=== PATIENT | male | born 1985 | race African-American/Black ===

== ENCOUNTER 2019-06-13 10:29 | Emergency (ER) | payer BC ==
[2019-06-13] MEDS ORDERED: HYDROmorphone 0.5 MG/0.5 ML SYRINGE IVP STA ×2 (11:03→14:25)
[2019-06-13] MEDS ORDERED: ONDANSETRON 4 MG/2 ML VIAL IVP STA (11:03)
[2019-06-13] MEDS ORDERED: SODIUM CHLORIDE 0.9% 1,000 ML IV STA ×2 (11:03→12:15)
[2019-06-13 11:21] LABS: Basophils # (A) 0.1 k/uL (0-0.2); Basophils % (A) 2 %; Eosinophils # (A) 0.3 k/uL (0-0.7); Eosinophils % (A) 7 %; HCT 43.8 % (39.0-53.0); HGB 14.8 gm/dL (13.0-17.5); Lymphocytes % (A) 22 %; MCH 33.3 pg (25.0-35.0); MCHC 33.8 g/dL (31.0-37.0); MCV 98.5 fL (80.0-100.0); Mean Platelet Volume 7.8; Monocytes # (A) 0.4 k/uL (0-1.0); Monocytes % (A) 8 %; Neutrophils # (A) 2.8 k/uL (1.3-7.7); Neutrophils % (A) 60 %; Platelet Count 183 k/uL (150-450); RBC 4.45 m/uL (4.30-5.90); RDW 14.8 % (11.5-15.5); WBC 4.7 k/uL (3.8-10.6)
--- NOTE | 2019-06-13 11:22 | ED ---
Abdominal Pain HPI - General Chief Complaint: Abdominal Pain Stated Complaint: Pancreatitis Time Seen by Provider: 06/13/19 10:35 Source: patient Mode of arrival: ambulatory Limitations: no limitations - History of Present Illness Initial Comments: Patient is a 34-year-old male with history of alcoholism and pancreatitis is presenting to emergency Department with a chief complaint of pancreatitis. Patient reports he was hospitalized 3 times previously for pancreatitis. Patient reports history of alcoholism and was undergoing rehab but has recently restarted drinking again. Patient reports he stopped drinking on Monday and has developed epigastric and right upper quadrant abdominal pain on Monday that is throbbing in nature. Patient is also developed nausea and multiple episodes of vomiting but no hemoptysis. Patient reports the symptoms are very similar to his previous episodes of pancreatitis. Patient reports the pain is exacerbated when laying supine. Patient reports taking [id number] juice minimal improvement. Patient reports poor oral intake over the past 4 days since his symptoms began. Patient reports the pain is not related to oral intake. Patient denies chest pain, chest tightness, shortness of breath. Patient denies urinary or bowel symptoms. Patient denies hematuria, hematochezia or melena. - Related Data Home Medications Medication Instructions Recorded Confirmed Colchicine [Colcrys] 0.6 mg PO DAILY 06/13/19 06/13/19 Multivitamins, Thera [Multivitamin 1 tab PO DAILY 06/13/19 06/13/19 (formulary)] Ranitidine HCl 150 mg PO DAILY 06/13/19 06/13/19 Thiamine HCl [Vitamin B-1] 50 mg PO DAILY 06/13/19 06/13/19 Previous Rx's Medication Instructions Recorded Famotidine [Pepcid] 20 mg PO BID #28 tablet 06/13/19 Ondansetron Odt [Zofran Odt] 4 mg PO Q8HR PRN #10 tab 06/13/19 Pantoprazole Sodium [Protonix] 20 mg PO DAILY #20 tablet. 06/13/19 Allergies Allergy/AdvReac Type Severity Reaction Status Date / Time adhesive tape Allergy Unknown Verified 06/13/19 10:41 codeine Allergy Unknown Verified 06/13/19 10:41 Review of Systems ROS Statement: Those systems with pertinent positive or pertinent negative responses have been documented in the HPI. ROS Other: All systems not noted in ROS Statement are negative. Past Medical History Additional Past Medical History / Comment(s): pancreatitis History of Any Multi-Drug Resistant Organisms: None Reported Past Psychological History: Depression Smoking Status: Current every day smoker Past Alcohol Use History: Abuse, Daily Past Drug Use History: None Reported General Exam Limitations: no limitations General appearance: alert, in no apparent distress Head exam: Present: atraumatic, normocephalic, normal inspection Eye exam: Present: normal appearance, PERRL, EOMI Pupils: Present: normal accommodation ENT exam: Present: normal exam, normal oropharynx, mucous membranes dry, TM's normal bilaterally, normal external ear exam Neck exam: Present: normal inspection, full ROM Respiratory exam: Present: normal lung sounds bilaterally. Absent: respiratory distress, wheezes Cardiovascular Exam: Present: regular rate, normal rhythm, normal heart sounds GI/Abdominal exam: Present: soft, tenderness (Epigastric and right upper quadra nt tenderness), normal bowel sounds, other (Negative psoas sign, negative McBurney point tenderness, negative obturator, negative Rovsing). Absent: distended, guarding, rebound Extremities exam: Present: normal inspection, full ROM Back exam: Present: normal inspection, full ROM. Absent: tenderness, CVA tenderness (R), CVA tenderness (L) Neurological exam: Present: alert, oriented X3 Psychiatric exam: Present: normal affect, normal mood Skin exam: Present: warm, intact, normal color Course Vital Signs 06/13/19 06/13/19 06/13/19 10:31 12:56 15:10 Temperature 98.2 F 98.1 F Pulse Rate 101 H 87 76 Respiratory 18 18 20 Rate Blood Pressure 155/95 166/91 123/56 O2 Sat by Pulse 99 99 98 Oximetry Medical Decision Making - Medical Decision Making patient is a 34-year-old male with history of pancreatitis and alcoholism presents emergency Department with a chief complaint of Abdominal pain. CBC is unremarkable. UA is showing mild elevation acute tones which I suspect is due to the dehydration. Patient given 2 L of fluid. No elevation of lipase but amylase appears to be elevated. AST and ALT elevation with 2:1 ratio. At this point I have low suspicion for pancreatitis. Ultrasound of the right upper quadrant is indicative of hepatosplenomegaly secondary to a fatty liver. I suspect the patient to have elevated liver enzymes chronically due to alcoholism. Patient given Dilaudid for pain control. Patient given Zofran and the nausea has resolved. Patient will be discharged Zofran, Pepcid and Protonix. Suspect the patient to have the pain from a possible gastritis or secondary to the hepatomegaly. Strict return parameters were thoroughly discussed the patient was understanding and agreeable. Patient was to follow-up with primary care regarding elevated liver enzymes. Patient advised to avoid drinking alcohol. Case discussed with physician. - Lab Data Result diagrams: 06/13/19 11:05 06/13/19 11:05 Lab Results 06/13/19 06/13/19 06/13/19 Range/Units 11:05 11:05 11:10 WBC 4.7 (3.8-10.6) k/uL RBC 4.45 (4.30-5.90) m/uL Hgb 14.8 (13.0-17.5) gm/dL Hct 43.8 (39.0-53.0) % MCV 98.5 (80.0-100.0) fL MCH 33.3 (25.0-35.0) pg MCHC 33.8 (31.0-37.0) g/dL RDW 14.8 (11.5-15.5) % Plt Count 183 (150-450) k/uL Neutrophils % 60 % Lymphocytes % 22 % Monocytes % 8 % Eosinophils % 7 % Basophils % 2 % Neutrophils # 2.8 (1.3-7.7) k/uL Lymphocytes # 1.0 (1.0-4.8) k/uL Monocytes # 0.4 (0-1.0) k/uL Eosinophils # 0.3 (0-0.7) k/uL Basophils # 0.1 (0-0.2) k/uL Sodium 139 (137-145) mmol/L Potassium 3.1 L (3.5-5.1) mmol/L Chloride 99 (98-107) mmol/L Carbon Dioxide 29 (22-30) mmol/L Anion Gap 11 mmol/L BUN 12 (9-20) mg/dL Creatinine 0.90 (0.66-1.25) mg/dL Est GFR (CKD-EPI)AfAm >90 (>60 ml/min/1.73 sqM) Est GFR (CKD-EPI)NonAf >90 (>60 ml/min/1.73 sqM) Glucose 112 H (74-99) mg/dL Calcium 9.7 (8.4-10.2) mg/dL Total Bilirubin 1.5 H (0.2-1.3) mg/dL AST 377 H (17-59) U/L ALT 164 H (21-72) U/L Alkaline Phosphatase 77 (38-126) U/L Total Protein 7.8 (6.3-8.2) g/dL Albumin 4.5 (3.5-5.0) g/dL Amylase 188 H (30-110) U/L Lipase 232 (23-300) U/L Urine Color Light [place] Urine Appearance Clear (Clear) Urine pH 6.0 (5.0-8.0) Ur Specific [place] 1.031 (1.001-1.035) Urine Protein 1+ H (Negative) Urine Glucose (UA) Negative (Negative) Urine Ketones 1+ H (Negative) Urine Blood Negative (Negative) Urine Nitrite Negative (Negative) Urine Bilirubin 1+ H (Negative) Urine Urobilinogen 3.0 (<2.0) mg/dL Ur Leukocyte Esterase Negative (Negative) Urine RBC <1 (0-5) /hpf Urine WBC 1 (0-5) /hpf Urine Mucus Few H (None) /hpf Disposition Clinical Impression: Abdominal pain in male Disposition: HOME SELF-CARE Condition: Stable Instructions (If sedation given, give patient instructions): Abdominal Pain (ED) Additional Instructions: Please take prescribed medication as directed. Please follow-up with primary care regarding elevated liver enzymes. Please return to emergency department if symptoms worsen. Please avoid drinking alcohol. Prescriptions: Famotidine [Pepcid] 20 mg PO BID #28 tablet Pantoprazole Sodium [Protonix] 20 mg PO DAILY #20 tablet. Ondansetron Odt [Zofran Odt] 4 mg PO Q8HR PRN #10 tab PRN Reason: Nausea Is patient prescribed a controlled substance at d/c from ED?: No Referrals: None,Stated [Primary Care Provider] - 1-2 days Time of Disposition: 14:26
[2019-06-13 11:28] LABS: ALT 164 U/L (21-72); AST 377 U/L (17-59); African American GFR (CKD) >90 (>60 ml/min/1.73 sqM); Albumin 4.5 g/dL (3.5-5.0); Alkaline Phosphatase 77 U/L (38-126); Amylase 188 U/L (30-110); Anion Gap 11 mmol/L; Blood Urea Nitrogen 12 mg/dL (9-20); Calcium 9.7 mg/dL (8.4-10.2); Carbon Dioxide 29 mmol/L (22-30); Chloride 99 mmol/L (98-107); Glucose 112 mg/dL (74-99); Potassium 3.1 mmol/L (3.5-5.1); Sodium 139 mmol/L (137-145); Total Bilirubin 1.5 mg/dL (0.2-1.3); Total Protein 7.8 g/dL (6.3-8.2)
[2019-06-13 11:39] LABS: Appearance,Urine Clear (Clear); Bilirubin,Urine 1+ (Negative); Blood,Urine Negative (Negative); Color,Urine Light Orange; Glucose,Urine (UA) Negative (Negative); Ketones,Urine 1+ (Negative); Leukocyte Esterase,Urine Negative (Negative); Mucus,Urine Few /hpf; Nitrite,Urine Negative (Negative); Protein,Urine 1+ (Negative); RBC,Urine <1 /hpf (0-5); Specific Gravity,Urine 1.031 (1.001-1.035); WBC,Urine 1 /hpf (0-5)
--- NOTE | 2019-06-13 11:56 | XR ---
EXAMINATION TYPE: XR KUB DATE OF EXAM: 06/13/2019 COMPARISON: None INDICATION: Abdomen pain vomiting pancreatitis TECHNIQUE: Single view abdomen upright view FINDINGS: Nonspecific bowel gas is present. Air is within the colon. No suspicious air-fluid levels or differen tial air-fluid levels are present. No free air is present. No mass effect is evident. Organomegaly is not evident. IMPRESSION: 1. Unremarkable Abdomen
--- NOTE | 2019-06-13 13:02 | US ---
EXAMINATION TYPE: US abdomen limited DATE OF EXAM: 06/13/2019 COMPARISON: NONE CLINICAL HISTORY: Pain. Epigastric pain and N/V x 3 days EXAM MEASUREMENTS: Liver Length: 16.9 cm Gallbladder Wall: 0.2 cm CBD: 0.4 cm Right Kidney: 10.5 x 5.2 x 5.6 cm Difficult and limited study due to patient body habitus Pancreas: visualized portions wnl, limited by overlying midline bowel gas Liver: mildly heterogeneous Gallbladder: wnl Evidence for sonographic Ross's sign: no CBD: visualized portions wnl, limited by overlying bowel gas Right Kidney: visualized portions wnl, inferior pole limited by overlying bowel gas IMPRESSION: 1. Hepatomegaly and mild fatty infiltration the liver.
[2019-06-13 15:24] VITALS: BP 123/56; PULSE 76; RESP 20; TEMP 98.1
== END 2019-06-13 15:10 | disposition home or self-care (01) ==
LOC: EC 10:29
DX: R10.11 Right upper quadrant pain (principal); R74.0 Nonspecific elevation of levels of transaminase and lactic acid dehydrogenase [LDH]; K76.0 Fatty (change of) liver, not elsewhere classified; R16.2 Hepatomegaly with splenomegaly, not elsewhere classified; F10.21 Alcohol dependence, in remission; R11.2 Nausea with vomiting, unspecified; F17.200 Nicotine dependence, unspecified, uncomplicated; Z88.5 Allergy status to narcotic agent; Z91.048 Other nonmedicinal substance allergy status; Z79.899 Other long term (current) drug therapy; Z87.19 Personal history of other diseases of the digestive system
CPT/HCPCS: 36415; 80053; 82150; 83690; 85025; 81001; 74018; 76705; 99284; 96374; 96375; 96376; 96361 ×4; J2405; J1170

== ENCOUNTER 2019-10-13 05:55 | Observation (INO) | payer BC ==
[2019-10-13] MEDS ORDERED: SODIUM CHLORIDE 0.9% 2,000 ML IV STA (06:03)
[2019-10-13] MEDS ORDERED: HYDROmorphone 0.5 MG/0.5 ML SYRINGE IVP STA ×2 (06:13→07:15)
[2019-10-13] MEDS ORDERED: ONDANSETRON 4 MG/2 ML VIAL IVP STA (06:13)
[2019-10-13] MEDS ORDERED: KETOROLAC 30 MG/ML 1 ML VIAL IVP STA (06:13)
--- NOTE | 2019-10-13 06:21 | ED ---
General Adult HPI - General Chief complaint: Abdominal Pain Stated complaint: Pancreatits Time Seen by Provider: 10/13/19 06:03 Source: patient, RN notes reviewed Mode of arrival: ambulatory Limitations: no limitations - History of Present Illness Initial comments: 34-year-old male presents emergency Department with chief complaint of Abdominal pain, nausea vomiting. Patient states she drink alcohol on . Patient states that he was sober prior to this states that he has a history of pancreatitis. Patient states the pain feels very similar he's been fighting that over the last couple days, she cannot tolerate the pain and vomiting anymore. Patient denies fever, chills, chest pain or shortness breath no diarrhea no constipation no dysuria no hematuria. Patient had no prior abdominal surgeries. - Related Data Home Medications Medication Instructions Recorded Confirmed Colchicine [Colcrys] 0.6 mg PO DAILY 06/13/19 06/13/19 Multivitamins, Thera [Multivitamin 1 tab PO DAILY 06/13/19 06/13/19 (formulary)] Ranitidine HCl 150 mg PO DAILY 06/13/19 06/13/19 Thiamine HCl [Vitamin B-1] 50 mg PO DAILY 06/13/19 06/13/19 Previous Rx's Medication Instructions Recorded Famotidine [Pepcid] 20 mg PO BID #28 tablet 06/13/19 Ondansetron Odt [Zofran Odt] 4 mg PO Q8HR PRN #10 tab 06/13/19 Pantoprazole Sodium [Protonix] 20 mg PO DAILY #20 tablet. 06/13/19 Allergies Allergy/AdvReac Type Severity Reaction Status Date / Time adhesive tape Allergy Unknown Verified 10/13/19 06:02 codeine Allergy Unknown Verified 10/13/19 06:02 Review of Systems ROS Statement: Those systems with pertinent positive or pertinent negative responses have been documented in the HPI. ROS Other: All systems not noted in ROS Statement are negative. Past Medical History Additional Past Medical History / Comment(s): pancreatitis History of Any Multi-Drug Resistant Organisms: None Reported Past Psychological History: Depression Smoking Status: Current every day smoker Past Alcohol Use History: Abuse, Daily Past Drug Use History: None Reported General Exam Limitations: no limitations General appearance: alert, in no apparent distress Head exam: Present: atraumatic, normocephalic, normal inspection Eye exam: Present: normal appearance, PERRL, EOMI. Absent: scleral icterus, conjunctival injection, periorbital swelling ENT exam: Present: normal exam, normal oropharynx, mucous membranes moist Neck exam: Present: normal inspection. Absent: tenderness, meningismus, lymphadenopathy Respiratory exam: Present: normal lung sounds bilaterally. Absent: respiratory distress, wheezes, rales, rhonchi, stridor Cardiovascular Exam: Present: normal rhythm, tachycardia, normal heart sounds. Absent: systolic murmur, diastolic murmur, rubs, gallop, clicks GI/Abdominal exam: Present: soft, tenderness (Midabdominal to right-sided abdominal tenderness), normal bowel sounds. Absent: distended, guarding, rebound, rigid Back exam: Absent: CVA tenderness (R), CVA tenderness (L) Neurological exam: Present: alert, oriented X3 Skin exam: Present: warm, dry, intact, normal color. Absent: rash Course Vital Signs 10/13/19 06:00 Temperature 98.3 F Pulse Rate 117 H Respiratory 20 Rate Blood Pressure 164/94 O2 Sat by Pulse 100 Oximetry Medical Decision Making - Medical Decision Making Patient'ss, amylase lipase along with his liver enzymes are elevated this time ultrasound is unremarkable. Patient's pain is uncontrolled, does have continuation of nausea. Patient will be admitted for acute pancreatitis. - Lab Data Result diagrams: 10/13/19 06:13 10/13/19 06:13 Lab Results 10/13/19 10/13/19 10/13/19 Range/Units 06:13 06:13 06:13 WBC 6.3 (3.8-10.6) k/uL RBC 4.79 (4.30-5.90) m/uL Hgb 16.1 (13.0-17.5) gm/dL Hct 46.9 (39.0-53.0) % MCV 97.8 (80.0-100.0) fL MCH 33.5 (25.0-35.0) pg MCHC 34.3 (31.0-37.0) g/dL RDW 12.9 (11.5-15.5) % Plt Count 296 (150-450) k/uL Neutrophils % 60 % Lymphocytes % 24 % Monocytes % 8 % Eosinophils % 3 % Basophils % 3 % Neutrophils # 3.8 (1.3-7.7) k/uL Lymphocytes # 1.5 (1.0-4.8) k/uL Monocytes # 0.5 (0-1.0) k/uL Eosinophils # 0.2 (0-0.7) k/uL Basophils # 0.2 (0-0.2) k/uL Sodium 140 (137-145) mmol/L Potassium 3.3 L (3.5-5.1) mmol/L Chloride 101 (98-107) mmol/L Carbon Dioxide 24 (22-30) mmol/L Anion Gap 15 mmol/L BUN 11 (9-20) mg/dL Creatinine 1.06 (0.66-1.25) mg/dL Est GFR (CKD-EPI)AfAm >90 (>60 ml/min/1.73 sqM) Est GFR (CKD-EPI)NonAf >90 (>60 ml/min/1.73 sqM) Glucose 136 H (74-99) mg/dL Calcium 10.5 H (8.4-10.2) mg/dL Total Bilirubin 2.6 H (0.2-1.3) mg/dL AST 88 H (17-59) U/L ALT 52 H (4-49) U/L Alkaline Phosphatase 127 H (38-126) U/L Total Protein 9.5 H (6.3-8.2) g/dL Albumin 5.1 H (3.5-5.0) g/dL Amylase 165 H (30-110) U/L Lipase 603 H (23-300) U/L Urine Color Light [place] Urine Appearance Clear (Clear) Urine pH 6.0 (5.0-8.0) Ur Specific [place] 1.035 (1.001-1.035) Urine Protein 1+ H (Negative) Urine Glucose (UA) Negative (Negative) Urine Ketones 1+ H (Negative) Urine Blood Negative (Negative) Urine Nitrite Negative (Negative) Urine Bilirubin 1+ H (Negative) Urine Urobilinogen 4.0 (<2.0) mg/dL Ur Leukocyte Esterase Negative (Negative) Urine RBC 1 (0-5) /hpf Urine WBC 2 (0-5) /hpf Ur Squamous Epith Cells <1 (0-4) /hpf Hyaline Casts 136 H (0-2) /lpf Urine Mucus Many H (None) /hpf Disposition Clinical Impression: Acute pancreatitis, Transaminitis, Hyperbilirubinemia Disposition: ADMITTED IP TO THIS HOSP Condition: Fair Referrals: None,Stated [Primary Care Provider] - 1-2 days
[2019-10-13 06:26] LABS: Basophils # (A) 0.2 k/uL (0-0.2); Basophils % (A) 3 %; Eosinophils # (A) 0.2 k/uL (0-0.7); Eosinophils % (A) 3 %; HCT 46.9 % (39.0-53.0); HGB 16.1 gm/dL (13.0-17.5); Lymphocytes # (A) 1.5 k/uL (1.0-4.8); Lymphocytes % (A) 24 %; MCH 33.5 pg (25.0-35.0); MCHC 34.3 g/dL (31.0-37.0); MCV 97.8 fL (80.0-100.0); Mean Platelet Volume 7.1; Monocytes # (A) 0.5 k/uL (0-1.0); Monocytes % (A) 8 %; Neutrophils # (A) 3.8 k/uL (1.3-7.7); Neutrophils % (A) 60 %; Platelet Count 296 k/uL (150-450); RBC 4.79 m/uL (4.30-5.90); RDW 12.9 % (11.5-15.5); WBC 6.3 k/uL (3.8-10.6)
[2019-10-13 06:28] LABS: Appearance,Urine Clear (Clear); Bilirubin,Urine 1+ (Negative); Blood,Urine Negative (Negative); Color,Urine Light Brown; Glucose,Urine (UA) Negative (Negative); Hyaline Casts,Urine 136 /lpf (0-2); Ketones,Urine 1+ (Negative); Leukocyte Esterase,Urine Negative (Negative); Mucus,Urine Many /hpf; Nitrite,Urine Negative (Negative); Protein,Urine 1+ (Negative); RBC,Urine 1 /hpf (0-5); Specific Gravity,Urine 1.035 (1.001-1.035); Squamous Epithelial Cell,Urine <1 /hpf (0-4); WBC,Urine 2 /hpf (0-5)
[2019-10-13 06:33] LABS: ALT 52 U/L (4-49); AST 88 U/L (17-59); African American GFR (CKD) >90 (>60 ml/min/1.73 sqM); Albumin 5.1 g/dL (3.5-5.0); Alkaline Phosphatase 127 U/L (38-126); Amylase 165 U/L (30-110); Anion Gap 15 mmol/L; Blood Urea Nitrogen 11 mg/dL (9-20); Calcium 10.5 mg/dL (8.4-10.2); Carbon Dioxide 24 mmol/L (22-30); Chloride 101 mmol/L (98-107); Glucose 136 mg/dL (74-99); Non-African American GFR(CKD) >90 (>60 ml/min/1.73 sqM); Potassium 3.3 mmol/L (3.5-5.1); Sodium 140 mmol/L (137-145); Total Bilirubin 2.6 mg/dL (0.2-1.3); Total Protein 9.5 g/dL (6.3-8.2)
--- NOTE | 2019-10-13 07:39 | US ---
EXAMINATION TYPE: US gallbladder DATE OF EXAM: 10/13/2019 COMPARISON: Previous study dated 06/13/2019. CLINICAL HISTORY: pain, transaminitis. EXAM MEASUREMENTS: Liver Length: 17.0 cm Gallbladder Wall: 0.2 cm CBD: 0.3 cm Right Kidney: 10.2 x 5.1 x 5.0 cm Large body habitus, technically difficult and somewhat limited study. Pancreas: Tail obscured by overlying bowel gas, otherwise wnl Liver: Increased attenuation, decreased visualization of vessels suggestive of fatty infiltrate, upp er limits of normal in size Gallbladder: wnl Evidence for sonographic Ross's sign: No CBD: limited visualization wnl as seen Right Kidney: Inferior pole obscured by overlying bowel gas, wnl as seen The pancreas is poorly visualized. The liver is normal in size without biliary dilatation. It is somewhat high in attenuation and may be fatty infiltrated. The gallbladder is unremarkable without evidence cholelithiasis. The gallbladder wall measures 2 mm. This common hepatic duct measures 3 mm. There is no sonographic Ross's sign. Limited views of the right kidney are unremarkable. IMPRESSION: PROBABLE FATTY INFILTRATION OF THE LIVER.
[2019-10-13] MEDS ORDERED: METOCLOPRAMIDE 5 MG/ML 2 ML VIAL IVP STA (07:44)
[2019-10-13] MEDS ORDERED: HYDROmorphone 0.5 MG/0.5 ML SYRINGE IVP PRN (07:47)
[2019-10-13] MEDS ORDERED: NALOXONE 0.4 MG/ML 1 ML VIAL IV PRN (07:47)
[2019-10-13] MEDS: SODIUM CHLORIDE 0.9% 1,000 ML IV SCH ×2 (08:31→17:50)
[2019-10-13] MEDS ORDERED: HYDROmorphone 1 MG/ML 1 ML SYRINGE IVP STA (09:59)
[2019-10-13] MEDS: HYDROmorphone 1 MG/ML 1 ML SYRINGE IVP PRN ×4 (12:38→21:30)
[2019-10-13] MEDS: KETOROLAC 30 MG/ML 1 ML VIAL IVP PRN ×2 (13:56→20:06)
[2019-10-13] MEDS: ONDANSETRON 4 MG/2 ML VIAL IVP PRN (13:56)
[2019-10-13] MEDS ORDERED: Potassium Replacement Protocol 1 EACH MISC MISCELLANE PRN (14:27)
[2019-10-13] MEDS ORDERED: ACETAMINOPHEN TAB 325 MG TAB PO PRN (14:29)
[2019-10-13] MEDS ORDERED: HYDROcodone/APAP 5-325MG 1 EACH TAB PO PRN (14:29)
--- NOTE | 2019-10-13 14:30 | P.HPIM ---
History of Present Illness H&P Date: 10/13/19 Chief Complaint: Pancreatitis 34-year-old male with PMH of pancreatitis and history of alcohol abuse presents the ED for abdominal pain. She states that he was binge drinking on Monday and . Patient states he drank about a fifth of hard liquor. Previous to that, he had quit drinking for 4 months. Patient states that he has been a daily drinker for many years until he quit 4 months ago. He drinks 2 pints of vodka daily. Patient states that he was diagnosed with pancreatitis from similar symptoms one year prior to admission. Pain is currently located in the epigastric area. Pain is constant in nature. Pain is stabbing and radiates to the back. Pain is 9 out of 10 in severity. Patient also reports multiple episodes of nonbilious nonbloody vomiting since his pain started on Monday. When his pain did not improve, this prompted him to come to the ED. He denies any headache, lower extremity edema, fever or chills, cough, chest pain, shortness of breath, changes in urination or bowel habits. He does report a decrease appetite. He denies any dizziness, numbness/weakness/tingling of the extremities. In the ED, he underwent extensive evaluation. Vital signs were stable except for tachycardia and elevated BP. CBC was unremarkable. CMP sh owed potassium of 3.3, glucose 136, calcium 10.5, total bilirubin 2.6, AST 88, ALT 52, alkaline phosphatase 127, amylase 165, lipase 603. Gallbladder ultrasound showed no signs of choledocholithiasis or cholecystitis. Patient is admitted for pancreatitis. Review of Systems Pertinent positives and negatives as discussed in HPI, a complete review of sy stems was performed and all other systems are negative. Past Medical History Additional Past Medical History / Comment(s): pancreatitis, gout. History of Any Multi-Drug Resistant Organisms: None Reported Additional Past Surgical History / Comment(s): tubes in ears Past Anesthesia/Blood Transfusion Reactions: No Reported Reaction Past Psychological History: Depression Smoking Status: Current every day smoker Past Alcohol Use History: Abuse, Daily Past Drug Use History: None Reported - Past Family History Father History Unknown: Yes Mother Family Medical History: Diabetes Mellitus Medications and Allergies Home Medications Medication Instructions Recorded Confirmed Type Colchicine 0.6 mg PO DAILY PRN 10/13/19 10/13/19 History FLUoxetine HCL 40 mg PO DAILY 10/13/19 10/13/19 History hydrOXYzine HCL [Atarax] 25 mg PO TID 10/13/19 10/13/19 History Allergies Allergy/AdvReac Type Severity Reaction Status Date / Time adhesive tape Allergy Unknown Verified 10/13/19 09:25 codeine Allergy Unknown Verified 10/13/19 09:25 Physical Exam Vitals: Vital Signs Temp Pulse Pulse Resp BP BP Pulse Ox 10/13/19 09:27 98.3 F 76 18 157/80 98 10/13/19 08:28 98.4 F 95 18 136/98 98 10/13/19 06:00 98.3 F 117 H 20 164/94 100 Intake and Output 10/12/19 10/13/19 10/13/19 22:59 06:59 14:59 Other: Weight 140.614 kg 140.614 kg General: [non toxic], [no distress], [appears at stated age] Derm: [warm], [dry] Head: [atraumatic], [normocephalic], [symmetric] Eyes: [EOMI], [no lid lag], [anicteric sclera] Mouth: [no lip lesion], [mucus membranes moist] Cardiovascular: [S1S2 reg], [no murmur], [positive posterior tibial pulse bilateral], Lungs: [CTA bilateral], [no rhonchi, no rales] , [no accessory muscle use] Abdominal: [soft], [tenderness to palpation in the epigastric area without rebound], [no guarding], [no appreciable organomegaly] Ext: [no gross muscle atrophy], [no edema], [no contractures] Neuro: [ CN II-XI grossly intact], [no focal neuro deficits] Psych: [Alert], [oriented], [appropriate affect] Results CBC & Chem 7: 10/13/19 06:13 10/13/19 06:13 Labs: Abnormal Lab Results - Last 24 Hours (Table) 10/13/19 10/13/19 Range/Units 06:13 06:13 Potassium 3.3 L (3.5-5.1) mmol/L Glucose 136 H (74-99) mg/dL Calcium 10.5 H (8.4-10.2) mg/dL Total Bilirubin 2.6 H (0.2-1.3) mg/dL AST 88 H (17-59) U/L ALT 52 H (4-49) U/L Alkaline Phosphatase 127 H (38-126) U/L Total Protein 9.5 H (6.3-8.2) g/dL Albumin 5.1 H (3.5-5.0) g/dL Amylase 165 H (30-110) U/L Lipase 603 H (23-300) U/L Urine Protein 1+ H (Negative) Urine Ketones 1+ H (Negative) Urine Bilirubin 1+ H (Negative) Hyaline Casts 136 H (0-2) /lpf Urine Mucus Many H (None) /hpf Thrombosis Risk Factor Assmnt - Choose All That Apply Any of the Below Risk Factors Present?: No Assessment and Plan Assessment: Acute pancreatitis History of alcohol abuse Elevated BP without the diagnosis of hypertension Hypokalemia Transaminitis Amylase 165, lipase 603. Likely related to alcohol abuse. Plans: Nothing by mouth. Zofran as needed for nausea or vomiting. Continue normal saline at 100 mL/h. Pain control with Dilaudid as needed. Repeat amylase and lipase tomorrow morning. Patient states that he had quit for 4 months prior to binge drinking on Monday and . Low risk for withdrawal symptoms. Plans: Advised to quit. Blood pressure 157/80. Likely due to acute pain. Plans: Monitor vitals, adjust medications as necessary. Potassium 3.3. Plans: Replace via protocol. Repeat CMP tomorrow morning. Total bilirubin 2.6, AST 88, ALT 52, alkaline phosphatase 127. Gallbladder ultrasound shows fatty liver. Likely due to alcohol abuse. Plans: Needs to quit drinking. Repeat CMP tomorrow morning. DVT prophylaxis: [SCD boots] Discussed with: [Patient] Anticipated discharge: [1-2 days] Anticipated discharge place: [Home] A total of [35] minutes was spent on the care of this complex patient more than 50% of the time was spent in counseling and care coordination. Patient is admitted for pancreatitis. He is pending clinical improvement.
[2019-10-14] MEDS: HYDROmorphone 1 MG/ML 1 ML SYRINGE IVP PRN ×3 (00:23→05:44)
[2019-10-14] MEDS: ONDANSETRON 4 MG/2 ML VIAL IVP PRN ×2 (03:17→09:06)
[2019-10-14] MEDS: SODIUM CHLORIDE 0.9% 1,000 ML IV SCH ×2 (04:36→14:19)
[2019-10-14 05:19] VITALS: TEMP 99.4
[2019-10-14 08:15] LABS: ALT 36 U/L (4-49); AST 60 U/L (17-59); African American GFR (CKD) >90 (>60 ml/min/1.73 sqM); Albumin 3.9 g/dL (3.5-5.0); Alkaline Phosphatase 84 U/L (38-126); Amylase 97 U/L (30-110); Anion Gap 10 mmol/L; Blood Urea Nitrogen 7 mg/dL (9-20); Calcium 9.1 mg/dL (8.4-10.2); Carbon Dioxide 24 mmol/L (22-30); Chloride 107 mmol/L (98-107); Glucose 92 mg/dL (74-99); Non-African American GFR(CKD) >90 (>60 ml/min/1.73 sqM); Potassium 3.6 mmol/L (3.5-5.1); Sodium 141 mmol/L (137-145); Total Bilirubin 1.7 mg/dL (0.2-1.3); Total Protein 7.3 g/dL (6.3-8.2)
[2019-10-14] MEDS: KETOROLAC 30 MG/ML 1 ML VIAL IVP PRN (09:05)
[2019-10-14 12:53] VITALS: BP 143/81; PULSE 88; RESP 16
--- NOTE | 2019-10-14 14:39 | P.DS ---
Providers Date of admission: 10/13/19 07:47 Expected date of discharge: 10/14/19 Attending physician: Bro Sun MD Primary care physician: Stated None Hospital Course: 34-year-old male with PMH of pancreatitis and history of alcohol abuse presents the ED for abdominal pain. She states that he was binge drinking on Monday and . Patient states he drank about a fifth of hard liquor. Previous to that, he had quit drinking for 4 months. Patient states that he has been a daily drinker for many years until he quit 4 months ago. He drinks 2 pints of vodka daily. Patient states that he was diagnosed with pancreatitis from similar symptoms one year prior to admission. Pain is currently located in the epigastric area. Pain is constant in nature. Pain is stabbing and radiates to the back. Pain is 9 out of 10 in severity. Patient also reports multiple episodes of nonbilious nonbloody vomiting since his pain started on Monday. When his pain did not improve, this prompted him to come to the ED. He denies a ny headache, lower extremity edema, fever or chills, cough, chest pain, shortness of breath, changes in urination or bowel habits. He does report a decrease appetite. He denies any dizziness, numbness/weakness/tingling of the extremities. In the ED, he underwent extensive evaluation. Vital signs were stable except for tachycardia and elevated BP. CBC was unremarkable. CMP showed potassium of 3.3, glucose 136, calcium 10.5, total bilirubin 2.6, AST 88, ALT 52, alkaline phosphatase 127, amylase 165, lipase 603. Gallbladder ultrasound showed no signs of choledocholithiasis or cholecystitis. Patient is admitted for pancreatitis. His amylase trended down to 97. Her lipase trended down to 405. He was transitioned from clear liquid diet to regular diet. He was given Zofran as a for nausea or vomiting. He was given normal saline at 100 mL/h. Pain was controlled with Dilaudid as needed. Patient was noted to have an elevated BP on admission. This is thought to be secondary to abdominal pain. Pain was well-controlled throughout his admission. His blood pressure on discharge was 143/81. Patient was seen and examined. No acute events overnight. Patient denies any complaints. He denies any chest pain, shortness of breath or palpitations. No nausea or vomiting. No fever or chills. No abdominal pain. General: [non toxic], [no distress], [appears at stated age] Derm: [warm], [dry] Head: [atraumatic], [normocephalic], [symmetric] Eyes: [EOMI], [no lid lag], [anicteric sclera] Mouth: [no lip lesion], [mucus membranes moist] Cardiovascular: [S1S2 reg], [no murmur], [positive posterior tibial pulse bilateral], Lungs: [CTA bilateral], [no rhonchi, no rales] , [no accessory muscle use] Abdominal: [soft], [nontender to palpation], [no guarding], [no appreciable organomegaly] Ext: [no gross muscle atrophy], [no edema], [no contractures] Neuro: [ CN II-XI grossly intact], [no focal neuro deficits] Psych: [Alert], [oriented], [appropriate affect] Acute pancreatitis History of alcohol abuse Elevated BP without the diagnosis of hypertension Transaminitis Amylase 165-within normal limits, lipase 603-45. Likely related to alcohol abuse. Plans: Clear liquid diet and advance. Zofran as needed for nausea or vomiting. Continue normal saline at 100 mL/h. Pain control with Dilaudid or Toradol as needed. Patient states that he had quit for 4 months prior to binge drinking on Monday and . Low risk for withdrawal symptoms. Plans: Advised to quit. Blood pressure 143/81. Likely due to acute pain. Plans: Monitor vitals, adjust medications as necessary. Total bilirubin 2.6-1.7, AST 88-60, ALT 52-within normal limits, alkaline phosphatase 127-within normal limits. Gallbladder ultrasound shows fatty liver. Likely due to alcohol abuse. Plans: Needs to quit drinking. [Plans to DC patient home if able to tolerate regular diet this afternoon.] Pertinent Studies: Gallbladder ultrasound Patient Condition at Discharge: Stable Plan - Discharge Summary Discharge Rx Participant: No New Discharge Prescriptions: New Hydrocodone/Acetaminophen [[place] 5-325] 1 tab PO Q4HR PRN 3 Days #18 tab PRN Reason: Pain Continue hydrOXYzine HCL [Atarax] 25 mg PO TID FLUoxetine HCL 40 mg PO DAILY Colchicine 0.6 mg PO DAILY PRN PRN Reason: Pain Discharge Medication List Colchicine 0.6 mg PO DAILY PRN 10/13/19 [History] FLUoxetine HCL 40 mg PO DAILY 10/13/19 [History] hydrOXYzine HCL [Atarax] 25 mg PO TID 10/13/19 [History] Hydrocodone/Acetaminophen [[place] 5-325] 1 tab PO Q4HR PRN 3 Days #18 tab 10/14/19 [Rx] Follow up Appointment(s)/Referral(s): None,Stated [Primary Care Provider] - 1-2 days Activity/Diet/Wound Care/Special Instructions: Diet: Low-salt Follow-up PCP within 3 days. Quit drinking. Discharge Disposition: HOME SELF-CARE
== END 2019-10-14 15:20 | disposition home or self-care (01) ==
LOC: EC 05:55 → 6NMEDSUR 07:47
PROVIDERS: ADMIT Family Medicine; ATTEND Family Medicine
DX: K85.90 Acute pancreatitis without necrosis or infection, unspecified (principal); F10.10 Alcohol abuse, uncomplicated; R74.0 Nonspecific elevation of levels of transaminase and lactic acid dehydrogenase [LDH]; R03.0 Elevated blood-pressure reading, without diagnosis of hypertension; K76.0 Fatty (change of) liver, not elsewhere classified; E87.6 Hypokalemia; M10.9 Gout, unspecified; F32.9 Major depressive disorder, single episode, unspecified; F17.200 Nicotine dependence, unspecified, uncomplicated; Z87.19 Personal history of other diseases of the digestive system; Z98.890 Other specified postprocedural states; Z79.899 Other long term (current) drug therapy; Z91.09 Other allergy status, other than to drugs and biological substances; Z88.5 Allergy status to narcotic agent
CPT/HCPCS: 96376 ×3; 96361 ×3; 96374; 96375; 99285; 36415; 80053 ×2; 82150 ×2; 83690 ×2; 85025; 81001; 76705; G0378 ×2; J2765; J2405 ×2; J1885 ×2; J1170 ×3

== ENCOUNTER 2019-11-08 19:20 | Emergency (ER) | payer BC ==
[2019-11-08 19:27] VITALS: TEMP 98.5
[2019-11-08] MEDS ORDERED: KETOROLAC 30 MG/ML 1 ML VIAL IM STA (20:20)
[2019-11-08] MEDS ORDERED: INDOMETHACIN 25 MG CAP PO STA (20:22)
[2019-11-08] MEDS ORDERED: HYDROcodone/APAP 5-325MG 1 EACH TAB PO STA (20:22)
--- NOTE | 2019-11-08 20:40 | XR ---
EXAMINATION TYPE: XR ankle complete RT DATE OF EXAM: 11/08/2019 COMPARISON: NONE HISTORY: Pain and swelling TECHNIQUE: 3 views FINDINGS: Ankle mortise is anatomic. I see no fracture nor dislocation. Joint spaces are normal. Ther e is small Achilles calcaneal spur. IMPRESSION: Negative right ankle exam.
--- NOTE | 2019-11-08 20:55 | ED ---
Extremity Problem HPI - General Source: patient Mode of arrival: ambulatory Limitations: no limitations <Margo Summers - Last Filed: 11/08/19 23:29> <Blanca Fernandez - Last Filed: 11/13/19 15:30> - General Chief complaint: Extremity Problem,Nontraumatic Stated complaint: Gout Time Seen by Provider: 11/08/19 19:49 - History of Present Illness Initial comments: 34-year-old male patient presents to the emergency department today for evaluation of right ankle pain. Patient states the pain started yesterday that worsened significantly today. Patient states he is unable to touch the ankle or bear weight. States that his pain feels similar to when he has had gout in the past. He has had in the toes but never an ankle before. Denies any known injury. Denies taking any medication for his symptoms. Patient has known history of alcohol dependence, he has not had alcohol for the last 3 weeks. He does take a gout medication but is unsure what the name of it is. Denies any fever or chills. Denies any nausea or vomiting. Patient denies any recent rash, shortness breath, chest pain, abdominal pain, diarrhea, constipation, back pain, numbness, tingling, dizziness, weakness, hematuria, dysuria, urinary urgency, urinary frequency, headache, visual changes, or any other complaints. (Margo Summers) - Related Data Home Medications Medication Instructions Recorded Confirmed Colchicine 0.6 mg PO DAILY PRN 10/13/19 10/13/19 FLUoxetine HCL 40 mg PO DAILY 10/13/19 10/13/19 hydrOXYzine HCL [Atarax] 25 mg PO TID 10/13/19 10/13/19 Previous Rx's Medication Instructions Recorded Hydrocodone/Acetaminophen [[place] 1 tab PO Q4HR PRN 3 Days #18 tab 10/14/19 5-325] Indomethacin [Indocin] 50 mg PO TID #15 capsule 11/08/19 Allergies Allergy/AdvReac Type Severity Reaction Status Date / Time adhesive tape Allergy Unknown Verified 11/08/19 19:27 codeine Allergy Unknown Verified 11/08/19 19:27 Review of Systems ROS Other: All systems not noted in ROS Statement are negative. <Margo Summers - Last Filed: 11/08/19 23:29> ROS Other: All systems not noted in ROS Statement are negative. <Blanca Fernandez - Last Filed: 11/13/19 15:30> ROS Statement: Those systems with pertinent positive or pertinent negative responses have been documented in the HPI. Past Medical History Additional Past Medical History / Comment(s): pancreatitis, gout. History of Any Multi-Drug Resistant Organisms: None Reported Additional Past Surgical History / Comment(s): tubes in ears Past Anesthesia/Blood Transfusion Reactions: No Reported Reaction Past Psychological History: Depression Smoking Status: Current every day smoker Past Alcohol Use History: Abuse, Daily Past Drug Use History: None Reported - Past Family History Father History Unknown: Yes Mother Family Medical History: Diabetes Mellitus <Margo Summers - Last Filed: 11/08/19 23:29> General Exam Limitations: no limitations General appearance: alert, in no apparent distress, other (This is a well- developed, well-nourished adult male patient in no acute distress. Vital signs upon presentation are temperature 98.5F, pulse 88, respirations 20, blood pressure 177/104, pulse ox 100% on room air) Eye exam: Present: normal appearance, PERRL, EOMI. Absent: scleral icterus, conjunctival injection, periorbital swelling ENT exam: Present: normal exam, normal oropharynx, mucous membranes moist Respiratory exam: Present: normal lung sounds bilaterally. Absent: respiratory distress, wheezes, rales, rhonchi, stridor Cardiovascular Exam: Present: regular rate, normal rhythm, normal heart sounds. Absent: systolic murmur, diastolic murmur, rubs, gallop, clicks GI/Abdominal exam: Present: soft, normal bowel sounds. Absent: distended, tenderness, guarding, rebound, rigid Extremities exam: Present: full ROM, tenderness (Generalized right ankle tender), normal capillary refill, other (There is swelling surrounding the right ankle. Skin is warm and dry. No erythema. Pedal and posttibial pulses are 2+ and equal bilaterally.). Absent: pedal edema, joint swelling, calf tenderness Neurological exam: Present: alert, oriented X3, CN II-XII intact Psychiatric exam: Present: normal affect, normal mood Skin exam: Present: warm, dry, intact, normal color. Absent: rash <Margo Summers - Last Filed: 11/08/19 23:29> Course Vital Signs 11/08/19 11/08/19 19:25 22:21 Temperature 98.5 F Pulse Rate 88 81 Respiratory 20 18 Rate Blood Pressure 177/104 145/77 O2 Sat by Pulse 100 95 Oximetry Medical Decision Making - Radiology Data Radiology results: report reviewed, image reviewed <Margo Summers - Last Filed: 11/08/19 23:29> <Blanca Fernandez - Last Filed: 11/13/19 15:30> - Medical Decision Making 34-year-old male patient presents to the emergency department today for evaluation of right ankle pain and swelling. Patient has history of gout states the symptoms are similar. Physical examination did reveal swelling surrounding the right ankle and exquisite tenderness. X-ray was obtained and is unremarkable. He is afebrile, vital signs. He does report mild improvement with administration of indomethacin any [place]. He'll be discharged with indomethacin for the next 3-5 days. He is instructed to stop taking this medication as soon as his pain resolves. Instructed to follow-up with his primary care physician for recheck in 1-2 days. Return parameters were discussed in detail. He verbalizes understanding and agrees with this plan. (Margo Summers) I was available for consultation in the emergency department. The history and physical exam were done by the midlevel provider. I was consulted for this patients care. I reviewed the case with the midlevel provider and based on their presentation of the patient, I agree with the assessment, medical decision making and plan of care as documented. Chart was dictated using [employer] dictation software. Attempts were made to correct any dictation errors however some typographical errors may persist. (Blanca Fernandez) - Radiology Data 3 views of the right ankle are obtained. Report was reviewed in its entirety. Impression by Dr. Corbin shows negative right ankle exam. (Margo Summers) Disposition Is patient prescribed a controlled substance at d/c from ED?: No Time of Disposition: 22:09 <Margo Summers - Last Filed: 11/08/19 23:29> <Blanca Fernandez - Last Filed: 11/13/19 15:30> Clinical Impression: Gout of right ankle Disposition: HOME SELF-CARE Condition: Good Instructions (If sedation given, give patient instructions): Low Purine Diet (ED), Gout (ED) Additional Instructions: Take medications as directed. Once her pain is resolved. Taking the indomethacin. Rest the ankle. Follow-up through primary care physician for recheck in 1-2 days. Return to the emergency department immediately for any new, worsening, or concerning symptoms. Prescriptions: Indomethacin [Indocin] 50 mg PO TID #15 capsule Referrals: None,Stated [Primary Care Provider] - 1-2 days
[2019-11-08 22:25] VITALS: BP 145/77; PULSE 81; RESP 18
== END 2019-11-08 22:25 | disposition home or self-care (01) ==
LOC: EC 19:20
DX: M10.9 Gout, unspecified (principal); F32.9 Major depressive disorder, single episode, unspecified; F17.200 Nicotine dependence, unspecified, uncomplicated; Z79.899 Other long term (current) drug therapy; Z91.048 Other nonmedicinal substance allergy status; Z88.5 Allergy status to narcotic agent; Z53.8 Procedure and treatment not carried out for other reasons
CPT/HCPCS: 99283

== ENCOUNTER 2021-06-06 18:01 | Inpatient (IN) | payer BC, OTHER ==
--- NOTE | 2021-06-06 18:42 | ED ---
General Adult HPI - General Chief complaint: Psychiatric Symptoms Stated complaint: EPS eval Time Seen by Provider: 06/06/21 18:15 Source: patient, RN notes reviewed, old records reviewed Mode of arrival: wheelchair Limitations: no limitations - History of Present Illness Initial comments: 36-year-old male was attending for psychiatric evaluation. Suicidal ideation, plans to overdose or shoot himself. Patient does admit to alcohol consumption prior to arrival. He denies any other ingestion. Patient denies physical complaints at this time. He is had increased depression and anxiety with previous psychiatric history. - Related Data Previous Rx's Medication Instructions Recorded FLUoxetine HCL [PROzac] 30 mg PO DAILY 30 Days cap 06/10/21 traZODone HCL [Desyrel] 100 mg PO HS 30 Days tab 06/10/21 Allergies Allergy/AdvReac Type Severity Reaction Status Date / Time adhesive tape Allergy Unknown Verified 06/06/21 20:03 codeine Allergy Unknown Verified 06/06/21 20:03 Review of Systems ROS Statement: Those systems with pertinent positive or pertinent negative responses have been documented in the HPI. ROS Other: All systems not noted in ROS Statement are negative. Past Medical History Additional Past Medical History / Comment(s): pancreatitis, gout. History of Any Multi-Drug Resistant Organisms: None Reported Past Surgical History: Ear Surgery Additional Past Surgical History / Comment(s): tubes in ears Past Anesthesia/Blood Transfusion Reactions: No Reported Reaction Past Psychological History: Depression Smoking Status: Current every day smoker Past Alcohol Use History: Abuse, Daily Past Drug Use History: None Reported - Past Family History Father History Unknown: Yes Mother Family Medical History: Diabetes Mellitus General Exam Limitations: no limitations General appearance: alert, in no apparent distress, anxious Head exam: Present: atraumatic, normocephalic Eye exam: Present: normal appearance, PERRL ENT exam: Present: normal exam Neck exam: Present: normal inspection. Absent: tenderness, meningismus Respiratory exam: Present: normal lung sounds bilaterally. Absent: respiratory distress, wheezes Cardiovascular Exam: Present: regular rate, normal rhythm GI/Abdominal exam: Present: soft. Absent: distended, tenderness, guarding Extremities exam: Present: normal inspection, normal capillary refill. Absent: pedal edema Neurological exam: Present: alert, oriented X3, CN II-XII intact, normal gait. Absent: motor sensory deficit Psychiatric exam: Present: depressed, anxious, suicidal ideation Skin exam: Present: warm, dry, intact. Absent: cyanosis, diaphoretic Course Vital Signs 06/06/21 18:06 Temperature 98.0 F Pulse Rate 101 H Respiratory 20 Rate Blood Pressure 157/102 O2 Sat by Pulse 99 Oximetry - Reevaluation(s) Reevaluation #1: 06/06/21 18:42 Patient is intoxicated, will be observed awaiting sobriety followed by EPS evaluation. Medical Decision Making - Medical Decision Making Patient was evaluated by EPS and was admitted to this institution. - Lab Data Result diagrams: 06/07/21 10:04 06/07/21 10:04 Lab Results 06/06/21 Range/Units 18:27 Urine Opiates Screen Not Detected (NotDetected) Ur Oxycodone Screen Not Detected (NotDetected) Urine Methadone Screen Not Detected (NotDetected) Ur Propoxyphene Screen Not Detected (NotDetected) Ur Barbiturates Screen Not Detected (NotDetected) U Tricyclic Antidepress Not Detected (NotDetected) Ur Phencyclidine Scrn Not Detected (NotDetected) Ur Amphetamines Screen Not Detected (NotDetected) U Methamphetamines Scrn Not Detected (NotDetected) U Benzodiazepines Scrn Not Detected (NotDetected) Urine Cocaine Screen Not Detected (NotDetected) U Marijuana (THC) Screen Not Detected (NotDetected) Disposition Clinical Impression: Suicidal ideation, Alcohol use disorder Disposition: ADMITTED IP TO THIS [facility] Condition: Stable Is patient prescribed a controlled substance at d/c from ED?: No Decision to Admit Reason: Admit from EC
[2021-06-06 19:05] LABS: Amphetamine Screen,Urine Not Detected (NotDetected); Barbiturate Screen,Urine Not Detected (NotDetected); Benzodiazepines Screen,Urine Not Detected (NotDetected); Cocaine Screen,Urine Not Detected (NotDetected); Methadone Screen, Urine Not Detected (NotDetected); Opiate Screen,Urine Not Detected (NotDetected); Oxycodone Screen, Urine Not Detected (NotDetected); Phencyclidine Screen,Urine Not Detected (NotDetected); Tricyclic Antidepressant,Urine Not Detected (NotDetected); Urn Cannabinoid Scrn Not Detected (NotDetected)
[2021-06-07] MEDS ORDERED: MAGNESIUM HYDROXIDE 2,400 MG/10 ML CUP PO PRN (05:11)
[2021-06-07] MEDS ORDERED: MAG HYDROX/AL HYDROX/SIMETH 30 ML CUP PO PRN (05:11)
[2021-06-07] MEDS ORDERED: HALOPERIDOL LACTATE 5 MG/ML 1 ML VIAL IM PRN (05:15)
[2021-06-07] MEDS ORDERED: LORazepam 2 MG/ML INJ IM PRN ×2 (05:22)
[2021-06-07] MEDS ORDERED: LORazepam 1 MG TAB PO PRN (05:22)
[2021-06-07] MEDS: LORazepam 1 MG TAB PO PRN ×2 (06:09→21:05)
[2021-06-07 06:42] VITALS: TEMP 97.7
[2021-06-07 10:16] LABS: Basophils # (A) 0.1 k/uL (0-0.2); Basophils % (A) 2 %; Eosinophils # (A) 0.1 k/uL (0-0.7); Eosinophils % (A) 4 %; HCT 41.9 % (39.0-53.0); HGB 13.9 gm/dL (13.0-17.5); Lymphocytes # (A) 1.4 k/uL (1.0-4.8); Lymphocytes % (A) 45 %; MCHC 33.1 g/dL (31.0-37.0); MCV 108.6 fL (80.0-100.0); Macrocytosis Moderate; Mean Platelet Volume 8.1; Monocytes # (A) 0.2 k/uL (0-1.0); Monocytes % (A) 5 %; Neutrophils # (A) 1.3 k/uL (1.3-7.7); Neutrophils % (A) 41 %; Platelet Count 141 k/uL (150-450); RBC 3.86 m/uL (4.30-5.90); RDW 12.6 % (11.5-15.5)
[2021-06-07 10:48] LABS: ALT 78 U/L (4-49); AST 199 U/L (17-59); African American GFR (CKD) >90 (>60 ml/min/1.73 sqM); Albumin 4.2 g/dL (3.5-5.0); Alkaline Phosphatase 121 U/L (38-126); Anion Gap 9 mmol/L; Blood Urea Nitrogen 12 mg/dL (9-20); Calcium 8.9 mg/dL (8.4-10.2); Carbon Dioxide 29 mmol/L (22-30); Chloride 106 mmol/L (98-107); Glucose 88 mg/dL (74-99); Non-African American GFR(CKD) >90 (>60 ml/min/1.73 sqM); Potassium 4.3 mmol/L (3.5-5.1); Sodium 144 mmol/L (137-145); Total Bilirubin 0.9 mg/dL (0.2-1.3)
[2021-06-07] MEDS ORDERED: FLUoxetine HCL 10 MG CAP PO STA (11:52)
[2021-06-07] MEDS ORDERED: NALTREXONE HCL 50 MG TAB PO STA (11:53)
--- NOTE | 2021-06-07 12:05 | P.HP ---
Psychiatric H&P - . H&P Date: 06/07/21 History & Physical: Allergies Allergy/AdvReac Type Severity Reaction Status Date / Time adhesive tape Allergy Unknown Verified 06/06/21 20:03 codeine Allergy Unknown Verified 06/06/21 20:03 Vital Signs Temp 97.7 F 06/07/21 06:24 Pulse 82 06/07/21 06:24 Resp 16 06/07/21 06:24 BP 141/96 06/07/21 06:24 Pulse Ox 97 06/07/21 06:24 Intake & Output 06/06/21 06/07/21 06/07/21 18:59 06:59 18:59 Weight 99.79 kg 110.9 kg Laboratory Last Values WBC 3.0 k/uL (3.8-10.6) L 06/07/21 10:04 RBC 3.86 m/uL (4.30-5.90) L 06/07/21 10:04 Hgb 13.9 gm/dL (13.0-17.5) 06/07/21 10:04 Hct 41.9 % (39.0-53.0) 06/07/21 10:04 MCV 108.6 fL (80.0-100.0) H 06/07/21 10:04 MCH 36.0 pg (25.0-35.0) H 06/07/21 10:04 MCHC 33.1 g/dL (31.0-37.0) 06/07/21 10:04 RDW 12.6 % (11.5-15.5) 06/07/21 10:04 Plt Count 141 k/uL (150-450) L 06/07/21 10:04 MPV 8.1 06/07/21 10:04 Neutrophils % 41 % 06/07/21 10:04 Lymphocytes % 45 % 06/07/21 10:04 Monocytes % 5 % 06/07/21 10:04 Eosinophils % 4 % 06/07/21 10:04 Basophils % 2 % 06/07/21 10:04 Neutrophils # 1.3 k/uL (1.3-7.7) 06/07/21 10:04 Lymphocytes # 1.4 k/uL (1.0-4.8) 06/07/21 10:04 Monocytes # 0.2 k/uL (0-1.0) 06/07/21 10:04 Eosinophils # 0.1 k/uL (0-0.7) 06/07/21 10:04 Basophils # 0.1 k/uL (0-0.2) 06/07/21 10:04 Macrocytosis Moderate 06/07/21 10:04 Sodium 144 mmol/L (137-145) 06/07/21 10:04 Potassium 4.3 mmol/L (3.5-5.1) 06/07/21 10:04 Chloride 106 mmol/L (98-107) 06/07/21 10:04 Carbon Dioxide 29 mmol/L (22-30) 06/07/21 10:04 Anion Gap 9 mmol/L 06/07/21 10:04 BUN 12 mg/dL (9-20) 06/07/21 10:04 Creatinine 0.87 mg/dL (0.66-1.25) 06/07/21 10:04 Est GFR (CKD-EPI)AfAm >90 (>60 ml/min/1.73 sqM) 06/07/21 10:04 Est GFR (CKD-EPI)NonAf >90 (>60 ml/min/1.73 sqM) 06/07/21 10:04 Glucose 88 mg/dL (74-99) 06/07/21 10:04 Calcium 8.9 mg/dL (8.4-10.2) 06/07/21 10:04 Total Bilirubin 0.9 mg/dL (0.2-1.3) 06/07/21 10:04 AST 199 U/L (17-59) H 06/07/21 10:04 ALT 78 U/L (4-49) H 06/07/21 10:04 Alkaline Phosphatase 121 U/L (38-126) 06/07/21 10:04 Total Protein 8.0 g/dL (6.3-8.2) 06/07/21 10:04 Albumin 4.2 g/dL (3.5-5.0) 06/07/21 10:04 TSH 2.630 mIU/L (0.465-4.680) 06/07/21 10:04 Urine Opiates Screen Not Detected (NotDetected) 06/06/21 18:27 Ur Oxycodone Screen Not Detected (NotDetected) 06/06/21 18:27 Urine Methadone Screen Not Detected (NotDetected) 06/06/21 18:27 Ur Propoxyphene Screen Not Detected (NotDetected) 06/06/21 18:27 Ur Barbiturates Screen Not Detected (NotDetected) 06/06/21 18:27 U Tricyclic Antidepress Not Detected (NotDetected) 06/06/21 18:27 Ur Phencyclidine Scrn Not Detected (NotDetected) 06/06/21 18:27 Ur Amphetamines Screen Not Detected (NotDetected) 06/06/21 18:27 U Methamphetamines Scrn Not Detected (NotDetected) 06/06/21 18:27 U Benzodiazepines Scrn Not Detected (NotDetected) 06/06/21 18:27 Urine Cocaine Screen Not Detected (NotDetected) 06/06/21 18:27 U Marijuana (THC) Screen Not Detected (NotDetected) 06/06/21 18:27 06/07/21 12:05IDENTIFYING DATA: Patient is a 36-year-old, , employed, -[place] male was admitted for suicidal ideation. HPI: Patient presented to the hospital on 06/07/2021, driven to the hospital by his mother, after endorsing suicidal ideation. His previous report, the patient has been endorsing multiple plans or suicide including drowning himself in the river or cutting his wrists. The patient reports that he has put the knife to his wrist prior to coming into the hospital. Upon evaluation on the unit, the patient reports he is feeling "overwhelmed." He does endorse significant symptoms of depression has been ongoing for the last year and a half. He endorses symptoms of hopelessness, helplessness, low appetite, difficulty sleeping, uncontrollable crying episodes, low motivation, anhedonia, elevated anxiety, and suicidal ideation. The patient reports that he has been thinking about suicide for the past month. He does endorse significant stressors, most of which are financial. The patient reports that his been working in the same job but not making enough money to support 2 children on child support and trying to make ends meet. He currently lives with his mother as he isn't able to afford his own place financially. He does report a prior attempt at suicide 5-6 years ago when he held a gun to his head and pulled the trigger. Reports that the gun misfired and did not end up killing him. Patient reports that about 3 years ago, he pulled out a gun and gave it his and told her to shoot him while they were undergoing their divorce proceedings. Patient does not endorse any significant symptoms of bipolar disorder. He reports no periods of excessive energy, excessive spending, increased goal directed behavior, or impulsive dangerous behavior. In regards to psychotic symptoms, the patient reports no history of auditory or visualizations. He reports no paranoia or other delusions. The patient does engage in heavy substance abuse. He reports he smokes half pack per day of tobacco. The patient's drug of choice is alcohol. He reports he has been drinking 1-1/2-2 pints of vodka per day over the past month. Prior to doing this, the patient reports that he was sober for 1 year. He states that he has been drinking that heavily since he was 21 years old. He reports that he has been to rehab twice, the last time being 2 years ago. He reports previous trials of medications including Antabuse and naltrexone. He does report a history of tremors and withdrawal hallucinations but denies any history of s eizures. He reports that his last drink was yesterday. The patient also endorses that he uses marijuana once a month. He denies any illicit drug use. PAST PSYCHIATRIC HISTORY: Patient states that he is diagnosed with depression. The patient is unable to recall his past psychiatric medications but states that he was placed on antidepressants in the past. The patient reports that he was previously hospitalized 2-3 years ago in [place]. Patient denies any psychiatric outpatient follow-up. He reports one prior attempt at suicide by placing a gun to his head but it did not go off. This was 7 years ago. PMH: Additional Past Medical History / Comment(s): pancreatitis, gout. History of Any Multi-Drug Resistant Organisms: None Reported Past Surgical History: Ear Surgery Additional Past Surgical History / Comment(s): tubes in ears Past Anesthesia/Blood Transfusion Reactions: No Reported Reaction Past Psychological History: Depression Smoking Status: Current every day smoker Past Alcohol Use History: Abuse, Daily Past Drug Use History: None Reported ALLERGIES: Adhesive tape, codeine CHEMICAL DEPENDENCY HISTORY: as per HPI FAMILY PSYCHIATRIC/SUBSTANCE USE HISTORY: The patient reports that his biological father was diagnosed schizophrenia SOCIAL HISTORY: Patient is currently . He was for 6 years and the divorce is finalized 2 years ago. He has 2 daughters with his ex , ages 5 and 7 years old. He has an 18-year-old son from a previous relationship. 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 Reports no history, restorationist for ideation, but does report that he is on probation for unpaid child support. MENTAL STATUS EXAM: General Appearance: Patient appears to be stated age is alert, directable, and attempts to cooperate. Patient appears to have fair hygiene and grooming. Tall and well-built. Wearing glasses. Behavior: Patient is seated without any agitated behavior. Psychomotor activity appears slightly slow. Speech: Patient's speech is spontaneous, with normal rate, tone, volume, and fluency. Mood/Affect: Patient reports their mood is depressed, affect is congruent and constricted. Suicidality/Homicidality: Patient denies having any homicidal ideation intent or plan. The patient does endorse suicidal ideation. Perceptions: Patient denies any visual hallucinations and denies any auditory hallucinations Though content/process: There is no evidence of any delusional thought content and thought process is linear and goal-directed. Memory and concentration: AOX3, grossly intact for the purposes of this session. Can spell "WORLD" backwards Judgment and insight: Fair STRENGTHS/WEAKNESSES: Strength is that the patient is gainfully employed, has a supportive family and reports a desire to live for his children. Weaknesss include a prior attempt at suicide, poor financial situation, and heavy alcohol use. INTELLECT: average IMPRESSIONS: Major depressive disorder, recurrent, severe, with anxious features Alcohol use disorder PLAN: -Patient is admitted under voluntary status to MHU for stabilization of psychiatric symptoms and safety. Patient signed adult voluntary form and medication consent and is placed in patient's chart. -Medications : Will start patient on Prozac 30 mg by mouth daily for depression/anxiety Naltrexone 50 mg by mouth daily for alcohol use disorder -Ativan and Haldol PRN for agitation/aggression -Started thiamine, MVM for etoh use -CIWA protocol with Ativan PRN for ETOH withdrawal -Patient was counselled on substance abuse and desired to cut back on use -Patient was informed of the risks, benefits and side effects of the medication and patient verbally consented to taking the medications. Patient signed med co nsent form and was placed in chart. -Internal Medicine consult to perform medical evaluation and physical. -NRT - nicotine patch -SW on board for discharge planning. Encourage patient to participate in groups to work on coping skills. 06/07/21 12:05
[2021-06-07 17:07] LABS: Hemoglobin A1C 4.5 % (4.0-6.0)
[2021-06-07] MEDS ORDERED: cloNIDine HCL 0.2 MG TAB PO STA (17:47)
[2021-06-07] MEDS ORDERED: diphenhydrAMINE 25 MG CAP PO SCH (21:00)
[2021-06-07] MEDS: ACETAMINOPHEN TAB 325 MG TAB PO PRN (21:04)
--- NOTE | 2021-06-08 01:27 | P.CONS ---
History of Present Illness - Reason for Consult Consult date: 06/07/21 - History of Present Illness The patient is a 36-year-old male with a PMH of EtOH abuse who presented to the emergency room with depression and suicidal ideation. The patient was admitted to the mental health unit where he was seen and evaluated. Patient reports drinking 2 pints of vodka daily, for the past 15 years. Reports last drink was day prior to presentation. He reports a history of withdrawal but never having to be admitted for delirium tremens. Denied any history of alcohol withdrawal seizures. Denied physical complaints at time of interview. Denied chest pain, shortness of breath, fever, chills, cough. Denied nausea, vomiting, abdominal pain, diarrhea. Review of systems: Pertinent positives and negatives as discussed in HPI, a complete review of systems was performed and all other systems are negative. Physical examination: General: non toxic, no distress, appears at stated age, obese Derm: no unusual rashes/lesions no unusual ecchymoses, warm, dry Head: atraumatic, normocephalic, symmetric Eyes: EOMI, no lid lag, anicteric sclera, pupils equal round reactive to light ENT: Nose and ears atraumatic, no thrush, no pharyngeal erythema Neck: No thyromegaly, no cervical lymphadenopathy, trachea midline, supple Mouth: no lip lesion, mucus membranes moist Cardiovascular: S1S2 reg, no murmur, positive posterior tibial pulse bilateral, no edema, capillary refill less than 2 seconds Lungs: CTA bilateral, no rhonchi, no rales , no accessory muscle use Abdominal: soft, nontender to palpation, no guarding, no appreciable organomegaly, normal bowel sounds Ext: no gross muscle atrophy, muscle strength 5 out of 5 in all 4 extremities grossly, no contractures, Neuro: CN II-XI grossly intact, light touch intact all 4 extremities, finger to nose within normal limits, Psych: Alert, oriented, appropriate affect Assessment/plan EtOH abuse -Thiamine, folic acid, multivitamin -Start Librium -WA protocol -Strongly advised on the importance of cessation Macrocytosis -Check folate and B12 levels Thrombocytopenia -Likely secondary to EtOH abuse Thank you for allowing us to participate in the care of this patient. We will follow peripherally. Do not hesitate to contact us with questions. Someone can be reached from the [facility] hospitalist group at all hours of the day at [phone]. Past Medical History Additional Past Medical History / Comment(s): pancreatitis, gout. History of Any Multi-Drug Resistant Organisms: None Reported Past Surgical History: Ear Surgery Additional Past Surgical History / Comment(s): tubes in ears Past Anesthesia/Blood Transfusion Reactions: No Reported Reaction Past Psychological History: Depression Smoking Status: Current every day smoker Past Alcohol Use History: Abuse, Daily Past Drug Use History: None Reported - Past Family History Father History Unknown: Yes Mother Family Medical History: Diabetes Mellitus Medications and Allergies Home Medications Medication Instructions Recorded Confirmed Type No Known Home Medications 06/06/21 06/06/21 History Allergies Allergy/AdvReac Type Severity Reaction Status Date / Time adhesive tape Allergy Unknown Verified 06/06/21 20:03 codeine Allergy Unknown Verified 06/06/21 20:03 Physical Exam Vitals: Vital Signs Temp Pulse Resp BP Pulse Ox 06/07/21 18:55 130/73 06/07/21 17:55 160/112 06/07/21 17:27 166/117 06/07/21 16:20 83 181/118 06/07/21 08:00 84 20 150/108 06/07/21 06:24 97.7 F 82 16 141/96 97 Results CBC & Chem 7: 06/07/21 10:04 06/07/21 10:04 Labs: Abnormal Lab Results - Last 24 Hours (Table) 06/07/21 06/07/21 Range/Units 10:04 10:04 WBC 3.0 L (3.8-10.6) k/uL RBC 3.86 L (4.30-5.90) m/uL MCV 108.6 H (80.0-100.0) fL MCH 36.0 H (25.0-35.0) pg Plt Count 141 L (150-450) k/uL AST 199 H (17-59) U/L ALT 78 H (4-49) U/L
[2021-06-08 06:37] VITALS: RESP 18
[2021-06-08] MEDS: LORazepam 1 MG TAB PO PRN ×2 (06:39→17:22)
[2021-06-08] MEDS: MULTIVITAMINS, THERA 1 EACH TAB PO SCH (08:42)
[2021-06-08] MEDS: NALTREXONE HCL 50 MG TAB PO SCH (08:42)
[2021-06-08] MEDS: FLUoxetine HCL 10 MG CAP PO SCH (08:43)
[2021-06-08] MEDS: THIAMINE 100 MG TAB PO SCH (08:43)
[2021-06-08] MEDS: haloperidoL 5 MG TAB PO PRN ×2 (10:20→22:09)
--- NOTE | 2021-06-08 11:01 | P.PN ---
Progress Note - Text Progress Note Date: 06/08/21 Interval History: Patient was seen wandering the hallways and was directable and agreeable to speak with speech writer in the office. The patient reports that he is feeling mildly better but states that he is constantly about his ongoing life stressors outside of this hospital. He is particularly concerned about not being able to pay his child support and having to go back to [facility]. He reports that these thoughts have kept him up at night and he has had difficulty sleeping. He is otherwise reporting that his suicidal ideation has cut down but that he continues to have occasional suicidal thoughts throughout the day. He is denying any homicidal ideation, intention, and/or plan. The patient is not reporting any auditory or visual hallucinations. He reports no paranoia or other delusions. He hasn't been adherent with his medications and is not endorsing any significant side effects at this time. The patient has also been attending both individual and milieu therapies. Mental Status Exam: General Appearance: Patient appears to be stated age is alert, directable, and cooperative. Good hygiene and grooming. Tall and wearing glasses. Behavior: Patient is calmly seated without any agitated behavior. Psychomotor activity appears normal. Eye contact is appropriate. Patient occasionally has a nervous laugh. Speech: Patient's speech is fluent and nonpressured. Spontaneous, normal rate, tone, and volume. Mood/Affect: Mood is improving mildly, affect is congruent and constricted. Suicidality/Homicidality: Patient does endorse suicidal ideation but no homicidal ideation, intention, and/or plan. Perceptions: Patient denies any visual hallucinations and denies any auditory hallucinations Though content/process: There is no evidence of any delusional thought content and thought process is linear and goal-directed. Memory and concentration: AOX3, grossly intact for the purposes of this session Judgment and insight: Improving mildly Vital Signs Temp 97.7 F 06/08/21 06:36 Pulse 88 06/08/21 10:21 Resp 18 06/08/21 06:36 BP 148/88 06/08/21 10:21 Pulse Ox 97 06/07/21 06:24 Laboratory Results - Last 24 Hours 06/07/21 06/07/21 10:04 10:[address] Glu mg/dL 82 Hemoglobin A1c 4.5 TSH 2.630 Assessment Major depressive disorder, recurrent, severe, with anxious features Alcohol use disorder Plan: -Patient continues to meet criteria for inpatient psychiatric admission for symptom stabilization and safety. Patient has signed adult voluntary form and medication consent and was placed in patient's chart. -Medications: Continue Prozac 30 mg by mouth daily for depression/anxiety Continue naltrexone 50 mg by mouth daily for alcohol cessation Start Trazodone 50 mg by mouth at bedtime for insomnia and discontinue Benadryl. Continue CIWA protocol with Ativan when necessary -When necessary Ativan and Haldol for agitation/aggression. -NRT - nicotine patch -SW on board for discharge planning. Encouraged the patient to participate in [facility].
[2021-06-08] MEDS: ACETAMINOPHEN TAB 325 MG TAB PO PRN (17:22)
[2021-06-08 17:24] VITALS: BP 151/90; PULSE 68
[2021-06-08] MEDS ORDERED: traZODone HCL 50 MG TAB PO SCH (21:00)
[2021-06-09] MEDS: ACETAMINOPHEN TAB 325 MG TAB PO PRN ×2 (08:55→17:58)
[2021-06-09] MEDS: FLUoxetine HCL 10 MG CAP PO SCH (08:56)
[2021-06-09] MEDS: MULTIVITAMINS, THERA 1 EACH TAB PO SCH (08:56)
[2021-06-09] MEDS: THIAMINE 100 MG TAB PO SCH (08:56)
[2021-06-09] MEDS: NALTREXONE HCL 50 MG TAB PO SCH (08:56)
--- NOTE | 2021-06-09 12:00 | P.PN ---
Progress Note - Text Progress Note Date: 06/09/21 Interval History: Patient was seen wandering the hallways and was directable and agreeable to s peak with signwriter in the office. The patient reports that he is feeling better today. He is currently not reporting any suicidal or homicidal ideation, intention, etc. point. He is not reporting any auditory visual hallucinations. Denies any paranoid delusions. His maintenance medications and is not endorsing. Patient does express a sleep has improved but he is to have multiple nighttime awakenings. Otherwise, the patient is not reporting any significant issues regarding his treatment. The patient does express concern about his follow-up appointments as he has no insurance. He is inquiring whether he can apply for insurance so that he may go to his follow-up appointments. Mental Status Exam: General Appearance: Patient appears to be stated age is alert, directable, and cooperative. Good hygiene and grooming. Tall and wearing glasses. Behavior: Patient is calmly seated without any agitated behavior. Psychomotor activity appears normal. Eye contact is appropriate. Patient occasionally has a nervous laugh. Speech: Patient's speech is fluent and nonpressured. Spontaneous, normal rate, tone, and volume. Mood/Affect: Mood is improving mildly, affect is congruent and constricted. Suicidality/Homicidality: Patient is not endorsing any suicidal or homicidal ideation, intention, and/or plan. Perceptions: Patient denies any visual hallucinations and denies any auditory patterson llucinations Though content/process: There is no evidence of any delusional thought content and thought process is linear and goal-directed. Memory and concentration: AOX3, grossly intact for the purposes of this session Judgment and insight: Improving mildly Vital Signs Temp 97.7 F 06/08/21 06:36 Pulse 68 06/08/21 17:23 Resp 18 06/08/21 06:36 BP 151/90 06/08/21 17:23 Pulse Ox 97 06/07/21 06:24 Laboratory Results - Last 24 Hours 06/08/21 07:16 Vitamin B12 513.0 Assessment Major depressive disorder, recurrent, severe, with anxious features Alcohol use disorder Plan: -Patient continues to meet criteria for inpatient psychiatric admission for symptom stabilization and safety. Patient has signed adult voluntary form and medication consent and was placed in patient's chart. -Medications: Continue Prozac 30 mg by mouth daily for depression/anxiety Continue naltrexone 50 mg by mouth daily for alcohol cessation Increase Trazodone to 100 mg by mouth at bedtime for insomnia and discontinue Benadryl. Continue CIWA protocol with Ativan when necessary -When necessary Ativan and Haldol for agitation/aggression. -NRT - nicotine patch -SW on board for discharge planning. Encouraged the patient to participate in milieu.
[2021-06-09] MEDS: LORazepam 1 MG TAB PO PRN (17:58)
[2021-06-09] MEDS ORDERED: traZODone HCL 100 MG TAB PO SCH (21:00)
[2021-06-10] MEDS: NALTREXONE HCL 50 MG TAB PO SCH (08:15)
[2021-06-10] MEDS: MULTIVITAMINS, THERA 1 EACH TAB PO SCH (08:15)
[2021-06-10] MEDS: FLUoxetine HCL 10 MG CAP PO SCH (08:15)
[2021-06-10] MEDS: THIAMINE 100 MG TAB PO SCH (08:15)
--- NOTE | 2021-06-10 12:16 | P.DS ---
Providers Date of admission: 06/07/21 05:07 Expected date of discharge: 06/10/21 Attending physician: Domingo Celis MD Consults: 06/07/21 05:11 Consult Physician Routine Consulting Provider: Bharath Garcia Consult Reason/Comments: H&P Do you want consulting provider notified?: Yes Primary care physician: Stated None - Discharge Diagnosis(es) (1) Major depressive disorder, recurrent severe without psychotic features Current Visit: Yes Status: Acute Priority: High (2) Alcohol use disorder Current Visit: Yes Status: Chronic Priority: Medium Hospital Course: Admission HPI: Patient is a 36-year-old, , employed, -Citizen Of [place] male was admitted for suicidal ideation. Patient presented to the hospital on 06/07/2021, driven to the hospital by his mother, after endorsing suicidal ideation. His previous report, the patient has been endorsing multiple plans or suicide including drowning himself in the river or cutting his wrists. The patient reports that he has put the knife to his wrist prior to coming into the hospital. Upon evaluation on the unit, the patient reports he is feeling "overwhelmed." He does endorse significant symptoms of depression has been ongoing for the last year and a half. He endorses symptoms of hopelessness, helplessness, low appetite, difficulty sleeping, uncontrollable crying episodes, low motivation, anhedonia, elevated anxiety, and suicidal ideation. The patient reports that he has been thinking about suicide for the past month. He does endorse significant stressors, most of which are financial. The patient reports that his been working in the same job but not making enough money to support 2 children on child support and trying to make ends meet. He currently lives with his mother as he isn't able to afford his own place financially. He does report a prior attempt at suicide 5-6 years ago when he held a gun to his head and pulled the trigger. Reports that the gun misfired and did not end up killing him. Patient reports that about 3 years ago, he pulled out a gun and gave it his and told her to shoot him while they were undergoing their divorce proceedings. Patient does not endorse any significant symptoms of bipolar disorder. He reports no periods of excessive energy, excessive spending, increased goal directed behavior, or impulsive dangerous behavior. In regards to psychotic symptoms, the patient reports no history of auditory or visualizations. He reports no paranoia or other delusions. The patient does engage in heavy substance abuse. He reports he smokes half pack per day of tobacco. The patient's drug of choice is alcohol. He reports he has been drinking 1-1/2-2 pints of vodka per day over the past month. Prior to doing this, the patient reports that he was sober for 1 year. He states that he has been drinking that heavily since he was 21 years old. He reports that he has been to rehab twice, the last time being 2 years ago. He reports previous trials of medications including Antabuse and naltrexone. He does report a history of tremors and withdrawal hallucinations but denies any history of seizures. He reports that his last drink was yesterday. The patient also endorses that he uses marijuana once a month. He denies any illicit drug use. Patient states that he is diagnosed with depression. The patient is unable to recall his past psychiatric medications but states that he was placed on antidepressants in the past. The patient reports that he was previously hospitalized 2-3 years ago in [place]. Patient denies any psychiatric outpatient follow-up. He reports one prior attempt at suicide by placing a gun to his head but it did not go off. This was 7 years ago. Hospital course: Upon admission to the unit patient was initially presenting with significant depression and overall stress as well as suicidal ideation. The patient however was agreeable and directable to commence treatment. He did endorse a significa nt history of alcohol use. He was initially started on a regimen of Prozac, trazodone, and naltrexone to address his depression, anxiety, and alcohol abuse. The patient was compliant with his medication and reported no significant side effects throughout the hospital course. The patient got along well with other patients on the unit and followed unit protocol. Over the course of hospitalization, the patient gradually improved in regards to his depression, anxiety, and became more future oriented. He had a decrease in suicidal ideation throughout the hospitalization. He tolerated his medications well. The patient did express concern about his ability to afford medications and outpatient follow-up due to his lack of insurance. He was informed that going to [facility] would be at no cost to him and that Prozac and trazodone were affordable medications. On the day of discharge, the patient is not reporting any suicidal or homicidal ideation, intention, and/or plan. He is not reporting auditory or visual hallucinations. His thinking and paranoia or delusions. Patient denies any access to firearms or other weapons. He reports future orientation expresses strong desire to live for himself as well as for his family. The patient reports strong love for his 2 daughters. He understands that he needs to follow-up with his outpatient appointments and to be adherent with his medications for full benefit. The patient was counseled at length on avoiding all substances including alcohol and marijuana as they may contribute to worsening of mood. Prior to discharge, family meeting. A manager social media to answer any questions and ensure safety. Mental status exam: General Appearance: Patient appears to be stated age is alert, pleasant, and cooperative. Patient is in no acute distress and has fair hygiene and grooming. Patient is tall and wearing glasses. Behavior: Patient is calmly seated without any agitated behavior. Psychomotor activity is normal. Eye contact is appropriate. Patient laughs and smiles appropriately. Speech: Patient's speech is fluent and nonpressured. Mood/Affect: Patient reports their mood is "much better", affect is congruent and euthymic to bright. Suicidality/Homicidality: Patient denies having any suicidal or homicidal ideation intent or plan. Perceptions: Patient denies any auditory or visual hallucinations. Though content/process: There is no evidence of any delusional thought content and thought process is linear and goal-directed. Patient is future oriented Memory and concentration: AOX3, grossly intact for the purposes of this session. Can spell "WORLD" backwards correctly. Judgment and insight: Improved with guarded prognosis Vital Signs Temp 97.7 F 06/08/21 06:36 Pulse 68 06/08/21 17:23 Resp 18 06/08/21 06:36 BP 151/90 06/08/21 17:23 Pulse Ox 97 06/07/21 06:24 Impression: Major depressive disorder, recurrent, severe, with anxious features Alcohol use disorder Plan: -Continue with discharge today as patient has improved and stabilized psychiatrically and is not currently an imminent threat to himself and/or others. Patient will remain at chronically elevated risk for harm to self and/or others due to his ongoing psychosocial stressors in his alcohol abuse -Continue medications: Prozac 30 mg by mouth daily for depression/anxiety Trazodone 100 mg by mouth at bedtime for insomnia Naltrexone was discontinued due to the cost of medication. -Patient was counseled on the need for medication compliance and appropriate follow-up at mental health and also primary care for medical issues. Patient verbalized understanding and agreed. -Social work to arrange for and conduct family meeting to ensure safety upon discharge and answer any questions/concerns. Social work also to arrange for patients follow up appointments with [facility] for psychiatric care along with follow up with primary care provider. -Patient counseled on abstaining from recreational drugs and marijuana and alco hol. Was informed/educated on the adverse effects on their physical and mental health. Patient verbally agreed and understood. -Patient was instructed to return to the hospital or seek immediate medical care if their psychiatric or medical symptoms do worsen or reoccur. -Psychoeducation and supportive therapy provided to patient. Risks and benefits of pharmacological treatment versus the risks and benefits of nontreatment weight and discussed. Informed consent discussion held. Common side effects of psychotropics discussed such as, but not limited to headache, GI disturbance, sexual dysfunction, movement disorders, sedation, and orthostatic hypotension. Life threatening and blackbox warnings of prescribed medications also discussed. Potential risks of operating a vehicle or heavy machinery discussed with patient at length. Advised on importance of compliance and a reliable and responsible manner. Patient advised to review FDA consumer labeling of all medications prior to taking. Patient verbalized understanding of potential risks, and agrees with current treatment plan. Patient advised to medically contact physician/emergency personnel if any acute changes in condition occur. Allergies Allergy/AdvReac Type Severity Reaction Status Date / Time adhesive tape Allergy Unknown Verified 06/06/21 20:03 codeine Allergy Unknown Verified 06/06/21 20:03 Laboratory Results WBC 3.0 k/uL (3.8-10.6) L 06/07/21 10:04 RBC 3.86 m/uL (4.30-5.90) L 06/07/21 10:04 Hgb 13.9 gm/dL (13.0-17.5) 06/07/21 10:04 Hct 41.9 % (39.0-53.0) 06/07/21 10:04 MCV 108.6 fL (80.0-100.0) H 06/07/21 10:04 MCH 36.0 pg (25.0-35.0) H 06/07/21 10:04 MCHC 33.1 g/dL (31.0-37.0) 06/07/21 10:04 RDW 12.6 % (11.5-15.5) 06/07/21 10:04 Plt Count 141 k/uL (150-450) L 06/07/21 10:04 MPV 8.1 06/07/21 10:04 Neutrophils % 41 % 06/07/21 10:04 Lymphocytes % 45 % 06/07/21 10:04 Monocytes % 5 % 06/07/21 10:04 Eosinophils % 4 % 06/07/21 10:04 Basophils % 2 % 06/07/21 10:04 Neutrophils # 1.3 k/uL (1.3-7.7) 06/07/21 10:04 Lymphocytes # 1.4 k/uL (1.0-4.8) 06/07/21 10:04 Monocytes # 0.2 k/uL (0-1.0) 06/07/21 10:04 Eosinophils # 0.1 k/uL (0-0.7) 06/07/21 10:04 Basophils # 0.1 k/uL (0-0.2) 06/07/21 10:04 Macrocytosis Moderate 06/07/21 10:04 Sodium 144 mmol/L (137-145) 06/07/21 10:04 Potassium 4.3 mmol/L (3.5-5.1) 06/07/21 10:04 Chloride 106 mmol/L (98-107) 06/07/21 10:04 Carbon Dioxide 29 mmol/L (22-30) 06/07/21 10:04 Anion Gap 9 mmol/L 06/07/21 10:04 BUN 12 mg/dL (9-20) 06/07/21 10:04 Creatinine 0.87 mg/dL (0.66-1.25) 06/07/21 10:04 Est GFR (CKD-EPI)AfAm >90 (>60 ml/min/1.73 sqM) 06/07/21 10:04 Est GFR (CKD-EPI)NonAf >90 (>60 ml/min/1.73 sqM) 06/07/21 10:04 Glucose 88 mg/dL (74-99) 06/07/21 10:[address] Glu mg/dL 82 06/07/21 10:04 Hemoglobin A1c 4.5 % (4.0-6.0) 06/07/21 10:04 Calcium 8.9 mg/dL (8.4-10.2) 06/07/21 10:04 Total Bilirubin 0.9 mg/dL (0.2-1.3) 06/07/21 10:04 AST 199 U/L (17-59) H 06/07/21 10:04 ALT 78 U/L (4-49) H 06/07/21 10:04 Alkaline Phosphatase 121 U/L (38-126) 06/07/21 10:04 Total Protein 8.0 g/dL (6.3-8.2) 06/07/21 10:04 Albumin 4.2 g/dL (3.5-5.0) 06/07/21 10:04 Vitamin B12 513.0 pg/mL (200.0-944.0) 06/08/21 07:16 RBC Folate 587 ng/mL (280 - 791) 06/08/21 07:16 TSH 2.630 mIU/L (0.465-4.680) 06/07/21 10:04 Urine Opiates Screen Not Detected (NotDetected) 06/06/21 18:27 Ur Oxycodone Screen Not Detected (NotDetected) 06/06/21 18:27 Urine Methadone Screen Not Detected (NotDetected) 06/06/21 18:27 Ur Propoxyphene Screen Not Detected (NotDetected) 06/06/21 18:27 Ur Barbiturates Screen Not Detected (NotDetected) 06/06/21 18:27 U Tricyclic Antidepress Not Detected (NotDetected) 06/06/21 18:27 Ur Phencyclidine Scrn Not Detected (NotDetected) 06/06/21 18:27 Ur Amphetamines Screen Not Detected (NotDetected) 06/06/21 18:27 U Methamphetamines Scrn Not Detected (NotDetected) 06/06/21 18:27 U Benzodiazepines Scrn Not Detected (NotDetected) 06/06/21 18:27 Urine Cocaine Screen Not Detected (NotDetected) 06/06/21 18:27 U Marijuana (THC) Screen Not Detected (NotDetected) 08/15/21 18:27 Patient Condition at Discharge: Stable Plan - Discharge Summary Discharge Rx Participant: No New Discharge Prescriptions: New traZODone HCL [Desyrel] 100 mg PO HS 30 Days tab FLUoxetine HCL [PROzac] 30 mg PO DAILY 30 Days cap Discharge Medication List FLUoxetine HCL [PROzac] 30 mg PO DAILY 30 Days cap 06/10/21 [Rx] traZODone HCL [Desyrel] 100 mg PO HS 30 Days tab 06/10/21 [Rx] Follow up Appointment(s)/Referral(s): [facility] [Outside] - 06/10/21 12:30 pm (with Yolette) None,Stated [Primary Care Provider] - 1-2 days Patient Instructions/Handouts: How to Stop Smoking (DC), Depression (DC), Abuse of Alcohol (DC) Activity/Diet/Wound Care/Special Instructions: Activity and diet as tolerated. Avoid the use of street drugs and alcohol. Take all medications as prescribed. When you are in need of refills on your medications please contact your medical provider and/or outpatient psychiatrist to have this done. Please go to scheduled outpatient appointment for aftercare treatment. If symptoms return or become worse, call the crisis line at and/or go to the nearest emergency room for evaluation. Discharge Disposition: HOME SELF-CARE
== END 2021-06-10 14:20 | disposition home or self-care (01) | DRG 885 ==
LOC: EC 18:01 → 3MHU 06-07 05:07
PROVIDERS: ADMIT Psychiatry & Neurology Psychiatry; ATTEND Psychiatry & Neurology Psychiatry
PROC: HZ2ZZZZ Detoxification Services for Substance Abuse Treatment (ICD-10-PCS; principal; 2021-06-07)
DX: F33.2 Major depressive disorder, recurrent severe without psychotic features (principal); R45.851 Suicidal ideations; K86.1 Other chronic pancreatitis; F10.10 Alcohol abuse, uncomplicated; D69.6 Thrombocytopenia, unspecified; D75.89 Other specified diseases of blood and blood-forming organs; F12.90 Cannabis use, unspecified, uncomplicated; F17.210 Nicotine dependence, cigarettes, uncomplicated; F22 Delusional disorders; M10.9 Gout, unspecified; F41.9 Anxiety disorder, unspecified; Z71.41 Alcohol abuse counseling and surveillance of alcoholic; G47.00 Insomnia, unspecified; Z65.3 Problems related to other legal circumstances; Z79.899 Other long term (current) drug therapy; Z91.5 Personal history of self-harm; Z88.5 Allergy status to narcotic agent; Z91.048 Other nonmedicinal substance allergy status
CPT/HCPCS: 80053; 80306; 82075; 82607; 82747; 83036; 84443; 85025; 99285

== ENCOUNTER 2021-09-14 15:58 | Observation (INO) | payer OTHER ==
[2021-09-14] MEDS ORDERED: ONDANSETRON 4 MG/2 ML VIAL IVP STA (18:10)
[2021-09-14] MEDS ORDERED: diphenhydrAMINE 50 MG/ML 1 ML VIAL IVP STA (18:10)
[2021-09-14] MEDS ORDERED: SODIUM CHLORIDE 0.9% 1,000 ML IV STA (18:10)
[2021-09-14 18:53] LABS: Appearance,Urine Clear (Clear); Bilirubin,Urine Negative (Negative); Blood,Urine Negative (Negative); Color,Urine Light Yellow; Glucose,Urine (UA) Negative (Negative); Ketones,Urine Negative (Negative); Leukocyte Esterase,Urine Negative (Negative); Nitrite,Urine Negative (Negative); Protein,Urine Negative (Negative); Specific Gravity,Urine 1.007 (1.001-1.035); Urobilinogen,Urine <2.0 mg/dL (<2.0)
[2021-09-14 19:01] LABS: Basophils # (A) 0.1 k/uL (0-0.2); Basophils % (A) 3 %; Eosinophils # (A) 0.1 k/uL (0-0.7); Eosinophils % (A) 1 %; HCT 48.3 % (39.0-53.0); HGB 16.1 gm/dL (13.0-17.5); Lymphocytes # (A) 1.9 k/uL (1.0-4.8); Lymphocytes % (A) 40 %; MCH 36.3 pg (25.0-35.0); MCHC 33.4 g/dL (31.0-37.0); MCV 108.6 fL (80.0-100.0); Macrocytosis Moderate; Mean Platelet Volume 7.1; Monocytes # (A) 0.2 k/uL (0-1.0); Monocytes % (A) 4 %; Neutrophils # (A) 2.2 k/uL (1.3-7.7); Neutrophils % (A) 48 %; Platelet Count 171 k/uL (150-450); RBC 4.44 m/uL (4.30-5.90); RDW 13.5 % (11.5-15.5); WBC 4.7 k/uL (3.8-10.6)
[2021-09-14 19:03] LABS: Amphetamine Screen,Urine Not Detected (NotDetected); Barbiturate Screen,Urine Not Detected (NotDetected); Benzodiazepines Screen,Urine Not Detected (NotDetected); Cocaine Screen,Urine Not Detected (NotDetected); Methadone Screen, Urine Not Detected (NotDetected); Opiate Screen,Urine Not Detected (NotDetected); Oxycodone Screen, Urine Not Detected (NotDetected); Phencyclidine Screen,Urine Not Detected (NotDetected); Tricyclic Antidepressant,Urine Not Detected (NotDetected); Urn Cannabinoid Scrn Not Detected (NotDetected)
[2021-09-14 19:14] LABS: ALT 128 U/L (4-49); AST 343 U/L (17-59); African American GFR (CKD) >90 (>60 ml/min/1.73 sqM); Albumin 4.9 g/dL (3.5-5.0); Alkaline Phosphatase 172 U/L (38-126); Anion Gap 15 mmol/L; Blood Urea Nitrogen 12 mg/dL (9-20); Calcium 9.5 mg/dL (8.4-10.2); Carbon Dioxide 27 mmol/L (22-30); Chloride 98 mmol/L (98-107); Glucose 107 mg/dL (74-99); Non-African American GFR(CKD) >90 (>60 ml/min/1.73 sqM); Potassium 4.2 mmol/L (3.5-5.1); Sodium 140 mmol/L (137-145); Total Bilirubin 1.4 mg/dL (0.2-1.3); Total Protein 10.1 g/dL (6.3-8.2)
[2021-09-14 19:20] LABS: Lipase 278 U/L (23-300)
[2021-09-14] MEDS ORDERED: LORazepam 2 MG/ML INJ IV PRN ×3 (19:26)
[2021-09-14] MEDS ORDERED: THIAMINE 100 MG/ML 2 ML VIAL IM STA (19:26)
[2021-09-14 19:28] LABS: Amylase 330 U/L (30-110)
[2021-09-14 19:30] LABS: Alcohol 245 mg/dL
--- NOTE | 2021-09-14 19:50 | XR ---
EXAMINATION TYPE: XR KUB DATE OF EXAM: 09/14/2021 COMPARISON: 06/13/2019 HISTORY: Abdominal pain TECHNIQUE: 2 views upright FINDINGS: Bowel gas pattern is normal. There is no sign of intestinal obstruction or pneumoperitoneum . Fecal pattern is normal. There is no evidence of a mass. There are no pathologic calcifications ove r the kidneys. IMPRESSION: Nonacute abdomen. No change.
[2021-09-14] MEDS ORDERED: NALOXONE 0.4 MG/ML 1 ML VIAL IV PRN ×2 (20:47→20:48)
[2021-09-14] MEDS ORDERED: ONDANSETRON 4 MG/2 ML VIAL IVP PRN (20:48)
--- NOTE | 2021-09-14 21:23 | ED ---
General Adult HPI - General Chief complaint: Psychiatric Symptoms Stated complaint: Mental Health Eval Time Seen by Provider: 09/14/21 17:35 Source: patient, RN notes reviewed, old records reviewed Mode of arrival: ambulatory Limitations: no limitations - History of Present Illness Initial comments: Patient is a 36-year-old male with past medical history remarkable for chronic alcohol abuse, pancreatitis, psychiatric illness who presents emergency dep artment for psychiatric evaluation and concern for possible acute onset of pancreatitis. He is endorsing suicidal ideations and states he is not taking his medications. He states he has been drinking alcohol again. States he is currently drunk. He is also having epigastric abdominal pain with nausea and nonbilious, bloody emesis. Denies any diarrhea. Has no urinary complaints. He is concerned regarding his pancreatitis. His no other acute complaints at this time. Patient was evaluated when he was placed in a room. He is placed in green scrubs. - Related Data Home Medications Medication Instructions Recorded Confirmed FLUoxetine HCL [PROzac] 20 mg PO DAILY 09/14/21 09/14/21 Multivitamins, Thera [Multivitamin 1 tab PO DAILY 09/14/21 09/14/21 (formulary)] Thiamine HCl [Vitamin B-1] 100 mg PO DAILY 09/14/21 09/14/21 Previous Rx's Medication Instructions Recorded traZODone HCL [Desyrel] 100 mg PO HS 30 Days tab 06/10/21 Allergies Allergy/AdvReac Type Severity Reaction Status Date / Time adhesive tape Allergy Unknown Verified 09/14/21 18:10 codeine Allergy Unknown Verified 09/14/21 18:10 Review of Systems ROS Statement: Those systems with pertinent positive or pertinent negative responses have been documented in the HPI. Review of Systems: CONST: Denies fever EYES: Denies blurry vision ENT: Denies nasal congestion C/V: Denies Chest pain RESP: Denies shortness of breath GI: Endorses abdominal pain : Denies dysuria SKIN: Denies rash. MSK: Denies joint pain. NEURO: Denies headache PSYCH: Denies homicidal ideations/plans/attempts. Denies visual or auditory hallucinations. He endorses suicidal ideations denies any plans or attempts. ROS Other: All systems not noted in ROS Statement are negative. Past Medical History Additional Past Medical History / Comment(s): pancreatitis, gout. History of Any Multi-Drug Resistant Organisms: None Reported Past Surgical History: Ear Surgery Additional Past Surgical History / Comment(s): tubes in ears Past Anesthesia/Blood Transfusion Reactions: No Reported Reaction Past Psychological History: Depression Smoking Status: Current every day smoker Past Alcohol Use History: Abuse, Daily Past Drug Use History: None Reported - Past Family History Father History Unknown: Yes Mother Family Medical History: Diabetes Mellitus General Exam - General Exam Comments Initial Comments: General: Appears in mild distress secondary to abdominal discomfort and acute alcohol intoxication. HEAD: Normal with no signs of head trauma. EYES: PERRLA, EOMI, conjunctiva normal, no discharge. ENT: Hearing grossly intact, normal oropharynx. RESPIRATORY: Clear breath sounds bilaterally. No wheezes, rales, or rhonchi. C/V: Patient is tachycardic with a regular rhythm. S1 and S2 auscultated. No peripheral edema. Peripheral pulses are 2+ and intact throughout. ABD: Abdomen is soft, nondistended. Patient is mildly tender to palpation in the epigastric region. No guarding. No peritoneal signs. No rebound tenderness. EXT: Normal range of motion, no obvious deformity SKIN: No rashes or lesions observed on exposed skin. NEURO: Alert and oriented x 4. Cranial nerves II-XII intact. No focal sensory or strength deficits. Limitations: no limitations Course Vital Signs 09/14/21 09/14/21 17:00 21:50 Temperature 98.1 F Pulse Rate 119 H 102 H Respiratory 18 18 Rate Blood Pressure 161/82 136/72 O2 Sat by Pulse 95 95 Oximetry Medical Decision Making - Medical Decision Making Based on patient's presentation and physical exam, I do believe he is acutely intoxicated with alcohol and is likely experiencing acute on chronic pancreatitis at this time. We will obtain abdominal laboratory studies as well as a screening EKG, chest x-ray, and we'll symptomatically treat the patient with IV fluids, antibiotics, and pain medication. Patient was in agreement with this plan. He will be placed on [facility] protocol for alcohol withdrawal as he does have a history of it but currently is not exhibiting any symptoms. EKG shows no signs of acute ischemia. Laboratory studies are remarkable for an elevated amylase of 330, lipase of 278. Patient is elevated AST's of 343, ALT of 128, and alk phos of 172. Alcohol level is 245. Covid swab is negative. On reevaluation come patient's pain is improved but he is having intractable nausea and vomiting. As the patient is acutely intoxicated with alcohol and having intractable nausea and vomiting, we will admit the patient and have psychiatry evaluated the patient on inpatient basis. Patient was in agreement with this plan. I spoke with the admitting team under Dr. King that accepted the patient. She was therefore admitted to the hospital in stable condition - Lab Data Result diagrams: 09/14/21 18:43 09/14/21 18:43 Lab Results 09/14/21 09/14/21 09/14/21 Range/Units 18:26 18:43 18:43 WBC 4.7 (3.8-10.6) k/uL RBC 4.44 (4.30-5.90) m/uL Hgb 16.1 (13.0-17.5) gm/dL Hct 48.3 (39.0-53.0) % MCV 108.6 H (80.0-100.0) fL MCH 36.3 H (25.0-35.0) pg MCHC 33.4 (31.0-37.0) g/dL RDW 13.5 (11.5-15.5) % Plt Count 171 (150-450) k/uL MPV 7.1 Neutrophils % 48 % Lymphocytes % 40 % Monocytes % 4 % Eosinophils % 1 % Basophils % 3 % Neutrophils # 2.2 (1.3-7.7) k/uL Lymphocytes # 1.9 (1.0-4.8) k/uL Monocytes # 0.2 (0-1.0) k/uL Eosinophils # 0.1 (0-0.7) k/uL Basophils # 0.1 (0-0.2) k/uL Macrocytosis Moderate Sodium (137-145) mmol/L Potassium (3.5-5.1) mmol/L Chloride (98-107) mmol/L Carbon Dioxide (22-30) mmol/L Anion Gap mmol/L BUN (9-20) mg/dL Creatinine (0.66-1.25) mg/dL Est GFR (CKD-EPI)AfAm (>60 ml/min/1.73 sqM) Est GFR (CKD-EPI)NonAf (>60 ml/min/1.73 sqM) Glucose (74-99) mg/dL Calcium (8.4-10.2) mg/dL Total Bilirubin (0.2-1.3) mg/dL AST (17-59) U/L ALT (4-49) U/L Alkaline Phosphatase (38-126) U/L Total Protein (6.3-8.2) g/dL Albumin (3.5-5.0) g/dL Amylase (30-110) U/L Lipase (23-300) U/L Urine Color Light Yellow Urine Appearance Clear (Clear) Urine pH 6.0 (5.0-8.0) Ur Specific [place] 1.007 (1.001-1.035) Urine Protein Negative (Negative) Urine Glucose (UA) Negative (Negative) Urine Ketones Negative (Negative) Urine Blood Negative (Negative) Urine Nitrite Negative (Negative) Urine Bilirubin Negative (Negative) Urine Urobilinogen <2.0 (<2.0) mg/dL Ur Leukocyte Esterase Negative (Negative) Urine Opiates Screen Not Detected (NotDetected) Ur Oxycodone Screen Not Detected (NotDetected) Urine Methadone Screen Not Detected (NotDetected) Ur Propoxyphene Screen Not Detected (NotDetected) Ur Barbiturates Screen Not Detected (NotDetected) U Tricyclic Antidepress Not Detected (NotDetected) Ur Phencyclidine Scrn Not Detected (NotDetected) Ur Amphetamines Screen Not Detected (NotDetected) U Methamphetamines Scrn Not Detected (NotDetected) U Benzodiazepines Scrn Not Detected (NotDetected) Urine Cocaine Screen Not Detected (NotDetected) U Marijuana (THC) Screen Not Detected (NotDetected) Serum Alcohol mg/dL 09/14/21 Range/Units 18:43 WBC (3.8-10.6) k/uL RBC (4.30-5.90) m/uL Hgb (13.0-17.5) gm/dL Hct (39.0-53.0) % MCV (80.0-100.0) fL MCH (25.0-35.0) pg MCHC (31.0-37.0) g/dL RDW (11.5-15.5) % Plt Count (150-450) k/uL MPV Neutrophils % % Lymphocytes % % Monocytes % % Eosinophils % % Basophils % % Neutrophils # (1.3-7.7) k/uL Lymphocytes # (1.0-4.8) k/uL Monocytes # (0-1.0) k/uL Eosinophils # (0-0.7) k/uL Basophils # (0-0.2) k/uL Macrocytosis Sodium 140 (137-145) mmol/L Potassium 4.2 (3.5-5.1) mmol/L Chloride 98 (98-107) mmol/L Carbon Dioxide 27 (22-30) mmol/L Anion Gap 15 mmol/L BUN 12 (9-20) mg/dL Creatinine 0.87 (0.66-1.25) mg/dL Est GFR (CKD-EPI)AfAm >90 (>60 ml/min/1.73 sqM) Est GFR (CKD-EPI)NonAf >90 (>60 ml/min/1.73 sqM) Glucose 107 H (74-99) mg/dL Calcium 9.5 (8.4-10.2) mg/dL Total Bilirubin 1.4 H (0.2-1.3) mg/dL AST 343 H (17-59) U/L ALT 128 H (4-49) U/L Alkaline Phosphatase 172 H (38-126) U/L Total Protein 10.1 H (6.3-8.2) g/dL Albumin 4.9 (3.5-5.0) g/dL Amylase 330 H* (30-110) U/L Lipase 278 (23-300) U/L Urine Color Urine Appearance (Clear) Urine pH (5.0-8.0) Ur Specific [place] (1.001-1.035) Urine Protein (Negative) Urine Glucose (UA) (Negative) Urine Ketones (Negative) Urine Blood (Negative) Urine Nitrite (Negative) Urine Bilirubin (Negative) Urine Urobilinogen (<2.0) mg/dL Ur Leukocyte Esterase (Negative) Urine Opiates Screen (NotDetected) Ur Oxycodone Screen (NotDetected) Urine Methadone Screen (NotDetected) Ur Propoxyphene Screen (NotDetected) Ur Barbiturates Screen (NotDetected) U Tricyclic Antidepress (NotDetected) Ur Phencyclidine Scrn (NotDetected) Ur Amphetamines Screen (NotDetected) U Methamphetamines Scrn (NotDetected) U Benzodiazepines Scrn (NotDetected) Urine Cocaine Screen (NotDetected) U Marijuana (THC) Screen (NotDetected) Serum Alcohol 245 H* mg/dL - EKG Data -: EKG Interpreted by Me EKG Comments: 12-lead Electrocardiogram Interpretation Note EKG was reviewed and interpreted by myself. 12-lead ECG performed at 1851 is interpreted by me as revealing normal sinus rhythm at a rate of 80 beats per minute. [place] is normal. [place] interval is 182 ms, QRS duration is 102 ms, QTc is 482 ms.. There is an isolated T-wave inversion in lead III. No other acute ST segment or T-wave changes.. R wave progression across the precordium was satisfactory. By my interpretation this EKG is non-diagnostic for acute ischemia. Disposition Clinical Impression: Alcohol intoxication, Chronic pancreatitis, Intractable nausea and vomiting Disposition: ADMITTED IP TO THIS HOSP Condition: Stable
[2021-09-14] MEDS: MAG HYDROX/AL HYDROX/SIMETH 30 ML CUP PO PRN (21:49)
--- NOTE | 2021-09-14 23:45 | P.HPIM ---
History of Present Illness H&P Date: 09/14/21 The patient is a 36-year-old male with a PMH of depression and alcohol abuse who presented to the emergency room with alcohol intoxication, abdominal pain, vomiting, and suicidal ideation. Patient reports that he recently lost a friend and has been going through a lot of stress which led him to drink excessively. He reports that over the past few years, his alcohol intake has dramatically increased where he is now drinking 1 to 2 pints of hard liquor daily. He notes drinking in an effort to kill himself. He also reports having epigastric abdominal pain with nausea and vomiting ongoing for the past few hours. Reports that this is similar to his episodes of acute pancreatitis. Denied fever, chills, cough, diarrhea. In the emergency room, laboratory evaluation was remarkable for an amylase of serum alcohol 245, 330, lipase 278, total bilirubin 1.4, AST 343, ALT 128, alk phos 172, and MCV 108.6. EKG revealed NSR @ 80 bpm with prolonged QTC of 482 ms. Review of systems: Pertinent positives and negatives as discussed in HPI, a complete review of systems was performed and all other systems are negative. Physical examination: General: non toxic, no distress, appears at stated age, obese Derm: no unusual rashes/lesions no unusual ecchymoses, warm, dry Head: atraumatic, normocephalic, symmetric Eyes: EOMI, no lid lag, anicteric sclera, pupils equal round reactive to light ENT: Nose and ears atraumatic, no thrush, no pharyngeal erythema Neck: No thyromegaly, no cervical lymphadenopathy, trachea midline, supple Mouth: no lip lesion, mucus membranes moist Cardiovascular: S1S2 reg, no murmur, positive posterior tibial pulse bilateral, no edema, capillary refill less than 2 seconds Lungs: CTA bilateral, no rhonchi, no rales , no accessory muscle use Abdominal: soft, mild epigastric tenderness, no guarding, no appreciable organomegaly, normal bowel sounds Ext: no gross muscle atrophy, muscle strength 5 out of 5 in all 4 extremities grossly, no contractures, Neuro: CN II-XI grossly intact, light touch intact all 4 extremities, finger to nose within normal limits, Psych: Alert, oriented, appropriate affect Assessment/plan Mild acute pancreatitis -IV fluids -Pain control Alcohol intoxication with impending withdrawal -CIWA protocol -Thiamine -IVFs -Monitor electrolytes daily Abnormal LFTs -Secondary to ongoing alcohol use Macrocytosis -Obtain workup Prolonged QTC -Avoid further prolonged agents Depression with suicidal ideation -Suicide precautions -Psychiatry consult DVT prophylaxis -Heparin subq The patient is admitted with an anticipated less than 2 midnight stay for evaluation of pancreatitis CODE STATUS:Full Code Discussed with: Hilario Anticipated discharge date: in am Anticipated discharge place: [facility] Past Medical History Additional Past Medical History / Comment(s): pancreatitis, gout. History of Any Multi-Drug Resistant Organisms: None Reported Past Surgical History: Ear Surgery Additional Past Surgical History / Comment(s): tubes in ears Past Anesthesia/Blood Transfusion Reactions: No Reported Reaction Past Psychological History: Depression Smoking Status: Current every day smoker Past Alcohol Use History: Abuse, Daily Past Drug Use History: None Reported - Past Family History Father History Unknown: Yes Mother Family Medical History: Diabetes Mellitus Medications and Allergies Home Medications Medication Instructions Recorded Confirmed Type traZODone HCL [Desyrel] 100 mg PO HS 30 Days tab 06/10/21 09/14/21 Rx FLUoxetine HCL [PROzac] 20 mg PO DAILY 09/14/21 09/14/21 History Multivitamins, Thera [Multivitamin 1 tab PO DAILY 09/14/21 09/14/21 History (formulary)] Thiamine HCl [Vitamin B-1] 100 mg PO DAILY 09/14/21 09/14/21 History Allergies Allergy/AdvReac Type Severity Reaction Status Date / Time adhesive tape Allergy Unknown Verified 09/14/21 18:10 codeine Allergy Unknown Verified 09/14/21 18:10 Physical Exam Vitals: Vital Signs Temp Pulse Resp BP Pulse Ox 09/14/21 21:50 102 H 18 136/72 95 09/14/21 17:00 98.1 F 119 H 18 161/82 95 Intake and Output 09/14/21 09/14/21 09/15/21 14:59 22:59 06:59 Other: Weight 108.862 kg Results CBC & Chem 7: 09/14/21 18:43 09/14/21 18:43 Labs: Abnormal Lab Results - Last 24 Hours (Table) 09/14/21 09/14/21 Range/Units 18:43 18:43 MCV 108.6 H (80.0-100.0) fL MCH 36.3 H (25.0-35.0) pg Glucose 107 H (74-99) mg/dL Total Bilirubin 1.4 H (0.2-1.3) mg/dL AST 343 H (17-59) U/L ALT 128 H (4-49) U/L Alkaline Phosphatase 172 H (38-126) U/L Total Protein 10.1 H (6.3-8.2) g/dL Amylase 330 H* (30-110) U/L Serum Alcohol 245 H* mg/dL
[2021-09-15] MEDS ORDERED: TRIMETHOBENZAMIDE 100 MG/ML 2 ML VIAL IM PRN
[2021-09-15] MEDS: SODIUM CHLORIDE 0.9% 1,000 ML IV SCH ×3 (00:38→14:26)
[2021-09-15] MEDS: HEPARIN SODIUM,PORCINE/PF 5,000 UNIT/0.5 ML SYRINGE SQ SCH ×4 (02:27→23:06)
[2021-09-15 04:22] LABS: HCT 39.9 % (39.0-53.0); HGB 13.4 gm/dL (13.0-17.5); MCH 36.7 pg (25.0-35.0); MCHC 33.6 g/dL (31.0-37.0); MCV 109.1 fL (80.0-100.0); Macrocytosis Moderate; Mean Platelet Volume 7.6; Platelet Count 120 k/uL (150-450); RBC 3.65 m/uL (4.30-5.90); RDW 12.6 % (11.5-15.5); WBC 4.2 k/uL (3.8-10.6)
[2021-09-15] MEDS: THIAMINE 100 MG TAB PO SCH ×2 (08:48→16:32)
[2021-09-15] MEDS: FLUoxetine HCL 20 MG CAP PO SCH (08:48)
[2021-09-15] MEDS: MULTIVITAMINS, THERA 1 EACH TAB PO SCH (08:48)
[2021-09-15] MEDS ORDERED: NON FORMULARY DRUG (Thiamine Hcl [Vitamin B-1] 100 MG Tablet) PO SCH (09:00)
[2021-09-15 09:55] LABS: African American GFR (CKD) 111.7 (60.0-200.0); Anion Gap 14.8 mmol/L (10.00-18.00); BUN/Creat Ratio 11.8 Ratio (12.00-20.00); Blood Urea Nitrogen 11.8 mg/dL (9.0-27.0); Calcium 8.6 mg/dL (8.7-10.3); Carbon Dioxide 23.2 mmol/L (20.0-27.5); Magnesium 1.9 mg/dL (1.5-2.4); Non-African American GFR(CKD) 96.4 (60.0-200.0); Potassium 3.9 mmol/L (3.5-5.5)
[2021-09-15 10:00] LABS: INR 1.3 (<1.2); Prothrombin Time 13.4 sec (9.0-12.0)
[2021-09-15 10:11] LABS: Albumin 3.9 g/dL (3.5-5.0); Albumin/Globulin Ratio 0.9; Bilirubin,Unconjugated 1.1 mg/dL (0.0-1.1); Globulin 4.3 g/dL; Total Bilirubin 1.6 mg/dL (0.2-1.3); Total Protein 8.2 g/dL (6.3-8.2)
--- NOTE | 2021-09-15 13:33 | P.PN ---
Subjective Progress Note Date: 09/15/21 Patient reporting abdominal pain today, otherwise, notes that his nausea/vomiting is better. She was able to get some rest overnight. Objective - Vital Signs Vital signs: Vital Signs Temp 98.6 F 09/15/21 06:34 Pulse 89 09/15/21 06:34 Resp 16 09/15/21 06:34 BP 142/95 09/15/21 06:34 Pulse Ox 98 09/15/21 06:34 Intake & Output 09/14/21 09/15/21 09/15/21 18:59 06:59 18:59 Weight 108.862 kg - Exam Gen: awake, alert HEENT: normocephalic, atraumatic, good hearing acuity, moist mucous membranes Resp: good air exchange, breathing comfortably with no accessory muscle use, clear to auscultation bilaterally CVS: good distal perfusion x 4, regular rate and rhythm without murmurs GI: soft, tenderness in the right upper quadrant : no SPT, no CVAT, irby catheter not present MSK: no pitting edema, no clubbing Neuro: non-focal, moving all extremities Psych: cooperative, depressed mood, endorses suicidal ideation - Labs CBC & Chem 7: 09/15/21 03:38 09/15/21 03:38 Labs: Abnormal Lab Results - Last 24 Hours (Table) 09/14/21 09/14/21 09/15/21 Range/Units 18:43 18:43 03:38 RBC 3.65 L (4.30-5.90) m/uL MCV 108.6 H 109.1 H (80.0-100.0) fL MCH 36.3 H 36.7 H (25.0-35.0) pg Plt Count 120 L (150-450) k/uL PT (9.0-12.0) sec INR (<1.2) BUN/Creatinine Ratio (12.00-20.00) Ratio Glucose 107 H (74-99) mg/dL Calcium (8.7-10.3) mg/dL Total Bilirubin 1.4 H (0.2-1.3) mg/dL AST 343 H (17-59) U/L ALT 128 H (4-49) U/L Alkaline Phosphatase 172 H (38-126) U/L Total Protein 10.1 H (6.3-8.2) g/dL Amylase 330 H* (30-110) U/L Serum Alcohol 245 H* mg/dL 09/15/21 09/15/21 09/15/21 Range/Units 03:38 09:38 09:38 RBC (4.30-5.90) m/uL MCV (80.0-100.0) fL MCH (25.0-35.0) pg Plt Count (150-450) k/uL PT 13.4 H (9.0-12.0) sec INR 1.3 H (<1.2) BUN/Creatinine Ratio 11.80 L (12.00-20.00) Ratio Glucose (74-99) mg/dL Calcium 8.6 L (8.7-10.3) mg/dL Total Bilirubin 1.6 H (0.2-1.3) mg/dL AST 327 H (17-59) U/L ALT 110 H (4-49) U/L Alkaline Phosphatase 137 H (38-126) U/L Total Protein (6.3-8.2) g/dL Amylase (30-110) U/L Serum Alcohol mg/dL Assessment and Plan Assessment: Mild acute hepatitis -IV fluids -Pain control with morphine when necessary -Manage his discriminate function is 8 points, no steroids indicated Alcohol intoxication with impending withdrawal -[facility] protocol -Thiamine -IVFs -Monitor electrolytes daily Abnormal LFTs -Secondary to ongoing alcohol use Macrocytosis Paraproteinemia -B12 is normal, folate pending -We'll monitor and if still elevated protein status post fluids, we'll obtain SPEP and UPEP, free light chains Prolonged QTC -Avoid further prolonged agents Depression with suicidal ideation -Suicide precautions -Psychiatry consult DVT prophylaxis -Heparin subq CODE STATUS:Full Code Anticipated discharge place: [facility] [place]
[2021-09-15] MEDS ORDERED: traZODone HCL 50 MG TAB PO PRN (13:44)
--- NOTE | 2021-09-15 13:55 | P.CN ---
Psychiatric Consult - . Consult date: 09/15/21 Consult:: 09/15/21 13:54 IDENTIFYING DATA: This patient is a , unemployed, 36-year-old male who presented the emergency Department with acute alcohol intoxication and suicidal ideation. HISTORY OF PRESENT ILLNESS: The patient presented to the hospital on 09/13/2021, brought into the emergency department on his own volition with a chief complaint of alcohol intoxication, abdominal pain, vomiting, and suicidal ideation. Psychiatry has been consulted for evaluation of depression and suicidal ideation. The patient is known to this provider and was previously admitted to the psychiatric unit from 06/07/21 to 06/10/21. Upon evaluation with this provider [facility] apartment, the patient does report that he has been feeling increased depression and suicidal ideation over the past month. The patient reports that he lost his best friend "Carlos" approximately 1 month ago to a heart attack. He states that since then, his depression has been getting worse and that he has been drinking excessively to cope. The patient reports that when he was last discharged from the psychiatric unit this past May, he remained sober for a month. He states that he began initially drinking 1 pint of liquor a day and this increased up to 3 pints of liquor prior to this admission. He states that he has been drinking this heavily for the past month. The patient acknowledges that he has been drinking in an effort to kill himself. The patient was that he has been nonadherent with his medications after he was discharged from the psychiatric unit. The patient endorses significant depressive symptoms including anhedonia, low mood, difficulty with sleep, poor appetite, and suicidal ideation. The patient denies any significant symptoms of bipolar disorder. He reports no significant history of auditory or visual hallucinations. However, the patient states that he expresses vivid and at times scary dreams. He is currently requesting inpatient psychiatric admission. ED evaluation reveals that the patient has an elevated serum alcohol of 245 and an amylase of 3:30. Furthermore, the patient's QTC was elevated at 482 ms. PAST PSYCHIATRIC HISTORY: Patient has a history of depression and alcohol use disorder.. Patient was last discharged on a regimen of Prozac and trazodone. He was initially to be discharged on a regimen including naltrexone however could not afford the medication. The patient has had 2 prior inpatient psychiatric hospitalizations with the last time being this past May. She reports that he has not been following up in the outpatient setting. Does report prior attempts at suicide including attempting to shoot himself 7 years ago. PAST MEDICAL HISTORY: Additional Past Medical History / Comment(s): pancreatitis, gout. History of Any Multi-Drug Resistant Organisms: None Reported Past Surgical History: Ear Surgery Additional Past Surgical History / Comment(s): tubes in ears Past Anesthesia/Blood Transfusion Reactions: No Reported Reaction Past Psychological History: Depression Smoking Status: Current every day smoker Past Alcohol Use History: Abuse, Daily Past Drug Use History: None Reported ALLERGIES: Adhesive tape, codeine CHEMICAL DEPENDENCY HISTORY: as per HPI. FAMILY PSYCHIATRIC/SUBSTANCE USE HISTORY: Biological father diagnosed with schizophrenia SOCIAL HISTORY: Patient is currently . He was for 6 years. He has to daughters with his ex- ages 5 and 7 years old. He shares custody with his ex-. He currently lives with his mother. He has an 18-year-old son from a previous relationship but is not in contact with him. He is currently employed as a cook. He reports no history, denominational affiliation, but was recently on probation for unpaid child support. MENTAL STATUS EXAM: General Appearance: Patient appears to be stated age is alert, pleasant, and cooperative. Patient appears to have fair hygiene and grooming wearing hospital gown with fair eye contact. Obese body habitus. Patient is currently wearing glasses. Behavior: Patient is calmly lying in bed without any agitated behavior. Eye contact is appropriate. Speech: Patient's speech is fluent and nonpressured. Mood/Affect: Patient reports their mood is "depressed", affect is congruent, and withdrawn, and at times tearful. Suicidality/Homicidality: Patient is currently endorsing suicidal ideation but denies any homicidal ideation, intention, and/or plan. Perceptions: Patient denies any visual hallucinations and denies any auditory hallucinations Though content/process: There is no evidence of any delusional thought content and thought process is linear and goal-directed. Memory and concentration: AOX3, grossly intact for the purposes of this session. Can spell "WORLD" backwards Judgment and insight: Poor Vital Signs Temp 98.6 F 09/15/21 06:34 Pulse 89 09/15/21 06:34 Resp 16 09/15/21 06:34 BP 142/95 09/15/21 06:34 Pulse Ox 98 09/15/21 06:34 Intake & Output 09/14/21 09/15/21 09/15/21 18:59 06:59 18:59 Weight 108.862 kg IMPRESSIONS: Depressive disorder, recurrent, severe, with anxious features Alcohol use disorder Acute pancreatitis PLAN: -At this time patient DOES meet criteria for inpatient psychiatric admission. -Would recommend the following medication changes/additions: Continue Prozac 20 mg daily for depression/anxiety We will start trazodone 50 mg daily at bedtime when necessary for depression/insomnia -Cannot leave AMA at this time. Patient will need a petition and certification if attempting to leave AMA. -When medically stable, patient is eligible for transfer to a psych bed when available. -Psychiatry will sign off at this point, please contact with any questions. 09/15/21 13:54
[2021-09-15] MEDS: MORPHINE SULFATE 2 MG/ML SYRINGE IVP PRN ×3 (14:17→23:06)
[2021-09-15] MEDS: MAG HYDROX/AL HYDROX/SIMETH 30 ML CUP PO PRN (16:33)
[2021-09-16] MEDS: SODIUM CHLORIDE 0.9% 1,000 ML IV SCH ×4 (01:36→20:02)
[2021-09-16 07:54] LABS: Basophils % (A) 1 %; Eosinophils # (A) 0.1 k/uL (0-0.7); Eosinophils % (A) 6 %; HCT 38.3 % (39.0-53.0); HGB 12.7 gm/dL (13.0-17.5); Lymphocytes # (A) 1.2 k/uL (1.0-4.8); Lymphocytes % (A) 49 %; MCH 36.2 pg (25.0-35.0); MCHC 33.1 g/dL (31.0-37.0); MCV 109.5 fL (80.0-100.0); Macrocytosis Marked; Mean Platelet Volume 7.9; Monocytes # (A) 0.1 k/uL (0-1.0); Monocytes % (A) 4 %; Neutrophils # (A) 0.9 k/uL (1.3-7.7); Neutrophils % (A) 37 %; RDW 13.3 % (11.5-15.5); WBC 2.5 k/uL (3.8-10.6)
[2021-09-16 08:13] LABS: Platelet Count 84 k/uL (150-450)
[2021-09-16] MEDS: MORPHINE SULFATE 2 MG/ML SYRINGE IVP PRN (09:08)
[2021-09-16] MEDS: FLUoxetine HCL 20 MG CAP PO SCH (09:09)
[2021-09-16] MEDS: THIAMINE 100 MG TAB PO SCH ×2 (09:09→16:28)
[2021-09-16] MEDS: MULTIVITAMINS, THERA 1 EACH TAB PO SCH (09:09)
[2021-09-16] MEDS: HEPARIN SODIUM,PORCINE/PF 5,000 UNIT/0.5 ML SYRINGE SQ SCH ×2 (09:09→16:05)
[2021-09-16 11:20] LABS: Magnesium 1.8 mg/dL (1.5-2.4)
[2021-09-16 11:46] LABS: African American GFR (CKD) 133.3 (60.0-200.0); Albumin 3.5 g/dL (3.8-4.9); Albumin/Globulin Ratio 1.1 (1.60-3.17); Anion Gap 10.5 mmol/L (10.00-18.00); BUN/Creat Ratio 6.41 Ratio (12.00-20.00); Bilirubin, Conjugated 0.78 mg/dL (0.20-0.40); Bilirubin,Unconjugated 1.13 mg/dL (0.20-1.00); Blood Urea Nitrogen 5.1 mg/dL (9.0-27.0); Calcium 7.9 mg/dL (8.7-10.3); Carbon Dioxide 22.1 mmol/L (20.0-27.5); Globulin 3.2 g/dL (1.6-3.3); Potassium 3.5 mmol/L (3.5-5.5); Total Bilirubin 1.9 mg/dL (0.30-1.20); Total Protein 6.6 g/dL (6.2-8.2)
[2021-09-16 13:03] VITALS: BP 144/81; PULSE 76; RESP 19; TEMP 98.3
--- NOTE | 2021-09-16 15:23 | P.PN ---
Progress Note - Text Progress Note Date: 09/16/21 Patient is medically clear for discharge, pending formal psych acceptance to the mental health unit prior to formal note in the form of discharge summary.
--- NOTE | 2021-09-17 14:46 | P.DS ---
Providers Date of admission: 09/14/21 20:47 Expected date of discharge: 09/17/21 Attending physician: Uriel King MD Consults: 09/14/21 20:47 Consult Physician Urgent Consulting Provider: Jorge Wayne Consult Reason/Comments: suicidal ideations, off medications Do you want consulting provider notified?: Yes Primary care physician: Stated None Hospital Course: Mild acute hepatitis Patient admitted with abdominal pain, nausea, vomiting. Found to have elevated LFTs and mildly elevated lipase. Made NPO and given IVF and pain control with morphine. Maddreys score was 8, and no steroids indicated. Pts diet was advanced once pain was controlled and he tolerated diet well. Discharged to MHU as below. Alcohol intoxication Alcohol Use Disorder Patient was monitored for ETOH withdrawal but did not develop any clinical symptoms after sobriety. Continue thiamine, MVI. Macrocytosis Paraproteinemia -B12 is normal -Repeat labs by PCP as outpatient Depression with suicidal ideation -Suicide precautions, Psychiatry consulted. Recommended inpatient hospitalization and made some changes to medications as reflected in discharge med rec. Assessment: Gen: awake, alert HEENT: normocephalic, atraumatic, good hearing acuity, moist mucous membranes Resp: good air exchange, breathing comfortably with no accessory muscle use CVS: good distal perfusion x 4, GI: soft, mild ttp in ruq : no SPT, no CVAT, irby catheter not present MSK: no pitting edema, no clubbing Neuro: non-focal, moving all extremities Psych: cooperative, euthymic mood Patient Condition at Discharge: Good Plan - Discharge Summary Discharge Rx Participant: No New Discharge Prescriptions: New traZODone HCL [Desyrel] 50 mg PO HS PRN tab PRN Reason: insomnia Thiamine [Vitamin B-1] 100 mg PO BID-W/MEALS tab Continue FLUoxetine HCL [PROzac] 20 mg PO DAILY Multivitamins, Thera [Multivitamin (formulary)] 1 tab PO DAILY Discontinued traZODone HCL [Desyrel] 100 mg PO HS 30 Days tab Thiamine HCl [Vitamin B-1] 100 mg PO DAILY Discharge Medication List FLUoxetine HCL [PROzac] 20 mg PO DAILY 09/14/21 [History] Multivitamins, Thera [Multivitamin (formulary)] 1 tab PO DAILY 09/14/21 [History] Thiamine [Vitamin B-1] 100 mg PO BID-W/MEALS tab 09/16/21 [Rx] traZODone HCL [Desyrel] 50 mg PO HS PRN tab 09/16/21 [Rx] Follow up Appointment(s)/Referral(s): None,Stated [Primary Care Provider] - 1 Week Activity/Diet/Wound Care/Special Instructions: Activity: as tolerated Diet: regular Special Instructions: Will need to follow with primary care doc on discharge from MHU and have repeat liver function test as outpatient. Discharge Disposition: TRANSFER TO PSYCH HOSP/UNIT
== END 2021-09-16 21:25 ==
LOC: EC 15:58 → 5NMEDONC 20:47
PROVIDERS: ADMIT Internal Medicine; ATTEND Internal Medicine
DX: B17.9 Acute viral hepatitis, unspecified (principal); R74.8 Abnormal levels of other serum enzymes; F10.129 Alcohol abuse with intoxication, unspecified; D75.89 Other specified diseases of blood and blood-forming organs; D89.2 Hypergammaglobulinemia, unspecified; R45.851 Suicidal ideations; Z91.128 Patient's intentional underdosing of medication regimen for other reason; Z53.29 Procedure and treatment not carried out because of patient's decision for other reasons; K86.1 Other chronic pancreatitis; K85.90 Acute pancreatitis without necrosis or infection, unspecified; M10.9 Gout, unspecified; F17.200 Nicotine dependence, unspecified, uncomplicated; E66.9 Obesity, unspecified; Z68.28 Body mass index [BMI] 28.0-28.9, adult; K92.0 Hematemesis; F33.3 Major depressive disorder, recurrent, severe with psychotic symptoms; F41.9 Anxiety disorder, unspecified; G47.00 Insomnia, unspecified; R94.31 Abnormal electrocardiogram [ECG] [EKG]; Z63.4 Disappearance and death of family member; Z56.0 Unemployment, unspecified; Y90.8 Blood alcohol level of 240 mg/100 ml or more; Z79.899 Other long term (current) drug therapy; Z91.048 Other nonmedicinal substance allergy status; Z88.5 Allergy status to narcotic agent; Z83.3 Family history of diabetes mellitus; Z81.8 Family history of other mental and behavioral disorders; Z20.822 Contact with and (suspected) exposure to COVID-19
CPT/HCPCS: 96376 ×2; 96361 ×4; 96372 ×4; 82075; 96374; 96375 ×2; 99285; 36415; 93005; 82747; 80053; 80048 ×2; 80076 ×2; 82607; 82150; 83690; 83735 ×2; 85025 ×2; 85027; 85610; 81003; 80306; 87635 ×2; 74018; G0378 ×3; G0480; J1200; J3411; J3250; J2405; J2270 ×2; J1644 ×2; 80320

== ENCOUNTER 2021-09-16 20:38 | Inpatient (IN) | payer MEDICAID ==
[2021-09-16] MEDS ORDERED: MAGNESIUM HYDROXIDE 2,400 MG/10 ML CUP PO PRN (20:56)
[2021-09-16] MEDS ORDERED: MAG HYDROX/AL HYDROX/SIMETH 30 ML CUP PO PRN (20:56)
[2021-09-16] MEDS ORDERED: LORazepam 2 MG/ML INJ IM PRN (21:13)
[2021-09-16] MEDS ORDERED: haloperidoL 5 MG TAB PO PRN (21:13)
[2021-09-16] MEDS ORDERED: HALOPERIDOL LACTATE 5 MG/ML 1 ML VIAL IM PRN (21:13)
[2021-09-16] MEDS: traZODone HCL 50 MG TAB PO PRN (22:38)
[2021-09-17] MEDS: LORazepam 1 MG TAB PO PRN ×4 (01:22→22:47)
[2021-09-17] MEDS: NICOTINE 14MG/24HR PATCH TRANSDERM SCH ×2 (07:54→08:09)
[2021-09-17] MEDS: MULTIVITAMINS, THERA 1 EACH TAB PO SCH (08:08)
[2021-09-17] MEDS: THIAMINE 100 MG TAB PO SCH ×2 (08:08→16:32)
[2021-09-17] MEDS ORDERED: FLUoxetine HCL 20 MG CAP PO SCH (09:00)
--- NOTE | 2021-09-17 10:08 | P.HP ---
Psychiatric H&P - . H&P Date: 09/17/21 History & Physical: Allergies Allergy/AdvReac Type Severity Reaction Status Date / Time adhesive tape Allergy Unknown Verified 09/14/21 18:10 codeine Allergy Unknown Verified 09/14/21 18:10 Vital Signs Temp 96.3 F L 09/17/21 05:37 Pulse 87 09/17/21 08:08 Resp 20 09/17/21 08:08 BP 133/92 09/17/21 08:08 Pulse Ox 100 09/16/21 21:50 Intake & Output 09/16/21 09/17/21 09/17/21 18:59 06:59 18:59 Weight 109.7 kg 09/17/21 10:08 IDENTIFYING DATA: Patient is a , unemployed, 36-year-old - Syrian male who presented to the emergency department with acute alcohol intoxication and suicidal ideation. HPI: Patient presented to the hospital on 09/11/2021, brought to the emergency department on his own volition with a chief complaint of alcohol intoxication, suicidal ideation. When evaluated in the emergency department, the patient reported that he was endorsing significant depression and suicidal ideation over the past month. There was concern that the patient had an elevated amylase and was admitted to the medical floor for evaluation and management of acute pancreatitis. The patient was medically cleared and transferred to the psychiatric unit. The patient states that one month ago he lost his best friend to a heart attack. He reports that since then, he has been feeling increasingly depressed. He reports that he stopped taking his medication. He states that he then began drinking heavily and was afraid to restart his medication when he was drinking. The patient reports that he was sober for approximately one month after his previous admission to the psychiatric unit when he was discharged on 06/10/21. He reports drinking up to 3 pints of liquor prior to this admission. Other symptoms of depression that he endorses include feelings of hopelessness, helplessness, low energy, difficulty with sleep, low appetite, and decreased hygiene and grooming. He does not endorse any significant symptoms of bipolar disorder or any significant history of psychosis. PAST PSYCHIATRIC HISTORY: Patient has a history of depression and alcohol use disorder.. Patient was last discharged on a regimen of Prozac and trazodone. He was initially to be discharged on a regimen including naltrexone however could not afford the medication. The patient has had 2 prior inpatient psychiatric hospitalizations with the last time being this past May. She reports that he has not been following up in the outpatient setting. Does report prior attempts at suicide including attempting to shoot himself 7 years ago. PMH: Additional Past Medical History / Comment(s): pancreatitis, gout. History of Any Multi-Drug Resistant Organisms: None Reported Past Surgical History: Ear Surgery Additional Past Surgical History / Comment(s): tubes in ears Past Anesthesia/Blood Transfusion Reactions: No Reported Reaction Past Psychological History: Depression Smoking Status: Current every day smoker Past Alcohol Use History: Abuse, Daily Past Drug Use History: None Reported ALLERGIES: Adhesive tape, codeine CHEMICAL DEPENDENCY HISTORY: as per HPI FAMILY PSYCHIATRIC/SUBSTANCE USE HISTORY: Father diagnosed with schizophrenia. SOCIAL HISTORY: Patient is currently . He was for 6 years. He has to daughters with his ex- ages 5 and 7 years old. He shares custody with his ex-. He currently lives with his mother. He has an 18-year-old son from a previous relationship but is not in contact with him. He is currently employed as a cook. He reports no history, jewish affiliation, but was recently on probation for unpaid child support. MENTAL STATUS EXAM: General Appearance: Patient appears to be stated age is alert, directable, and attempts to cooperate. Patient appears to have fair hygiene and grooming. Tall, wearing glasses. Behavior: Patient is seated without any agitated behavior. Affect is appropriate. Nervous laugh. Speech: Patient's speech is fluent and nonpressured. Mood/Affect: Patient reports their mood is depressed, affect is congruent and constricted. Suicidality/Homicidality: Patient denies having any homicidal ideation intent or plan. Denies any current suicidal ideations intent or plan Perceptions: Patient denies any visual hallucinations and denies any auditory hallucinations Though content/process: There is no evidence of any delusional thought content and thought process is linear and goal-directed. Memory and concentration: AOX3, grossly intact for the purposes of this session. Can spell "WORLD" backwards Judgment and insight: Fair STRENGTHS/WEAKNESSES: Strength is that the patient is employed future oriented. Weakness is that the patient engages in heavy alcohol use. INTELLECT: average IMPRESSIONS: Major Depressive disorder, recurrent, severe, with anxious features Alcohol use disorder PLAN: -Patient is admitted under voluntary status to MHU for stabilization of psychiatric symptoms and safety. Patient signed adult voluntary form and medication consent and is placed in patient's chart. -Medications : We will increase Prozac to 30 mg by mouth daily for depression/anxiety We will start naltrexone 50 mg by mouth daily for alcohol use disorder Trazodone 50 mg by mouth at bedtime when necessary for insomnia -Ativan and Haldol PRN for agitation/aggression -Started thiamine, MVM for etoh use -CIWA protocol with Ativan PRN for ETOH withdrawal -Patient was counselled on substance abuse and desired to cut back on use -Patient was informed of the risks, benefits and side effects of the medication and patient verbally consented to taking the medications. Patient signed med consent form and was placed in chart. -Internal Medicine consult to perform medical evaluation and physical. -NRT - nicotine patch -SW on board for discharge planning. Encourage patient to participate in groups to work on coping skills. 09/17/21 10:08
[2021-09-17] MEDS: NICOTINE GUM (POLACRILEX) 2 MG GUM BUCCAL PRN ×3 (10:47→21:11)
[2021-09-17 14:13] LABS: Chol/HDL Ratio 2.67 Ratio; LDL Cholesterol,Calculated 98.5 mg/dL (0.0-131.0); VLDL Calculation 11.62 mg/dL (5.00-40.00)
--- NOTE | 2021-09-17 14:52 | P.HPMEDMHU ---
History of Present Illness H&P Date: 09/17/21 Chief Complaint: Medical management 36-year-old man with medical history of depression, alcohol abuse disorder presented for abdominal pain, nausea, vomiting and was discharged after being treated for alcohol Hepatitis. Patient was subsequently transferred to the mental health unit, where psychiatry consult medicine for medical management. Patient is doing quite well, tolerating a diet, has no additional abdominal pain. He does report some discomfort while ambulating due to his gout in the left foot. Otherwise, he denies fevers, chills, nausea, vomiting, chest pain, palpitations, syncope, presyncope, abdominal pain, diarrhea, constipation, cough, dyspnea, numbness/weakness of extremities. He continues to report anxiety, depression. Review of Systems All Systems reviewed and pertinent positives and negatives noted in HPI, all other symptoms are negative Past Medical History Additional Past Medical History / Comment(s): pancreatitis, gout. History of Any Multi-Drug Resistant Organisms: None Reported Past Surgical History: Ear Surgery Additional Past Surgical History / Comment(s): tubes in ears Past Anesthesia/Blood Transfusion Reactions: No Reported Reaction Past Psychological History: Depression Smoking Status: Current every day smoker Past Alcohol Use History: Abuse, Daily Additional Past Alcohol Use History / Comment(s): patient states he smokes 0.5 packs per day and drinks 1/5 of vodka per day. Patient states he currently lives with his mother. Past Drug Use History: None Reported - Past Family History Father History Unknown: Yes Mother Family Medical History: Diabetes Mellitus Medications and Allergies Home Medications Medication Instructions Recorded Confirmed Type FLUoxetine HCL [PROzac] 20 mg PO DAILY 09/14/21 09/16/21 History Multivitamins, Thera [Multivitamin 1 tab PO DAILY 09/14/21 09/16/21 History (formulary)] Thiamine [Vitamin B-1] 100 mg PO BID-W/MEALS tab 09/16/21 09/16/21 Rx traZODone HCL [Desyrel] 50 mg PO HS PRN tab 09/16/21 09/16/21 Rx Allergies Allergy/AdvReac Type Severity Reaction Status Date / Time adhesive tape Allergy Unknown Verified 09/14/21 18:10 codeine Allergy Unknown Verified 09/14/21 18:10 Physical Exam Osteopathic Statement: *. No significant issues noted on an osteopathic structural exam other than those noted in the History and Physical/Consult. Vitals: Vital Signs Temp Pulse Pulse Resp BP Pulse Ox 09/17/21 08:08 87 20 133/92 09/17/21 07:15 89 138/95 09/17/21 05:37 96.3 F L 106 H 18 162/93 09/16/21 21:50 97.8 F 78 18 152/97 100 Intake and Output 09/16/21 09/17/21 09/17/21 22:59 06:59 14:59 Other: Weight 109.7 kg Gen: awake, alert HEENT: normocephalic, atraumatic, good hearing acuity, moist mucous membranes Resp: good air exchange, breathing comfortably with no accessory muscle use CVS: good distal perfusion x 4, GI: soft, NTTP, ND : no SPT, no CVAT, irby catheter not present MSK: no pitting edema, no clubbing Neuro: non-focal, moving all extremities Psych: cooperative, euthymic mood Cranial Nerve Examination - Cranial Nerves Cranial Nerve II- Optic: Intact Cranial Nerve III- Oculomotor: Intact Cranial Nerve IV- Trochlear: Intact Cranial Nerve V- Trigeminal: Intact Cranial Nerve - Abducens: Intact Cranial Nerve VII- Facial: Intact Cranial Nerve VIII- Auditory: Intact Cranial Nerve IX- Glossopharyngeal: Intact Cranial Nerve X- Vagus: Intact Cranial Nerve XI- Accessory: Intact Cranial Nerve XII- Hypoglossal: Intact Results Labs: Abnormal Lab Results - Last 24 Hours (Table) 09/17/21 Range/Units 08:49 HDL Cholesterol 65.90 H (40.00-60.00) mg/dL Assessment and Plan Assessment: Gout -Motrin when necessary -Monitor for flare Alcohol abuse disorder -Thiamine, folate, multivitamin -Naltrexone -Alcohol cessation counseling Major depressive disorder -Care per primary team Patient is full code
[2021-09-17] MEDS: IBUPROFEN 200 MG TAB PO PRN ×2 (16:29→20:54)
[2021-09-17] MEDS: traZODone HCL 50 MG TAB PO PRN (20:54)
[2021-09-18 01:00] VITALS: RESP 16
[2021-09-18] MEDS: LORazepam 1 MG TAB PO PRN (06:16)
[2021-09-18] MEDS: NICOTINE 14MG/24HR PATCH TRANSDERM SCH (08:37)
[2021-09-18] MEDS: THIAMINE 100 MG TAB PO SCH ×2 (08:39→17:03)
[2021-09-18] MEDS: FOLIC ACID 1 MG TAB PO SCH (08:39)
[2021-09-18] MEDS: NALTREXONE HCL 50 MG TAB PO SCH (08:39)
[2021-09-18] MEDS: NICOTINE GUM (POLACRILEX) 2 MG GUM BUCCAL PRN ×3 (08:41→21:15)
[2021-09-18] MEDS ORDERED: FLUoxetine HCL 10 MG CAP PO SCH (09:00)
[2021-09-18] MEDS ORDERED: FLUoxetine HCL 10 MG CAP PO STA (09:51)
[2021-09-18] MEDS: busPIRone HCl 10 MG TAB PO PRN ×2 (09:59→17:03)
--- NOTE | 2021-09-18 10:02 | P.PN ---
Progress Note - Text Progress Note Date: 09/18/21 Interval History: Patient was seen wandering the hallways and was directable and agreeable to sp saurav with typewriter ribbon winder in the office. Patient was fairly appropriate with typewriter ribbon winder today. He claims that the Prozac has been helping however states that it feels "a little weak". He was requesting have increased. He claims that he did not sleep well last night on the reduced dose of trazodone and requested have it increased. He claims that he is not having significant withdrawal symptoms at this time and was requesting to have his ciwa and ativan prn d/c. He claims that he is going to groups and attending to participate as best as he can. At this time patient denies any suicidal or homical ideations, intent or plan. Patient denies any auditory, visual hallucinations and denies any paranoia or delusions. Patient denies any side effects from the medications and has been compliant with meds. Mental Status Exam: General Appearance: Patient appears to be tall, stated age is alert, directable, and cooperative. Behavior: Patient is calmly seated without any agitated behavior. Speech: Patient's speech is fluent and nonpressured. Mood/Affect: Mood is improving mildly, affect is congruent and constricted. Suicidality/Homicidality: Patient denies having any suicidal or homicidal ideation intent or plan. Perceptions: Patient denies any visual hallucinations and denies any auditory hallucinations Though content/process: There is no evidence of any delusional thought content and thought process is linear and goal-directed. Memory and concentration: AOX3, grossly intact for the purposes of this session Judgment and insight: Improving mildly Assessment/Plan: Continue with current diagnosis. Patient continues to meet criteria for inpatient psychiatric admission for symptom stabilization and safety.Patient will be maintained on current psychotropic medication regimen with the exception of increasing trazodone to 100 mg qhs and increasing prozac to 40 mg daily for mood/anxiety. He also requested to be on buspar 10 mg tid prn for anxiety. Monitor for medication compliance and for any psychotropic medication side effects. Will continue to monitor ongoing response to treatment. Encouraged participation in milieu.
[2021-09-18] MEDS: MULTIVITAMINS, THERA 1 EACH TAB PO SCH (11:05)
[2021-09-18] MEDS: IBUPROFEN 200 MG TAB PO PRN ×3 (11:05→21:14)
[2021-09-18] MEDS: traZODone HCL 100 MG TAB PO SCH (21:13)
[2021-09-19] MEDS: THIAMINE 100 MG TAB PO SCH ×2 (08:57→16:34)
[2021-09-19] MEDS: NICOTINE 14MG/24HR PATCH TRANSDERM SCH (08:57)
[2021-09-19] MEDS: FOLIC ACID 1 MG TAB PO SCH (08:58)
[2021-09-19] MEDS: NICOTINE GUM (POLACRILEX) 2 MG GUM BUCCAL PRN ×4 (08:58→22:19)
[2021-09-19] MEDS: NALTREXONE HCL 50 MG TAB PO SCH (08:58)
[2021-09-19] MEDS: IBUPROFEN 200 MG TAB PO PRN (08:59)
[2021-09-19] MEDS ORDERED: FLUoxetine HCL 20 MG CAP PO SCH (09:00)
--- NOTE | 2021-09-19 10:38 | P.PN ---
Progress Note - Text Progress Note Date: 09/19/21 Interval History: Patient was seen wandering the hallways and was directable and agreeable to sp saurav with flex o writer operator in the office. Patient was fairly appropriate with flex o writer operator today. He claims that he did feel sad yesterday as he missed his daughters birthday. He appears to be more future oriented today. He spoke about his medications and would like to have his Prozac increased once again to 60 mg. He states that he was able to see much better throughout the night. He is denying any significant withdrawal symptoms at this time from alcohol. Audio Director spoke with patient about the option of going on to naltrexone long-acting injection and patient claims that he would be interested in that tomorrow. He claims that he is going to groups and attending to participate as best as he can. At this time patient denies any suicidal or homical ideations, intent or plan. Patient denies any auditory, visual hallucinations and denies any paranoia or delusions. Patient denies any side effects from the medications and has been compliant with meds. Mental Status Exam: General Appearance: Patient appears to be tall, stated age is alert, directable, and cooperative. Behavior: Patient is calmly seated without any agitated behavior. Speech: Patient's speech is fluent and nonpressured. Mood/Affect: Mood is improving mildly, affect is congruent and constricted. Suicidality/Homicidality: Patient denies having any suicidal or homicidal ideation intent or plan. Perceptions: Patient denies any visual hallucinations and denies any auditory hallucinations Though content/process: There is no evidence of any delusional thought content and thought process is linear and goal-directed. Memory and concentration: AOX3, grossly intact for the purposes of this session Judgment and insight: Improving mildly Assessment/Plan: Continue with current diagnosis. Patient continues to meet criteria for inpatient psychiatric admission for symptom stabilization and safety.Patient will be maintained on current psychotropic medication regimen with the exception of increasing prozac to 60 mg daily for mood/anxiety for tomorrow. Patient is also interested in Vivitrol tomorrow for his alcohol cravings. Monitor for medication compliance and for any psychotropic medication side effects. Will continue to monitor ongoing response to treatment. Encouraged participation in milieu.
[2021-09-19] MEDS: IBUPROFEN 600 MG TAB PO PRN ×2 (13:36→21:50)
[2021-09-19] MEDS: MULTIVITAMINS, THERA 1 EACH TAB PO SCH (13:38)
[2021-09-19] MEDS: traZODone HCL 100 MG TAB PO SCH (21:50)
[2021-09-20 06:50] VITALS: BP 120/72; PULSE 71; TEMP 97.6
[2021-09-20] MEDS: NICOTINE 14MG/24HR PATCH TRANSDERM SCH (08:46)
[2021-09-20] MEDS: IBUPROFEN 600 MG TAB PO PRN (08:46)
[2021-09-20] MEDS: MULTIVITAMINS, THERA 1 EACH TAB PO SCH (08:47)
[2021-09-20] MEDS: THIAMINE 100 MG TAB PO SCH (08:47)
[2021-09-20] MEDS: NALTREXONE HCL 50 MG TAB PO SCH (08:47)
[2021-09-20] MEDS: FOLIC ACID 1 MG TAB PO SCH (08:47)
[2021-09-20] MEDS ORDERED: FLUoxetine HCL 20 MG CAP PO SCH (09:00)
--- NOTE | 2021-09-20 10:44 | P.DS ---
Providers Date of admission: 09/16/21 21:28 Expected date of discharge: 09/20/21 Attending physician: Domingo Celis MD Consults: 09/16/21 21:06 Consult Physician Routine Consulting Provider: Bharath Garcia Consult Reason/Comments: history and physical/medical management Do you want consulting provider notified?: Yes Primary care physician: Stated None - Discharge Diagnosis(es) (1) Major depressive disorder, recurrent severe without psychotic features Current Visit: Yes Status: Acute Priority: High (2) Alcohol use disorder Current Visit: Yes Status: Chronic Priority: Medium (3) Nicotine dependence Current Visit: Yes Status: Chronic Priority: Medium Hospital Course: Admission HPI: Patient is a , unemployed, 36-year-old -[place] male who presented to the emergency department with acute alcohol intoxication and suicidal ideation. Patient presented to the hospital on 09/11/2021, brought to the emergency department on his own volition with a chief complaint of alcohol intoxication, suicidal ideation. When evaluated in the emergency department, the patient reported that he was endorsing significant depression and suicidal ideation over the past month. There was concern that the patient had an elevated amylase and was admitted to the medical floor for evaluation and management of acute pancreatitis. The patient was medically cleared and transferred to the psychiatric unit. The patient states that one month ago he lost his best friend to a heart attack. He reports that since then, he has been feeling increasingly depressed. He reports that he stopped taking his medication. He states that he then began dri nking heavily and was afraid to restart his medication when he was drinking. The patient reports that he was sober for approximately one month after his previous admission to the psychiatric unit when he was discharged on 06/10/21. He reports drinking up to 3 pints of liquor prior to this admission. Other symptoms of depression that he endorses include feelings of hopelessness, helplessness, low energy, difficulty with sleep, low appetite, and decreased hygiene and grooming. He does not endorse any significant symptoms of bipolar disorder or any significant history of psychosis. Patient has a history of depression and alcohol use disorder.. Patient was last discharged on a regimen of Prozac and trazodone. He was initially to be discharged on a regimen including naltrexone however could not afford the medication. The patient has had 2 prior inpatient psychiatric hospitalizations with the last time being this past May. She reports that he has not been following up in the outpatient setting. Does report prior attempts at suicide including attempting to shoot himself 7 years ago. Hospital course: Upon admission to the unit patient was initially presenting as depressed. P shuient was however directable and agreeable to commence treatment. Patient got along well with other patients on the unit and followed unit protocol. Patient was compliant with the medications and denied any side effects throughout hospital course. Patient was started on a regimen of Prozac, naltrexone, and trazodone. Patient spoke of his stressors and engaged in therapy both group and individual. Patient was also seen by medical team for history and physical exam. Throughout the course of the hospitalization patient gradually improved with regards to mood, sleep and became future oriented with improved insight and judgment. On the day of discharge patient denied any suicidal or homicidal ideations intent or plan denied any auditory or visual hallucinations. Patient endorsed wanting to live for his health and family. The patient denied any access to guns or weapons. Patient denied any paranoia and did not endorse any delusions. Patient does have a significant history of substance abuse however was counseled on abstaining from all substances including alcohol and marijuana. The patient desired to be placed on the Vivitrol injection prior to discharge and has been tolerating the naltrexone oral medication well. His AST and ALT were last checked on 09/16/2021 and therefore a recheck of his CMP was ordered. Patient was offered however declined inpatient substance-abuse rehab. CMP came back with continued elevated AST And ALT and therefore naltrexone was discontinued. Patient was also counseled on the medications and need for regular compliance and was encouraged to follow-up with their outpatient appointment for mental health and also for primary care. Prior to discharge a family meeting will be arranged by social services director to answer any questions and ensure safety upon discharge. Mental status exam: General Appearance: Patient appears to be stated age is alert, pleasant, and cooperative. Patient is in no acute distress and has fair hygiene and grooming. Tall with a broad build and wearing glassess. Behavior: Patient is calmly seated without any agitated behavior. Eye contact is appropriate. Speech: Patient's speech is fluent and nonpressured. Mood/Affect: Patient reports their mood is "much better", affect is congruent and euthymic to bright. Suicidality/Homicidality: Patient denies having any suicidal or homicidal ideation intent or plan. Perceptions: Patient denies any auditory or visual hallucinations. Though content/process: There is no evidence of any delusional thought content and thought process is linear and goal-directed. Patient is future-oriented. Memory and concentration: AOX3, grossly intact for the purposes of this session. Can spell "WORLD" backwards correctly. Judgment and insight: Improved with guarded prognosis Vital Signs Temp 97.6 F 09/20/21 06:49 Pulse 71 09/20/21 06:49 Resp 16 09/20/21 06:49 BP 120/72 09/20/21 06:49 Pulse Ox 100 09/16/21 21:50 Intake & Output 09/19/21 09/20/21 09/20/21 18:59 06:59 18:59 Weight 110.6 kg Impression: Major Depressive disorder, recurrent, severe, with anxious features Alcohol use disorder Nicotine Dependence Plan: -Continue with discharge today as patient has improved and stabilized psychiatrically and is not currently an imminent threat to himself and/or others. Patient will remain at chronically elevated risk for harm to self and/or others due to his alcohol abuse. -Continue medications: Prozac 60 mg daily for depression/anxiety Trazodone 100 mg at bedtime for insomnia Habitrol patches for nicotine cessation As the patient's AST and ALT continue to be elevated, we will be unable to provide naltrexone or vivitrol at this time. We recommend to the patient to follow with [facility] for alternative medications such as campral or acamprosate for management of alcohol use disorder. -Patient was counseled on the need for medication compliance and appropriate follow-up at mental health and also primary care for medical issues. Patient verbalized understanding and agreed. -Social work to arrange for and conduct family meeting to ensure safety upon discharge and answer any questions/concerns. Social work also to arrange for patients follow up appointments with [facility] for psychiatric care along with follow up with primary care provider. -Patient counseled on abstaining from recreational drugs and marijuana and alcohol. Was informed/educated on the adverse effects on their physical and mental health. Patient verbally agreed and understood. Patient was offered substance abuse treatment however declined at this time. -Patient was instructed to return to the hospital or seek immediate medical care if their psychiatric or medical symptoms do worsen or reoccur. -Psychoeducation and supportive therapy provided to patient. Risks and benefits of pharmacological treatment versus the risks and benefits of nontreatment weight and discussed. Informed consent discussion held. Common side effects of psychotropics discussed such as, but not limited to headache, GI disturbance, sexual dysfunction, movement disorders, sedation, and orthostatic hypotension. Life threatening and blackbox warnings of prescribed medications also discussed. Potential risks of operating a vehicle or heavy machinery discussed with patient at length. Advised on importance of compliance and a reliable and responsible manner. Patient advised to review FDA consumer labeling of all medications prior to taking. Patient verbalized understanding of potential risks, and agrees with current treatment plan. Patient advised to medically contact physician/emergency personnel if any acute changes in condition occur. Laboratory Results Sodium 138 mmol/L (137-145) 09/20/21 11:00 Potassium 4.0 mmol/L (3.5-5.1) 09/20/21 11:00 Chloride 105 mmol/L (98-107) 09/20/21 11:00 Carbon Dioxide 22 mmol/L (22-30) 09/20/21 11:00 Anion Gap 11 mmol/L 09/20/21 11:00 BUN 7 mg/dL (9-20) L 09/20/21 11:00 Creatinine 0.80 mg/dL (0.66-1.25) 09/20/21 11:00 Est GFR (CKD-EPI)AfAm >90 (>60 ml/min/1.73 sqM) 09/20/21 11:00 Est GFR (CKD-EPI)NonAf >90 (>60 ml/min/1.73 sqM) 09/20/21 11:00 Glucose 123 mg/dL (74-99) H 09/20/21 11:[address] Glu mg/dL 74 09/17/21 08:49 Hemoglobin A1c 4.2 % (4.0-6.0) 09/17/21 08:49 Calcium 9.4 mg/dL (8.4-10.2) 09/20/21 11:00 Total Bilirubin 0.6 mg/dL (0.2-1.3) 09/20/21 11:00 AST 300 U/L (17-59) H 09/20/21 11:00 ALT 202 U/L (4-49) H 09/20/21 11:00 Alkaline Phosphatase 98 U/L (38-126) 09/20/21 11:00 Total Protein 7.8 g/dL (6.3-8.2) 09/20/21 11:00 Albumin 3.9 g/dL (3.5-5.0) 09/20/21 11:00 Triglycerides 58.10 mg/dL (0.00-149.00) 09/17/21 08:49 Cholesterol 176.00 mg/dL (0.00-200.00) 09/17/21 08:49 LDL Cholesterol, Calc 98.5 mg/dL (0.0-131.0) 09/17/21 08:49 VLDL Cholesterol, Calc 11.62 mg/dL (5.00-40.00) 09/17/21 08:49 HDL Cholesterol 65.90 mg/dL (40.00-60.00) H 09/17/21 08:49 Cholesterol/HDL Ratio 2.67 Ratio 09/17/21 08:49 TSH 1.890 mIU/L (0.465-4.680) 09/17/21 08:49 Patient Condition at Discharge: Stable Plan - Discharge Summary Discharge Rx Participant: No New Discharge Prescriptions: New RX: traZODone HCL [Desyrel] 100 mg PO HS 30 Days tab RX: Nicotine 14Mg/24Hr Patch [Habitrol] 1 patch TRANSDERM DAILY 30 Days patch RX: FLUoxetine HCL [PROzac] 60 mg PO DAILY 30 Days cap Discontinued RX: traZODone HCL [Desyrel] 50 mg PO HS PRN tab PRN Reason: insomnia RX: FLUoxetine HCL [PROzac] 20 mg PO DAILY RX: Multivitamins, Thera [Multivitamin (formulary)] 1 tab PO DAILY RX: Thiamine [Vitamin B-1] 100 mg PO BID-W/MEALS tab Discharge Medication List RX: FLUoxetine HCL [PROzac] 60 mg PO DAILY 30 Days cap 09/20/21 [Rx] RX: Nicotine 14Mg/24Hr Patch [Habitrol] 1 patch TRANSDERM DAILY 30 Days patch 1 11/20/20 [Rx] RX: traZODone HCL [Desyrel] 100 mg PO HS 30 Days tab 09/20/21 [Rx] Follow up Appointment(s)/Referral(s): [facility] [Outside] - 09/28/21 (09-28-21 @ 10:00 with Brenda Carranza 09-28-21 @ 11:[address] Anderson Both at [facility] office) [facility] - [facility] Week Patient Instructions/Handouts: Depression (DC), Abuse of Alcohol (DC) Activity/Diet/Wound Care/Special Instructions: Activity and diet as tolerated. Avoid the use of street drugs and alcohol. Take all medications as prescribed. When you are in need of refills on your medications please contact your medical provider and/or outpatient psychiatrist to have this done. Please go to scheduled outpatient appointment for aftercare t reatment. If symptoms return or become worse, call the crisis line at and/or go to the nearest emergency room for evaluation Discharge Disposition: HOME SELF-CARE
[2021-09-20] MEDS: NICOTINE GUM (POLACRILEX) 2 MG GUM BUCCAL PRN (10:47)
[2021-09-20 11:48] LABS: ALT 202 U/L (4-49); AST 300 U/L (17-59); African American GFR (CKD) >90 (>60 ml/min/1.73 sqM); Albumin 3.9 g/dL (3.5-5.0); Alkaline Phosphatase 98 U/L (38-126); Anion Gap 11 mmol/L; Blood Urea Nitrogen 7 mg/dL (9-20); Calcium 9.4 mg/dL (8.4-10.2); Carbon Dioxide 22 mmol/L (22-30); Chloride 105 mmol/L (98-107); Glucose 123 mg/dL (74-99); Non-African American GFR(CKD) >90 (>60 ml/min/1.73 sqM); Sodium 138 mmol/L (137-145); Total Bilirubin 0.6 mg/dL (0.2-1.3); Total Protein 7.8 g/dL (6.3-8.2)
== END 2021-09-20 12:10 | disposition home or self-care (01) | DRG 885 ==
LOC: 3MHU 21:28
PROVIDERS: ADMIT Psychiatry & Neurology Psychiatry; ATTEND Psychiatry & Neurology Psychiatry
DX: F33.2 Major depressive disorder, recurrent severe without psychotic features (principal); R45.851 Suicidal ideations; F41.9 Anxiety disorder, unspecified; Z71.41 Alcohol abuse counseling and surveillance of alcoholic; F17.210 Nicotine dependence, cigarettes, uncomplicated; G47.00 Insomnia, unspecified; Z79.899 Other long term (current) drug therapy; Z81.8 Family history of other mental and behavioral disorders; Z91.51 Personal history of suicidal behavior; M10.9 Gout, unspecified; Z83.3 Family history of diabetes mellitus; Z98.890 Other specified postprocedural states; Z65.3 Problems related to other legal circumstances; Z88.5 Allergy status to narcotic agent
CPT/HCPCS: 80053; 80061; 83036; 84443

== ENCOUNTER 2022-01-04 15:22 | Inpatient (IN) | payer MEDICAID, OTHER ==
[2022-01-04] MEDS ORDERED: PANTOPRAZOLE 40 MG/10 ML VIAL IVP STA (19:54)
[2022-01-04] MEDS ORDERED: SODIUM CHLORIDE 0.9% 1,000 ML IV STA (19:54)
[2022-01-04] MEDS ORDERED: ONDANSETRON 4 MG/2 ML VIAL IVP STA (19:54)
--- NOTE | 2022-01-04 19:58 | ED ---
General Adult HPI - General Source: patient, RN notes reviewed Mode of arrival: ambulatory Limitations: no limitations <Adiel Kaye - Last Filed: 01/04/22 19:56> <Get Avelar - Last Filed: 01/07/22 05:23> - General Chief complaint: Psychiatric Symptoms Stated complaint: abd pain Time Seen by Provider: 01/04/22 18:55 - History of Present Illness Initial comments: Patient is a pleasant 36-year-old male presenting to the emergency department with concerns for drinking and his pancreatitis. Patient has also been depressed. Patient is having suicidal thoughts plans of drinking himself to . Patient has had some hallucinations hearing his mom's voice. Patient does have epigastric pain that has been waxing and waning. Patient has had decreased appetite the past couple of days. Patient did stop drinking a couple of days ago. Patient does have history of pancreatitis 2 or 3 times previously. (Adiel Kaye) - Related Data Previous Rx's Medication Instructions Recorded FLUoxetine HCL [PROzac] 60 mg PO DAILY 30 Days cap 09/20/21 traZODone HCL [Desyrel] 100 mg PO HS 30 Days tab 09/20/21 Allergies Allergy/AdvReac Type Severity Reaction Status Date / Time adhesive tape Allergy Rash/Hives Verified 01/05/22 04:00 codeine Allergy Rash/Hives Verified 01/05/22 04:00 Review of Systems ROS Other: All systems not noted in ROS Statement are negative. Constitutional: Denies: fever Eyes: Denies: eye pain ENT: Denies: ear pain Respiratory: Denies: cough Cardiovascular: Denies: chest pain Endocrine: Denies: fatigue Gastrointestinal: Reports: as per HPI, abdominal pain Genitourinary: Denies: dysuria Musculoskeletal: Denies: back pain Skin: Denies: rash Neurological: Denies: weakness <Adiel Kaye - Last Filed: 01/04/22 19:56> ROS Other: All systems not noted in ROS Statement are negative. <Get Avelar - Last Filed: 01/07/22 05:23> ROS Statement: Those systems with pertinent positive or pertinent negative responses have been documented in the HPI. Past Medical History Additional Past Medical History / Comment(s): pancreatitis, gout. History of Any Multi-Drug Resistant Organisms: None Reported Past Surgical History: Ear Surgery Additional Past Surgical History / Comment(s): tubes in ears Past Anesthesia/Blood Transfusion Reactions: No Reported Reaction Past Psychological History: Depression Smoking Status: Current every day smoker Past Alcohol Use History: Abuse, Daily Past Drug Use History: None Reported - Past Family History Father History Unknown: Yes Mother Family Medical History: Diabetes Mellitus <Adiel Kaye - Last Filed: 01/04/22 19:56> General Exam Limitations: no limitations General appearance: alert, in no apparent distress Head exam: Present: normocephalic Eye exam: Present: normal appearance Neck exam: Present: normal inspection Respiratory exam: Present: normal lung sounds bilaterally Cardiovascular Exam: Present: regular rate, normal rhythm GI/Abdominal exam: Present: soft, tenderness (Mild epigastric tenderness). Absent: distended, guarding, rebound, rigid Extremities exam: Present: normal inspection Neurological exam: Present: alert Psychiatric exam: Present: normal affect, normal mood Skin exam: Present: normal color <Adiel Kaye - Last Filed: 01/04/22 19:56> General appearance: alert, in no apparent distress Head exam: Present: atraumatic, normocephalic, normal inspection Eye exam: Present: normal appearance, PERRL, EOMI. Absent: scleral icterus, conjunctival injection, periorbital swelling ENT exam: Present: normal exam, mucous membranes moist Neck exam: Present: normal inspection. Absent: tenderness, meningismus, l ymphadenopathy Respiratory exam: Present: normal lung sounds bilaterally. Absent: respiratory distress, wheezes, rales, rhonchi, stridor Cardiovascular Exam: Present: regular rate, normal rhythm, normal heart sounds. Absent: systolic murmur, diastolic murmur, rubs, gallop, clicks GI/Abdominal exam: Present: soft, normal bowel sounds. Absent: distended, tenderness, guarding, rebound, rigid Extremities exam: Present: normal inspection, full ROM, normal capillary refill. Absent: tenderness, pedal edema, joint swelling, calf tenderness Back exam: Present: normal inspection Neurological exam: Present: alert, oriented X3, CN II-XII intact Psychiatric exam: Present: normal affect, normal mood Skin exam: Present: warm, dry, intact, normal color. Absent: rash <Get Avelar - Last Filed: 01/07/22 05:23> Course Vital Signs 01/04/22 01/05/22 01/05/22 16:57 03:33 06:25 Temperature 98.7 F 97.8 F Pulse Rate 112 H Pulse Rate [ 79 69 Left Sitting] Respiratory 20 15 16 Rate Blood Pressure 145/94 Blood Pressure 168/107 127/70 [Left Arm Sitting] O2 Sat by Pulse 97 99 Oximetry Medical Decision Making - Lab Data Result diagrams: 01/04/22 19:55 01/04/22 19:55 <Get Avelar - Last Filed: 01/07/22 05:23> - Medical Decision Making 36 male seen and evaluated psychiatry. Patient will be admitted for psychiatric evaluation and treatment (Get Avelar) - Lab Data Lab Results 01/04/22 01/04/22 01/04/22 Range/Units 19:55 19:55 19:55 WBC 5.0 (3.8-10.6) k/uL RBC 4.17 L (4.30-5.90) m/uL Hgb 14.3 (13.0-17.5) gm/dL Hct 44.5 (39.0-53.0) % MCV 106.5 H (80.0-100.0) fL MCH 34.1 (25.0-35.0) pg MCHC 32.1 (31.0-37.0) g/dL RDW 13.8 (11.5-15.5) % Plt Count 173 (150-450) k/uL MPV 7.0 Neutrophils % 54 % Lymphocytes % 35 % Monocytes % 5 % Eosinophils % 1 % Basophils % 1 % Neutrophils # 2.7 (1.3-7.7) k/uL Lymphocytes # 1.7 (1.0-4.8) k/uL Monocytes # 0.3 (0-1.0) k/uL Eosinophils # 0.0 (0-0.7) k/uL Basophils # 0.1 (0-0.2) k/uL Macrocytosis Moderate PT 12.0 (9.0-12.0) sec INR 1.1 (<1.2) APTT 25.4 (22.0-30.0) sec Sodium (137-145) mmol/L Potassium (3.5-5.1) mmol/L Chloride (98-107) mmol/L Carbon Dioxide (22-30) mmol/L Anion Gap mmol/L BUN (9-20) mg/dL Creatinine (0.66-1.25) mg/dL Est GFR (CKD-EPI)AfAm (>60 ml/min/1.73 sqM) Est GFR (CKD-EPI)NonAf (>60 ml/min/1.73 sqM) Glucose (74-99) mg/dL Estimated Ave Glu mg/dL Hemoglobin A1c (0.0-6.0) % Calcium (8.4-10.2) mg/dL Total Bilirubin (0.2-1.3) mg/dL AST (17-59) U/L ALT (4-49) U/L Alkaline Phosphatase (38-126) U/L Total Protein (6.3-8.2) g/dL Albumin (3.5-5.0) g/dL Amylase (30-110) U/L Lipase (23-300) U/L TSH (0.465-4.680) mIU/L Urine Color Yellow Urine Appearance Clear (Clear) Urine pH 5.5 (5.0-8.0) Ur Specific [place] 1.027 (1.001-1.035) Urine Protein 1+ H (Negative) Urine Glucose (UA) Negative (Negative) Urine Ketones 2+ H (Negative) Urine Blood Negative (Negative) Urine Nitrite Negative (Negative) Urine Bilirubin Negative (Negative) Urine Urobilinogen 2.0 (<2.0) mg/dL Ur Leukocyte Esterase Negative (Negative) Urine RBC 1 (0-5) /hpf Urine WBC 4 (0-5) /hpf Hyaline Casts 3 H (0-2) /lpf Urine Mucus Rare H (None) /hpf Urine Opiates Screen (NotDetected) Ur Oxycodone Screen (NotDetected) Urine Methadone Screen (NotDetected) Ur Propoxyphene Screen (NotDetected) Ur Barbiturates Screen (NotDetected) U Tricyclic Antidepress (NotDetected) Ur Phencyclidine Scrn (NotDetected) Ur Amphetamines Screen (NotDetected) U Methamphetamines Scrn (NotDetected) U Benzodiazepines Scrn (NotDetected) Urine Cocaine Screen (NotDetected) U Marijuana (THC) Screen (NotDetected) Serum Alcohol mg/dL Coronavirus (PCR) (Not Detectd) 01/04/22 01/04/22 01/04/22 Range/Units 19:55 19:55 19:55 WBC (3.8-10.6) k/uL RBC (4.30-5.90) m/uL Hgb (13.0-17.5) gm/dL Hct (39.0-53.0) % MCV (80.0-100.0) fL MCH (25.0-35.0) pg MCHC (31.0-37.0) g/dL RDW (11.5-15.5) % Plt Count (150-450) k/uL MPV Neutrophils % % Lymphocytes % % Monocytes % % Eosinophils % % Basophils % % Neutrophils # (1.3-7.7) k/uL Lymphocytes # (1.0-4.8) k/uL Monocytes # (0-1.0) k/uL Eosinophils # (0-0.7) k/uL Basophils # (0-0.2) k/uL Macrocytosis PT (9.0-12.0) sec INR (<1.2) APTT (22.0-30.0) sec Sodium 136 L (137-145) mmol/L Potassium 3.8 (3.5-5.1) mmol/L Chloride 97 L (98-107) mmol/L Carbon Dioxide 24 (22-30) mmol/L Anion Gap 15 mmol/L BUN 18 (9-20) mg/dL Creatinine 1.15 (0.66-1.25) mg/dL Est GFR (CKD-EPI)AfAm >90 (>60 ml/min/1.73 sqM) Est GFR (CKD-EPI)NonAf 82 (>60 ml/min/1.73 sqM) Glucose 69 L (74-99) mg/dL Estimated Ave Glu mg/dL 87 Hemoglobin A1c 4.7 (0.0-6.0) % Calcium 9.8 (8.4-10.2) mg/dL Total Bilirubin 2.6 H (0.2-1.3) mg/dL AST 178 H (17-59) U/L ALT 84 H (4-49) U/L Alkaline Phosphatase 144 H (38-126) U/L Total Protein 9.6 H (6.3-8.2) g/dL Albumin 4.7 (3.5-5.0) g/dL Amylase 179 H (30-110) U/L Lipase 191 (23-300) U/L TSH 5.000 H (0.465-4.680) mIU/L Urine Color Urine Appearance (Clear) Urine pH (5.0-8.0) Ur Specific [place] (1.001-1.035) Urine Protein (Negative) Urine Glucose (UA) (Negative) Urine Ketones (Negative) Urine Blood (Negative) Urine Nitrite (Negative) Urine Bilirubin (Negative) Urine Urobilinogen (<2.0) mg/dL Ur Leukocyte Esterase (Negative) Urine RBC (0-5) /hpf Urine WBC (0-5) /hpf Hyaline Casts (0-2) /lpf Urine Mucus (None) /hpf Urine Opiates Screen (NotDetected) Ur Oxycodone Screen (NotDetected) Urine Methadone Screen (NotDetected) Ur Propoxyphene Screen (NotDetected) Ur Barbiturates Screen (NotDetected) U Tricyclic Antidepress (NotDetected) Ur Phencyclidine Scrn (NotDetected) Ur Amphetamines Screen (NotDetected) U Methamphetamines Scrn (NotDetected) U Benzodiazepines Scrn (NotDetected) Urine Cocaine Screen (NotDetected) U Marijuana (THC) Screen (NotDetected) Serum Alcohol <10 mg/dL Coronavirus (PCR) (Not Detectd) 01/04/22 01/05/22 Range/Units 20:24 01:52 WBC (3.8-10.6) k/uL RBC (4.30-5.90) m/uL Hgb (13.0-17.5) gm/dL Hct (39.0-53.0) % MCV (80.0-100.0) fL MCH (25.0-35.0) pg MCHC (31.0-37.0) g/dL RDW (11.5-15.5) % Plt Count (150-450) k/uL MPV Neutrophils % % Lymphocytes % % Monocytes % % Eosinophils % % Basophils % % Neutrophils # (1.3-7.7) k/uL Lymphocytes # (1.0-4.8) k/uL Monocytes # (0-1.0) k/uL Eosinophils # (0-0.7) k/uL Basophils # (0-0.2) k/uL Macrocytosis PT (9.0-12.0) sec INR (<1.2) APTT (22.0-30.0) sec Sodium (137-145) mmol/L Potassium (3.5-5.1) mmol/L Chloride (98-107) mmol/L Carbon Dioxide (22-30) mmol/L Anion Gap mmol/L BUN (9-20) mg/dL Creatinine (0.66-1.25) mg/dL Est GFR (CKD-EPI)AfAm (>60 ml/min/1.73 sqM) Est GFR (CKD-EPI)NonAf (>60 ml/min/1.73 sqM) Glucose (74-99) mg/dL Estimated Ave Glu mg/dL Hemoglobin A1c (0.0-6.0) % Calcium (8.4-10.2) mg/dL Total Bilirubin (0.2-1.3) mg/dL AST (17-59) U/L ALT (4-49) U/L Alkaline Phosphatase (38-126) U/L Total Protein (6.3-8.2) g/dL Albumin (3.5-5.0) g/dL Amylase (30-110) U/L Lipase (23-300) U/L TSH (0.465-4.680) mIU/L Urine Color Urine Appearance (Clear) Urine pH (5.0-8.0) Ur Specific [place] (1.001-1.035) Urine Protein (Negative) Urine Glucose (UA) (Negative) Urine Ketones (Negative) Urine Blood (Negative) Urine Nitrite (Negative) Urine Bilirubin (Negative) Urine Urobilinogen (<2.0) mg/dL Ur Leukocyte Esterase (Negative) Urine RBC (0-5) /hpf Urine WBC (0-5) /hpf Hyaline Casts (0-2) /lpf Urine Mucus (None) /hpf Urine Opiates Screen Not Detected (NotDetected) Ur Oxycodone Screen Not Detected (NotDetected) Urine Methadone Screen Not Detected (NotDetected) Ur Propoxyphene Screen Not Detected (NotDetected) Ur Barbiturates Screen Not Detected (NotDetected) U Tricyclic Antidepress Not Detected (NotDetected) Ur Phencyclidine Scrn Not Detected (NotDetected) Ur Amphetamines Screen Not Detected (NotDetected) U Methamphetamines Scrn Not Detected (NotDetected) U Benzodiazepines Scrn Not Detected (NotDetected) Urine Cocaine Screen Not Detected (NotDetected) U Marijuana (THC) Screen Not Detected (NotDetected) Serum Alcohol mg/dL Coronavirus (PCR) Not Detected (Not Detectd) Disposition <Adiel Kaye - Last Filed: 01/04/22 19:56> Is patient prescribed a controlled substance at d/c from ED?: No <Get Avelar - Last Filed: 01/07/22 05:23> Clinical Impression: Alcohol use disorder, Suicidal ideation, Depression Disposition: TRANSFER TO PSYCH HOSP/UNIT Condition: Fair
[2022-01-04 20:35] LABS: Basophils # (A) 0.1 k/uL (0-0.2); Basophils % (A) 1 %; Eosinophils % (A) 1 %; HCT 44.5 % (39.0-53.0); HGB 14.3 gm/dL (13.0-17.5); Lymphocytes # (A) 1.7 k/uL (1.0-4.8); Lymphocytes % (A) 35 %; MCH 34.1 pg (25.0-35.0); MCHC 32.1 g/dL (31.0-37.0); MCV 106.5 fL (80.0-100.0); Macrocytosis Moderate; Monocytes # (A) 0.3 k/uL (0-1.0); Monocytes % (A) 5 %; Neutrophils # (A) 2.7 k/uL (1.3-7.7); Neutrophils % (A) 54 %; Platelet Count 173 k/uL (150-450); RBC 4.17 m/uL (4.30-5.90); RDW 13.8 % (11.5-15.5)
[2022-01-04 20:39] LABS: Appearance,Urine Clear (Clear); Bilirubin,Urine Negative (Negative); Blood,Urine Negative (Negative); Color,Urine Yellow; Glucose,Urine (UA) Negative (Negative); Hyaline Casts,Urine 3 /lpf (0-2); Ketones,Urine 2+ (Negative); Leukocyte Esterase,Urine Negative (Negative); Mucus,Urine Rare /hpf; Nitrite,Urine Negative (Negative); PH, Urine 5.5 (5.0-8.0); Protein,Urine 1+ (Negative); RBC,Urine 1 /hpf (0-5); Specific Gravity,Urine 1.027 (1.001-1.035); WBC,Urine 4 /hpf (0-5)
[2022-01-04 20:47] LABS: Amphetamine Screen,Urine Not Detected (NotDetected); Barbiturate Screen,Urine Not Detected (NotDetected); Benzodiazepines Screen,Urine Not Detected (NotDetected); Cocaine Screen,Urine Not Detected (NotDetected); Methadone Screen, Urine Not Detected (NotDetected); Opiate Screen,Urine Not Detected (NotDetected); Oxycodone Screen, Urine Not Detected (NotDetected); Phencyclidine Screen,Urine Not Detected (NotDetected); Tricyclic Antidepressant,Urine Not Detected (NotDetected); Urn Cannabinoid Scrn Not Detected (NotDetected)
[2022-01-04 20:48] LABS: ALT 84 U/L (4-49); AST 178 U/L (17-59); African American GFR (CKD) >90 (>60 ml/min/1.73 sqM); Albumin 4.7 g/dL (3.5-5.0); Alcohol <10 mg/dL; Alkaline Phosphatase 144 U/L (38-126); Amylase 179 U/L (30-110); Anion Gap 15 mmol/L; Blood Urea Nitrogen 18 mg/dL (9-20); Calcium 9.8 mg/dL (8.4-10.2); Carbon Dioxide 24 mmol/L (22-30); Chloride 97 mmol/L (98-107); Glucose 69 mg/dL (74-99); INR 1.1 (<1.2); Lipase 191 U/L (23-300); Non-African American GFR(CKD) 82 (>60 ml/min/1.73 sqM); Partial Thromboplastin Time 25.4 sec (22.0-30.0); Potassium 3.8 mmol/L (3.5-5.1); Sodium 136 mmol/L (137-145); Total Bilirubin 2.6 mg/dL (0.2-1.3); Total Protein 9.6 g/dL (6.3-8.2)
--- NOTE | 2022-01-04 21:40 | XR ---
EXAMINATION TYPE: XR KUB DATE OF EXAM: 01/04/2022 COMPARISON: 09/14/2021 HISTORY: Abdominal pain TECHNIQUE: 2 views upright FINDINGS: There is no sign of intestinal obstruction or pneumoperitoneum. Fecal pattern is normal. Th ere is no evidence of a mass. The lung bases are clear. There are no pathologic calcifications. IMPRESSION: Nonacute abdomen. No change.
[2022-01-05] MEDS: LORazepam 1 MG TAB PO PRN ×3 (04:50→21:25)
[2022-01-05] MEDS ORDERED: HALOPERIDOL LACTATE 5 MG/ML 1 ML VIAL IM PRN (06:00)
[2022-01-05] MEDS ORDERED: ACETAMINOPHEN TAB 325 MG TAB PO PRN (08:00)
[2022-01-05] MEDS ORDERED: LORazepam 2 MG/ML INJ IM PRN (08:00)
[2022-01-05] MEDS: NICOTINE 14MG/24HR PATCH TRANSDERM SCH (08:08)
[2022-01-05] MEDS: MULTIVITAMINS, THERA 1 EACH TAB PO SCH (08:08)
[2022-01-05] MEDS: FOLIC ACID 1 MG TAB PO SCH (08:09)
[2022-01-05] MEDS: THIAMINE 100 MG TAB PO SCH (08:09)
[2022-01-05] MEDS ORDERED: diazePAM 5 MG TAB PO SCH (09:00)
[2022-01-05] MEDS ORDERED: LORazepam 1 MG TAB PO PRN (09:00)
[2022-01-05] MEDS ORDERED: chlordiazePOXIDE 25 MG CAP PO SCH (09:00)
[2022-01-05] MEDS: MAG HYDROX/AL HYDROX/SIMETH 30 ML CUP PO PRN ×2 (12:46→17:56)
--- NOTE | 2022-01-05 15:10 | P.HP ---
Psychiatric H&P - . H&P Date: 01/05/22 History & Physical: Allergies Allergy/AdvReac Type Severity Reaction Status Date / Time adhesive tape Allergy Rash/Hives Verified 01/05/22 04:00 codeine Allergy Rash/Hives Verified 01/05/22 04:00 Vital Signs Temp 97.8 F 01/05/22 03:33 Pulse 69 01/05/22 06:25 Resp 16 01/05/22 06:25 BP 127/70 01/05/22 06:25 Pulse Ox 99 01/05/22 03:33 Intake & Output 01/04/22 01/05/22 01/05/22 18:59 06:59 18:59 Weight 108.862 kg 105.233 kg Laboratory Last Values WBC 5.0 k/uL (3.8-10.6) 01/04/22 19:55 RBC 4.17 m/uL (4.30-5.90) L 01/04/22 19:55 Hgb 14.3 gm/dL (13.0-17.5) 01/04/22 19:55 Hct 44.5 % (39.0-53.0) 01/04/22 19:55 MCV 106.5 fL (80.0-100.0) H 01/04/22 19:55 MCH 34.1 pg (25.0-35.0) 01/04/22 19:55 MCHC 32.1 g/dL (31.0-37.0) 01/04/22 19:55 RDW 13.8 % (11.5-15.5) 01/04/22 19:55 Plt Count 173 k/uL (150-450) 01/04/22 19:55 MPV 7.0 01/04/22 19:55 Neutrophils % 54 % 01/04/22 19:55 Lymphocytes % 35 % 01/04/22 19:55 Monocytes % 5 % 01/04/22 19:55 Eosinophils % 1 % 01/04/22 19:55 Basophils % 1 % 01/04/22 19:55 Neutrophils # 2.7 k/uL (1.3-7.7) 01/04/22 19:55 Lymphocytes # 1.7 k/uL (1.0-4.8) 01/04/22 19:55 Monocytes # 0.3 k/uL (0-1.0) 01/04/22 19:55 Eosinophils # 0.0 k/uL (0-0.7) 01/04/22 19:55 Basophils # 0.1 k/uL (0-0.2) 01/04/22 19:55 Macrocytosis Moderate 01/04/22 19:55 PT 12.0 sec (9.0-12.0) 01/04/22 19:55 INR 1.1 (<1.2) 01/04/22 19:55 APTT 25.4 sec (22.0-30.0) 01/04/22 19:55 Sodium 136 mmol/L (137-145) L 01/04/22 19:55 Potassium 3.8 mmol/L (3.5-5.1) 01/04/22 19:55 Chloride 97 mmol/L (98-107) L 01/04/22 19:55 Carbon Dioxide 24 mmol/L (22-30) 01/04/22 19:55 Anion Gap 15 mmol/L 01/04/22 19:55 BUN 18 mg/dL (9-20) 01/04/22 19:55 Creatinine 1.15 mg/dL (0.66-1.25) 01/04/22 19:55 Est GFR (CKD-EPI)AfAm >90 (>60 ml/min/1.73 sqM) 01/04/22 19:55 Est GFR (CKD-EPI)NonAf 82 (>60 ml/min/1.73 sqM) 01/04/22 19:55 Glucose 69 mg/dL (74-99) L 01/04/22 19:55 Calcium 9.8 mg/dL (8.4-10.2) 01/04/22 19:55 Total Bilirubin 2.6 mg/dL (0.2-1.3) H 01/04/22 19:55 AST 178 U/L (17-59) H 01/04/22 19:55 ALT 84 U/L (4-49) H 01/04/22 19:55 Alkaline Phosphatase 144 U/L (38-126) H 01/04/22 19:55 Total Protein 9.6 g/dL (6.3-8.2) H 01/04/22 19:55 Albumin 4.7 g/dL (3.5-5.0) 01/04/22 19:55 Amylase 179 U/L (30-110) H 01/04/22 19:55 Lipase 191 U/L (23-300) 01/04/22 19:55 Urine Color Yellow 01/04/22 19:55 Urine Appearance Clear (Clear) 01/04/22 19:55 Urine pH 5.5 (5.0-8.0) 01/04/22 19: Ur Specific [place] 1.027 (1.001-1.035) 01/04/22 19: Urine Protein 1+ (Negative) H 01/04/22 19:55 Urine Glucose (UA) Negative (Negative) 01/04/22 19: Urine Ketones 2+ (Negative) H 01/04/22: Urine Blood Negative (Negative) 01/04/22 19: Urine Nitrite Negative (Negative) 01/04/22 19: Urine Bilirubin Negative (Negative) 01/04/22 19: Urine Urobilinogen 2.0 mg/dL (<2.0) 01/04/22 19: Ur Leukocyte Esterase Negative (Negative) 01/04/22 19: Urine RBC 1 /hpf (0-5) 01/04/22 19:55 Urine WBC 4 /hpf (0-5) 01/04/22 19:55 Hyaline Casts 3 /lpf (0-2) H 01/04/22 19:55 Urine Mucus Rare /hpf (None) H 01/04/22 19:55 Urine Opiates Screen Not Detected (NotDetected) 01/04/22 20:24 Ur Oxycodone Screen Not Detected (NotDetected) 01/04/22 20:24 Urine Methadone Screen Not Detected (NotDetected) 01/04/22 20:24 Ur Propoxyphene Screen Not Detected (NotDetected) 01/04/22 20:24 Ur Barbiturates Screen Not Detected (NotDetected) 01/04/22 20:24 U Tricyclic Antidepress Not Detected (NotDetected) 01/04/22 20:24 Ur Phencyclidine Scrn Not Detected (NotDetected) 01/04/22 20:24 Ur Amphetamines Screen Not Detected (NotDetected) 01/04/22 20:24 U Methamphetamines Scrn Not Detected (NotDetected) 01/04/22 20:24 U Benzodiazepines Scrn Not Detected (NotDetected) 01/04/22 20:24 Urine Cocaine Screen Not Detected (NotDetected) 01/04/22 20:24 U Marijuana (THC) Screen Not Detected (NotDetected) 01/04/22 20:24 Serum Alcohol <10 mg/dL 01/04/22 19:55 Coronavirus (PCR) Not Detected (Not Detectd) 01/05/22 01:52 01/05/22 15:09 IDENTIFYING DATA: Patient is a , unemployed, 36-year-old - [place] male who presented to the hospital for suicidal ideation the context of acute bereavement and heavy alcohol use. HPI: Patient presented to the hospital on 01/05/2022 voluntarily for depression with suicidal ideation with a plan to cut his wrists. Patient reports that he was sitting in the [place] with a plan to cut his wrists in order to kill himself as he did not "want to get blood all over the house." The patient reports that he has been feeling increasingly depressed since the passing of his mother on 11/18/2021. He reports that since then he has been experiencing a significant amount of grief and bereavement. He reports that he continues to hear her voice occasionally calling out inside the home. Furthermore, the patient expresses that he has been feeling overwhelmed and sad. This has caused him recently to relapsing to heavy alcohol use after maintaining a significant amount of time sober. He reports that 3 weeks ago he has been drinking up to 2 pints of hard liquor per day. In regards to mood symptoms, patient endorses significant symptoms of depression. He reports anhedonia, difficulty with sleep, decreased appetite, crying episodes, decreased hygiene and grooming, and suicidal ideation. The patient states that he has been feeling extremely overwhelmed and has even had to stop going to one of his jobs. Aside from his issues regarding his depression and bereavement, the patient is not reporting any auditory or visual hallucinations that are psychotic in nature. He denies any paranoia or other delusions. He denies any significant symptoms of bipolar disorder. He reports that he has only been off his medications for the past 3 days. He states that during the for his mother, he did take double the recommended dose of his medications. He reports that this was in order to cope and not to hurt hi mself. PAST PSYCHIATRIC HISTORY: Patient has previous diagnoses of depression and alcohol use disorder. He was last discharged in a regimen of Prozac and trazodone back in August 2021. This is the patient's fourth psychiatric hospitalization since May 2020. He is intermittently adherent with his outpatient follow-up appointments but states that it is difficulty to his work as well as his raising his children. He does have previous attempts at suicide including attempting to shoot himself 7 years ago. PMH: Additional Past Medical History / Comment(s): pancreatitis, gout. History of Any Multi-Drug Resistant Organisms: None Reported Past Surgical History: Ear Surgery Additional Past Surgical History / Comment(s): tubes in ears Past Anesthesia/Blood Transfusion Reactions: No Reported Reaction Past Psychological History: Depression Smoking Status: Current every day smoker Past Alcohol Use History: Abuse, Daily Past Drug Use History: None Reported ALLERGIES: Adhesive tape, codeine CHEMICAL DEPENDENCY HISTORY: The patient has been drinking 2 pints of liquor per day for the past few weeks. He otherwise denies any other substance use. He does smoke cigarettes daily. FAMILY PSYCHIATRIC/SUBSTANCE USE HISTORY: Father was diagnosed with schizophrenia. SOCIAL HISTORY: Patient is currently . He was for 6 years prior to the divorce. He has 2 daughters with his ex- ages 6 and 8 years old. He shares custody with his ex-. He is currently living with his father and brother. His mother recently this past October. He also has a 19-year-old son from previous relationship but is not in contact with him. He is currently employed as a cook. MENTAL STATUS EXAM: General Appearance: Patient appears to be stated age is alert, directable, and attempts to cooperate. Patient appears to have good hygiene and grooming. Behavior: Patient is seated without any agitated behavior. Psychomotor activity appears normal. Speech: Patient's speech is fluent and nonpressured. Mood/Affect: Patient reports their mood is depressed, affect is congruent and tearful. Suicidality/Homicidality: Patient denies having any homicidal ideation intent or plan. Patient reports suicidal ideation. Perceptions: Patient denies any visual hallucinations but reports hearing his mom call out to him. Though content/process: There is no evidence of any delusional thought content and thought process is linear and goal-directed. Memory and concentration: AOX3, grossly intact for the purposes of this session. Can spell "WORLD" backwards Judgment and insight: Fair STRENGTHS/WEAKNESSES: Strength is that the patient is gainfully employed and is future oriented. Weakness is that the patient is dealing with acute bereavement and engages in heavy alcohol use. INTELLECT: average IMPRESSIONS: Major depressive disorder, recurrent, severe Alcohol use disorder Acute bereavement PLAN: -Patient is admitted under voluntary status to MHU for stabilization of psychiatric symptoms and safety. Patient signed adult voluntary form and medication consent and is placed in patient's chart. -Medications : Will start patient on His home medications of Prozac 60 mg by mouth daily for depression/anxiety We will increase trazodone to 150 mg by mouth at bedtime for insomnia We will start temazepam 15 mg by mouth at bedtime for insomnia and to address acute distress. Furthermore, this medication is safer for the patient's liver as the patient does have elevated liver enzymes. -Ativan and Haldol PRN for agitation/aggression -Started thiamine, MVM for etoh use -CIWA protocol with Ativan PRN for ETOH withdrawal -Patient was counselled on substance abuse and desired to cut back on use -Patient was informed of the risks, benefits and side effects of the medication and patient verbally consented to taking the medications. Patient signed med consent form and was placed in chart. -Internal Medicine consult to perform medical evaluation and physical. -NRT - nicotine patch -SW on board for discharge planning. Encourage patient to participate in groups to work on coping skills. 01/05/22 15:09
[2022-01-05] MEDS: MAGNESIUM HYDROXIDE 2,400 MG/10 ML CUP PO PRN (19:43)
[2022-01-05] MEDS: traZODone HCL 50 MG TAB PO SCH (19:44)
[2022-01-05] MEDS ORDERED: TEMAZEPAM 15 MG CAP PO SCH (21:00)
--- NOTE | 2022-01-06 02:35 | P.PN ---
Progress Note - Text Progress Note Date: 01/05/22 The patient refused to be seen and evaluated
[2022-01-06] MEDS: FLUoxetine HCL 20 MG CAP PO SCH (08:33)
[2022-01-06] MEDS: THIAMINE 100 MG TAB PO SCH (08:33)
[2022-01-06] MEDS: NICOTINE 14MG/24HR PATCH TRANSDERM SCH (08:33)
[2022-01-06] MEDS: MULTIVITAMINS, THERA 1 EACH TAB PO SCH (08:33)
[2022-01-06] MEDS: FOLIC ACID 1 MG TAB PO SCH (08:33)
[2022-01-06] MEDS: LORazepam 1 MG TAB PO PRN (08:56)
[2022-01-06] MEDS: MAGNESIUM HYDROXIDE 2,400 MG/10 ML CUP PO PRN (08:57)
[2022-01-06] MEDS ORDERED: DOCUSATE 100 MG CAP PO STA (09:27)
--- NOTE | 2022-01-06 11:27 | P.PN ---
Progress Note - Text Progress Note Date: 01/06/22 Interval History: Patient was seen wandering the hallways and was directable and agreeable to speak with remote mortgage underwriter in the office. The patient was that he continues to feel elevated anxiety and occasionally overwhelmed with feelings and emotions in regards to the loss of his mother. He continues to report suicidal ideation however does not report any intention or plan. He reports no issues regarding his sleep or his appetite at this time. The patient has been adherent with his medications and is not reporting any significant side effects. He denies any auditory or visual hallucinations. He reports no paranoia or other delusions. Mental Status Exam: General Appearance: Patient appears to be stated age is alert, directable, and cooperative. Behavior: Patient is calmly seated without any agitated behavior. Speech: Patient's speech is fluent and nonpressured. Mood/Affect: Mood is improving mildly, affect is congruent and constricted. Suicidality/Homicidality: Patient denies any homicidal ideation however endorses suicidal ideation. Perceptions: Patient denies any visual hallucinations and denies any auditory hallucinations Though content/process: There is no evidence of any delusional thought content and thought process is linear and goal-directed. Memory and concentration: AOX3, grossly intact for the purposes of this session Judgment and insight: Improving mildly Vital Signs Temp 97.9 F 01/06/22 06:32 Pulse 78 01/06/22 06:32 Resp 14 01/06/22 06:32 BP 124/57 01/06/22 06:32 Pulse Ox 97 01/06/22 06:32 Laboratory Results - Last 24 Hours 01/04/22 01/04/22 19:55 19:[address] Glu mg/dL 87 Hemoglobin A1c 4.7 TSH 5.000 H Assessment Major depressive disorder, recurrent, severe Alcohol use disorder Acute bereavement Nicotine dependence Plan: -Patient continues to meet criteria for inpatient psychiatric admission for symptom stabilization and safety. Patient has signed adult voluntary form and medication consent and was placed in patient's chart. -Medications: Continue Prozac 60 mg by mouth daily for depression/anxiety Continue trazodone 150 mg by mouth at bedtime for insomnia Increase temazepam to 30 mg by mouth at bedtime to address acute distress Start Vistaril 25 mg by mouth twice a day for anxiety -When necessary Ativan and Haldol for agitation/aggression. -NRT - nicotine patch -SW on board for discharge planning. Encouraged the patient to participate in milieu.
[2022-01-06] MEDS: MAG HYDROX/AL HYDROX/SIMETH 30 ML CUP PO PRN ×2 (14:00→19:16)
[2022-01-06] MEDS ORDERED: TEMAZEPAM 15 MG CAP PO SCH (21:00)
[2022-01-06] MEDS: traZODone HCL 50 MG TAB PO SCH (21:41)
[2022-01-06] MEDS: hydrOXYzine pamoate 25 MG CAP PO SCH (21:41)
--- NOTE | 2022-01-07 00:24 | P.MDCNMH ---
History of Present Illness H&P Date: 01/06/22 Chief Complaint: medical eval 36 year old male , with history of alcohol abuse, GERD, GOUT patient comes to the ED, with concerns regarding alcohol withdrawal and acute recurrent pancreatitis, he was reporting some epigastric and RUQ pain . no associated vomiting, diarrhea, fever, chills, chest pain or trouble breathing patient admits to heavy drinking, 3 pints of vodka daily , last drink was Monday he denies drug abuse, and admits to daily smoking. Review of Systems Pertinent positives as noted in HPI. All other systems were reviewed and are negative Past Medical History Additional Past Medical History / Comment(s): pancreatitis, gout. History of Any Multi-Drug Resistant Organisms: None Reported Past Surgical History: Ear Surgery Additional Past Surgical History / Comment(s): tubes in ears Past Anesthesia/Blood Transfusion Reactions: No Reported Reaction Past Psychological History: Depression Smoking Status: Current every day smoker Past Alcohol Use History: Abuse, Daily Additional Past Alcohol Use History / Comment(s): patient states he smokes 1 pack per day and drinks 2/5s of vodka per day. Patient states he currently lives with his mother's father. Past Drug Use History: Marijuana - Past Family History Father History Unknown: Yes Mother Family Medical History: Diabetes Mellitus Medications and Allergies Home Medications Medication Instructions Recorded Confirmed Type FLUoxetine HCL [PROzac] 60 mg PO DAILY 30 Days cap 09/20/21 01/05/22 Rx traZODone HCL [Desyrel] 100 mg PO HS 30 Days tab 09/20/21 01/05/22 Rx Allergies Allergy/AdvReac Type Severity Reaction Status Date / Time adhesive tape Allergy Rash/Hives Verified 01/05/22 04:00 codeine Allergy Rash/Hives Verified 01/05/22 04:00 Physical Exam Vitals: Vital Signs Temp Pulse Resp BP Pulse Ox 01/06/22 06:32 97.9 F 78 14 124/57 97 Constitutional: No acute distress, conversant, pleasant Eyes: Anicteric sclerae, moist conjunctiva, Pupils equal round reactive to light ENMT: NC/AT Oropharynx clear, no erythema, or exudates Neck: Supple, FROM, no masses, or JVD No carotid bruits No thyromegaly Lungs: Clear to auscultation Clear to percussion Normal respiratory effort, no accessory muscle use Cardiovascular: Heart regular in rate and rhythm, No murmurs, gallops, or rubs No peripheral edema Abdominal: Soft discomfort to palpation of the RUQ, no guarding, rebound or rigidity Abdomen moving with respiration Normoactive bowel sounds No hepatomegaly, No splenomegaly No palpable mass No abdominal wall hernia noted Skin: Normal temperature, tone, texture, turgor No induration No subcutaneous nodules No rash, lesions No ulcers Extremities: No digital cyanosis No clubbing Pedal pulses intact and symmetrical Radial pulses intact and symmetrical No calf tenderness Psychiatric: Alert and oriented to person, place and time Neuro Muscles Strength 5/5 in all 4 extremities Sensation to light touch grossly present throughout Cranial nerves II-XII grossly intact No focal sensory deficits Lymphatics: no palpable cervical or supraclavicular , or inguinal lymph nodes Cranial Nerve Examination - Cranial Nerves Cranial Nerve II- Optic: Intact Cranial Nerve III- Oculomotor: Intact Cranial Nerve IV- Trochlear: Intact Cranial Nerve V- Trigeminal: Intact Cranial Nerve - Abducens: Intact Cranial Nerve VII- Facial: Intact Cranial Nerve VIII- Auditory: Intact Cranial Nerve IX- Glossopharyngeal: Intact Cranial Nerve X- Vagus: Intact Cranial Nerve XI- Accessory: Intact Cranial Nerve XII- Hypoglossal: Intact Results CBC & Chem 7: 01/04/22 19:55 01/04/22 19:55 Labs: Abnormal Lab Results - Last 24 Hours (Table) 01/04/22 Range/Units 19:55 TSH 5.000 H (0.465-4.680) mIU/L Assessment and Plan Assessment: alcohol abuse monitor for alcohol withdrawal syndrome benzo per CIWA scale thiamine elevated liver enzymes rule out cholelithiasis US of the liver avoid hepatotoxic meds chronic GERD PPI labs reviewed Thank you for allowing us to participate in the care of this patient. We will follow peripherally. Do not hesitate to contact us with questions. Someone can be reached from the [facility] hospitalist group at all hours of the day at [phone].
[2022-01-07 05:37] LABS: T4, Free (Free Thyroxine) 1.13 ng/dL (0.78-2.19)
[2022-01-07 08:02] LABS: ALT 112 U/L (4-49); AST 210 U/L (17-59); African American GFR (CKD) >90 (>60 ml/min/1.73 sqM); Albumin 3.6 g/dL (3.5-5.0); Alkaline Phosphatase 85 U/L (38-126); Anion Gap 4 mmol/L; Blood Urea Nitrogen 12 mg/dL (9-20); Calcium 8.8 mg/dL (8.4-10.2); Carbon Dioxide 33 mmol/L (22-30); Chloride 103 mmol/L (98-107); Glucose 108 mg/dL (74-99); Non-African American GFR(CKD) >90 (>60 ml/min/1.73 sqM); Potassium 4.4 mmol/L (3.5-5.1); Sodium 140 mmol/L (137-145); Total Protein 7.4 g/dL (6.3-8.2)
[2022-01-07] MEDS: PANTOPRAZOLE 40 MG TABLET PO SCH (10:04)
[2022-01-07] MEDS: FLUoxetine HCL 20 MG CAP PO SCH (10:04)
[2022-01-07] MEDS: hydrOXYzine pamoate 25 MG CAP PO SCH ×2 (10:04→21:10)
[2022-01-07] MEDS: MULTIVITAMINS, THERA 1 EACH TAB PO SCH (10:04)
[2022-01-07] MEDS: FOLIC ACID 1 MG TAB PO SCH (10:04)
[2022-01-07] MEDS: THIAMINE 100 MG TAB PO SCH (10:04)
[2022-01-07] MEDS: NICOTINE 14MG/24HR PATCH TRANSDERM SCH (10:05)
[2022-01-07] MEDS: MAGNESIUM HYDROXIDE 2,400 MG/10 ML CUP PO PRN (10:06)
--- NOTE | 2022-01-07 10:11 | US ---
EXAMINATION TYPE: US liver DATE OF EXAM: 01/07/2022 COMPARISON: US 2019 CLINICAL HISTORY: cholelithiasis. Intermittent abdomen pain and N/V x 5 years EXAM MEASUREMENTS: Liver Length: 17.7 cm Gallbladder Wall: 0.1 cm CBD: 0.3 cm Right Kidney: 11.2 x 4.7 x 6.0 cm Pancreas: obscured by overlying midline bowel gas Liver: Enlarged Gallbladder: wnl Evidence for sonographic Ross's sign: no CBD: wnl Right Kidney: visualized portions wnl, inferior pole limited by overlying bowel gas Liver is redemonstrated enlarged in size with heterogeneous hyperechoic appearance. No surrounding as cites. Evaluation for focal masses suboptimal due to the heterogeneity. Gallbladder appears within no rmal limits. No right-sided hydronephrosis. IMPRESSION: Hepatomegaly with probable fatty infiltration of liver. No significant change from prior. No gallstones or ultrasound evidence for acute cholecystitis.
--- NOTE | 2022-01-07 10:58 | P.PN ---
Progress Note - Text Progress Note Date: 01/07/22 Interval History: Patient was seen wandering the hallways and was directable and agreeable to speak with insurance underwriter sales in the office. The patient continues to report elevated anxiety. He states he often thinks of his mother who this past October and this leads him to cycle into grief and anxious thoughts. He reports intermittent suicidal ideation but no active intention or plan. He continues to report difficulty with sleep. He denies any auditory or visual hallucinations. He reports no paranoia or other delusions. He reports his appetite is improving and he has been able to address his hygiene and grooming. He is adherent with his medications and is not reporting any side effects. He is open to switching from prozac to effexor. Mental Status Exam: General Appearance: Patient appears to be stated age is alert, directable, and cooperative. Behavior: Patient is calmly seated without any agitated behavior. Speech: Patient's speech is fluent and nonpressured. Mood/Affect: Mood is improving mildly, affect is congruent and constricted. Suicidality/Homicidality: Patient denies any homicidal ideation however endorses suicidal ideation. Perceptions: Patient denies any visual hallucinations and denies any auditory hallucinations Though content/process: There is no evidence of any delusional thought content and thought process is linear and goal-directed. Memory and concentration: AOX3, grossly intact for the purposes of this session Judgment and insight: Improving mildly Vital Signs Temp 97.5 F L 01/07/22 06:53 Pulse 105 H 01/07/22 09:12 Resp 14 01/07/22 06:53 BP 110/69 01/07/22 09:12 Pulse Ox 95 01/07/22 06:53 Laboratory Results - Last 24 Hours 01/04/22 01/07/22 19:55 07:08 Sodium 140 Potassium 4.4 Chloride 103 Carbon Dioxide 33 H Anion Gap 4 BUN 12 Creatinine 0.86 Est GFR (CKD-EPI)AfAm >90 Est GFR (CKD-EPI)NonAf >90 Glucose 108 H Calcium 8.8 Total Bilirubin 1.0 AST 210 H ALT 112 H Alkaline Phosphatase 85 Total Protein 7.4 Albumin 3.6 TSH 5.000 H Free T4 1.13 Assessment Major depressive disorder, recurrent, severe Alcohol use disorder Acute bereavement Nicotine dependence Plan: -Patient continues to meet criteria for inpatient psychiatric admission for symptom stabilization and safety. Patient has signed adult voluntary form and medication consent and was placed in patient's chart. -Liver ultrasound reviewed - no acute pathology noted at this time. Findings significant for fatty liver which is the same as previous evaluation. -Medications: Discontinue Prozac. Start Effexor XR 37.5 mg daily. Will hold at this dose due to long half-life of prozac causing concern for serotonin syndrome. Continue trazodone 150 mg by mouth at bedtime for insomnia Continue temazepam 30 mg by mouth at bedtime to address acute distress Continue Vistaril 25 mg by mouth twice a day for anxiety -When necessary Ativan and Haldol for agitation/aggression. -NRT - nicotine patch -SW on board for discharge planning. Encouraged the patient to participate in milieu.
[2022-01-07] MEDS: DOCUSATE 100 MG CAP PO PRN ×2 (12:44→21:10)
[2022-01-07] MEDS: MAG HYDROX/AL HYDROX/SIMETH 30 ML CUP PO PRN ×3 (12:44→21:13)
[2022-01-07] MEDS: traZODone HCL 50 MG TAB PO SCH (21:09)
[2022-01-07] MEDS: TEMAZEPAM 30 MG CAP PO SCH (21:20)
[2022-01-08] MEDS: NICOTINE 14MG/24HR PATCH TRANSDERM SCH (09:10)
[2022-01-08] MEDS: hydrOXYzine pamoate 25 MG CAP PO SCH ×2 (09:11→21:15)
[2022-01-08] MEDS: FOLIC ACID 1 MG TAB PO SCH (09:11)
[2022-01-08] MEDS: PANTOPRAZOLE 40 MG TABLET PO SCH (09:11)
[2022-01-08] MEDS: MULTIVITAMINS, THERA 1 EACH TAB PO SCH (09:29)
[2022-01-08] MEDS: VENLAFAXINE HCL ER 37.5 MG CAP PO SCH (09:29)
[2022-01-08] MEDS: THIAMINE 100 MG TAB PO SCH (09:29)
[2022-01-08] MEDS: DOCUSATE 100 MG CAP PO PRN ×2 (09:31→21:17)
[2022-01-08] MEDS: MAGNESIUM HYDROXIDE 2,400 MG/10 ML CUP PO PRN (09:31)
--- NOTE | 2022-01-08 10:57 | P.PN ---
Progress Note - Text Progress Note Date: 01/08/22 Interval History: Patient was seen in my office and was directable and agreeable to speak with leader writer in the office. Patient is a , unemployed, 36-year-old - [place] male who presented to the hospital for suicidal ideation the context of acute bereavement and heavy alcohol use.. At this time patient denies any suicidal or homical ideations, intent or plan. Patient denies any auditory, visual hallucinations and denies any paranoia or delusions. Patient denies any side effects from the medications and has been compliant with meds. Patient stated that that he has gout and takes Motrin on a when necessary basis at home. Mental Status Exam: General Appearance: Patient appears to be stated age is alert, directable, and cooperative. Behavior: Patient is calmly seated without any agitated behavior. Speech: Patient's speech is fluent and nonpressured. Mood/Affect: Mood is improving mildly, affect is congruent and constricted. Suicidality/Homicidality: Patient denies having any suicidal or homicidal ideation intent or plan. Perceptions: Patient denies any visual hallucinations and denies any auditory hallucinations Though content/process: There is no evidence of any delusional thought content and thought process is linear and goal-directed. Memory and concentration: AOX3, grossly intact for the purposes of this session Judgment and insight: Improving mildly Assessment Patient continues to have a severe depression and speaks in a very low monotonous voice. Plan: -Patient continues to meet criteria for inpatient psychiatric admission for symptom stabilization and safety. -Medications: Continue medication as before. -When necessary Ativan and Haldol for agitation/aggression. -SW on board for discharge planning. Encouraged the patient to participate in milieu.
[2022-01-08] MEDS: IBUPROFEN 400 MG TAB PO PRN ×3 (12:27→23:09)
[2022-01-08] MEDS: traZODone HCL 50 MG TAB PO SCH (21:15)
[2022-01-08] MEDS: TEMAZEPAM 30 MG CAP PO SCH (21:15)
[2022-01-08] MEDS: MAG HYDROX/AL HYDROX/SIMETH 30 ML CUP PO PRN (21:19)
[2022-01-08] MEDS ORDERED: MAGNESIUM CITRATE 296 ML BOTTLE PO ONE (23:30)
[2022-01-09] MEDS: LORazepam 1 MG TAB PO PRN (00:32)
[2022-01-09] MEDS: NICOTINE 14MG/24HR PATCH TRANSDERM SCH (08:32)
[2022-01-09] MEDS: hydrOXYzine pamoate 25 MG CAP PO SCH ×2 (08:33→21:01)
[2022-01-09] MEDS: PANTOPRAZOLE 40 MG TABLET PO SCH (08:33)
[2022-01-09] MEDS: THIAMINE 100 MG TAB PO SCH (08:33)
[2022-01-09] MEDS: FOLIC ACID 1 MG TAB PO SCH (08:33)
[2022-01-09] MEDS: MULTIVITAMINS, THERA 1 EACH TAB PO SCH (08:33)
[2022-01-09] MEDS: VENLAFAXINE HCL ER 37.5 MG CAP PO SCH (08:33)
[2022-01-09] MEDS: IBUPROFEN 400 MG TAB PO PRN (08:33)
[2022-01-09] MEDS: DOCUSATE 100 MG CAP PO PRN ×2 (08:34→21:06)
--- NOTE | 2022-01-09 10:57 | P.PN ---
Progress Note - Text Progress Note Date: 01/09/22 Interval History: Patient was seen wandering the hallways and was directable and agreeable to speak with writer editor. Patient stated that that he feels depressed or sad and down and is talking in a low monotonous voice. He stated that that he still has severe gout pain and was taking Motrin 800 mg twice daily as needed.. At this time patient denies any suicidal or homical ideations, intent or plan. Patient denies any auditory, visual hallucinations and denies any paranoia or delusions. Patient denies any side effects from the medications and has been compliant with meds. Mental Status Exam: General Appearance: Patient appears to be stated age is alert, directable, and cooperative. Behavior: Patient is calmly seated without any agitated behavior. Speech: Patient's speech is fluent and nonpressured. Mood/Affect: Mood is improving mildly, affect is congruent and constricted. Suicidality/Homicidality: Patient denies having any suicidal or homicidal ideation intent or plan. Perceptions: Patient denies any visual hallucinations and denies any auditory hallucinations Though content/process: There is no evidence of any delusional thought content and thought process is linear and goal-directed. Memory and concentration: AOX3, grossly intact for the purposes of this session Judgment and insight: Improving mildly Assessment Patient continues to show depressive symptomatology that requires hospitalization. Plan: -Patient continues to meet criteria for inpatient psychiatric admission for symptom stabilization and safety. -Medications: Continue medication as before. -When necessary Ativan and Haldol for agitation/aggression. -SW on board for discharge planning. Encouraged the patient to participate in milieu.
[2022-01-09] MEDS: haloperidoL 5 MG TAB PO PRN ×2 (12:07→18:15)
[2022-01-09] MEDS: IBUPROFEN 800 MG TAB PO PRN (13:20)
[2022-01-09] MEDS: traZODone HCL 50 MG TAB PO SCH (21:01)
[2022-01-09] MEDS: TEMAZEPAM 30 MG CAP PO SCH (21:01)
[2022-01-09] MEDS: MAGNESIUM HYDROXIDE 2,400 MG/10 ML CUP PO PRN (21:06)
[2022-01-10] MEDS: NICOTINE 14MG/24HR PATCH TRANSDERM SCH (08:30)
[2022-01-10] MEDS: THIAMINE 100 MG TAB PO SCH (08:30)
[2022-01-10] MEDS: IBUPROFEN 800 MG TAB PO PRN ×2 (08:30→14:45)
[2022-01-10] MEDS: PANTOPRAZOLE 40 MG TABLET PO SCH (08:30)
[2022-01-10] MEDS: FOLIC ACID 1 MG TAB PO SCH (08:30)
[2022-01-10] MEDS: VENLAFAXINE HCL ER 37.5 MG CAP PO SCH (08:30)
[2022-01-10] MEDS: MULTIVITAMINS, THERA 1 EACH TAB PO SCH (08:30)
[2022-01-10] MEDS: hydrOXYzine pamoate 25 MG CAP PO SCH ×3 (08:31→20:47)
[2022-01-10] MEDS: haloperidoL 5 MG TAB PO PRN (08:31)
--- NOTE | 2022-01-10 11:17 | P.PN ---
Progress Note - Text Progress Note Date: 01/10/22 Interval History: Patient was seen resting in bed and was directable to speak with the marketing writer in the office. Currently, the patient is expressing suicidal ideation with a plan to hang himself. He reports that he thought about using the towels to tie a noose around his neck. He expresses that he is feeling increasingly depressed with low energy, low motivation, and overall sad mood. He reports no homicidal ideation, intention, and/or plan. The patient continues to report issues with his acute grief and anxiety. He states that his appetite is fine however he continues to have difficulties with constipation. He denies any visual hallucinations. He reports occasionally hearing the voice of his mother. He has been in [place] with his medications and is not reporting any significant side effects. He reports no issues or signs and symptoms of serotonin syndrome. He expresses he does not feel safe to go home. He worries he will hurt himself and does not want to scare or hurt his children. Mental Status Exam: General Appearance: Patient appears to be stated age is alert, directable, and cooperative. Behavior: Patient is calmly seated without any agitated behavior. Speech: Patient's speech is fluent and nonpressured. Mood/Affect: Mood is depressed, affect is congruent and withdrawn Suicidality/Homicidality: Patient denies any homicidal ideation but endorses suicidal ideation with a plan. Perceptions: Patient denies any visual hallucinations and denies any auditory hallucinations Though content/process: There is no evidence of any delusional thought content and thought process is linear and goal-directed. Memory and concentration: AOX3, grossly intact for the purposes of this session Judgment and insight: Fair Vital Signs Temp 97.8 F 01/10/22 07:00 Pulse 104 H 01/10/22 07:00 Resp 14 01/09/22 06:50 BP 99/65 01/10/22 07:00 Pulse Ox 96 01/10/22 07:00 Intake & Output 01/09/22 01/10/22 01/10/22 18:59 06:59 18:59 Weight 113.5 kg Assessment Major depressive disorder, recurrent, severe Alcohol use disorder Acute bereavement Nicotine dependence Plan: -Patient continues to meet criteria for inpatient psychiatric admission for symptom stabilization and safety. Patient has signed adult voluntary form and medication consent and was placed in patient's chart. -Liver ultrasound reviewed - no acute pathology noted at this time. Findings significant for fatty liver which is the same as previous evaluation. -Medications: We will increase Effexor XR to 75 mg by mouth daily for management of depression/anxiety. We will be conservative about further increased due to concerns for serotonin syndrome as the patient was recently on Prozac at 60 mg and this was discontinued last Monday. We will decrease trazodone to 100 mg by mouth at bedtime for management of insomnia. This is to decrease serotonin out of concern for possible serotonin syndrome as a side effect that may develop Continue temazepam 30 mg by mouth at bedtime to address acute distress Continue Vistaril 25 mg by mouth twice a day for anxiety -When necessary Ativan and Haldol for agitation/aggression. -NRT - nicotine patch -SW on board for discharge planning. Encouraged the patient to participate in milieu.
[2022-01-10] MEDS: traZODone HCL 100 MG TAB PO SCH (20:46)
[2022-01-10] MEDS: TEMAZEPAM 30 MG CAP PO SCH (20:47)
[2022-01-10] MEDS: LORazepam 1 MG TAB PO PRN (20:48)
[2022-01-11] MEDS: VENLAFAXINE HCL ER 75 MG CAP PO SCH (08:40)
[2022-01-11] MEDS: THIAMINE 100 MG TAB PO SCH (08:40)
[2022-01-11] MEDS: FOLIC ACID 1 MG TAB PO SCH (08:40)
[2022-01-11] MEDS: NICOTINE 14MG/24HR PATCH TRANSDERM SCH (08:40)
[2022-01-11] MEDS: hydrOXYzine pamoate 25 MG CAP PO SCH ×3 (08:40→20:59)
[2022-01-11] MEDS: PANTOPRAZOLE 40 MG TABLET PO SCH (08:40)
[2022-01-11] MEDS: MULTIVITAMINS, THERA 1 EACH TAB PO SCH (08:40)
[2022-01-11] MEDS: IBUPROFEN 800 MG TAB PO PRN ×3 (08:41→21:31)
--- NOTE | 2022-01-11 11:03 | P.PN ---
Progress Note - Text Progress Note Date: 01/11/22 Interval History: Patient was seen resting in bed and was directable to speak with the video game script writer in the office. Currently the patient reports feeling better. He states he is sleeping well and eating well. He reports feeling significantly better with the vistaril in dealing with his anxiety throughout the day. He is requesting an increase in the medication. He reports no issues regarding his appetite. He has been adherent with his medications and reports no side effects. He denies any suicidal or homicidal ideation, intention, and/or plan. He reports no auditory or visual hallucinations. He denies any paranoia or other delusions. Mental Status Exam: General Appearance: Patient appears to be stated age is alert, directable, and cooperative. Behavior: Patient is calmly seated without any agitated behavior. Speech: Patient's speech is fluent and nonpressured. Mood/Affect: Mood is "feeling better." Affect is euthymic with appropriate range. Suicidality/Homicidality: Patient denies any homicidal or suicidal ideation. Perceptions: Patient denies any visual hallucinations and denies any auditory hallucinations Though content/process: There is no evidence of any delusional thought content and thought process is linear and goal-directed. Memory and concentration: AOX3, grossly intact for the purposes of this session Judgment and insight: Fair Vital Signs Temp 98.6 F 01/11/22 07:05 Pulse 91 01/11/22 07:05 Resp 14 01/09/22 06:50 BP 95/58 01/11/22 07:05 Pulse Ox 97 01/11/22 07:05 Assessment Major depressive disorder, recurrent, severe Alcohol use disorder Acute bereavement Nicotine dependence Plan: -Patient continues to meet criteria for inpatient psychiatric admission for symptom stabilization and safety. Patient has signed adult voluntary form and medication consent and was placed in patient's chart. -Liver ultrasound reviewed - no acute pathology noted at this time. Findings significant for fatty liver which is the same as previous evaluation. -Medications: Continue Effexor XR 75 mg by mouth daily for management of depression/anxiety. Continue trazodone 100 mg by mouth at bedtime for insomnia. Continue temazepam 30 mg by mouth at bedtime to address acute distress Increase Vistaril to 50 mg by mouth 3 times a day for anxiety -When necessary Ativan and Haldol for agitation/aggression. -NRT - nicotine patch -SW on board for discharge planning. Encouraged the patient to participate in milieu.
[2022-01-11] MEDS: traZODone HCL 100 MG TAB PO SCH (20:59)
[2022-01-11] MEDS: TEMAZEPAM 30 MG CAP PO SCH (20:59)
[2022-01-12 07:10] VITALS: BP 110/62; PULSE 85; RESP 16; TEMP 97.9
[2022-01-12] MEDS: VENLAFAXINE HCL ER 75 MG CAP PO SCH (08:32)
[2022-01-12] MEDS: THIAMINE 100 MG TAB PO SCH (08:32)
[2022-01-12] MEDS: NICOTINE 14MG/24HR PATCH TRANSDERM SCH (08:32)
[2022-01-12] MEDS: MULTIVITAMINS, THERA 1 EACH TAB PO SCH (08:32)
[2022-01-12] MEDS: IBUPROFEN 800 MG TAB PO PRN (08:32)
[2022-01-12] MEDS: PANTOPRAZOLE 40 MG TABLET PO SCH (08:32)
[2022-01-12] MEDS: hydrOXYzine pamoate 25 MG CAP PO SCH (08:32)
[2022-01-12] MEDS: FOLIC ACID 1 MG TAB PO SCH (08:32)
--- NOTE | 2022-01-12 11:59 | P.DS ---
Providers Date of admission: 01/05/22 03:18 Expected date of discharge: 01/12/22 Attending physician: Domingo Celis MD Consults: 01/05/22 04:15 Consult Physician Routine Consulting Provider: Bharath Garcia Consult Reason/Comments: For H & P for Medical Follow Up Do you want consulting provider notified?: Yes Primary care physician: Stated None - Discharge Diagnosis(es) (1) Major depressive disorder, recurrent severe without psychotic features Current Visit: Yes Status: Acute Priority: High (2) Bereavement Current Visit: Yes Status: Acute Priority: High (3) Alcohol use disorder Current Visit: Yes Status: Chronic Priority: Medium (4) Nicotine dependence Current Visit: Yes Status: Chronic Priority: Medium Hospital Course: Admission HPI: Patient is a , unemployed, 36-year-old -[place] male who presented to the hospital for suicidal ideation the context of acute bereavement and heavy alcohol use. HPI: Patient presented to the hospital on 01/05/2022 voluntarily for depression with suicidal ideation with a plan to cut his wrists. Patient reports that he was sitting in the zamud[place] with a plan to cut his wrists in order to kill himself as he did not "want to get blood all over the house." The patient reports that he has been feeling increasingly depressed since the passing of his mother on 11/18/2021. He reports that since then he has been experiencing a significant amount of grief and bereavement. He reports that he continues to hear her voice occasionally calling out inside the home. Furthermore, the patient expresses that he has been feeling overwhelmed and sad. This has caused him recently to relapsing to heavy alcohol use after maintaining a significant amount of time sober. He reports that 3 weeks ago he has been drinking up to 2 pints of hard liquor per day. In regards to mood symptoms, patient endorses significant symptoms of depression. He reports anhedonia, difficulty with sleep, decreased appetite, crying episodes, decreased hygiene and grooming, and suicidal ideation. The patient states that he has been feeling extremely overwhelmed and has even had to stop going to one of his jobs. Aside from his issues regarding his depression and bereavement, the patient is not reporting any auditory or visual hallucinations that are psychotic in nature. He denies any paranoia or other delusions. He denies any significant symptoms of bipolar disorder. He reports that he has only been off his medications for the past 3 days. He states that during the for his mother, he did take double the recommended dose of his medications. He reports that this was in order to cope and not to hurt himself. Patient has previous diagnoses of depression and alcohol use disorder. He was last discharged in a regimen of Prozac and trazodone back in August 2021. This is the patient's fourth psychiatric hospitalization since May 2020. He is intermittently adherent with his outpatient follow-up appointments but states that it is difficulty to his work as well as his raising his children. He does have previous attempts at suicide including attempting to shoot himself 7 years ago. Hospital course: Upon admission to the unit patient was initially presenting with significant depression and suicidal ideation the context of heavy alcohol use and acute bereavement. Patient was however directable and agreeable to commence treatment. Patient got along well with other patients on the unit and followed unit protocol. Patient was compliant with the medications and denied any side effec ts throughout hospital course. Patient was started on his home medication of Prozac and trazodone. Temazepam was added to his regimen as it was safe for his liver and would help address insomnia and no acute distress. Patient spoke of his stressors and engaged in therapy both group and individual. Patient was also seen by medical team for history and physical exam. The patient initially displayed some improvement in regards to mood however continued to feel increasingly depressed and suicidal. He was initially planned to be discharged on 01/10/22 however the patient continues to endorse suicidal ideation with a plan to hang himself with some towels. Discharge was withheld. The patient was then transitioned from Prozac to Effexor in order to address his depressive symptoms. Furthermore, Vistaril was added to his regimen to address daytime anxiety. The patient displayed significant improvement with his current regimen of Vistaril, Effexor, trazodone, and temazepam. The patient became more future and goal oriented. He also reported that he has plans to go to inpatient substance abuse rehabilitation for his alcohol use disorder. On the day of discharge, the patient is not reporting any suicidal or homicidal ideation, intention, and/or plan. He is not reporting any auditory or visual hallucinations. He does report that there are firearms and weapons available to him however they are locked up and the family will be watching him closely. He does express understanding that if he was to hurt himself, the risk of suicide for his children increased exponentially. He expresses that he loves his children too much to ever tried to hurt them. He also expresses a strong desire to go to rehabilitation or to address his alcohol problem. He denies any paranoia or other delusions. He has been adherent with medications and reports no significant side effects. The risks, benefits, treatment alternatives of medications were discussed with the patient in detail. He is agreeable to continuing medications at this time. He was specifically counseled at length on the importance of abstaining from alcohol when using temazepam. He is otherwise counseled to abstain from all other substances as well. The patient was encouraged to be adherent with his medications and to follow-up with his outpatient appointments. Prior to discharge, family meeting will be arranged by social work case manager and see questions and ensure safety. Mental status exam: General Appearance: Patient appears to be stated age is alert, pleasant, and cooperative. Patient is in no acute distress and has fair hygiene and grooming Behavior: Patient is calmly seated without any agitated behavior. Speech: Patient's speech is fluent and nonpressured. Mood/Affect: Patient reports their mood is "much better", affect is congruent and euthymic to bright. Suicidality/Homicidality: Patient denies having any suicidal or homicidal ideation intent or plan. Perceptions: Patient denies any auditory or visual hallucinations. Though content/process: There is no evidence of any delusional thought content and thought process is linear and goal-directed. He is future oriented. Memory and concentration: AOX3, grossly intact for the purposes of this session. Can spell "WORLD" backwards correctly. Judgment and insight: Improved with guarded prognosis Impression: Major depressive disorder, recurrent, severe Alcohol use disorder Acute bereavement Nicotine dependence Plan: -Continue with discharge today as patient has improved and stabilized psychiatrically and is not currently an imminent threat to himself and/or others. Patient will remain at chronically elevated risk for harm to self and/or others due to his alcohol abuse and acute stressors including bereavement. -Continue medications: Trazodone 100 mg daily at bedtime for insomnia Effexor XR 75 mg daily for depression/anxiety Folic acid, thiamine, and multivitamins due to alcohol use disorder Restoril 15 mg by mouth at bedtime for 7 days for insomnia/acute stress Vistaril 50 mg by mouth 3 times a day for anxiety Colace for constipation Patient is refusing nicotine patches. Does not plan to quit at this time. -Patient was counseled on the need for medication compliance and appropriate follow-up at mental health and also primary care for medical issues. Patient verbalized understanding and agreed. -Social work to arrange for and conduct family meeting to ensure safety upon discharge and answer any questions/concerns. Social work also to arrange for patients follow up appointments with [facility] for psychiatric care along with follow up with primary care provider. -Patient counseled on abstaining from recreational drugs and marijuana and alcohol. Was informed/educated on the adverse effects on their physical and mental health. Patient verbally agreed and understood. Patient plans to go to inpatient substance abuse rehabilitation for alcohol use disorder in the near future. -Patient was instructed to return to the hospital or seek immediate medical care if their psychiatric or medical symptoms do worsen or reoccur. -Psychoeducation and supportive therapy provided to patient. Risks and benefits of pharmacological treatment versus the risks and benefits of nontreatment weight and discussed. Informed consent discussion held. Common side effects of psychotropics discussed such as, but not limited to headache, GI disturbance, sexual dysfunction, movement disorders, sedation, and orthostatic hypotension. Life threatening and blackbox warnings of prescribed medications also discussed. Potential risks of operating a vehicle or heavy machinery discussed with patient at length. Advised on importance of compliance and a reliable and responsible manner. Patient advised to review FDA consumer labeling of all medications prior to taking. Patient verbalized understanding of potential risks, and agrees with current treatment plan. Patient advised to medically contact physician/emergency personnel if any acute changes in condition occur. Vital Signs Temp 97.9 F 01/12/22 06:44 Pulse 85 01/12/22 06:44 Resp 16 01/12/22 06:44 BP 110/62 01/12/22 06:44 Pulse Ox 98 01/12/22 06:44 Allergies Allergy/AdvReac Type Severity Reaction Status Date / Time adhesive tape Allergy Rash/Hives Verified 01/05/22 04:00 codeine Allergy Rash/Hives Verified 01/05/22 04:00 Laboratory Results WBC 5.0 k/uL (3.8-10.6) 01/04/22 19:55 RBC 4.17 m/uL (4.30-5.90) L 01/04/22 19:55 Hgb 14.3 gm/dL (13.0-17.5) 01/04/22 19:55 Hct 44.5 % (39.0-53.0) 01/04/22 19: MCV 106.5 fL (80.0-100.0) H 01/04/22 19: MCH 34.1 pg (25.0-35.0) 01/04/22 19: MCHC 32.1 g/dL (31.0-37.0) 01/04/22 19: RDW 13.8 % (11.5-15.5) 01/04/22 19: Plt Count 173 k/uL (150-450) 01/04/22 19:55 MPV 7.0 01/04/22 19: Neutrophils % 54 % 01/04/22 19:55 Lymphocytes % 35 % 01/04/22 19: Monocytes % 5 % 01/04/22 19:55 Eosinophils % 1 % 01/04/22 19:55 Basophils % 1 % 01/04/22 19:55 Neutrophils # 2.7 k/uL (1.3-7.7) 01/04/22 19:55 Lymphocytes # 1.7 k/uL (1.0-4.8) 01/04/22 19:55 Monocytes # 0.3 k/uL (0-1.0) 01/04/22 19: Eosinophils # 0.0 k/uL (0-0.7) 01/04/22 19: Basophils # 0.1 k/uL (0-0.2) 01/04/22 19:55 Macrocytosis Moderate 01/04/22 19:55 PT 12.0 sec (9.0-12.0) 01/04/22 19: INR 1.1 (<1.2) 01/04/22 19:55 APTT 25.4 sec (22.0-30.0) 01/04/22 19:55 Sodium 140 mmol/L (137-145) 01/07/22 07:08 Potassium 4.4 mmol/L (3.5-5.1) 01/07/22 07:08 Chloride 103 mmol/L (98-107) 01/07/22 07:08 Carbon Dioxide 33 mmol/L (22-30) H 01/07/22 07:08 Anion Gap 4 mmol/L 01/07/22 07:08 BUN 12 mg/dL (9-20) 01/07/22 07:08 Creatinine 0.86 mg/dL (0.66-1.25) 01/07/22 07:08 Est GFR (CKD-EPI)AfAm >90 (>60 ml/min/1.73 sqM) 01/07/22 07:08 Est GFR (CKD-EPI)NonAf >90 (>60 ml/min/1.73 sqM) 01/07/22 07:08 Glucose 108 mg/dL (74-99) H 01/07/22 07:[address] Glu mg/dL 87 01/04/22 19:55 Hemoglobin A1c 4.7 % (0.0-6.0) 01/04/22 19:55 Calcium 8.8 mg/dL (8.4-10.2) 01/07/22 07:08 Total Bilirubin 1.0 mg/dL (0.2-1.3) 01/07/22 07:08 AST 210 U/L (17-59) H 01/07/22 07:08 ALT 112 U/L (4-49) H 01/07/22 07:08 Alkaline Phosphatase 85 U/L (38-126) 01/07/22 07:08 Total Protein 7.4 g/dL (6.3-8.2) 01/07/22 07:08 Albumin 3.6 g/dL (3.5-5.0) 01/07/22 07:08 Amylase 179 U/L (30-110) H 01/04/22 19:55 Lipase 191 U/L (23-300) 01/04/22 19:55 TSH 5.000 mIU/L (0.465-4.680) H 01/04/22 19:55 Free T4 1.13 ng/dL (0.78-2.19) 01/04/22 19:55 Urine Color Yellow 01/04/22 19:55 Urine Appearance Clear (Clear) 01/04/22 19:55 Urine pH 5.5 (5.0-8.0) 01/04/22 19:55 Ur Specific [place] 1.027 (1.001-1.035) 01/04/22 19: Urine Protein 1+ (Negative) H 01/04/22 19:55 Urine Glucose (UA) Negative (Negative) 01/04/22 19: Urine Ketones 2+ (Negative) H 01/04/22 19:55 Urine Blood Negative (Negative) 01/04/22 19: Urine Nitrite Negative (Negative) 01/04/22: Urine Bilirubin Negative (Negative) 01/04/22 19: Urine Urobilinogen 2.0 mg/dL (<2.0) 01/04/22 19:55 Ur Leukocyte Esterase Negative (Negative) 01/04/22 19: Urine RBC 1 /hpf (0-5) 01/04/22 19: Urine WBC 4 /hpf (0-5) 01/04/22 19: Hyaline Casts 3 /lpf (0-2) H 01/04/22 19:55 Urine Mucus Rare /hpf (None) H 01/04/22 19:55 Urine Opiates Screen Not Detected (NotDetected) 01/04/22 20:24 Ur Oxycodone Screen Not Detected (NotDetected) 01/04/22 20:24 Urine Methadone Screen Not Detected (NotDetected) 01/04/22 20:24 Ur Propoxyphene Screen Not Detected (NotDetected) 01/04/22 20:24 Ur Barbiturates Screen Not Detected (NotDetected) 01/04/22 20:24 U Tricyclic Antidepress Not Detected (NotDetected) 01/04/22 20:24 Ur Phencyclidine Scrn Not Detected (NotDetected) 01/04/22 20:24 Ur Amphetamines Screen Not Detected (NotDetected) 01/04/22 20:24 U Methamphetamines Scrn Not Detected (NotDetected) 01/04/22 20:24 U Benzodiazepines Scrn Not Detected (NotDetected) 01/04/22 20:24 Urine Cocaine Screen Not Detected (NotDetected) 01/04/22 20:24 U Marijuana (THC) Screen Not Detected (NotDetected) 01/04/22 20:24 Serum Alcohol <10 mg/dL 01/04/22 19:55 Coronavirus (PCR) Not Detected (Not Detectd) 01/05/22 01:52 Patient Condition at Discharge: Stable Plan - Discharge Summary Discharge Rx Participant: No New Discharge Prescriptions: New traZODone HCL [Desyrel] 100 mg PO HS 30 Days tab Venlafaxine HCl ER [Effexor XR] 75 mg PO DAILY 30 Days capsule Folic Acid 1 mg PO DAILY 30 Days tab Temazepam [Restoril] 15 mg PO HS #7 cap hydrOXYzine pamoate [Vistaril] 50 mg PO TID 30 Days cap Thiamine [Vitamin B-1] 100 mg PO DAILY 30 Days tab Docusate [Colace] 100 mg PO BID PRN 7 Days cap PRN Reason: Constipation Multivitamins, Thera [Multivitamin (formulary)] 1 each PO DAILY 30 Days tab Discontinued traZODone HCL [Desyrel] 100 mg PO HS 30 Days tab FLUoxetine HCL [PROzac] 60 mg PO DAILY 30 Days cap Discharge Medication List Docusate [Colace] 100 mg PO BID PRN 7 Days cap 01/12/22 [Rx] Folic Acid 1 mg PO DAILY 30 Days tab 01/12/22 [Rx] Multivitamins, Thera [Multivitamin (formulary)] 1 each PO DAILY 30 Days tab 01/12/22 [Rx] Temazepam [Restoril] 15 mg PO HS #7 cap 01/12/22 [Rx] Thiamine [Vitamin B-1] 100 mg PO DAILY 30 Days tab 01/12/22 [Rx] Venlafaxine HCl ER [Effexor XR] 75 mg PO DAILY 30 Days capsule 01/12/22 [Rx] hydrOXYzine pamoate [Vistaril] 50 mg PO TID 30 Days cap 01/12/22 [Rx] traZODone HCL [Desyrel] 100 mg PO HS 30 Days tab 01/12/22 [Rx] Follow up Appointment(s)/Referral(s): [facility] [Outside] - 01/14/22 9:00 am (01/14 @ 09:00-10:00 Brenda Chinchilla 01/18 @ 10-10:30 Fern Anderson ) None,Stated [Primary Care Provider] - 1-2 days Patient Instructions/Handouts: How to Stop Smoking (DC), Depression (DC), Abuse of Alcohol (DC) Activity/Diet/Wound Care/Special Instructions: Activity and diet as tolerated. Avoid the use of street drugs and alcohol. Take all medications as prescribed. When you are in need of refills on your medications please contact your medical provider and/or outpatient psychiatrist to have this done. Please go to scheduled outpatient appointment for aftercare treatment. If symptoms return or become worse, call the crisis line at and/or go to the nearest emergency room for evaluation Discharge Disposition: HOME SELF-CARE
== END 2022-01-12 14:00 | disposition home or self-care (01) | DRG 885 ==
LOC: EC 15:22 → 3MHU 01-05 03:18
PROVIDERS: ADMIT Psychiatry & Neurology Psychiatry; ATTEND Psychiatry & Neurology Psychiatry
DX: F33.2 Major depressive disorder, recurrent severe without psychotic features (principal); R45.851 Suicidal ideations; F10.10 Alcohol abuse, uncomplicated; F17.210 Nicotine dependence, cigarettes, uncomplicated; F41.9 Anxiety disorder, unspecified; G47.00 Insomnia, unspecified; K59.00 Constipation, unspecified; M10.9 Gout, unspecified; Z63.4 Disappearance and death of family member; Z79.899 Other long term (current) drug therapy; Z81.8 Family history of other mental and behavioral disorders; Z83.3 Family history of diabetes mellitus; Z20.822 Contact with and (suspected) exposure to COVID-19
CPT/HCPCS: 36415; 74018; 76705; 80053; 80306; 80320; 81001; 82150; 83036; 83690; 84439; 84443; 85025; 85610; 85730; 87635; 96374; 96375; 99285

== ENCOUNTER 2022-09-28 19:20 | Emergency (ER) | payer OTHER ==
--- NOTE | 2022-09-28 22:03 | ED ---
Psych HPI - General Chief Complaint: Psychiatric Symptoms Stated Complaint: Mental Health Time Seen by Provider: 09/28/22 21:13 Source: patient, RN notes reviewed, old records reviewed Mode of arrival: ambulatory Limitations: no limitations - History of Present Illness Initial Comments: This is a 37-year-old male presenting intoxicated admit to suicidal thoughts and depression, patient wants to kill himself. Patient is making any statements earlier.. Patient's intentions are to shoot himself MD Complaint: suicidal ideation -: unknown Associated Psychiatric Symptoms: depression, suicidal ideation History of same: Yes Quality: constant, getting worse Improves With: none Worsens With: alcohol Context: recent alcohol abuse Associated Symptoms: denies other symptoms Treatments Prior to Arrival: placed on mental health hold If Self Harm: admits thoughts of self harm - Related Data Previous Rx's Medication Instructions Recorded Docusate [Colace] 100 mg PO BID PRN 7 Days cap 01/12/22 Folic Acid 1 mg PO DAILY 30 Days tab 01/12/22 Multivitamins, Thera [Multivitamin 1 each PO DAILY 30 Days tab 01/12/22 (formulary)] Temazepam [Restoril] 15 mg PO HS #7 cap 01/12/22 Thiamine [Vitamin B-1] 100 mg PO DAILY 30 Days tab 01/12/22 Venlafaxine HCl ER [Effexor XR] 75 mg PO DAILY 30 Days capsule 01/12/22 hydrOXYzine pamoate [Vistaril] 50 mg PO TID 30 Days cap 01/12/22 traZODone HCL [Desyrel] 100 mg PO HS 30 Days tab 01/12/22 Allergies Allergy/AdvReac Type Severity Reaction Status Date / Time adhesive tape Allergy Rash/Hives Verified 09/28/22 19:38 codeine Allergy Rash/Hives Verified 09/28/22 19:38 Review of Systems ROS Statement: Those systems with pertinent positive or pertinent negative responses have been documented in the HPI. ROS Other: All systems not noted in ROS Statement are negative. Past Medical History Additional Past Medical History / Comment(s): pancreatitis, gout. History of Any Multi-Drug Resistant Organisms: None Reported Past Surgical History: Ear Surgery Additional Past Surgical History / Comment(s): tubes in ears Past Anesthesia/Blood Transfusion Reactions: No Reported Reaction Past Psychological History: Depression Smoking Status: Current some day smoker Past Alcohol Use History: Abuse, Daily Past Drug Use History: Marijuana - Past Family History Father History Unknown: Yes Mother Family Medical History: Diabetes Mellitus General Exam Limitations: no limitations General appearance: alert, in no apparent distress Head exam: Present: atraumatic, normocephalic, normal inspection Eye exam: Present: normal appearance, PERRL, EOMI. Absent: scleral icterus, conjunctival injection, periorbital swelling ENT exam: Present: normal exam, mucous membranes moist Neck exam: Present: normal inspection. Absent: tenderness, meningismus, lymphadenopathy Respiratory exam: Present: normal lung sounds bilaterally. Absent: respiratory distress, wheezes, rales, rhonchi, stridor Cardiovascular Exam: Present: regular rate, normal rhythm, normal heart sounds. Absent: systolic murmur, diastolic murmur, rubs, gallop, clicks GI/Abdominal exam: Present: soft, normal bowel sounds. Absent: distended, tend erness, guarding, rebound, rigid Extremities exam: Present: normal inspection, full ROM, normal capillary refill. Absent: tenderness, pedal edema, joint swelling, calf tenderness Back exam: Present: normal inspection Neurological exam: Present: alert, oriented X3, CN II-XII intact Psychiatric exam: Present: normal affect, normal mood Skin exam: Present: warm, dry, intact, normal color. Absent: rash Course Vital Signs 09/28/22 09/29/22 19:31 04:18 Temperature 98.2 F Pulse Rate 95 82 Respiratory 22 15 Rate Blood Pressure 141/92 102/56 O2 Sat by Pulse 98 98 Oximetry - Reevaluation(s) Reevaluation #1: 09/28/22 23:59 Medical record is reviewed Reevaluation #2: 09/29/22 03:59 Medical clear for psychiatric evaluation Medical Decision Making - Medical Decision Making 37 male seen and evaluated psychiatry, patient can be discharged to inpatient psychiatric evaluation and treatment - Lab Data Result diagrams: 09/29/22 05:51 Lab Results 09/29/22 09/29/22 Range/Units 05:51 05:51 WBC 4.5 (3.8-10.6) k/uL RBC 3.95 L (4.30-5.90) m/uL Hgb 13.3 (13.0-17.5) gm/dL Hct 39.4 (39.0-53.0) % MCV 99.7 (80.0-100.0) fL MCH 33.8 (25.0-35.0) pg MCHC 33.9 (31.0-37.0) g/dL RDW 12.3 (11.5-15.5) % Plt Count 230 (150-450) k/uL MPV 7.5 Urine Color Yellow Urine Appearance Clear (Clear) Urine pH 5.5 (5.0-8.0) Ur Specific [place] 1.018 (1.001-1.035) Urine Protein Negative (Negative) Urine Glucose (UA) Negative (Negative) Urine Ketones Negative (Negative) Urine Blood Negative (Negative) Urine Nitrite Negative (Negative) Urine Bilirubin Negative (Negative) Urine Urobilinogen <2.0 (<2.0) mg/dL Ur Leukocyte Esterase Negative (Negative) Disposition Clinical Impression: Acute anxiety, Depression, Suicidal ideation, Alcohol use disorder Disposition: TRANSFER TO PSYCH HOSP/UNIT Condition: Fair Is patient prescribed a controlled substance at d/c from ED?: No Referrals: Jennifer Scanlon MD [Primary Care Provider] - 1-2 days
[2022-09-29 06:22] LABS: HCT 39.4 % (39.0-53.0); HGB 13.3 gm/dL (13.0-17.5); MCH 33.8 pg (25.0-35.0); MCHC 33.9 g/dL (31.0-37.0); MCV 99.7 fL (80.0-100.0); Mean Platelet Volume 7.5; Platelet Count 230 k/uL (150-450); RBC 3.95 m/uL (4.30-5.90); RDW 12.3 % (11.5-15.5); WBC 4.5 k/uL (3.8-10.6)
[2022-09-29 06:29] LABS: Appearance,Urine Clear (Clear); Bilirubin,Urine Negative (Negative); Blood,Urine Negative (Negative); Color,Urine Yellow; Glucose,Urine (UA) Negative (Negative); Ketones,Urine Negative (Negative); Leukocyte Esterase,Urine Negative (Negative); Nitrite,Urine Negative (Negative); PH, Urine 5.5 (5.0-8.0); Protein,Urine Negative (Negative); Specific Gravity,Urine 1.018 (1.001-1.035); Urobilinogen,Urine <2.0 mg/dL (<2.0)
[2022-09-29 06:42] LABS: African American GFR (CKD) >90 (>60 ml/min/1.73 sqM); Anion Gap 8 mmol/L; Blood Urea Nitrogen 17 mg/dL (9-20); Calcium 8.6 mg/dL (8.4-10.2); Carbon Dioxide 28 mmol/L (22-30); Chloride 108 mmol/L (98-107); Glucose 85 mg/dL (74-99); Non-African American GFR(CKD) >90 (>60 ml/min/1.73 sqM); Potassium 4.5 mmol/L (3.5-5.1); Sodium 144 mmol/L (137-145)
[2022-09-29 07:29] VITALS: BP 110/71; PULSE 69; RESP 16; TEMP 98
[2022-09-29 08:11] LABS: Urn Cannabinoid Scrn Not Detected (NotDetected)
[2022-09-29 08:12] LABS: Amphetamine Screen,Urine Not Detected (NotDetected); Barbiturate Screen,Urine Not Detected (NotDetected); Benzodiazepines Screen,Urine Not Detected (NotDetected); Cocaine Screen,Urine Not Detected (NotDetected); Methadone Screen, Urine Not Detected (NotDetected); Opiate Screen,Urine Not Detected (NotDetected); Oxycodone Screen, Urine Not Detected (NotDetected); Phencyclidine Screen,Urine Not Detected (NotDetected); Tricyclic Antidepressant,Urine Not Detected (NotDetected)
== END 2022-09-29 20:43 ==
LOC: EC 19:20
DX: R45.851 Suicidal ideations (principal); F41.9 Anxiety disorder, unspecified; F32.A Depression, unspecified; F10.90 Alcohol use, unspecified, uncomplicated; F17.200 Nicotine dependence, unspecified, uncomplicated; F12.90 Cannabis use, unspecified, uncomplicated; Z91.048 Other nonmedicinal substance allergy status; Z88.5 Allergy status to narcotic agent; Z20.822 Contact with and (suspected) exposure to COVID-19
CPT/HCPCS: 36415; 80048; 80306; 81003; 82075; 85027; 87635; 99285

== ENCOUNTER 2022-10-16 00:26 | Inpatient (IN) | payer OTHER ==
[2022-10-16] MEDS ORDERED: SODIUM CHLORIDE 0.9% 500 ML 500 ML IV STA (00:31)
[2022-10-16] MEDS ORDERED: SODIUM CHLORIDE 0.9% 1,000 ML IV STA (00:31)
[2022-10-16] MEDS ORDERED: ONDANSETRON 4 MG/2 ML VIAL IVP STA (00:31)
--- NOTE | 2022-10-16 00:32 | ED ---
Overdose HPI - General Stated Complaint: Overdose Time Seen by Provider: 10/16/22 00:30 Source: RN notes reviewed, old records reviewed Limitations: no limitations - History of Present Illness Initial Comments: This is a 37-year-old male to the emergency department for evaluation patient presenting with overdose. Patient took overdose of alcohol and pills Prozac. Patient took overdose to go to sleep not completely admitted to suicidal thoughts currently but is starting to get altered. Patient has multiple things abort both alcohol Prozac denying any other drugs or alcohol use. History of psychiatric illness with drug abuse MD Complaint: intentional overdose -: hour(s) Intent: suicide attempt, want to go to sleep How Overdose Was Discovered: called 911 Context: Intentional Overdose: drug/ETOH problems Context: Accidental Overdose: wanted to get high Associated Symptoms: depression Treatments Prior to Arrival: none - Related Data Previous Rx's Medication Instructions Recorded Docusate [Colace] 100 mg PO BID PRN 7 Days cap 01/12/22 Folic Acid 1 mg PO DAILY 30 Days tab 01/12/22 Multivitamins, Thera [Multivitamin 1 each PO DAILY 30 Days tab 01/12/22 (formulary)] Temazepam [Restoril] 15 mg PO HS #7 cap 01/12/22 Thiamine [Vitamin B-1] 100 mg PO DAILY 30 Days tab 01/12/22 Venlafaxine HCl ER [Effexor XR] 75 mg PO DAILY 30 Days capsule 01/12/22 hydrOXYzine pamoate [Vistaril] 50 mg PO TID 30 Days cap 01/12/22 traZODone HCL [Desyrel] 100 mg PO HS 30 Days tab 01/12/22 Allergies Allergy/AdvReac Type Severity Reaction Status Date / Time adhesive tape Allergy Rash/Hives Verified 10/16/22 00:32 codeine Allergy Rash/Hives Verified 10/16/22 00:32 Review of Systems ROS Statement: Those systems with pertinent positive or pertinent negative responses have been documented in the HPI. ROS Other: All systems not noted in ROS Statement are negative. Past Medical History Additional Past Medical History / Comment(s): pancreatitis, gout. History of Any Multi-Drug Resistant Organisms: None Reported Past Surgical History: Ear Surgery Additional Past Surgical History / Comment(s): tubes in ears Past Anesthesia/Blood Transfusion Reactions: No Reported Reaction Past Psychological History: Depression Smoking Status: Current some day smoker Past Alcohol Use History: Abuse, Daily Past Drug Use History: Marijuana - Past Family History Father History Unknown: Yes Mother Family Medical History: Diabetes Mellitus General Exam Limitations: altered mental status General appearance: alert, in no apparent distress, lethargic Head exam: Present: atraumatic, normocephalic, normal inspection Eye exam: Present: normal appearance, PERRL, EOMI. Absent: scleral icterus, conjunctival injection, periorbital swelling ENT exam: Present: normal exam, mucous membranes moist Neck exam: Present: normal inspection. Absent: tenderness, meningismus, lymphadenopathy Respiratory exam: Present: normal lung sounds bilaterally. Absent: respiratory distress, wheezes, rales, rhonchi, stridor Cardiovascular Exam: Present: normal rhythm, tachycardia, normal heart sounds. Absent: systolic murmur, diastolic murmur, rubs, gallop, clicks GI/Abdominal exam: Present: soft, normal bowel sounds. Absent: distended, tenderness, guarding, rebound, rigid Extremities exam: Present: normal inspection, full ROM, normal capillary refill. Absent: tenderness, pedal edema, joint swelling, calf tenderness Back exam: Present: normal inspection Neurological exam: Present: alert, oriented X3, CN II-XII intact Psychiatric exam: Present: normal affect, normal mood Skin exam: Present: warm, dry, intact, normal color. Absent: rash Course Vital Signs 10/16/22 10/16/22 10/16/22 00:32 01:34 02:14 Temperature 98.8 F Pulse Rate 91 84 78 Respiratory 31 H 17 19 Rate Blood Pressure 144/101 133/71 112/79 O2 Sat by Pulse 98 97 97 Oximetry - Reevaluation(s) Reevaluation #1: 10/16/22 01:06 medical record is reviewed Reevaluation #2: 10/16/22 02:41 Patient has no real change in symptoms here in the ER remains pretty somnolent - Consultations Consultation #1: Spoke with admitting physicians [facility] we'll admit this patient to Medical Decision Making - Medical Decision Making 37 male to the intoxicated taking drug overdose today. Patient be admitted for supportive care monitoring psychiatric evaluation management - Lab Data Result diagrams: 10/16/22 00:33 10/16/22 00:33 Lab Results 10/16/22 10/16/22 10/16/22 Range/Units 00:33 00:33 00:33 WBC 5.4 (3.8-10.6) k/uL RBC 3.66 L (4.30-5.90) m/uL Hgb 12.5 L (13.0-17.5) gm/dL Hct 36.9 L (39.0-53.0) % MCV 101.1 H (80.0-100.0) fL MCH 34.1 (25.0-35.0) pg MCHC 33.7 (31.0-37.0) g/dL RDW 12.4 (11.5-15.5) % Plt Count 107 L D (150-450) k/uL MPV 7.9 Neutrophils % 34 % Lymphocytes % 52 % Monocytes % 4 % Eosinophils % 5 % Basophils % 1 % Neutrophils # 1.8 (1.3-7.7) k/uL Lymphocytes # 2.8 (1.0-4.8) k/uL Monocytes # 0.2 (0-1.0) k/uL Eosinophils # 0.3 (0-0.7) k/uL Basophils # 0.1 (0-0.2) k/uL PT 11.5 (9.0-12.0) sec INR 1.1 (<1.2) APTT 25.2 (22.0-30.0) sec Sodium 142 (137-145) mmol/L Potassium 3.7 (3.5-5.1) mmol/L Chloride 103 (98-107) mmol/L Carbon Dioxide 28 (22-30) mmol/L Anion Gap 11 mmol/L BUN 9 (9-20) mg/dL Creatinine 0.89 (0.66-1.25) mg/dL Est GFR (CKD-EPI)AfAm >90 (>60 ml/min/1.73 sqM) Est GFR (CKD-EPI)NonAf >90 (>60 ml/min/1.73 sqM) Glucose 88 (74-99) mg/dL Calcium 8.6 (8.4-10.2) mg/dL Phosphorus 4.3 (2.5-4.5) mg/dL Magnesium 1.7 (1.6-2.3) mg/dL Total Bilirubin 1.0 (0.2-1.3) mg/dL AST 318 H (17-59) U/L ALT 213 H (4-49) U/L Alkaline Phosphatase 139 H (38-126) U/L Troponin I (0.000-0.034) ng/mL Total Protein 7.5 (6.3-8.2) g/dL Albumin 3.9 (3.5-5.0) g/dL Lipase 483 H (23-300) U/L TSH 1.800 (0.465-4.680) mIU/L Urine Color Urine Appearance (Clear) Urine pH (5.0-8.0) Ur Specific [place] (1.001-1.035) Urine Protein (Negative) Urine Glucose (UA) (Negative) Urine Ketones (Negative) Urine Blood (Negative) Urine Nitrite (Negative) Urine Bilirubin (Negative) Urine Urobilinogen (<2.0) mg/dL Ur Leukocyte Esterase (Negative) Salicylates <1.0 mg/dL Urine Opiates Screen (NotDetected) Ur Oxycodone Screen (NotDetected) Urine Methadone Screen (NotDetected) Ur Propoxyphene Screen (NotDetected) Acetaminophen <10.0 ug/mL Ur Barbiturates Screen (NotDetected) U Tricyclic Antidepress (NotDetected) Ur Phencyclidine Scrn (NotDetected) Ur Amphetamines Screen (NotDetected) U Methamphetamines Scrn (NotDetected) U Benzodiazepines Scrn (NotDetected) Urine Cocaine Screen (NotDetected) U Marijuana (THC) Screen (NotDetected) Serum Alcohol 214 H* mg/dL 10/16/22 10/16/22 Range/Units 00:33 00:41 WBC (3.8-10.6) k/uL RBC (4.30-5.90) m/uL Hgb (13.0-17.5) gm/dL Hct (39.0-53.0) % MCV (80.0-100.0) fL MCH (25.0-35.0) pg MCHC (31.0-37.0) g/dL RDW (11.5-15.5) % Plt Count (150-450) k/uL MPV Neutrophils % % Lymphocytes % % Monocytes % % Eosinophils % % Basophils % % Neutrophils # (1.3-7.7) k/uL Lymphocytes # (1.0-4.8) k/uL Monocytes # (0-1.0) k/uL Eosinophils # (0-0.7) k/uL Basophils # (0-0.2) k/uL PT (9.0-12.0) sec INR (<1.2) APTT (22.0-30.0) sec Sodium (137-145) mmol/L Potassium (3.5-5.1) mmol/L Chloride (98-107) mmol/L Carbon Dioxide (22-30) mmol/L Anion Gap mmol/L BUN (9-20) mg/dL Creatinine (0.66-1.25) mg/dL Est GFR (CKD-EPI)AfAm (>60 ml/min/1.73 sqM) Est GFR (CKD-EPI)NonAf (>60 ml/min/1.73 sqM) Glucose (74-99) mg/dL Calcium (8.4-10.2) mg/dL Phosphorus (2.5-4.5) mg/dL Magnesium (1.6-2.3) mg/dL Total Bilirubin (0.2-1.3) mg/dL AST (17-59) U/L ALT (4-49) U/L Alkaline Phosphatase (38-126) U/L Troponin I <0.012 (0.000-0.034) ng/mL Total Protein (6.3-8.2) g/dL Albumin (3.5-5.0) g/dL Lipase (23-300) U/L TSH (0.465-4.680) mIU/L Urine Color Light Yellow Urine Appearance Clear (Clear) Urine pH 6.5 (5.0-8.0) Ur Specific [place] 1.003 (1.001-1.035) Urine Protein Negative (Negative) Urine Glucose (UA) Negative (Negative) Urine Ketones Negative (Negative) Urine Blood Negative (Negative) Urine Nitrite Negative (Negative) Urine Bilirubin Negative (Negative) Urine Urobilinogen <2.0 (<2.0) mg/dL Ur Leukocyte Esterase Negative (Negative) Salicylates mg/dL Urine Opiates Screen Not Detected (NotDetected) Ur Oxycodone Screen Not Detected (NotDetected) Urine Methadone Screen Not Detected (NotDetected) Ur Propoxyphene Screen Not Detected (NotDetected) Acetaminophen ug/mL Ur Barbiturates Screen Detected H (NotDetected) U Tricyclic Antidepress Not Detected (NotDetected) Ur Phencyclidine Scrn Not Detected (NotDetected) Ur Amphetamines Screen Not Detected (NotDetected) U Methamphetamines Scrn Not Detected (NotDetected) U Benzodiazepines Scrn Not Detected (NotDetected) Urine Cocaine Screen Not Detected (NotDetected) U Marijuana (THC) Screen Not Detected (NotDetected) Serum Alcohol mg/dL - EKG Data -: EKG Interpreted by Me (EKG sinus 91 MS 196 QRS 105 QTC 421) Disposition Clinical Impression: Acute anxiety, Depression, Alcohol use disorder, Major depressive disorder, recurrent severe without psychotic features, Alcohol intoxication, Suicidal ideation, Drug overdose, Intractable nausea and vomiting, Chronic pancreatitis, Acute pancreatitis Disposition: [facility] Condition: Fair Is patient prescribed a controlled substance at d/c from ED?: No Referrals: None,Stated [Primary Care Provider] - 1-2 days Time of Disposition: 02:45
[2022-10-16 01:06] LABS: Basophils # (A) 0.1 k/uL (0-0.2); Basophils % (A) 1 %; Eosinophils # (A) 0.3 k/uL (0-0.7); Eosinophils % (A) 5 %; HCT 36.9 % (39.0-53.0); HGB 12.5 gm/dL (13.0-17.5); Lymphocytes # (A) 2.8 k/uL (1.0-4.8); Lymphocytes % (A) 52 %; MCH 34.1 pg (25.0-35.0); MCHC 33.7 g/dL (31.0-37.0); MCV 101.1 fL (80.0-100.0); Mean Platelet Volume 7.9; Monocytes # (A) 0.2 k/uL (0-1.0); Monocytes % (A) 4 %; Neutrophils # (A) 1.8 k/uL (1.3-7.7); Neutrophils % (A) 34 %; RBC 3.66 m/uL (4.30-5.90); RDW 12.4 % (11.5-15.5); WBC 5.4 k/uL (3.8-10.6)
[2022-10-16 01:21] LABS: Appearance,Urine Clear (Clear); Bilirubin,Urine Negative (Negative); Blood,Urine Negative (Negative); Color,Urine Light Yellow; Glucose,Urine (UA) Negative (Negative); Ketones,Urine Negative (Negative); Leukocyte Esterase,Urine Negative (Negative); Nitrite,Urine Negative (Negative); PH, Urine 6.5 (5.0-8.0); Protein,Urine Negative (Negative); Specific Gravity,Urine 1.003 (1.001-1.035); Urobilinogen,Urine <2.0 mg/dL (<2.0)
[2022-10-16 01:24] LABS: INR 1.1 (<1.2); Partial Thromboplastin Time 25.2 sec (22.0-30.0); Prothrombin Time 11.5 sec (9.0-12.0)
[2022-10-16 01:26] LABS: Platelet Count 107 k/uL (150-450)
[2022-10-16 01:27] LABS: ALT 213 U/L (4-49); AST 318 U/L (17-59); Acetaminophen <10.0 ug/mL; African American GFR (CKD) >90 (>60 ml/min/1.73 sqM); Albumin 3.9 g/dL (3.5-5.0); Alkaline Phosphatase 139 U/L (38-126); Anion Gap 11 mmol/L; Blood Urea Nitrogen 9 mg/dL (9-20); Calcium 8.6 mg/dL (8.4-10.2); Carbon Dioxide 28 mmol/L (22-30); Chloride 103 mmol/L (98-107); Glucose 88 mg/dL (74-99); Lipase 483 U/L (23-300); Magnesium 1.7 mg/dL (1.6-2.3); Non-African American GFR(CKD) >90 (>60 ml/min/1.73 sqM); Phosphorus 4.3 mg/dL (2.5-4.5); Potassium 3.7 mmol/L (3.5-5.1); Salicylate <1.0 mg/dL; Sodium 142 mmol/L (137-145); Total Protein 7.5 g/dL (6.3-8.2)
[2022-10-16 01:32] LABS: Alcohol 214 mg/dL
[2022-10-16 01:36] LABS: Amphetamine Screen,Urine Not Detected (NotDetected); Barbiturate Screen,Urine Detected (NotDetected); Benzodiazepines Screen,Urine Not Detected (NotDetected); Cocaine Screen,Urine Not Detected (NotDetected); Methadone Screen, Urine Not Detected (NotDetected); Opiate Screen,Urine Not Detected (NotDetected); Oxycodone Screen, Urine Not Detected (NotDetected); Phencyclidine Screen,Urine Not Detected (NotDetected); Tricyclic Antidepressant,Urine Not Detected (NotDetected); Urn Cannabinoid Scrn Not Detected (NotDetected)
[2022-10-16] MEDS ORDERED: ONDANSETRON 4 MG/2 ML VIAL IVP PRN (02:39)
[2022-10-16] MEDS ORDERED: NALOXONE 0.4 MG/ML 1 ML VIAL IV PRN (02:39)
[2022-10-16] MEDS ORDERED: THIAMINE 100 MG/ML 2 ML VIAL IM STA (02:40)
[2022-10-16] MEDS ORDERED: LORazepam 2 MG/ML INJ IV PRN ×3 (02:40)
[2022-10-16] MEDS: SODIUM CHLORIDE 0.9% 1,000 ML IV SCH ×2 (03:42→17:47)
[2022-10-16 08:12] VITALS: RESP 16
[2022-10-16] MEDS: MULTIVITAMINS, THERA 1 EACH TAB PO SCH (08:27)
[2022-10-16] MEDS: FOLIC ACID 1 MG TAB PO SCH (08:27)
[2022-10-16 12:10] LABS: Lactic Acid, Venous 1.6 mmol/L (0.7-2.0)
--- NOTE | 2022-10-16 22:18 | HP ---
HISTORY AND PHYSICAL CHIEF COMPLAINT: Overdose on alcohol. HISTORY OF PRESENT ILLNESS: This is a 37-year-old gentleman with a past medical history of pancreatitis, gout, history of depression, who was admitted with apparent overdose of Prozac about 100 pills. The patient's alcohol level is also high. Currently, the patient is drowsy, barely arousable, unable to give a history, mostly was taken from my discussion with the staff and review of the chart. At this time, th patient is being closely monitored in psychiatric consultation. He is underway with one-to-one observation. No history of trauma. PAST MEDICAL HISTORY: Reviewed, include pancreatitis, gout, depression. The rest of the history and rest of the chart is reviewed. HOME MEDICATIONS: They are not confirmed. It include dose and rest of the medications reviewed. ALLERGIES: Codeine, reviewed. FAMILY HISTORY: History of diabetes mellitus. SOCIAL HISTORY: Alcohol, smoking, THC, per chart. REVIEW OF SYSTEMS: Could not be taken because of the patient's mental status. PHYSICAL EXAMINATION: VITAL SIGNS: Pulse 70, blood pressure is 118/78, respirations 14. HEENT: Conjunctivae normal. NECK: No JVD. CARDIOVASCULAR: S1, S2 muffled. RESPIRATIONS: Breath sounds diminished at the bases. No rhonchi. No crackles. ABDOMEN: Soft, nontender. LEGS: No edema. NERVOUS SYSTEM: No focal deficits. SKIN: No ulcer LABS: Reviewed. ASSESSMENT: 1. Acute overdose with suicidal ideations with Prozac. 2. Acute alcohol intoxication. 3. Alcoholic hepatitis. 4. History of pancreatitis. 5. History of gout. 6. History of depression. RECOMMENDATIONS: I recommend to continue current medications and symptomatic treatment. Otherwise, [facility] protocol. Psychiatric consultation. Repeat labs in the morning. Resume the home medications once they are confirmed except hepatotoxic medications. Otherwise, prognosis guarded. Further recommendations to follow. MMODL / IJN: [id number] / MTDD
--- NOTE | 2022-10-17 03:10 | CONS ---
DATE OF SERVICE 10/16/2022 CONSULTATION PURPOSE FOR CONSULTATION: Evaluate for overdose. HISTORY PRESENTING ILLNESS: The patient is a 37-year-old male. He has had significant mental health issues with 3 admissions to this unit dating back to May 2021. The patient was interviewed, though he did not provide very much information at all, pretty much the only thing he said as he acknowledged that he overdosed. According to the emergency department note of Dr. Cordoba is the following "the patient took overdose of alcohol and pills Prozac. The patient took overdose to go to sleep, not completely, admitted to suicidal thoughts currently, but is starting to get altered." The patient has a history of drug abuse issues as well as mental health issues. When I talked to the patient with the nurse present, she indicated that she understood the patient took 100 mg of Prozac. The best I was able to get from the patient is that he did see this as an overdose that would end his life. He did not say much more than that. When we talked about the possibility that an admission to the Psychiatric Unit would likely be appropriate, he was in agreement with that. He had a previous psychiatric admission to this facility 01/05/2022. Dr. Celis in his admission history noted that the patient was suicidal "in the context of acute bereavement and heavy alcohol use." According to Dr. Celis, he had been having increasing problems for the previous 2 months. He had relapsed to drinking and was drinking up to 2 pints of hard liquor a day. He had symptoms of depression and was feeling overwhelmed. He did not present with psychotic symptoms. He had grief issues with his mother passing away on November 18. He noted that he was sitting in the zamudio with a plan to cut his wrists. Discharge medications on 01/14/2022 included Effexor 75 mg a day and trazodone 100 mg at bedtime. [facility]. When I talked to the patient today, it was unclear how much followup he has had. It was also unclear how consistent he had been or is in regard to taking psychotropic medications. At this point, home medications include Prozac 80 mg a day, Seroquel 100 mg a day, and ReVia 50 mg a day. Serum alcohol was 214. Urine drug screen was positive for barbiturates. At this point, his home psychotropic medications are on hold. MENTAL STATUS EXAM: The patient was lying in bed with covers pulled up to his chin. His eyes were open, though he did not give much eye contact. He did not say much, but when he spoke, he spoke in a soft, almost airy voice. He only responded to few questions and seemed to only barely be able to get out a 1 or 2 word response. His affect was flat. His mood appeared depressed. He seemed to be significantly distressed. It was difficult to assess for thought disorder. He was admitted for a suicide attempt by overdose. He was not able to respond to cognitive assessment, though he was oriented to circumstances and surroundings. ASSESSMENT: This 37-year-old male who was diagnosed with major depression and alcohol depression. He said the same diagnoses during the last 2 hospitalizations going back to May 2021. Precipitating factors are uncertain. Social support issues are uncertain. Whether or not the patient has had mental health followup and whether he has taken medications consistently also was an unclear issue. The patient is appropriate for admission to the Psychiatric Unit and as noted above, the patient himself was in agreement with the need for psychiatric admission. When he is medically stable, I recommend transfer to the medical floor. At this point, it is appropriate for him to remain off psychotropic medications. MMODL / IJN: [id number] / SEN
[2022-10-17] MEDS: SODIUM CHLORIDE 0.9% 1,000 ML IV SCH ×2 (04:43→08:11)
[2022-10-17] MEDS: MULTIVITAMINS, THERA 1 EACH TAB PO SCH (07:59)
[2022-10-17] MEDS: FOLIC ACID 1 MG TAB PO SCH (07:59)
[2022-10-17 08:12] VITALS: BP 145/86; PULSE 69; TEMP 97.7
[2022-10-17] MEDS ORDERED: THIAMINE 100 MG TAB PO SCH (09:00)
[2022-10-17 09:29] LABS: Magnesium 1.7 mg/dL (1.5-2.4); Phosphorus 3.4 mg/dL (2.4-5.1)
[2022-10-17 09:49] LABS: African American GFR (CKD) 132.3 (60.0-200.0); Albumin 3.4 g/dL (3.8-4.9); Albumin/Globulin Ratio 1.1 (1.60-3.17); Anion Gap 14.7 mmol/L (10.00-18.00); BUN/Creat Ratio 11.5 Ratio (12.00-20.00); Blood Urea Nitrogen 9.2 mg/dL (9.0-27.0); Calcium 8.2 mg/dL (8.7-10.3); Carbon Dioxide 22.3 mmol/L (20.0-27.5); Globulin 3.1 g/dL (1.6-3.3); Non-African American GFR(CKD) 114.1 (60.0-200.0); Potassium 3.8 mmol/L (3.5-5.5); Total Bilirubin 1.1 mg/dL (0.30-1.20); Total Protein 6.5 g/dL (6.2-8.2)
[2022-10-17 10:34] LABS: Basophils # (A) 0.08 X 10*3/uL (0.00-0.10); Basophils % (A) 1.6 %; Eosinophils # (A) 0.14 X 10*3/uL (0.04-0.35); Eosinophils % (A) 2.8 %; HCT 32.4 % (39.6-50.0); HGB 10.9 g/dL (13.0-17.0); Immature Grans, Automated 0.2 %; Lymphocytes # (A) 1.89 X 10*3/uL (0.90-5.00); Lymphocytes % (A) 37.3 %; MCH 32.7 pg (27.0-32.0); MCHC 33.6 g/dL (32.0-37.0); MCV 97.3 fL (80.0-97.0); Monocytes # (A) 0.35 X 10*3/uL (0.20-1.00); Monocytes % (A) 6.9 %; NRBC Per 100 WBC 0 /100 WBCS (0.0-0.0); Neutrophils % (A) 51.2 %; Platelet Count 98 X 10*3/uL (140-440); RBC 3.33 X 10*6/uL (4.40-5.60); RDW 12.8 % (11.5-14.5); WBC 5.07 X 10*3/uL (4.50-10.00)
[2022-10-17 10:35] LABS: Macrocytosis (M) 2+
[2022-10-17] MEDS ORDERED: FUROSEMIDE 40 MG TAB PO SCH (13:00)
--- NOTE | 2022-10-17 21:01 | DS ---
DISCHARGE SUMMARY FINAL DIAGNOSES: 1. Acute overdose with Prozac with suicidal ideations. 2. Acute alcohol intoxication. 3. Alcoholic hepatitis. 4. History of pancreatitis. 5. History of gout. 6. History of depression. DISCHARGE DISPOSITION: The patient will be discharged in stable condition with guarded prognosis. The patient will be transferred to inpatient psych per Psych recommendation. HISTORY OF PRESENT ILLNESS: This 37-year-old gentleman, admitted with overdose and multiple medical issues as mentioned earlier. Psychiatry evaluated the patient and recommended transfer to the psych floor. Currently, the patient is stable. PHYSICAL EXAMINATION: VITAL SIGNS: Stable. CARDIOVASCULAR: S1, S2. ABDOMEN: Soft. NERVOUS SYSTEM: No focal deficits. No tremors. RECOMMENDATIONS: I recommend to continue the multivitamins. Followup LFTs in the rehab. Otherwise, rest of the recommendations per Psychiatry. MMODL / IJN: [id number] /
== END 2022-10-17 17:43 | disposition home or self-care (01) | DRG 918 ==
LOC: EC 00:26 → 4SSUR 02:39 → 5NMEDONC 03:05 → 4SSUR 03:34 → 5NMEDONC 05:48
PROVIDERS: ADMIT Hospitalist; ATTEND Hospitalist
PROC: HZ2ZZZZ Detoxification Services for Substance Abuse Treatment (ICD-10-PCS; principal; 2022-10-16)
DX: T43.222A Poisoning by selective serotonin reuptake inhibitors, intentional self-harm, initial encounter (principal); R45.851 Suicidal ideations; F33.2 Major depressive disorder, recurrent severe without psychotic features; K86.1 Other chronic pancreatitis; Z20.822 Contact with and (suspected) exposure to COVID-19; T51.0X1A Toxic effect of ethanol, accidental (unintentional), initial encounter; R00.0 Tachycardia, unspecified; Y90.7 Blood alcohol level of 200-239 mg/100 ml; M10.9 Gout, unspecified; F10.129 Alcohol abuse with intoxication, unspecified; F17.210 Nicotine dependence, cigarettes, uncomplicated; F41.9 Anxiety disorder, unspecified; K70.10 Alcoholic hepatitis without ascites; Z71.41 Alcohol abuse counseling and surveillance of alcoholic; Z88.5 Allergy status to narcotic agent; Z91.048 Other nonmedicinal substance allergy status
CPT/HCPCS: 36415; 80053; 80143; 80179; 80306; 80320; 81003; 82075; 82140; 83605; 83690; 83735; 84100; 84443; 84484; 85025; 85610; 85730; 87635; 93005; 96361; 96374; 99285

== ENCOUNTER 2022-10-17 16:06 | Inpatient (IN) | payer MEDICAID ==
[2022-10-17] MEDS ORDERED: MAG HYDROX/AL HYDROX/SIMETH 30 ML CUP PO PRN (16:12)
[2022-10-17] MEDS ORDERED: MAGNESIUM HYDROXIDE 2,400 MG/10 ML CUP PO PRN (16:12)
[2022-10-17] MEDS ORDERED: LORazepam 2 MG/ML INJ IM PRN (16:14)
[2022-10-17] MEDS: chlordiazePOXIDE 25 MG CAP PO SCH (20:13)
[2022-10-17] MEDS: NICOTINE 14MG/24HR PATCH TRANSDERM SCH (20:26)
[2022-10-17] MEDS: LORazepam 1 MG TAB PO PRN (22:00)
[2022-10-18] MEDS: NICOTINE 14MG/24HR PATCH TRANSDERM SCH (07:54)
[2022-10-18] MEDS: MULTIVITAMINS, THERA 1 EACH TAB PO SCH (07:55)
[2022-10-18] MEDS: ACETAMINOPHEN TAB 325 MG TAB PO PRN ×2 (07:55→20:03)
[2022-10-18] MEDS: chlordiazePOXIDE 25 MG CAP PO SCH ×2 (07:55→20:03)
[2022-10-18] MEDS: THIAMINE 100 MG TAB PO SCH (07:56)
[2022-10-18] MEDS: FOLIC ACID 1 MG TAB PO SCH (07:56)
[2022-10-18] MEDS ORDERED: ARIPiprazole 5 MG TAB PO STA (10:02)
--- NOTE | 2022-10-18 12:58 | P.HP ---
Psychiatric H&P - . H&P Date: 10/18/22 History & Physical: Allergies Allergy/AdvReac Type Severity Reaction Status Date / Time adhesive tape Allergy Rash/Hives Verified 10/17/22 18:37 codeine Allergy Rash/Hives Verified 10/17/22 18:37 Vital Signs Temp 98.4 F 10/18/22 06:15 Pulse 69 10/18/22 06:15 Resp 17 10/18/22 06:15 BP 120/58 10/18/22 06:15 Pulse Ox 94 L 10/18/22 06:15 FiO2 Intake & Output 10/17/22 10/18/22 10/18/22 18:59 06:59 18:59 Weight 128.956 kg 10/18/22 12:57 IDENTIFYING DATA: Patient is a , 37-year-old -[place] male who presented to the hospital for suicidal ideation the context of acute bereavement and heavy alcohol use. HPI: Patient presented to the hospital on 10/16/2022 after intentionally overdosing on Prozac and alcohol in attempt to kill himself in the context of acute bereavement and relapsed into heavy alcohol use. The patient was evaluated by Dr. Gonsalez on the medical floor and was subsequently admitted to the psychiatric unit once medically stable. Patient signed himself voluntarily on to the psychiatric unit. The patient reports to this provider that he took approximately 100 mg of Prozac and drank a fifth of vodka and intent to kill himself after feeling extremely overwhelmed and depressed. He reports that his niece whom he was close with due to competitions from type 1 diabetes approximately a month and a half ago. He states that shortly after she passed, he was admitted to [facility] for psychiatric treatment for suicidal ideation and depression. He was discharged from there on a regimen of Prozac and trazodone. He reports that his mood has been worsening with the holidays and with his heavy alcohol use. Approximately his been drinking up to a fifth a day for the last few weeks. In regards to depressive symptoms, the patient endorses significant feelings of hopelessness, helplessness, poor sleep, decreased appetite, decreased hygiene and grooming, anhedonia, and suicidal ideation. He currently endorses suicidal ideation with a plan to overdose. He denies any homicidal ideation. He reports no auditory or visual hallucinations. He denies any paranoia or other delusions. The patient reports no significant history of manic symptoms. He denies any increased goal-directed activity, grandiosity, mood lability, or periods of excessive energy. Due to the patient's history of overdosing, the patient is in agreement to transition to a medication that has a long-acting injectable formulation. Furthermore, the patient understands that he has issues with alcohol use disorder. At this time, his liver enzymes continued to be elevated. We'll recheck liver enzymes tomorrow and determine whether it is safe to start the patient back on naltrexone. PAST PSYCHIATRIC HISTORY: Patient has previous diagnoses of major depressive disorder and alcohol use disorder. He was last hospitalized at [facility] from 09/29/2022-10/04/2022. He is open with [facility]. The patient has had multiple attempts at suicide including attempting to shoot himself 7 years ago and more recently attempting to overdose on Prozac. PMH: Additional Past Medical History / Comment(s): pancreatitis, gout. History of Any Multi-Drug Resistant Organisms: None Reported Past Surgical History: Ear Surgery Additional Past Surgical History / Comment(s): tubes in ears Past Anesthesia/Blood Transfusion Reactions: No Reported Reaction Past Psychological History: Depression Smoking Status: Current some day smoker Past Alcohol Use History: Abuse, Daily Past Drug Use History: Marijuana ALLERGIES: Adhesive tape, codeine CHEMICAL DEPENDENCY HISTORY: Patient reports they've been drinking up to a fifth of liquor per day for the past few weeks. He reports daily tobacco use. He denies any other substance use. FAMILY PSYCHIATRIC/SUBSTANCE USE HISTORY: Patient was his father was diagnosed schizophrenia. SOCIAL HISTORY: Patient is currently . He was for 6 years prior to the divorce. He has 2 daughters with his ex- ages 6 and 8 years old. He shares custody with his ex-. He is currently living with his father and brother. His mother recently this past October. He also has a 19-year-old son from previous relationship but is not in contact with him. He is currently employed as a cook. MENTAL STATUS EXAM: General Appearance: Patient appears to be stated age is alert, directable, and attempts to cooperate. Patient appears to have fair hygiene and grooming. Behavior: Patient is seated without any agitated behavior. Eye contact is appropriate. Speech: Patient's speech is fluent and nonpressured. Mood/Affect: Patient reports their mood is depressed, affect is congruent and constricted. Suicidality/Homicidality: Patient denies having any homicidal ideation intent or plan. Patient endorses suicidal ideation. Perceptions: Patient denies any visual hallucinations and denies any auditory hallucinations Though content/process: There is no evidence of any delusional thought content and thought process is linear and goal-directed. Memory and concentration: AOX3, grossly intact for the purposes of this session. Can spell "WORLD" backwards Judgment and insight: poor STRENGTHS/WEAKNESSES: strength is that patient is resilient and has fair insight. Weakness is that patient engages in heavy alcohol use and has prior attempts at suicide. INTELLECT: average IMPRESSIONS: Major depressive disorder, recurrent, severe Alcohol use disorder Acute bereavement Tobacco use disorder PLAN: -Patient is admitted under voluntary status to MHU for stabilization of psychiatric symptoms and safety. Patient signed adult voluntary form and medication consent and is placed in patient's chart. -Medications : Will start patient on Abilify 5 mg by mouth daily for mood augmentation/stabilization with likely transition to a long-acting injectable Continue Librium 25 mg by mouth twice a day for alcohol withdrawal We will hold on Prozac and naltrexone at this time. Concern for elevated liver enzymes. Will reassess labs tomorrow. -Ativan and Haldol PRN for agitation/aggression -Started thiamine, MVM for etoh use -CIWA protocol with Ativan PRN for ETOH withdrawal -Patient was counselled on substance abuse and desired to cut back on use -Patient was informed of the risks, benefits and side effects of the medication and patient verbally consented to taking the medications. Patient signed med consent form and was placed in chart. -Internal Medicine consult to perform medical evaluation and physical. -NRT - nicotine patch -SW on board for discharge planning. Encourage patient to participate in groups to work on coping skills. 10/18/22 12:57 10/18/22 12:57
[2022-10-18] MEDS: metFORMIN 500 MG TAB PO SCH (17:31)
[2022-10-18] MEDS: LORazepam 1 MG TAB PO PRN (20:15)
--- NOTE | 2022-10-19 01:13 | P.MDCNMH ---
History of Present Illness H&P Date: 10/18/22 This is a 37-year-old male who presented to the emergency department with intentional thoughts of wanting to harm himself or suicidal ideations. Patient has been drinking more excessively of 1-2 pints of liquor daily and also was recently admitted and discharged up ad felisha. Vince Mitchell for suicidal ideation and attempted to take all of his Prozac due to her recent family member loss and the holidays becoming more severe. Patient was admitted to floor originally for alcohol intoxication with withdrawal and suicidal attempt. Patient does have elevated liver functions recommend monitoring closely and appear to be trending down. Patient reports he does not currently have a primary care provider and follows with [facility] outpatient. Patient will need resources for a primary care provider on discharge. Other labs reviewed and within normal limits. Patient has been cleared from the [facility] for inpatient psychiatric admission. Patient is voluntarily signing in. Patient reports to the past medical history of having pancreatitis gout with no other significant medical past history. Patient was started on Librium taper. Review Of Systems: Constitutional: No fever, no chills, no night sweats. No weight change. No weakness, fatigue or lethargy. No daytime sleepiness. EENT: No headache. No blurred vision or double vision, no loss of vision. No loss of Hearing, no ringing in the ears, no dizziness. No nasal drainage or congestion. No epistaxis. No sore throat. Lungs: No shortness of breath, cough, no sputum production. No wheezing. Cardiovascular: No chest pain, no lower extremity edema. No palpitations. No paroxysmal nocturnal dyspnea. No orthopnea. No lightheadedness or dizziness. No syncopal episodes. Abdominal: No abdominal pain. No nausea, vomiting. No diarrhea. No constipation. No bloody or tarry stools.. No loss of appetite. Genitourinary: No dysuria, increased frequency, urgency. No urinary retention. Musculoskeletal: No myalgias. No muscle weakness, no gait dysfunction, no frequent falls. No back pain. No neck pain. Integumentary: No wounds, no lesions. No rash or pruritus. No unusual bruising. No change in hair or nails. Neurologic: No aphasia. No facial droop. No change in mentation. No head injury. No headache. No paralysis. No paresthesia. Psychiatric: Reports depression. Reports anxiety. Reports suicidal ideation with plans. No mood swings. Endocrine: No abnormal blood sugars. No weight change. No excessive sweating or thirst. No cold intolerance. PHYSICAL EXAMINATION: GENERAL: The patient is alert and oriented x4, Well developed, well nourished. HEENT: Pupils are round and equally reacting to light. EOMI. no scleral icterus. No conjunctival pallor. Normocephalic, atraumatic. No pharyngeal erythema. No thyromegaly. CARDIOVASCULAR: S1 and S2 muffled PULMONARY: diminished breath sounds bilaterally with no wheezing or rhonchi noted. ABDOMEN: soft. Nontender on exam. obese. non-distended, normoactive bowel sounds. No palpable organomegaly. MUSCULOSKELETAL: No joint swelling or deformity. EXTREMITIES: No cyanosis, clubbing, or pedal edema. NEUROLOGICAL: Gross neurological examination did not reveal any focal deficits. SKIN: No rashes. Assessment: Acute overdose with Prozac with suicidal ideation Acute alcohol intoxication with acute withdrawal Alcoholic hepatitis History of pancreatitis History of gout History of depression Recent admission and discharge from inpatient psychiatric unit at [facility] with suicidal ideation Full code Plan: Recommend to continue with current medications and management Patient has been cleared medically for discharge and transfer to inpatient psychiatric unit and has voluntarily signed in for continued psychiatric care Encourage the patient to attend group meetings and compliance with medications Recommend continue on short Librium taper for acute alcohol withdrawal On exam patient not actively withdrawing and alert and oriented 3 Patient will need resources for outpatient primary care provider as he currently does not have one Patient reports he is open and active with [facility] and recommend continue with outpatient psychiatric services and counseling Follow-up and repeat LFTs are currently trending down Thank you for this consultation The impression and plan of care has been dictated by Brenda Tracy, nurse practitioner as directed. Dr. Laura MD I have performed a history and examination and MDM of this patient, discussed the same with the dictator, and agree with the dictator's assessment and plan as written ,documented as a scribe. Based on total visit time, I have performed more than 50% of the visit. Any additional findings or plans will be noted. Past Medical History Past Medical History: Liver Disease Additional Past Medical History / Comment(s): pancreatitis, gout. History of Any Multi-Drug Resistant Organisms: None Reported Past Surgical History: Ear Surgery Additional Past Surgical History / Comment(s): tubes in ears bilaterally Past Anesthesia/Blood Transfusion Reactions: No Reported Reaction Past Psychological History: Anxiety, Depression Smoking Status: Current some day smoker Past Alcohol Use History: Abuse, Daily Additional Past Alcohol Use History / Comment(s): patient states he smokes 1 pack per day and drinks 2/5s of vodka per day. Patient states he currently lives with his mother's father. Past Drug Use History: Marijuana Additional Drug Use History / Comment(s): Patient reported that he started smoking marijuana at age 12, last alcoholic drink was 10/13/22. - Past Family History Father History Unknown: Yes Mother Family Medical History: Diabetes Mellitus Medications and Allergies Home Medications Medication Instructions Recorded Confirmed Type Folic Acid 1 mg PO DAILY tab 10/17/22 10/17/22 Rx Multivitamins, Thera [Multivitamin 1 each PO DAILY tab 10/17/22 10/17/22 Rx (formulary)] Thiamine [Vitamin B-1] 100 mg PO DAILY tab 10/17/22 10/17/22 Rx Allergies Allergy/AdvReac Type Severity Reaction Status Date / Time adhesive tape Allergy Rash/Hives Verified 10/17/22 18:37 codeine Allergy Rash/Hives Verified 10/17/22 18:37 Physical Exam Vitals: Vital Signs Temp Pulse Resp BP Pulse Ox 10/18/22 06:15 98.4 F 69 17 120/58 94 L 10/17/22 18:17 98.3 F 70 16 147/81 98 Intake and Output 10/17/22 10/18/22 10/18/22 22:59 06:59 14:59 Other: Weight 128.956 kg Cranial Nerve Examination - Cranial Nerves Cranial Nerve I- Olfactory: Intact Cranial Nerve II- Optic: Intact Cranial Nerve III- Oculomotor: Intact Cranial Nerve IV- Trochlear: Intact Cranial Nerve V- Trigeminal: Intact Cranial Nerve - Abducens: Intact Cranial Nerve VII- Facial: Intact Cranial Nerve VIII- Auditory: Intact Cranial Nerve IX- Glossopharyngeal: Intact Cranial Nerve X- Vagus: Intact Cranial Nerve XI- Accessory: Intact Cranial Nerve XII- Hypoglossal: Intact Assessment and Plan Time with Patient: Less than 30
[2022-10-19] MEDS: LORazepam 1 MG TAB PO PRN ×2 (02:17→20:10)
[2022-10-19] MEDS: NICOTINE 14MG/24HR PATCH TRANSDERM SCH (08:59)
[2022-10-19] MEDS: FOLIC ACID 1 MG TAB PO SCH (09:00)
[2022-10-19] MEDS: metFORMIN 500 MG TAB PO SCH ×2 (09:00→18:19)
[2022-10-19] MEDS: ARIPiprazole 10 MG TAB PO SCH (09:00)
[2022-10-19] MEDS: MULTIVITAMINS, THERA 1 EACH TAB PO SCH (09:00)
[2022-10-19] MEDS: THIAMINE 100 MG TAB PO SCH (09:00)
[2022-10-19] MEDS: chlordiazePOXIDE 25 MG CAP PO SCH ×2 (09:00→20:11)
[2022-10-19] MEDS: ACETAMINOPHEN TAB 325 MG TAB PO PRN (09:01)
[2022-10-19 09:38] LABS: ALT 147 U/L (4-49); AST 175 U/L (17-59); African American GFR (CKD) >90 (>60 ml/min/1.73 sqM); Albumin 3.9 g/dL (3.5-5.0); Alkaline Phosphatase 129 U/L (38-126); Anion Gap 6 mmol/L; Blood Urea Nitrogen 6 mg/dL (9-20); Calcium 9.1 mg/dL (8.4-10.2); Carbon Dioxide 29 mmol/L (22-30); Chloride 101 mmol/L (98-107); Glucose 153 mg/dL (74-99); Non-African American GFR(CKD) >90 (>60 ml/min/1.73 sqM); Potassium 3.8 mmol/L (3.5-5.1); Sodium 136 mmol/L (137-145); Total Protein 7.7 g/dL (6.3-8.2)
--- NOTE | 2022-10-19 13:25 | P.PN ---
Progress Note - Text Progress Note Date: 10/19/22 Interval History: Patient was seen wandering the hallways and was directable and agreeable to speak with feature writer in the office. Patient continues to endorse suicidal ideation and depression however reports that they are overall getting better. He has been attending groups, participating in individual and milieu therapies, and eating his meals. He has been adherent with his medication is not endorsing any significant side effects. This provider went over the patient's blood work with him which showed thrombocytopenia and elevated liver enzymes. We discussed at length that his alcohol use is causing damage to his liver and overall general health. The patient is in agreement to starting acamprosate in order to address alcohol cessation. He is also interested in going to rehab. Mental Status Exam: General Appearance: Patient appears to be stated age is alert, directable, and cooperative. Behavior: Patient is calmly seated without any agitated behavior. Speech: Patient's speech is fluent and nonpressured. Mood/Affect: Mood is improving mildly, affect is congruent and constricted. Suicidality/Homicidality: Patient denies having any suicidal or homicidal ideation intent or plan. Perceptions: Patient denies any visual hallucinations and denies any auditory hallucinations Though content/process: There is no evidence of any delusional thought content and thought process is linear and goal-directed. Memory and concentration: AOX3, grossly intact for the purposes of this session Judgment and insight: Improving mildly Vital Signs Temp 98 F 10/19/22 06:54 Pulse 64 10/19/22 06:54 Resp 14 10/19/22 06:54 BP 126/89 10/19/22 06:54 Pulse Ox 94 L 10/18/22 06:15 FiO2 Laboratory Results - Last 24 Hours 10/19/22 08:54 Sodium 136 L Potassium 3.8 Chloride 101 Carbon Dioxide 29 Anion Gap 6 BUN 6 L Creatinine 0.81 Est GFR (CKD-EPI)AfAm >90 Est GFR (CKD-EPI)NonAf >90 Glucose 153 H Calcium 9.1 Total Bilirubin 1.0 AST 175 H ALT 147 H Alkaline Phosphatase 129 H Total Protein 7.7 Albumin 3.9 Assessment Major depressive disorder, recurrent, severe Alcohol use disorder Acute bereavement Tobacco use disorder Plan: -Patient continues to meet criteria for inpatient psychiatric admission for symptom stabilization and safety. Patient has signed adult voluntary form and medication consent and was placed in patient's chart. -Medications: Increase Abilify to 10 mg by mouth daily for mood augmentation/stabilization with likely transition to a long-acting injectable Continue Librium 25 mg by mouth twice a day for alcohol withdrawal, taper in the next few days. Start acamprosate 333 mg by mouth 3 times a day for alcohol cessation -When necessary Ativan and Haldol for agitation/aggression. -NRT - nicotine patch -SW on board for discharge planning. Encouraged the patient to participate in milieu.
[2022-10-19] MEDS: ACAMPROSATE CALCIUM 333 MG TABLET.DR PO SCH ×2 (18:19→21:24)
[2022-10-19] MEDS: traZODone HCL 100 MG TAB PO SCH (20:11)
[2022-10-20] MEDS: chlordiazePOXIDE 25 MG CAP PO SCH ×2 (09:13→20:37)
[2022-10-20] MEDS: NICOTINE 14MG/24HR PATCH TRANSDERM SCH (09:13)
[2022-10-20] MEDS: ACETAMINOPHEN TAB 325 MG TAB PO PRN (09:14)
[2022-10-20] MEDS: MULTIVITAMINS, THERA 1 EACH TAB PO SCH (09:14)
[2022-10-20] MEDS: FOLIC ACID 1 MG TAB PO SCH (09:14)
[2022-10-20] MEDS: THIAMINE 100 MG TAB PO SCH (09:14)
[2022-10-20] MEDS: ARIPiprazole 10 MG TAB PO SCH (09:14)
[2022-10-20] MEDS: metFORMIN 500 MG TAB PO SCH ×2 (09:14→17:29)
[2022-10-20] MEDS: ACAMPROSATE CALCIUM 333 MG TABLET.DR PO SCH ×3 (09:16→20:37)
[2022-10-20] MEDS: LORazepam 1 MG TAB PO PRN ×2 (10:45→20:37)
[2022-10-20] MEDS ORDERED: ARIPiprazole IM 400 MG VIAL (NO COST) PHARMACY STOCK IM ONE (14:31)
--- NOTE | 2022-10-20 14:33 | P.PN ---
Progress Note - Text Progress Note Date: 10/20/22 Interval History: Patient was seen wandering the hallways and was directable and agreeable to speak with scientific writer in the office. The patient continues to endorse suicidal ideation. He reports no homicidal ideation. He denies any intention or plan for either. He reports no issues regarding sleepers appetite. He has been attending groups high-level participation has been noted to be bright with his peers. The patient has not yet called access for alcohol rehabilitation. He was advised to do so. He is agreeable to transition to a long-acting injectable of Abilify maintena today. Mental Status Exam: General Appearance: Patient appears to be stated age is alert, directable, and cooperative. Behavior: Patient is calmly seated without any agitated behavior. Speech: Patient's speech is fluent and nonpressured. Mood/Affect: Mood is improving mildly, affect is congruent and constricted. Suicidality/Homicidality: Patient reports suicidal ideation however denies any homicidal ideation. Perceptions: Patient denies any visual hallucinations and denies any auditory hallucinations Though content/process: There is no evidence of any delusional thought content and thought process is linear and goal-directed. Memory and concentration: AOX3, grossly intact for the purposes of this session Judgment and insight: Improving mildly Vital Signs Temp 98 F 10/19/22 06:54 Pulse 89 10/20/22 09:12 Resp 14 10/19/22 06:54 BP 100/69 10/20/22 09:12 Pulse Ox 94 L 10/18/22 06:15 FiO2 Assessment Major depressive disorder, recurrent, severe Alcohol use disorder Acute bereavement Tobacco use disorder Plan: -Patient continues to meet criteria for inpatient psychiatric admission for symptom stabilization and safety. Patient has signed adult voluntary form and medication consent and was placed in patient's chart. -Medications: Administered Abilify maintena 300 mg IM today. Continue oral abilify Continue Librium 25 mg by mouth twice a day for alcohol withdrawal and discontinue tonight Increase acamprosate to 666 mg by mouth 3 times a day for alcohol cessation -When necessary Ativan and Haldol for agitation/aggression. -NRT - nicotine patch -SW on board for discharge planning. Encouraged the patient to participate in milieu.
[2022-10-20] MEDS ORDERED: COLCHICINE 0.6 MG EACH PO ONE (16:28)
[2022-10-20] MEDS: traZODone HCL 100 MG TAB PO SCH (20:37)
[2022-10-21] MEDS: NICOTINE 14MG/24HR PATCH TRANSDERM SCH (07:42)
[2022-10-21] MEDS: FOLIC ACID 1 MG TAB PO SCH (07:42)
[2022-10-21] MEDS: metFORMIN 500 MG TAB PO SCH ×2 (07:42→17:54)
[2022-10-21] MEDS: ARIPiprazole 15 MG TAB PO SCH (07:42)
[2022-10-21] MEDS: THIAMINE 100 MG TAB PO SCH (07:43)
[2022-10-21] MEDS: ACAMPROSATE CALCIUM 333 MG TABLET.DR PO SCH ×3 (07:43→20:34)
[2022-10-21] MEDS: COLCHICINE 0.6 MG EACH PO SCH (07:43)
[2022-10-21] MEDS: MULTIVITAMINS, THERA 1 EACH TAB PO SCH (07:43)
[2022-10-21 09:33] LABS: ALT 141 U/L (4-49); AST 134 U/L (17-59); African American GFR (CKD) >90 (>60 ml/min/1.73 sqM); Albumin 4.3 g/dL (3.5-5.0); Alkaline Phosphatase 121 U/L (38-126); Anion Gap 7 mmol/L; Blood Urea Nitrogen 8 mg/dL (9-20); Calcium 9.7 mg/dL (8.4-10.2); Carbon Dioxide 30 mmol/L (22-30); Chloride 100 mmol/L (98-107); Glucose 100 mg/dL (74-99); Non-African American GFR(CKD) >90 (>60 ml/min/1.73 sqM); Potassium 4.2 mmol/L (3.5-5.1); Sodium 137 mmol/L (137-145); Total Bilirubin 0.7 mg/dL (0.2-1.3); Total Protein 8.3 g/dL (6.3-8.2)
[2022-10-21] MEDS: IBUPROFEN 600 MG TAB PO PRN ×2 (10:08→18:39)
--- NOTE | 2022-10-21 12:18 | P.PN ---
Progress Note - Text Progress Note Date: 10/21/22 Interval History: Patient was seen wandering the hallways and was directable and agreeable to speak with typewriter assembler in the office. The patient reports that he continues to experience suicidal ideation and low mood. He reports that his gout in his right foot is being exacerbated and has been negatively affecting his mood and his ability to walk. He is however not endorsing any issues regarding his sleep or his appetite. He reports no homicidal ideation, intention, and/or plan. He denies any auditory or visual hallucinations. He reports no paranoia or other delusions. He has been adherent with his medication and is not endorsing any significant side effects. Mental Status Exam: General Appearance: Patient appears to be stated age is alert, directable, and cooperative. Behavior: Patient is calmly seated without any agitated behavior. Speech: Patient's speech is fluent and nonpressured. Mood/Affect: Mood is improving mildly, affect is congruent and constricted. Suicidality/Homicidality: Patient reports suicidal ideation however denies any homicidal ideation. Perceptions: Patient denies any visual hallucinations and denies any auditory hallucinations Though content/process: There is no evidence of any delusional thought content and thought process is linear and goal-directed. Memory and concentration: AOX3, grossly intact for the purposes of this session Judgment and insight: Improving mildly Vital Signs Temp 97.4 F L 10/21/22 06:40 Pulse 71 10/21/22 06:40 Resp 16 10/21/22 06:40 BP 112/65 10/21/22 06:40 Pulse Ox 94 L 10/18/22 06:15 FiO2 Laboratory Results - Last 24 Hours 10/20/22 10/21/22 17:44 08:29 Sodium 137 Potassium 4.2 Chloride 100 Carbon Dioxide 30 Anion Gap 7 BUN 8 L Creatinine 0.82 Est GFR (CKD-EPI)AfAm >90 Est GFR (CKD-EPI)NonAf >90 Glucose 100 H Uric Acid 7.2 Calcium 9.7 Total Bilirubin 0.7 AST 134 H ALT 141 H Alkaline Phosphatase 121 Total Protein 8.3 H Albumin 4.3 Assessment Major depressive disorder, recurrent, severe Alcohol use disorder Acute bereavement Tobacco use disorder Plan: -Patient continues to meet criteria for inpatient psychiatric admission for symptom stabilization and safety. Patient has signed adult voluntary form and medication consent and was placed in patient's chart. -Medications: Administered Abilify maintena 300 mg IM today. Continue oral abilify 15 mg daily Discontinue Librium Continue acamprosate 666 mg by mouth 3 times a day for alcohol cessation -When necessary Ativan and Haldol for agitation/aggression. -NRT - nicotine patch -SW on board for discharge planning. Encouraged the patient to participate in milieu.
[2022-10-21] MEDS: LORazepam 1 MG TAB PO PRN ×2 (15:22→20:35)
[2022-10-21] MEDS: ACETAMINOPHEN TAB 325 MG TAB PO PRN (15:22)
[2022-10-21] MEDS: traZODone HCL 100 MG TAB PO SCH (20:34)
[2022-10-22] MEDS: IBUPROFEN 600 MG TAB PO PRN (08:05)
[2022-10-22] MEDS: metFORMIN 500 MG TAB PO SCH ×2 (08:06→17:54)
[2022-10-22] MEDS: ARIPiprazole 15 MG TAB PO SCH (08:06)
[2022-10-22] MEDS: THIAMINE 100 MG TAB PO SCH (08:06)
[2022-10-22] MEDS: FOLIC ACID 1 MG TAB PO SCH (08:06)
[2022-10-22] MEDS: MULTIVITAMINS, THERA 1 EACH TAB PO SCH (08:06)
[2022-10-22] MEDS: COLCHICINE 0.6 MG EACH PO SCH (08:07)
[2022-10-22] MEDS: ACAMPROSATE CALCIUM 333 MG TABLET.DR PO SCH ×3 (08:07→20:13)
[2022-10-22] MEDS: NICOTINE 14MG/24HR PATCH TRANSDERM SCH (08:08)
[2022-10-22] MEDS: LORazepam 1 MG TAB PO PRN ×2 (12:07→20:13)
[2022-10-22] MEDS: ACETAMINOPHEN TAB 325 MG TAB PO PRN (12:07)
--- NOTE | 2022-10-22 12:34 | P.PN ---
Subjective Progress Note Date: 10/22/22 Principal diagnosis: IMPRESSIONS: Major depressive disorder, recurrent, severe Alcohol use disorder Acute bereavement Tobacco use disorder The patient is struggling with gout pain he says he has a problem at home but can't discipline himself to lay off the red meat. At home he takes Motrin 800 every 6 hours for the pain. He is also withdrawing from alcohol Librium he is on some Abilify and tolerating it well that will be increased if he tolerates that I might increase it somewhat tomorrow. MENTAL STATUS EXAM: General Appearance: Patient appears to be stated age is alert, directable, and attempts to cooperate. Patient appears to have fair hygiene and grooming. Behavior: Patient is seated without any agitated behavior. Eye contact is appropriate. Speech: Patient's speech is fluent and nonpressured. Mood/Affect: Patient reports their mood is depressed, affect is congruent he has able to smile and laugh appropriately at humor showing good abstract thought Suicidality/Homicidality: Patient denies having any homicidal ideation intent or plan. Patient endorses suicidal ideation. Perceptions: Patient denies any visual hallucinations and denies any auditory hallucinations and I did not see any evidence thereof Though content/process: There is no evidence of any delusional thought content and thought process is linear and goal-directed. Memory and concentration: AOX3, grossly intact for the purposes of this session. Can spell "WORLD" backwards Judgment and insight: When asked him his understanding of what got him in here and what he is needing to change in order to do well afterward he was somewhat day PLAN: -Patient is admitted under voluntary status to [facility] for stabilization of psychiatric symptoms and safety. Patient signed adult voluntary form and medication consent and is placed in patient's chart. -Medications : Will start patient on Abilify 5 mg by mouth daily for mood augmentation/stabilization with likely transition to a long-acting injectable I might increase it tomorrow if he c ontinues to tolerate it Continue Librium 25 mg by mouth twice a day for alcohol withdrawal We will hold on Prozac and naltrexone at this time. Concern for elevated liver enzymes. Will reassess labs tomorrow. -Ativan and Haldol PRN for agitation/aggression -Started thiamine, MVM for etoh use -[facility] protocol with Ativan PRN for ETOH withdrawal -Patient was counselled on substance abuse and desired to cut back on use -Patient was informed of the risks, benefits and side effects of the medication and patient verbally consented to taking the medications. Patient signed med consent form and was placed in chart. -Internal Medicine consult to perform medical evaluation and physical. -NRT - nicotine patch -SW on board for discharge planning. Encourage patient to participate in groups to work on coping skills. 10/18/22 12:57 Objective - Vital Signs Vital signs: Vital Signs Temp 97.7 F 10/22/22 06:32 Pulse 75 10/22/22 06:32 Resp 16 10/22/22 06:32 BP 97/54 10/22/22 06:32 Pulse Ox 99 10/22/22 06:32 FiO2 - Labs CBC & Chem 7: 10/21/22 08:29
[2022-10-22] MEDS: IBUPROFEN 800 MG TAB PO PRN ×2 (14:41→20:46)
[2022-10-22] MEDS: traZODone HCL 100 MG TAB PO SCH (20:13)
[2022-10-23] MEDS: IBUPROFEN 800 MG TAB PO PRN ×2 (07:07→14:54)
[2022-10-23] MEDS: NICOTINE 14MG/24HR PATCH TRANSDERM SCH (08:53)
[2022-10-23] MEDS: ACAMPROSATE CALCIUM 333 MG TABLET.DR PO SCH ×3 (08:54→19:55)
[2022-10-23] MEDS: THIAMINE 100 MG TAB PO SCH (08:54)
[2022-10-23] MEDS: FOLIC ACID 1 MG TAB PO SCH (08:54)
[2022-10-23] MEDS: ARIPiprazole 15 MG TAB PO SCH (08:54)
[2022-10-23] MEDS: MULTIVITAMINS, THERA 1 EACH TAB PO SCH (08:54)
[2022-10-23] MEDS: metFORMIN 500 MG TAB PO SCH ×2 (08:54→17:05)
[2022-10-23] MEDS: LORazepam 1 MG TAB PO PRN ×3 (08:55→19:56)
--- NOTE | 2022-10-23 15:20 | P.PN ---
Subjective Progress Note Date: 10/23/22 Principal diagnosis: IMPRESSIONS: Major depressive disorder, recurrent, severe Alcohol use disorder Acute bereavement Tobacco use disorder Subjective: The patient is struggling with gout pain he says he has a problem at home but can't discipline himself to lay off the red meat. His uric acid is just 7.2 which is in the normal range she must be sensitive or that some other factor that is causing precipitation of crystals. He says that his pain is more manageable on the increase Motrin. At home he takes Motrin 800 every 6 hours for the pain. He is also withdrawing from alcohol Librium he is on some Abilify and tolerating it well that will be increased if he tolerates that I might increase it somewhat tomorrow. He is alert pleasant socializing well with his peers going to groups. He says he doesn't like taking the Ativan and he was wondering if he could take some BuSpar as that has worked well for him in the past. He says he took it without taking an SSRI along with that. MENTAL STATUS EXAM: General Appearance: Patient appears to be stated age is alert, directable, and attempts to cooperate. Patient appears to have fair hygiene and grooming. Behavior: Patient is seated without any agitated behavior. Eye contact is appropriate. Speech: Patient's speech is fluent and nonpressured. Mood/Affect: Patient reports their mood is hopeful however he was insightful enough to say did not want only until he had a plan together them would help him do well., affect is congruent he has able to smile and laugh appropriately at humor showing good abstract thought Suicidality/Homicidality: Patient denies having any homicidal ideation intent or plan. Patient endorses suicidal ideation. Perceptions: Patient denies any visual hallucinations and denies any auditory hallucinations and I did not see any evidence thereof Though content/process: There is no evidence of any delusional thought content and thought process is linear and goal-directed. Memory and concentration: AOX3, grossly intact for the purposes of this session. Can spell "WORLD" backwards Judgment and insight: This seems to be better as he is focusing on doing well after discharge PLAN: -Patient is admitted under voluntary status to [facility] for stabilization of psychiatric symptoms and safety. Patient signed adult voluntary form and [facility] consent and is placed in patient's chart. -Medications : Will start patient on Abilify daily for mood augmentation/stabilization with likely transition to a long-acting injectable I might increase it tomorrow if he continues to tolerate it Continue Librium 25 mg by mouth twice a day for alcohol withdrawal We will hold on Prozac and naltrexone at this time. Concern for elevated liver enzymes. Will reassess labs tomorrow. -Ativan and Haldol PRN for agitation/aggression -Started thiamine, MVM for etoh use -[facility] protocol with Ativan PRN for ETOH withdrawal -Patient was counselled on substance abuse and desired to cut back on use -Patient was informed of the risks, benefits and side effects of the medication and patient verbally consented to taking the medications. Patient signed med consent form and was placed in chart. -Internal Medicine consult to perform medical evaluation and physical. -NRT - nicotine patch -SW on board for discharge planning. Encourage patient to participate in groups to work on coping skills. 10/18/22 12:57 Objective - Vital Signs Vital signs: Vital Signs Temp 97.9 F 10/23/22 07:00 Pulse 99 10/23/22 07:00 Resp 16 10/23/22 07:00 BP 127/77 10/23/22 07:00 Pulse Ox 99 10/23/22 07:00 FiO2 - Labs CBC & Chem 7: 10/21/22 08:29
[2022-10-23] MEDS: busPIRone HCl 10 MG TAB PO SCH ×2 (15:45→19:56)
[2022-10-23] MEDS: traZODone HCL 100 MG TAB PO SCH (19:56)
[2022-10-24] MEDS: THIAMINE 100 MG TAB PO SCH (07:50)
[2022-10-24] MEDS: NICOTINE 14MG/24HR PATCH TRANSDERM SCH (07:50)
[2022-10-24] MEDS: MULTIVITAMINS, THERA 1 EACH TAB PO SCH (07:50)
[2022-10-24] MEDS: ARIPiprazole 15 MG TAB PO SCH (07:50)
[2022-10-24] MEDS: FOLIC ACID 1 MG TAB PO SCH (07:50)
[2022-10-24] MEDS: metFORMIN 500 MG TAB PO SCH ×2 (07:50→16:13)
[2022-10-24] MEDS: busPIRone HCl 10 MG TAB PO SCH ×3 (07:50→20:55)
[2022-10-24] MEDS: IBUPROFEN 800 MG TAB PO PRN ×3 (07:50→20:56)
[2022-10-24] MEDS: ACAMPROSATE CALCIUM 333 MG TABLET.DR PO SCH ×3 (07:51→20:55)
[2022-10-24] MEDS: ACETAMINOPHEN TAB 325 MG TAB PO PRN (11:07)
--- NOTE | 2022-10-24 12:02 | P.PN ---
Progress Note - Text Progress Note Date: 10/24/22 Interval History: Patient was seen wandering the hallways and was directable and agreeable to speak with telegraphic typewriter operator chief in the office. The patient reports that his mood is slowly getting better. He does report that he continues to express elevated anxiety. He is however denying any suicidal or homicidal ideation, intention, and/or plan. He is not reporting any auditory or visual hallucinations. He denies any paranoia or other delusions. He remains future and goal oriented with a desire to go to inpatient substance abuse rehabilitation for his alcohol use. He reports that his appetite continues to be low however that he does eat. He reports some difficulty with sleep at night. Mental Status Exam: General Appearance: Patient appears to be stated age is alert, directable, and cooperative. Behavior: Patient is calmly seated without any agitated behavior. Speech: Patient's speech is fluent and nonpressured. Mood/Affect: Mood is improving mildly, affect is congruent and euthymic today. Suicidality/Homicidality: Patient reports no suicidal or homicidal ideation. Perceptions: Patient denies any visual hallucinations and denies any auditory hallucinations Though content/process: There is no evidence of any delusional thought content and thought process is linear and goal-directed. Memory and concentration: AOX3, grossly intact for the purposes of this session Judgment and insight: Improving mildly Vital Signs Temp 97.8 F 10/24/22 06:58 Pulse 74 10/24/22 06:58 Resp 14 10/24/22 06:58 BP 89/53 10/24/22 06:58 Pulse Ox 99 10/23/22 07:00 FiO2 Assessment Major depressive disorder, recurrent, severe Alcohol use disorder Acute bereavement Tobacco use disorder Plan: -Patient continues to meet criteria for inpatient psychiatric admission for symptom stabilization and safety. Patient has signed adult voluntary form and medication consent and was placed in patient's chart. -Medications: Administered Abilify maintena 300 mg IM today. Decrease oral Abilify to 10 mg daily due to hypotension. Increase BuSpar to 20 mg by mouth 3 times a day for anxiety Continue acamprosate 666 mg by mouth 3 times a day for alcohol cessation Increase trazodone to 20 mg daily at bedtime for insomnia -When necessary Ativan and Haldol for agitation/aggression. -NRT - nicotine patch -SW on board for discharge planning. Encouraged the patient to participate in milieu.
[2022-10-24] MEDS: traZODone HCL 100 MG TAB PO SCH (20:55)
[2022-10-25] MEDS: metFORMIN 500 MG TAB PO SCH ×2 (08:10→17:34)
[2022-10-25] MEDS: ACAMPROSATE CALCIUM 333 MG TABLET.DR PO SCH ×3 (08:10→21:09)
[2022-10-25] MEDS: NICOTINE 14MG/24HR PATCH TRANSDERM SCH (08:10)
[2022-10-25] MEDS: ARIPiprazole 10 MG TAB PO SCH (08:11)
[2022-10-25] MEDS: MULTIVITAMINS, THERA 1 EACH TAB PO SCH (08:11)
[2022-10-25] MEDS: THIAMINE 100 MG TAB PO SCH (08:11)
[2022-10-25] MEDS: busPIRone HCl 10 MG TAB PO SCH ×3 (08:11→21:10)
[2022-10-25] MEDS: FOLIC ACID 1 MG TAB PO SCH (08:11)
[2022-10-25] MEDS: IBUPROFEN 800 MG TAB PO PRN ×3 (08:13→21:09)
[2022-10-25] MEDS ORDERED: DOCUSATE 100 MG CAP PO STA (09:14)
--- NOTE | 2022-10-25 12:44 | P.PN ---
Progress Note - Text Progress Note Date: 10/25/22 Interval History: Patient was seen wandering the hallways and was directable and agreeable to speak with health science writer in the office. The patient reports that he is feeling better. He is currently not endorsing any suicidal or homicidal ideation, intention, and/or plan. He reports no auditory or visual hallucinations. He reports no paranoia or other delusions. He has been adherent with the medications and is endorsing only constipation as a side effect. He is agreeable to a one time dose of colace. He is not reporting any side effects of hsi medication. He denies any chest pain or shortness of breath. He reports no issues regarding sleep or appetite. He plans to go to [facility] rehab. Mental Status Exam: General Appearance: Patient appears to be stated age is alert, directable, and cooperative. Behavior: Patient is calmly seated without any agitated behavior. Speech: Patient's speech is fluent and nonpressured. Mood/Affect: Mood is improving mildly, affect is congruent and euthymic today. Suicidality/Homicidality: Patient reports no suicidal or homicidal ideation. Perceptions: Patient denies any visual hallucinations and denies any auditory hallucinations Though content/process: There is no evidence of any delusional thought content and thought process is linear and goal-directed. Memory and concentration: AOX3, grossly intact for the purposes of this session Judgment and insight: Improving mildly Vital Signs Temp 97.8 F 10/24/22 06:58 Pulse 79 10/25/22 06:52 Resp 18 10/25/22 06:52 BP 116/74 10/25/22 06:52 Pulse Ox 96 10/25/22 06:52 FiO2 Assessment Major depressive disorder, recurrent, severe Alcohol use disorder Acute bereavement Tobacco use disorder Plan: -Patient continues to meet criteria for inpatient psychiatric admission for symptom stabilization and safety. Patient has signed adult voluntary form and medication consent and was placed in patient's chart. -Medications: Administered Abilify maintena 300 mg IM today. Decrease oral Abilify to 10 mg daily due to hypotension. Continue BuSpar to 20 mg by mouth 3 times a day for anxiety Continue acamprosate 666 mg by mouth 3 times a day for alcohol cessation Continue trazodone 200 mg daily at bedtime for insomnia -When necessary Ativan and Haldol for agitation/aggression. -NRT - nicotine patch -SW on board for discharge planning. Encouraged the patient to participate in milieu.
[2022-10-25] MEDS ORDERED: ONDANSETRON ODT 8 MG TAB.RAPDIS PO PRN (13:42)
[2022-10-25] MEDS: ACETAMINOPHEN TAB 325 MG TAB PO PRN (19:58)
[2022-10-25] MEDS: LORazepam 1 MG TAB PO PRN (21:10)
[2022-10-25] MEDS: NICOTINE GUM (POLACRILEX) 2 MG GUM BUCCAL PRN (21:10)
[2022-10-25] MEDS: traZODone HCL 100 MG TAB PO SCH (21:10)
[2022-10-26 07:13] VITALS: RESP 14; TEMP 98.1
[2022-10-26] MEDS: ACAMPROSATE CALCIUM 333 MG TABLET.DR PO SCH (09:11)
[2022-10-26] MEDS: NICOTINE 14MG/24HR PATCH TRANSDERM SCH (09:12)
[2022-10-26] MEDS: LORazepam 1 MG TAB PO PRN (09:14)
[2022-10-26] MEDS: THIAMINE 100 MG TAB PO SCH (09:14)
[2022-10-26] MEDS: MULTIVITAMINS, THERA 1 EACH TAB PO SCH (09:14)
[2022-10-26] MEDS: busPIRone HCl 10 MG TAB PO SCH (09:14)
[2022-10-26] MEDS: FOLIC ACID 1 MG TAB PO SCH (09:14)
[2022-10-26] MEDS: ARIPiprazole 10 MG TAB PO SCH (09:14)
[2022-10-26] MEDS: metFORMIN 500 MG TAB PO SCH (09:14)
[2022-10-26] MEDS: IBUPROFEN 800 MG TAB PO PRN (09:15)
[2022-10-26] MEDS: ACETAMINOPHEN TAB 325 MG TAB PO PRN (11:54)
[2022-10-26 11:57] VITALS: BP 106/64; PULSE 83
--- NOTE | 2022-10-26 12:02 | P.DS ---
Providers Date of admission: 10/17/22 17:58 Expected date of discharge: 10/26/22 Attending physician: Domingo Celis MD Consults: 10/17/22 16:12 Consult Physician Routine Consulting Provider: Phoebe Messina Consult Reason/Comments: H&P and medical Do you want consulting provider notified?: Yes Primary care physician: Stated None - Discharge Diagnosis(es) (1) Major depressive disorder, recurrent severe without psychotic features Current Visit: Yes Status: Acute Priority: High (2) Bereavement Current Visit: Yes Status: Acute Priority: High (3) Alcohol use disorder Current Visit: Yes Status: Chronic Priority: Medium (4) Nicotine dependence Current Visit: Yes Status: Chronic Priority: Medium Hospital Course: Admission HPI: Patient is a , 37-year-old -[place] male who presented to the hospital for suicidal ideation the context of acute bereavement and heavy alcohol use. Patient presented to the hospital on 10/16/2022 after intentionally overdosing on Prozac and alcohol in attempt to kill himself in the context of acute bereavement and relapsed into heavy alcohol use. The patient was evaluated by Dr. Gonsalez on the medical floor and was subsequently admitted to the psychiatric unit once medically stable. Patient signed himself voluntarily on to the psychiatric unit. The patient reports to this provider that he took approximately 100 mg of Prozac and drank a fifth of vodka and intent to kill himself after feeling extremely overwhelmed and depressed. He reports that his niece whom he was close with due to competitions from type 1 diabetes approximately a month and a half ago. He states that shortly after she passed, he was admitted to [facility] for psychiatric treatment for suicidal ideation and depression. He was discharged from there on a regimen of Prozac and trazodone. He reports that his mood has been worsening with the holidays and with his heavy alcohol use. Approximately his been drinking up to a fifth a day for the last few weeks. In regards to depressive symptoms, the patient endorses significant feelings of hopelessness, helplessness, poor sleep, decreased appetite, decreased hygiene and grooming, anhedonia, and suicidal ideation. He currently endorses suicidal ideation with a plan to overdose. He denies any homicidal ideation. He reports no auditory or visual hallucinations. He denies any paranoia or other delusions. The patient reports no significant history of manic symptoms. He denies any increased goal-directed activity, grandiosity, mood lability, or periods of excessive energy. Due to the patient's history of overdosing, the patient is in agreement to transition to a medication that has a long-acting injectable formulation. Furthermore, the patient understands that he has issues with alcohol use disorder. At this time, his liver enzymes continued to be elevated. We'll recheck liver enzymes tomorrow and determine whether it is safe to start the patient back on naltrexone. Patient has previous diagnoses of major depressive disorder and alcohol use disorder. He was last hospitalized at [facility] from 09/29/2022- 10/04/2022. He is open with [facility]. The patient has had multiple attempts at suicide including attempting to shoot himself 7 years ago and more recently attempting to overdose on Prozac. Hospital course: Upon admission to the unit patient was initially presenting as depressed with suicidal ideation with a plan to overdose. Patient was however directable and agreeable to commence treatment. Patient got along well with other patients on the unit and followed unit protocol. Patient was compliant with the medications and denied any side effects throughout hospital course. Patient was started on Abilify with plans to transition him to a long-acting injectable, and Librium for alcohol withdrawal. Patient spoke of his stressors and engaged in therapy both group and individual. Patient was also seen by medical team for history and physical exam. Of course the hospital physician, the patient was transitioned to Abilify maintena 300 mg IM on 10/24/2022. Furthermore, he was started on BuSpar for anxiety, trazodone for insomnia, and acamprosate for alcohol cessation. The patient displayed significant improvement regards to his target symptoms of depression and alcohol cravings. He became more future and goal oriented. The patient scheduled rehab intake with [facility]. On the day of discharge, the patient is not reporting any suicidal or homicidal ideation, intention, and/or plan. He is not reporting any auditory or visual hallucinations. He denies any paranoia or other delusions. The patient has been in adherent with his medication and is tolerating the medication well. He does report some issues with constipation however denies any chest pain, shortness of breath, nausea, vomiting, or any other medical issues or concerns. The patient does have significant history of substance abuse and was counseled great length on abstaining from all substances including alcohol, marijuana, tobacco, and illicit drugs. The patient plans to go to inpatient substance abuse rehabilitation at [facility] at the end of this week. The patient was counseled at great length the importance of medication adherence and appropriate outpatient follow-up. He is also encouraged to see her primary care provider in regards to his general medical health as he does display signs of liver damage due to his heavy alcohol use. The patient acknowledges understanding. Patient no longer meets criteria for inpatient psychiatric admission, he was subsequently discharged. Mental status exam: General Appearance: Patient appears to be stated age is alert, pleasant, and cooperative. Patient is in no acute distress and has fair hygiene and grooming Behavior: Patient is calmly seated without any agitated behavior. Speech: Patient's speech is fluent and nonpressured. Mood/Affect: Patient reports their mood is "much better", affect is congruent and euthymic to bright. Suicidality/Homicidality: Patient denies having any suicidal or homicidal ideation intent or plan. Perceptions: Patient denies any auditory or visual hallucinations. Though content/process: There is no evidence of any delusional thought content and thought process is linear and goal-directed. Patient is future oriented. Memory and concentration: AOX3, grossly intact for the purposes of this session. Can spell "WORLD" backwards correctly. Judgment and insight: Improved with guarded prognosis Impression: Major depressive disorder, recurrent, severe Alcohol use disorder Acute bereavement Tobacco use disorder Plan: -Continue with discharge today as patient has improved and stabilized psychiatrically and is not currently an imminent threat to himself and/or others. Patient will remain at chronically elevated risk for harm to self and/or others due to his prior attempts at suicide and alcohol abuse. -Continue medications: Abilify maintea 300 mg IM was administered on 10/24/2022. Next dose due on 11/21/2022. Continue oral abilify 10 mg daily for 7 days. Buspar 20 mg TID for anxiety Acamprosate 666 mg TID for alcohol cessation Trazodone 200 mg HS for insomnia -Patient was counseled on the need for medication compliance and appropriate follow-up at mental health and also primary care for medical issues. Patient verbalized understanding and agreed. -Social work to arrange for and conduct family meeting to ensure safety upon discharge and answer any questions/concerns. Social work also to arrange for patients follow up appointments with [facility] for psychiatric care along with follow up with primary care provider. -Patient counseled on abstaining from recreational drugs and marijuana and alcohol. Was informed/educated on the adverse effects on their physical and mental health. Patient verbally agreed and understood]. Patient will be going to [facility]. -Patient was instructed to return to the hospital or seek immediate medical care if their psychiatric or medical symptoms do worsen or reoccur. -Psychoeducation and supportive therapy provided to patient. Risks and benefits of pharmacological treatment versus the risks and benefits of nontreatment weight and discussed. Informed consent discussion held. Common side effects of psychotropics discussed such as, but not limited to headache, GI disturbance, se xual dysfunction, movement disorders, sedation, and orthostatic hypotension. Life threatening and blackbox warnings of prescribed medications also discussed. Potential risks of operating a vehicle or heavy machinery discussed with patient at length. Advised on importance of compliance and a reliable and responsible manner. Patient advised to review FDA consumer labeling of all medications prior to taking. Patient verbalized understanding of potential risks, and agrees with current treatment plan. Patient advised to medically contact physician/emergency personnel if any acute changes in condition occur. Vital Signs Temp 98.1 F 10/26/22 06:53 Pulse 83 10/26/22 11:56 Resp 14 10/26/22 06:53 BP 106/64 10/26/22 11:56 Pulse Ox 96 10/25/22 06:52 FiO2 Laboratory Results Sodium 137 mmol/L (137-145) 10/21/22 08:29 Potassium 4.2 mmol/L (3.5-5.1) 10/21/22 08:29 Chloride 100 mmol/L (98-107) 10/21/22 08:29 Carbon Dioxide 30 mmol/L (22-30) 10/21/22 08:29 Anion Gap 7 mmol/L 10/21/22 08:29 BUN 8 mg/dL (9-20) L 10/21/22 08:29 Creatinine 0.82 mg/dL (0.66-1.25) 10/21/22 08:29 Est GFR (CKD-EPI)AfAm >90 (>60 ml/min/1.73 sqM) 10/21/22 08:29 Est GFR (CKD-EPI)NonAf >90 (>60 ml/min/1.73 sqM) 10/21/22 08:29 Glucose 100 mg/dL (74-99) H 10/21/22 08:29 Uric Acid 7.2 mg/dL (3.5-8.5) 10/20/22 17:44 Calcium 9.7 mg/dL (8.4-10.2) 10/21/22 08:29 Total Bilirubin 0.7 mg/dL (0.2-1.3) 10/21/22 08:29 AST 134 U/L (17-59) H 10/21/22 08:29 ALT 141 U/L (4-49) H 10/21/22 08:29 Alkaline Phosphatase 121 U/L (38-126) 10/21/22 08:29 Total Protein 8.3 g/dL (6.3-8.2) H 10/21/22 08:29 Albumin 4.3 g/dL (3.5-5.0) 10/21/22 08:29 Allergies Allergy/AdvReac Type Severity Reaction Status Date / Time adhesive tape Allergy Rash/Hives Verified 10/17/22 18:37 codeine Allergy Rash/Hives Verified 10/17/22 18:37 Patient Condition at Discharge: Stable Plan - Discharge Summary Discharge Rx Participant: No New Discharge Prescriptions: New busPIRone HCl [Buspar] 20 mg PO TID 30 Days tab Docusate [Colace] 100 mg PO DAILY 3 Days capsule Folic Acid 1 mg PO DAILY 30 Days tab metFORMIN HCL [Glucophage] 500 mg PO BID-W/MEALS 30 Days tab Multivitamins, Thera [Multivitamin (formulary)] 1 each PO DAILY 30 Days tab Thiamine [Vitamin B-1] 100 mg PO DAILY 30 Days tab ARIPiprazole [Abilify] 10 mg PO DAILY 7 Days tab Acamprosate Calcium [Campral] 666 mg PO TID 30 Days tab traZODone HCL [Desyrel] 200 mg PO HS 30 Days tab ARIPiprazole [Abilify Maintena] 300 mg IM Q28D #1 each Discontinued Thiamine [Vitamin B-1] 100 mg PO DAILY tab Folic Acid 1 mg PO DAILY tab Multivitamins, Thera [Multivitamin (formulary)] 1 each PO DAILY tab Discharge Medication List ARIPiprazole [Abilify Maintena] 300 mg IM Q28D #1 each 10/26/22 [Rx] ARIPiprazole [Abilify] 10 mg PO DAILY 7 Days tab 10/26/22 [Rx] Acamprosate Calcium [Campral] 666 mg PO TID 30 Days tab 10/26/22 [Rx] Docusate [Colace] 100 mg PO DAILY 3 Days capsule 10/26/22 [Rx] Folic Acid 1 mg PO DAILY 30 Days tab 10/26/22 [Rx] Multivitamins, Thera [Multivitamin (formulary)] 1 each PO DAILY 30 Days tab 10/26/22 [Rx] Thiamine [Vitamin B-1] 100 mg PO DAILY 30 Days tab 10/26/22 [Rx] busPIRone HCl [Buspar] 20 mg PO TID 30 Days tab 10/26/22 [Rx] metFORMIN HCL [Glucophage] 500 mg PO BID-W/MEALS 30 Days tab 10/26/22 [Rx] traZODone HCL [Desyrel] 200 mg PO HS 30 Days tab 10/26/22 [Rx] Follow up Appointment(s)/Referral(s): [facility] [Outside] - 10/29/22 10:00 am (intake) [facility] [Outside] - 1 Week ( ) [facility] [NON-STAFF] - 1 Week Patient Instructions/Handouts: How to Stop Smoking (ED), Depression (DC), Abuse of Alcohol (ED) Activity/Diet/Wound Care/Special Instructions: Avoid the use of street drugs and alcohol. Take all prescriptions as prescribed. When you are in need of refills on your medications, please contact your medical provider and/or outpatient psychiatrist to have this done. Please go to scheduled outpatient appointment for aftercare treatment. If symptoms return or become worse, call the crisis line at and/or go to the nearest emergency room for evaluation Discharge Disposition: HOME SELF-CARE
[2022-10-26] MEDS: NICOTINE GUM (POLACRILEX) 2 MG GUM BUCCAL PRN (13:58)
== END 2022-10-26 16:00 | disposition home or self-care (01) | DRG 885 ==
LOC: 3MHU 17:58
PROVIDERS: ADMIT Psychiatry & Neurology Psychiatry; ATTEND Psychiatry & Neurology Psychiatry
DX: F33.2 Major depressive disorder, recurrent severe without psychotic features (principal); F10.239 Alcohol dependence with withdrawal, unspecified; T43.222A Poisoning by selective serotonin reuptake inhibitors, intentional self-harm, initial encounter; Z63.4 Disappearance and death of family member; M10.9 Gout, unspecified; G47.00 Insomnia, unspecified; D69.6 Thrombocytopenia, unspecified; F17.210 Nicotine dependence, cigarettes, uncomplicated; Z79.899 Other long term (current) drug therapy; Z81.8 Family history of other mental and behavioral disorders; K59.00 Constipation, unspecified; F41.9 Anxiety disorder, unspecified; Z86.19 Personal history of other infectious and parasitic diseases; Z91.51 Personal history of suicidal behavior; Z28.21 Immunization not carried out because of patient refusal; Z88.5 Allergy status to narcotic agent
CPT/HCPCS: 80053; 84550

== ENCOUNTER 2024-02-29 10:22 | Inpatient (IN) | payer OTHER ==
[2024-02-29] MEDS ORDERED: LORazepam 2 MG/ML INJ IV PRN (10:50)
[2024-02-29] MEDS: LORazepam 2 MG/ML INJ IV STA (10:53)
[2024-02-29] MEDS: THIAMINE 100 MG/ML 2 ML VIAL IM STA (10:55)
[2024-02-29 11:02] LABS: Basophils # (A) 0.1 k/uL (0-0.2); Basophils % (A) 1 %; Eosinophils # (A) 0.1 k/uL (0-0.7); Eosinophils % (A) 2 %; HGB 14.9 gm/dL (13.0-17.5); Lymphocytes # (A) 1.7 k/uL (1.0-4.8); Lymphocytes % (A) 29 %; MCHC 32.4 g/dL (31.0-37.0); MCV 101.9 fL (80.0-100.0); Macrocytosis Slight; Mean Platelet Volume 7.5; Monocytes # (A) 0.4 k/uL (0-1.0); Monocytes % (A) 6 %; Neutrophils # (A) 3.6 k/uL (1.3-7.7); Neutrophils % (A) 59 %; Platelet Count 213 k/uL (150-450); RBC 4.52 m/uL (4.30-5.90); RDW 12.7 % (11.5-15.5)
[2024-02-29] MEDS: LORazepam 2 MG/ML INJ IV PRN ×2 (11:09→12:15)
[2024-02-29 11:23] LABS: African American GFR (CKD) >90 (>60 ml/min/1.73 sqM); Anion Gap 12 mmol/L; Blood Urea Nitrogen 10 mg/dL (9-20); Calcium 9.4 mg/dL (8.4-10.2); Carbon Dioxide 20 mmol/L (22-30); Chloride 104 mmol/L (98-107); Glucose 175 mg/dL (74-99); Magnesium 2.1 mg/dL (1.6-2.3); Non-African American GFR(CKD) >90 (>60 ml/min/1.73 sqM); Potassium 3.6 mmol/L (3.5-5.1); Sodium 136 mmol/L (137-145)
[2024-02-29 11:30] LABS: Alcohol 96 mg/dL
--- NOTE | 2024-02-29 11:45 | ED ---
General Adult HPI - General Chief complaint: Alcohol Stated complaint: Withdraw Time Seen by Provider: 02/29/24 10:34 Source: patient Mode of arrival: ambulatory Limitations: no limitations - History of Present Illness Initial comments: Dictation was produced using [employer] dictation software. please excuse any grammatical, word or spelling errors. Chief Complaint: 39-year-old alcoholic male presents to the emergency department for alcohol withdrawals History of Present Illness: Patient 39-year-old male he is an alcoholic. Patient drinks large amounts of hard liquor daily. He states he drinks up to 6 pints daily. Patient has been doing this for several months after having a brief period of sobriety. He has been however drinking alcohol for a pproximately 20 years. Contacted his primary care doctor was told to come to the emergency department for alcohol withdrawals. Patient Nuys any abdominal pain. He started to feel shaky and sweaty. States that he has been admitted to the ICU for alcohol withdrawals in the past. The ROS documented in this emergency department record has been reviewed and confirmed by me. Those systems with pertinent positive or negative responses have been documented in the HPI. All other systems are other negative and/or noncontributory. - Related Data Home Medications Medication Instructions Recorded Confirmed Amoxicillin 875 mg PO BID 02/29/24 02/29/24 Allergies Allergy/AdvReac Type Severity Reaction Status Date / Time adhesive tape Allergy Rash/Hives Verified 02/29/24 11:06 codeine Allergy Rash/Hives Verified 02/29/24 11:06 Review of Systems ROS Statement: Those systems with pertinent positive or pertinent negative responses have been documented in the HPI. ROS Other: All systems not noted in ROS Statement are negative. Past Medical History Past Medical History: Liver Disease Additional Past Medical History / Comment(s): pancreatitis, gout. History of Any Multi-Drug Resistant Organisms: None Reported Past Surgical History: Ear Surgery Additional Past Surgical History / Comment(s): tubes in ears bilaterally Past Anesthesia/Blood Transfusion Reactions: No Reported Reaction Past Psychological History: Anxiety, Depression Smoking Status: Current some day smoker Past Alcohol Use History: Abuse, Daily, Heavy Past Drug Use History: Marijuana - Past Family History Father History Unknown: Yes Mother Family Medical History: Diabetes Mellitus General Exam - General Exam Comments Initial Comments: PHYSICAL EXAM: General Impression: Alert and oriented x3, n tremulous, diaphoretic HEENT: Normocephalic atraumatic, extra-ocular movements intact, pupils equal and reactive to light bilaterally, mucous membranes moist. Cardiovascular: Heart regular rate and rhythm Chest: Able to complete full sentences, no retractions, no tachypnea Abdomen: abdomen soft, non-tender, non-distended, no organomegaly Musculoskeletal: Pulses present and equal in all extremities, no peripheral edema Motor: no focal deficits noted Neurological: CN II-XII grossly intact, no focal motor or sensory deficits noted Skin: Intact with no visualized rashes Psych: Normal affect and mood Limitations: no limitations Course Vital Signs 02/29/24 02/29/24 02/29/24 10:27 11:05 12:10 Temperature 98.8 F 98.6 F 98.4 F Pulse Rate 104 H 100 97 Respiratory 16 18 20 Rate Blood Pressure 169/101 115/82 O2 Sat by Pulse 96 97 97 Oximetry EKG Findings - EKG Comments: EKG Findings:: My EKG interpretation: Ventricular rate 101, sinus tachycardia,. 156, cures 93, QTc 4 2. No [place] prolongation, no QTC prolongation. Diffuse T wave inversions without ST elevations in inferior and lateral precordial leads. Overall this EKG is nonspecific Medical Decision Making - Medical Decision Making Was pt. sent in by a medical professional or institution (, PA, DATA SCIENCE AND IOT MANAGER, urgent care, hospital, or prison...) When possible be specific @ -No Did you speak to anyone other than the patient for history (EMS, parent, family, police, friend...)? What history was obtained from this source @ -No Did you review nursing and triage notes (agree or disagree)? Why? @ -I reviewed and agree with nursing and triage notes Were old charts reviewed (outside hosp., previous admission, EMS record, old EKG, old radiological studies, urgent care reports/EKG's, prison records)? Report findings @ -No old charts were reviewed Differential Diagnosis (chest pain, altered mental status, abdominal pain women, abdominal pain men, vaginal bleeding, musculoskeletal, weakness, fever, dyspnea, syncope, headache, dizziness, GI bleed, back pain, seizure, CVA, palpatations, mental health)? @ -Not applicable EKG interpreted by me (3pts min.). @ -See above X-rays interpreted by me (1pt min.). @ -None done CT interpreted by me (1pt min.). @ -None done U/S interpreted by me (1pt. min.). @ -None done What testing was considered but not performed or refused? (CT, X-rays, U/S, labs)? Why? @ -None What meds were considered but not given or refused? Why? @ -None Did you discuss the management of the patient with other professionals (prof almazan i.e. , PA, DATA SCIENCE AND IOT MANAGER, lab, RT, psych nurse, vp digital marketing social media and crm, core cutter, teacher, customs and border protection officer, shelter case manager)? Give summary @ -Case discussed with hospitalist for admission Was smoking cessation discussed for >3mins.? @ -No Was critical care preformed (if so, how long)? @ -No Were there social determinants of health that impacted care today? How? (Homelessness, low income, unemployed, alcoholism, drug addiction, transportation, low edu. Level, literacy, decrease access to med. care, retirement, r ehab)? @ -No Was there de-escalation of care discussed even if they declined (Discuss DNR or withdrawal of care, Hospice)? DNR status @ -No What co-morbidities impacted this encounter? (DM, HTN, Smoking, COPD, CAD, Cancer, CVA, ARF, Chemo, Hep., AIDS, mental health diagnosis, sleep apnea, morbid obesity)? @ -None Was patient admitted / discharged? Hospital course, mention meds given and route, prescriptions, significant lab abnormalities, going to OR and other pertinent info. @ -39-year-old male presents emergency department alcohol withdrawals. Vital signs shows tachycardia of 104. Rest of vital signs within acceptable limits. Patient diaphoretic and tremulous at the bedside. Laboratory evaluation obtained found to be within acceptable limits. Serum alcohol is 96. Patient will be admitted for EtOH withdrawal. Case discussed with [facility] for admission. 4 hours CIWA ordered and Ativan variable dose ordered. Undiagnosed new problem with uncertain prognosis? @ -No Drug Therapy requiring intensive monitoring for toxicity (Heparin, Nitro, Insulin, Cardizem)? @ -No Were any procedures done? @ -No Diagnosis/symptom? Acute, or Chronic, or Acute on Chronic? Uncomplicated (without systemic symptoms) or Complicated (systemic symptoms)? @ -Alcohol withdrawal Side effects of treatment? @ -No Exacerbation, Progression, or Severe Exacerbation? @ -No Poses a threat to life or bodily function? How? (Chest pain, [place], [place], pneumonia, PE, COPD, DKA, ARF, appy, cholecystitis, CVA, Diverticulitis, Homicidal, Suicidal, threat to staff... and all critical care pts) @ -yes - Lab Data Result diagrams: 02/29/24 10:49 02/29/24 10:49 Lab Results 02/29/24 02/29/24 Range/Units 10:49 10:49 WBC 6.0 (3.8-10.6) k/uL RBC 4.52 (4.30-5.90) m/uL Hgb 14.9 (13.0-17.5) gm/dL Hct 46.0 (39.0-53.0) % MCV 101.9 H (80.0-100.0) fL MCH 33.0 (25.0-35.0) pg MCHC 32.4 (31.0-37.0) g/dL RDW 12.7 (11.5-15.5) % Plt Count 213 (150-450) k/uL MPV 7.5 Neutrophils % 59 % Lymphocytes % 29 % Monocytes % 6 % Eosinophils % 2 % Basophils % 1 % Neutrophils # 3.6 (1.3-7.7) k/uL Lymphocytes # 1.7 (1.0-4.8) k/uL Monocytes # 0.4 (0-1.0) k/uL Eosinophils # 0.1 (0-0.7) k/uL Basophils # 0.1 (0-0.2) k/uL Macrocytosis Slight Sodium 136 L (137-145) mmol/L Potassium 3.6 (3.5-5.1) mmol/L Chloride 104 (98-107) mmol/L Carbon Dioxide 20 L (22-30) mmol/L Anion Gap 12 mmol/L BUN 10 (9-20) mg/dL Creatinine 0.83 (0.66-1.25) mg/dL Est GFR (CKD-EPI)AfAm >90 (>60 ml/min/1.73 sqM) Est GFR (CKD-EPI)NonAf >90 (>60 ml/min/1.73 sqM) Glucose 175 H (74-99) mg/dL Calcium 9.4 (8.4-10.2) mg/dL Magnesium 2.1 (1.6-2.3) mg/dL Serum Alcohol 96 mg/dL Disposition Clinical Impression: Alcohol withdrawal syndrome Disposition: ADMITTED IP TO THIS HOSP Condition: Serious Referrals: Jennifer Scanlon MD [Primary Care Provider] - 1-2 days Decision Time: 12:10
[2024-02-29] MEDS ORDERED: NALOXONE 0.4 MG/ML 1 ML VIAL IV PRN (12:07)
[2024-02-29] MEDS: SODIUM CHLORIDE 0.9% 1,000 ML IV SCH (12:16)
--- NOTE | 2024-02-29 12:17 | P.HPIM ---
History of Present Illness Patient is a very pleasant 39-year-old male with alcohol abuse history usually drinks about 5 to 6 pints of hard liquor every day, trying to quit alcohol but started having withdrawals today morning because of which he has to drink and come to ER. When I evaluate the patient patient is not withdrawing. Patient denies any fever chills nausea vomiting abdominal pain dysuria. Patient has elevated MCV from alcohol use. Patient is mildly hyponatremic from alcohol use. REVIEW OF SYSTEMS: CONSTITUTIONAL: No fever, no malaise, no fatigue. HEENT: No recent visual problems or hearing problems. Denied any sore throat. CARDIOVASCULAR: No chest pain, orthopnea, PND, no palpitations, no syncope. PULMONARY: No shortness of breath, no cough, no hemoptysis. GASTROINTESTINAL: No diarrhea, no nausea, no vomiting, no abdominal pain. NEUROLOGICAL: No headaches, no weakness, no numbness. HEMATOLOGICAL: Denies any bleeding or petechiae. GENITOURINARY: Denies any burning micturition, frequency, or urgency. MUSCULOSKELETAL/RHEUMATOLOGICAL: Denies any joint pain, swelling, or any muscle pain. ENDOCRINE: Denies any polyuria or polydipsia. The rest of the 14-point review of systems is negative. PHYSICAL EXAMINATION: GENERAL: The patient is alert and oriented x3, not in any acute distress. Well developed, well nourished. Obese HEENT: Pupils are round and equally reacting to light. EOMI. No scleral icterus. No conjunctival pallor. Normocephalic, atraumatic. No pharyngeal erythema. No thyromegaly. CARDIOVASCULAR: S1 and S2 present. No murmurs, rubs, or gallops. PULMONARY: Chest is clear to auscultation, no wheezing or crackles. ABDOMEN: Soft, nontender, nondistended, normoactive bowel sounds. No palpable organomegaly. MUSCULOSKELETAL: No joint swelling or deformity. EXTREMITIES: No cyanosis, clubbing, or pedal edema. NEUROLOGICAL: Gross neurological examination did not reveal any focal deficits. SKIN: No rashes. Assessment and plan -Alcohol withdrawal patient will be on Ativan CIWA protocol, thiamine multivitamin supplementation along with IV fluids social work consultation. -Elevated MCV secondary to chronic alcohol use -Physical dependence on alcohol -Obesity GI prophylaxis Pepcid -Nicotine use DVT prophylaxis: I will start him on pharmacological DVT prophylaxis as I am unsure how severe his withdrawals will be which will make him bedbound temporarily and because of his obesity patient is high risk for DVT. Past Medical History Past Medical History: Liver Disease Additional Past Medical History / Comment(s): pancreatitis, gout. History of Any Multi-Drug Resistant Organisms: None Reported Past Surgical History: Ear Surgery Additional Past Surgical History / Comment(s): tubes in ears bilaterally Past Anesthesia/Blood Transfusion Reactions: No Reported Reaction Past Psychological History: Anxiety, Depression Smoking Status: Current some day smoker Past Alcohol Use History: Abuse, Daily, Heavy Past Drug Use History: Marijuana - Past Family History Father History Unknown: Yes Mother Family Medical History: Diabetes Mellitus Medications and Allergies Home Medications Medication Instructions Recorded Confirmed Type Amoxicillin 875 mg PO BID 02/29/24 02/29/24 History Allergies Allergy/AdvReac Type Severity Reaction Status Date / Time adhesive tape Allergy Rash/Hives Verified 02/29/24 11:06 codeine Allergy Rash/Hives Verified 02/29/24 11:06 Physical Exam Vitals: Vital Signs Temp Pulse Resp BP Pulse Ox 02/29/24 12:14 98.4 F 97 20 144/99 97 02/29/24 11:05 98.6 F 100 18 115/82 97 02/29/24 10:27 98.8 F 104 H 16 169/101 96 Intake and Output 02/28/24 02/29/24 02/29/24 22:59 06:59 14:59 Other: Weight 158.757 kg Results CBC & Chem 7: 02/29/24 10:49 02/29/24 10:49 Labs: Abnormal Lab Results - Last 24 Hours (Table) 02/29/24 02/29/24 Range/Units 10:49 10:49 MCV 101.9 H (80.0-100.0) fL Sodium 136 L (137-145) mmol/L Carbon Dioxide 20 L (22-30) mmol/L Glucose 175 H (74-99) mg/dL
[2024-02-29] MEDS: LACTATED RINGERS 1,000 ML IV SCH (12:20)
[2024-02-29] MEDS: FAMOTIDINE 20 MG TAB PO SCH (20:01)
[2024-03-01 08:21] VITALS: RESP 16
[2024-03-01] MEDS: chlordiazePOXIDE 25 MG CAP PO SCH (09:06)
[2024-03-01] MEDS: THIAMINE 100 MG TAB PO SCH (09:06)
[2024-03-01] MEDS: ENOXAPARIN 60 MG/0.6 ML SYRINGE SQ SCH (10:31)
[2024-03-01] MEDS: NICOTINE 21MG/24HR PATCH TRANSDERM SCH (10:31)
[2024-03-01 12:56] VITALS: BP 156/101; PULSE 87; TEMP 98.1
[2024-03-01] MEDS ORDERED: LORazepam 1 MG/0.5 ML VIAL IV PRN ×3 (14:22→14:23)
[2024-03-01] MEDS: cloNIDine HCL 0.1 MG TAB PO SCH (14:50)
--- NOTE | 2024-03-04 10:04 | P.DS ---
Providers Date of admission: 02/29/24 12:07 Expected date of discharge: 03/01/24 Attending physician: Wilfrido Moscoso Primary care physician: Jennifer Scanlon [facility] Course: Final diagnosis -Alcohol withdrawal, present on admission -Elevated MCV secondary to chronic alcohol use -Physical dependence on alcohol -Morbid obesity with a BMI of 44.9 -GI prophylaxis -Nicotine use -DVT prophylaxis -Full code Discharge disposition Patient is being discharged in a stable condition with guarded prognosis to home. Patient will follow-up with Dr. Mookie Messina in the outpatient setting upon discharge. Patient is to continue with Librium taper and clonidine as directed. Patient to follow-up on Monday with [facility] for intake appointment for inpatient alcohol rehab. Total time taken is greater than 35 minutes. Hospital course This is a 39-year-old male who was recently admitted with acute alcohol withdrawal with concerns for acute delirium tremens. Patient maintained on CIWA protocol and started on Librium taper and is expressing help and wants to go to rehab. Patient initially awaiting for Monday intake appointment although reports has family issues to attend to prior to checking himself and. Patient does have children he needs to arrange help for. Patient's blood pressures were elevated and will continue on clonidine and recommend follow-up with appointment for [facility] on Monday morning. Patient instructed to follow-up with primary care provider as well. Patient will continue Librium taper on discharge and strongly encouraged to avoid alcohol intake. Patient has not been requiring IV Ativan nor p.o. Ativan. Currently no reports of chest pain, shortness of breath, or palpitations. Patient is afebrile. No reports of nausea or vomiting and patient is tolerating diet. Patient will be discharged home today. Guarded prognosis and high risk for readmissions given patient's continued alcohol use Physical exam: Gen: This is a 39-year-old male who is awake, alert and oriented x 3, well-developed, well-nourished, morbidly obese HEENT: Head is atraumatic, normocephalic. Pupils equal, round. Sclerae is anicteric. NECK: Supple. No JVD. No lymphadenopathy. No thyromegaly. LUNGS: Clear to auscultation. No wheezes or rhonchi. No intercostal retractions. HEART: Regular rate and rhythm. No murmur. ABDOMEN: Soft. Obese. Bowel sounds are present. No masses. No tenderness. EXTREMITIES: No pedal edema. No calf tenderness. NEUROLOGICAL: Patient is awake, alert and oriented x3. Cranial nerves 2 through 12 are grossly intact. Please refer to medication reconciliation sheet for a list of medications. The impression and plan of care has been dictated by Brenda Tracy, Nurse Practitioner as directed. Siddhrath Lugo MD I have performed a history and examination and MDM of this patient, discussed the same with the dictator, and agree with the dictator's assessment and plan as written ,documented as a scribe. Based on total visit time, I have performed more than 50% of the visit. Patient Condition at Discharge: Fair Plan - Discharge Summary Discharge Rx Participant: No New Discharge Prescriptions: New cloNIDine HCL [Catapres] 0.1 mg PO BID #30 tab chlordiazePOXIDE HCl [Librium] 25 mg PO TID #6 cap Nicotine 21Mg/24Hr Patch [Habitrol] 1 patch TRANSDERM DAILY patch Continue Amoxicillin 875 mg PO BID Discharge Medication List Amoxicillin 875 mg PO BID 02/29/24 [History] Nicotine 21Mg/24Hr Patch [Habitrol] 1 patch TRANSDERM DAILY patch 03/01/24 [Rx] chlordiazePOXIDE HCl [Librium] 25 mg PO TID #6 cap 03/01/24 [Rx] cloNIDine HCL [Catapres] 0.1 mg PO BID #30 tab 03/01/24 [Rx] Follow up Appointment(s)/Referral(s): Jennifer Scanlon MD [Primary Care Provider] - 1-2 days (Patient to make own appt. with PCP of choice following rehab at [facility]. ) Patient Instructions/Handouts: Chlordiazepoxide (By mouth), Clonidine (Absorbed through the skin), How to Stop Smoking (DC), Alcohol Withdrawal (DC) Activity/Diet/Wound Care/Special Instructions: Activity limited until follow-up Follow-up with primary care provider on discharge Follow-up with intake appointment for inpatient alcohol rehab Continue Librium taper Do not drink alcohol while taking Librium Monitor blood pressure for primary care follow-up Discharge/Stand Alone Forms: AA Meetings [address] - [facility], AA Meetings [facility], Outpatient Counseling, In Substance Abuse Facilities, [employer] Discharge Disposition: HOME SELF-CARE
== END 2024-03-01 16:45 | disposition home or self-care (01) | DRG 775 ==
LOC: EC 10:22 → 5NMEDONC 12:07
PROVIDERS: ADMIT Internal Medicine; ATTEND Internal Medicine
DX: F10.231 Alcohol dependence with withdrawal delirium (principal); E66.01 Morbid (severe) obesity due to excess calories; E87.1 Hypo-osmolality and hyponatremia; F17.200 Nicotine dependence, unspecified, uncomplicated; Z71.6 Tobacco abuse counseling; F32.A Depression, unspecified; F41.9 Anxiety disorder, unspecified; Z68.41 Body mass index [BMI] 40.0-44.9, adult; Z74.01 Bed confinement status; K76.9 Liver disease, unspecified; M10.9 Gout, unspecified
CPT/HCPCS: 36415; 80048; 80320; 83036; 83735; 85025; 93005; 96361; 96372; 96374; 96376; 99285

== ENCOUNTER 2024-11-27 14:00 | Inpatient (IN) | payer MEDICAID, OTHER ==
--- NOTE | 2024-11-27 14:37 | ED ---
Psych HPI - General Chief Complaint: Psychiatric Symptoms Stated Complaint: ETOH Time Seen by Provider: 11/27/24 14:36 Source: patient, RN notes reviewed Mode of arrival: EMS - History of Present Illness Initial Comments: 39-year-old male sent from [place] for suicidal ideation. States he has been having these ideations for 5 months but has been worsening which has caused him to drink more alcohol. Denies plan. Denies any other medical complaints or injuries. States he usually drinks 4 pints of alcohol per day. States he has drank 1 pint of alcohol today. - Related Data Previous Rx's Medication Instructions Recorded Acetaminophen Tab [Tylenol] 650 mg PO Q6HR PRN tab 11/30/24 Docusate [Colace] 100 mg PO BID PRN cap 11/30/24 Folic Acid 1 mg PO DAILY tab 11/30/24 Melatonin 3 mg PO HS PRN tab 11/30/24 Multivitamins, Thera [Multivitamin 1 each PO DAILY tab 11/30/24 (formulary)] Nicotine 21Mg/24Hr Patch [Habitrol] 1 patch TRANSDERM DAILY patch 11/30/24 Thiamine [Vitamin B-1] 100 mg PO DAILY tab 11/30/24 Allergies Allergy/AdvReac Type Severity Reaction Status Date / Time adhesive tape Allergy Rash/Hives Verified 11/27/24 16:44 codeine Allergy Rash/Hives Verified 11/27/24 16:44 Review of Systems ROS Statement: Those systems with pertinent positive or pertinent negative responses have been documented in the HPI. ROS Other: All systems not noted in ROS Statement are negative. Past Medical History Past Medical History: Liver Disease Additional Past Medical History / Comment(s): pancreatitis, gout. History of Any Multi-Drug Resistant Organisms: None Reported Past Surgical History: Ear Surgery Additional Past Surgical History / Comment(s): tubes in ears bilaterally Past Anesthesia/Blood Transfusion Reactions: No Reported Reaction Past Psychological History: Anxiety, Depression Smoking Status: Current some day smoker Past Alcohol Use History: Abuse, Daily, Heavy Past Drug Use History: Marijuana - Past Family History Father History Unknown: Yes Mother Family Medical History: Diabetes Mellitus General Exam - General Exam Comments Initial Comments: Visual Physical Exam Vital signs reviewed General: Well-appearing, nontoxic, no acute distress. Head: Normocephalic, atraumatic Eyes: PERRLA, EOMI ENT: Airway patent Chest: Nonlabored breathing Skin: No visual rash, normal skin tone Neuro: Alert and oriented 3 Musculoskeletal: No gross abnormalities Limitations: no limitations General appearance: alert, in no apparent distress Head exam: Present: atraumatic, normocephalic, normal inspection Eye exam: Present: normal appearance, PERRL, EOMI. Absent: scleral icterus, conjunctival injection, periorbital swelling Respiratory exam: Present: normal lung sounds bilaterally. Absent: respiratory distress, wheezes, rales, rhonchi, stridor Cardiovascular Exam: Present: regular rate, normal rhythm, normal heart sounds. Absent: systolic murmur, diastolic murmur, rubs, gallop, clicks Neurological exam: Present: alert, oriented X3 Psychiatric exam: Present: normal affect, normal mood Skin exam: Present: warm, dry, intact, normal color. Absent: rash Course Vital Signs 11/27/24 11/27/24 11/27/24 14:00 19:49 20:15 Temperature 98.4 F 98.1 F Pulse Rate 118 H 107 H Respiratory 18 18 Rate Blood Pressure 142/101 140/100 O2 Sat by Pulse 99 Oximetry 11/28/24 03:41 Temperature Pulse Rate 88 Respiratory 18 Rate Blood Pressure 135/89 O2 Sat by Pulse 97 Oximetry Medical Decision Making - Medical Decision Making I completed the quick note portion of this chart signed Valeri Landa PA-C Was pt. sent in by a medical professional or institution (BRUCE Lugo, COSMETOLOGY PROFESSOR, urgent care, hospital, or [facility]cf...) When possible be specific @ -No Did you speak to anyone other than the patient for history (EMS, parent, family, police, friend...)? What history was obtained from this source @ -No Did you review nursing and triage notes (agree or disagree)? Why? @ -I reviewed and agree with nursing and triage notes Were old charts reviewed (outside hosp., previous admission, EMS record, old EKG, old radiological studies, urgent care reports/EKG's, ch[facility] records)? Report findings @ -No old charts were reviewed Differential Diagnosis (chest pain, altered mental status, abdominal pain women, abdominal pain men, vaginal bleeding, weakness, fever, dyspnea, syncope, headach e, dizziness, GI bleed, back pain, seizure, CVA, palpatations, mental health, musculoskeletal)? @ -Differential Mental Health Depression, anxiety, bipolar, psychosis, schizophrenia, borderline personality, situational depression, adjustment disorder, behavioral disorder, brain tumor, malingering, substance abuse, encephalopathy, medication reaction, dementia, hypothyroidism, degenerative neurologic disorder, lupus.... This is not meant to be all-inclusive list EKG interpreted by me (3pts min.). @ -None X-rays interpreted by me (1pt min.). @ -None done CT interpreted by me (1pt min.). @ -None done U/S interpreted by me (1pt. min.). @ -None done What testing was considered but not performed or refused? (CT, X-rays, U/S, labs)? Why? @ -None What meds were considered but not given or refused? Why? @ -None Did you discuss the management of the patient with other professionals (professionals i.e. , PA, COSMETOLOGY PROFESSOR, lab, RT, psych nurse, school social worker, bicycle service technician, teacher, environmental compliance officer, window caser)? Give summary @ -No Was smoking cessation discussed for >3mins.? @ -No Was critical care preformed (if so, how long)? @ -No Were there social determinants of health that impacted care today? How? (H omelessness, low income, unemployed, alcoholism, drug addiction, transportation, low edu. Level, literacy, decrease access to med. care, prison, rehab)? @ -No Was there de-escalation of care discussed even if they declined (Discuss DNR or withdrawal of care, Hospice)? DNR status @ -No What co-morbidities impacted this encounter? (DM, HTN, Smoking, COPD, CAD, Cancer, CVA, ARF, Chemo, Hep., AIDS, mental health diagnosis, sleep apnea, morbid obesity)? @ -None Was patient admitted / discharged? Hospital course, mention meds given and route, prescriptions, significant lab abnormalities, going to OR and other pertinent info. @ -This is a 39-year-old male presenting from [place] for suicidal ayad ations. Denies plan. BAT is 0.225. Urine drug screen negative. Patient does have a history of drinking 4 pints a day, therefore there is concern for withdrawal at this time. CIWA protocol is initiated and patient will be medically cleared to be seen by EPS at 12:30 AM. Case was discussed with my ED attending Dr. Cordova. - Lab Data Result diagrams: 11/28/24 03:00 11/28/24 09:13 Lab Results 11/27/24 11/27/24 11/28/24 Range/Units 16:30 16:30 03:00 WBC 3.1 L (3.8-10.6) k/uL RBC 4.08 L (4.30-5.90) m/uL Hgb 14.2 (13.0-17.5) gm/dL Hct 42.9 (39.0-53.0) % MCV 105.0 H (80.0-100.0) fL MCH 34.8 (25.0-35.0) pg MCHC 33.2 (31.0-37.0) g/dL RDW 13.6 (11.5-15.5) % Plt Count 145 L (150-450) k/uL MPV 7.5 Neutrophils % 27 % Lymphocytes % 59 % Monocytes % 7 % Eosinophils % 2 % Basophils % 2 % Neutrophils # 0.8 L (1.3-7.7) k/uL Lymphocytes # 1.8 (1.0-4.8) k/uL Monocytes # 0.2 (0-1.0) k/uL Eosinophils # 0.1 (0-0.7) k/uL Basophils # 0.1 (0-0.2) k/uL Manual Slide Review Performed Macrocytosis Slight Tear Drop Cells Present Sodium (137-145) mmol/L Potassium (3.5-5.1) mmol/L Chloride (98-107) mmol/L Carbon Dioxide (22-30) mmol/L Anion Gap mmol/L BUN (9-20) mg/dL Creatinine (0.66-1.25) mg/dL Est GFR (CKD-EPI)AfAm (>60 ml/min/1.73 sqM) Est GFR (CKD-EPI)NonAf (>60 ml/min/1.73 sqM) Glucose (74-99) mg/dL Calcium (8.4-10.2) mg/dL Total Bilirubin (0.2-1.3) mg/dL AST (17-59) U/L ALT (4-49) U/L Alkaline Phosphatase (38-126) U/L Total Protein (6.3-8.2) g/dL Albumin (3.5-5.0) g/dL Lipase (23-300) U/L Urine Color Light Brown Urine Appearance Turbid (Clear) Urine pH 5.5 (5.0-8.0) Ur Specific Hooper 1.030 (1.001-1.035) Urine Protein 1+ H (Negative) Urine Glucose (UA) Negative (Negative) Urine Ketones Negative (Negative) Urine Blood Negative (Negative) Urine Nitrite Negative (Negative) Urine Bilirubin Negative (Negative) Urine Urobilinogen 2.0 (<2.0) mg/dL Ur Leukocyte Esterase Negative (Negative) Urine Opiates Screen Not Detected (NotDetected) Ur Oxycodone Screen Not Detected (NotDetected) Urine Methadone Screen Not Detected (NotDetected) Ur Barbiturates Screen Not Detected (NotDetected) U Tricyclic Antidepress Not Detected (NotDetected) Ur Phencyclidine Scrn Not Detected (NotDetected) Ur Amphetamines Screen Not Detected (NotDetected) U Methamphetamines Scrn Not Detected (NotDetected) U Benzodiazepines Scrn Not Detected (NotDetected) Urine Cocaine Screen Not Detected (NotDetected) U Marijuana (THC) Screen Not Detected (NotDetected) SARS-CoV-2 (PCR) (Not Detectd) 11/28/24 11/28/24 Range/Units 03:00 03:00 WBC (3.8-10.6) k/uL RBC (4.30-5.90) m/uL Hgb (13.0-17.5) gm/dL Hct (39.0-53.0) % MCV (80.0-100.0) fL MCH (25.0-35.0) pg MCHC (31.0-37.0) g/dL RDW (11.5-15.5) % Plt Count (150-450) k/uL MPV Neutrophils % % Lymphocytes % % Monocytes % % Eosinophils % % Basophils % % Neutrophils # (1.3-7.7) k/uL Lymphocytes # (1.0-4.8) k/uL Monocytes # (0-1.0) k/uL Eosinophils # (0-0.7) k/uL Basophils # (0-0.2) k/uL Manual Slide Review Macrocytosis Tear Drop Cells Sodium 139 (137-145) mmol/L Potassium 3.8 (3.5-5.1) mmol/L Chloride 99 (98-107) mmol/L Carbon Dioxide 26 (22-30) mmol/L Anion Gap 14 mmol/L BUN 8 L (9-20) mg/dL Creatinine 0.79 (0.66-1.25) mg/dL Est GFR (CKD-EPI)AfAm >90 (>60 ml/min/1.73 sqM) Est GFR (CKD-EPI)NonAf >90 (>60 ml/min/1.73 sqM) Glucose 72 L (74-99) mg/dL Calcium 8.9 (8.4-10.2) mg/dL Total Bilirubin 1.9 H (0.2-1.3) mg/dL AST 303 H (17-59) U/L ALT 126 H (4-49) U/L Alkaline Phosphatase 122 (38-126) U/L Total Protein 8.0 (6.3-8.2) g/dL Albumin 4.3 (3.5-5.0) g/dL Lipase 238 (23-300) U/L Urine Color Urine Appearance (Clear) Urine pH (5.0-8.0) Ur Specific Hooper (1.001-1.035) Urine Protein (Negative) Urine Glucose (UA) (Negative) Urine Ketones (Negative) Urine Blood (Negative) Urine Nitrite (Negative) Urine Bilirubin (Negative) Urine Urobilinogen (<2.0) mg/dL Ur Leukocyte Esterase (Negative) Urine Opiates Screen (NotDetected) Ur Oxycodone Screen (NotDetected) Urine Methadone Screen (NotDetected) Ur Barbiturates Screen (NotDetected) U Tricyclic Antidepress (NotDetected) Ur Phencyclidine Scrn (NotDetected) Ur Amphetamines Screen (NotDetected) U Methamphetamines Scrn (NotDetected) U Benzodiazepines Scrn (NotDetected) Urine Cocaine Screen (NotDetected) U Marijuana (THC) Screen (NotDetected) SARS-CoV-2 (PCR) Not Detected (Not Detectd) Disposition Clinical Impression: Suicidal ideation Disposition: ADMITTED IP TO THIS [facility] Time of Disposition: 04:20
[2024-11-27] MEDS ORDERED: LORazepam 0.5 MG TAB PO PRN (16:47)
[2024-11-27] MEDS ORDERED: LORazepam 1 MG TAB PO PRN ×4 (16:47)
[2024-11-27 17:12] LABS: Amphetamine Screen,Urine Not Detected (NotDetected); Barbiturate Screen,Urine Not Detected (NotDetected); Benzodiazepines Screen,Urine Not Detected (NotDetected); Cocaine Screen,Urine Not Detected (NotDetected); Methadone Screen, Urine Not Detected (NotDetected); Opiate Screen,Urine Not Detected (NotDetected); Oxycodone Screen, Urine Not Detected (NotDetected); Phencyclidine Screen,Urine Not Detected (NotDetected); Tricyclic Antidepressant,Urine Not Detected (NotDetected); Urn Cannabinoid Scrn Not Detected (NotDetected)
[2024-11-27 19:50] VITALS: RESP 18
[2024-11-28 03:33] LABS: ALT 126 U/L (4-49); AST 303 U/L (17-59); African American GFR (CKD) >90 (>60 ml/min/1.73 sqM); Albumin 4.3 g/dL (3.5-5.0); Alkaline Phosphatase 122 U/L (38-126); Anion Gap 14 mmol/L; Blood Urea Nitrogen 8 mg/dL (9-20); Calcium 8.9 mg/dL (8.4-10.2); Carbon Dioxide 26 mmol/L (22-30); Chloride 99 mmol/L (98-107); Glucose 72 mg/dL (74-99); Lipase 238 U/L (23-300); Non-African American GFR(CKD) >90 (>60 ml/min/1.73 sqM); Potassium 3.8 mmol/L (3.5-5.1); Sodium 139 mmol/L (137-145); Total Bilirubin 1.9 mg/dL (0.2-1.3)
[2024-11-28 03:35] LABS: Basophils # (A) 0.1 k/uL (0-0.2); Basophils % (A) 2 %; Eosinophils # (A) 0.1 k/uL (0-0.7); Eosinophils % (A) 2 %; HCT 42.9 % (39.0-53.0); HGB 14.2 gm/dL (13.0-17.5); Lymphocytes # (A) 1.8 k/uL (1.0-4.8); Lymphocytes % (A) 59 %; MCH 34.8 pg (25.0-35.0); MCHC 33.2 g/dL (31.0-37.0); Macrocytosis Slight; Mean Platelet Volume 7.5; Monocytes # (A) 0.2 k/uL (0-1.0); Monocytes % (A) 7 %; Neutrophils # (A) 0.8 k/uL (1.3-7.7); Neutrophils % (A) 27 %; Platelet Count 145 k/uL (150-450); RBC 4.08 m/uL (4.30-5.90); RDW 13.6 % (11.5-15.5); WBC 3.1 k/uL (3.8-10.6)
[2024-11-28 04:15] LABS: Appearance,Urine Turbid (Clear); Bilirubin,Urine Negative (Negative); Blood,Urine Negative (Negative); Color,Urine Light Brown; Glucose,Urine (UA) Negative (Negative); Ketones,Urine Negative (Negative); Leukocyte Esterase,Urine Negative (Negative); Nitrite,Urine Negative (Negative); PH, Urine 5.5 (5.0-8.0); Protein,Urine 1+ (Negative)
[2024-11-28 05:19] LABS: Tear Drop Cells Present
[2024-11-28] MEDS ORDERED: MAG HYDROX/AL HYDROX/SIMETH 355 ML BOTTLE PO PRN (05:35)
[2024-11-28] MEDS ORDERED: MAGNESIUM HYDROXIDE 2,400 MG/30 ML CUP PO PRN (05:35)
[2024-11-28] MEDS ORDERED: haloperidoL 5 MG TAB PO PRN (05:35)
[2024-11-28] MEDS ORDERED: HALOPERIDOL LACTATE 5 MG/ML 1 ML VIAL IM PRN (05:38)
[2024-11-28] MEDS ORDERED: LORazepam 1 MG TAB PO PRN (05:46)
[2024-11-28] MEDS ORDERED: LORazepam 2 MG/ML INJ IM PRN (05:46)
[2024-11-28] MEDS: ACETAMINOPHEN TAB 325 MG TAB PO PRN (06:12)
[2024-11-28] MEDS: LORazepam 1 MG TAB PO PRN ×2 (06:12→07:28)
[2024-11-28] MEDS: ONDANSETRON 4 MG TAB PO PRN (06:33)
[2024-11-28 07:54] VITALS: TEMP 98.5
[2024-11-28 07:56] VITALS: BP 160/97; PULSE 89
[2024-11-28] MEDS: ONDANSETRON 4 MG/2 ML VIAL IVP STA (08:13)
[2024-11-28] MEDS ORDERED: FOLIC ACID 1 MG TAB PO SCH (09:00)
[2024-11-28] MEDS ORDERED: MULTIVITAMINS, THERA 1 EACH TAB PO SCH (09:00)
[2024-11-28] MEDS ORDERED: NICOTINE 14MG/24HR PATCH TRANSDERM SCH (09:00)
[2024-11-28] MEDS ORDERED: THIAMINE 100 MG TAB PO SCH (09:00)
[2024-11-28 09:47] LABS: ALT 137 U/L (4-49); AST 346 U/L (17-59); African American GFR (CKD) >90 (>60 ml/min/1.73 sqM); Albumin 4.5 g/dL (3.5-5.0); Alkaline Phosphatase 127 U/L (38-126); Anion Gap 18 mmol/L; Blood Urea Nitrogen 8 mg/dL (9-20); Calcium 9.1 mg/dL (8.4-10.2); Carbon Dioxide 21 mmol/L (22-30); Chloride 100 mmol/L (98-107); Glucose 72 mg/dL (74-99); Non-African American GFR(CKD) >90 (>60 ml/min/1.73 sqM); Potassium 4.1 mmol/L (3.5-5.1); Sodium 139 mmol/L (137-145); Total Protein 8.3 g/dL (6.3-8.2)
[2024-11-28 22:52] LABS: Chol/HDL Ratio 2.31 Ratio; LDL Cholesterol,Calculated 102.9 mg/dL (0.0-131.0)
== END 2024-11-28 08:19 | disposition short-term general hospital (02) | DRG 750 ==
LOC: EC 14:00 → 3MHU 11-28 05:27 → 6NMEDSUR 11-28 08:05 → UNDODISIN 11-28 08:19
PROVIDERS: ADMIT Hospitalist; ATTEND Psychiatry & Neurology Psychiatry
DX: F33.3 Major depressive disorder, recurrent, severe with psychotic symptoms (principal); F10.239 Alcohol dependence with withdrawal, unspecified; I10 Essential (primary) hypertension; F17.210 Nicotine dependence, cigarettes, uncomplicated; F41.1 Generalized anxiety disorder; R45.851 Suicidal ideations; Z56.0 Unemployment, unspecified; Z65.3 Problems related to other legal circumstances; Z79.899 Other long term (current) drug therapy; Z11.52 Encounter for screening for COVID-19
CPT/HCPCS: 36415; 80053; 80061; 80306; 81001; 82075; 83036; 83690; 84443; 85025; 87635; 99285

== ENCOUNTER 2024-11-28 07:20 | Inpatient (IN) | payer OTHER ==
[2024-11-28] MEDS ORDERED: NALOXONE 0.4 MG/ML 1 ML VIAL IV PRN (08:53)
[2024-11-28] MEDS ORDERED: LORazepam 2 MG/ML INJ IV PRN ×2 (08:58)
[2024-11-28] MEDS: ACETAMINOPHEN TAB 325 MG TAB PO PRN (10:24)
[2024-11-28] MEDS: THIAMINE 100 MG TAB PO SCH (10:25)
[2024-11-28] MEDS: MULTIVITAMINS, THERA 1 EACH TAB PO SCH (10:25)
[2024-11-28] MEDS: FOLIC ACID 1 MG TAB PO SCH (10:25)
--- NOTE | 2024-11-28 12:11 | P.HPIM ---
History of Present Illness H&P Date: 11/28/24 History of Presenting Illness: Patient is a 39-year-old male with a past medical history of daily alcohol abuse reportedly drinking 4 pints of liquor daily and dependence. Patient was initially sent to the hospital on 11/27/2024 from [place] secondary to reports of suicidal ideations. Patient underwent evaluation in the emergency department and was admitted to inpatient mental health unit, however while on inpatient mental health unit patient had elevated CIWA score reported to be 18 and was then transferred to inpatient hospital room 630 for acute alcohol withdraw and elevated CIWA score. Morning labs reviewed. CBC showing bicytopenia with WBC count of 3.1 and platelet count of 145. BMP showing mild hypocarbia with bicarb of 21, elevated anion gap of 18, and blood glucose of 72. Liver profile showing transaminitis with total bili of 2.0, AST of 346, ALT of 137, and alkaline phosphatase of 127. TSH 1.800. Urine drug screen negative. COVID PCR negative. Vital signs showing blood pressure 127/87, heart rate 101, respiratory rate 16, temp 98.2 F, and SpO2 of 99% on room air. Patient seen and fully evaluated in room 630. Sitter at bedside maintaining safety. Patient currently denies having any headache, lightheadedness, dizziness, chest pain, palpitations, shortness of breath, or experiencing any numbness/tingling/weakness in his extremities. He again reports drinking 4 pints of liquor daily and states last alcoholic drink was yesterday but he only drank 1 pint prior to going to [place] and being sent to the emergency department. Patient admits to feeling slightly anxious and tremulous. Admits to reporting suicidal ideations. Denies having any visual, auditory, or tactile hallucinations. He denies any abdominal pain, nausea, or vomiting. Patient admitted under our services for medical assisted detox with consult to psychiatry. Review of systems: Pertinent positives and negatives as discussed in HPI, a complete review of systems was performed and all other systems are negative. Physical exam: Vital signs reviewed and stable. General: Nontoxic, no distress and appears stated age. Derm: Skin warm and dry, normal coloration for ethnicity. Head: Atraumatic, normocephalic and symmetric. Eyes: EOM's intact, no lid lag, and anicteric sclera Mouth: no lip lesions, mucus membranes moist Cardiovascular: Tachycardic rate and regular rhythm with normal S1S2, no murmur, positive posterior tibial pulses bilaterally, and cap refill < 2 seconds. Lungs: Respirations even, regular, and unlabored on room air. Lungs CTA bilaterally, no rhonchi, no rales, no wheezing, and no accessory muscle usage. Abdominal: soft, nontender to palpation, no guarding, no appreciable organomegaly Ext: ROM intact. No gross muscle atrophy, no edema, no contractures Neuro: Speech clear, face symmetrical and CN II-XII grossly intact with no noted focal neuro deficits Psych: Alert and oriented to person, place, time, and situation. Appropriate and pleasant affect. Assessment and Plan of Care: Acute alcohol withdraw in active alcoholic Hyperbilirubinemia with transaminitis, secondary to daily alcohol abuse Bicytopenia, secondary to daily alcohol abuse -Order placed for monitoring of CIWA scores and patient to be medicated with Ativan 0.5 mg every 4 hours as needed for CIWA score of 4-5, Ativan 1 mg every 4 hours for CIWA score of 6-7, Ativan 2 mg every 3 hours CIWA score of 8-9, and Ativan 2 mg every 2 hours forr CIWA score of 10 or greater. -Continuous IV hydration with lactated Ringer's at 125 cc/h. -Thiamine 100 mg daily, and Multivitamin daily, and Folate 1 mg daily -Seizure, fall, and elopement precautions in place. -Urine drug screen negative. -Continued close monitoring of electrolytes and replace as needed. -Telemetry monitoring. Suicidal ideations -Maintain strict suicide precautions with one-to-one sitter at bedside at all times -Consult placed to psychiatry Data and imaging reviewed: As stated above in HPI The patient is admitted with an anticipated greater than 2 midnight stay for evaluation of alcohol withdrawal and suicidal ideations CODE STATUS: Full code DVT prophylaxis: Lovenox Anticipated discharge date: Pending clinical course Anticipated discharge place: Return to inpatient psychiatric unit Patient was seen independently by Nurse Practitioner. This document was prepared using [employer] dictation software. Please allow for errors in quality improvement coordinator while rare they do occur. Ebenezer Mcdowell NP rendered care for this patient independently, reviewed the findings and plan as documented in the note above and agree with plan. I did not physically speak with or examine the patient on this date. Past Medical History Past Medical History: Liver Disease Additional Past Medical History / Comment(s): pancreatitis, gout. History of Any Multi-Drug Resistant Organisms: None Reported Past Surgical History: Ear Surgery Additional Past Surgical History / Comment(s): tubes in ears bilaterally Past Anesthesia/Blood Transfusion Reactions: No Reported Reaction Past Psychological History: Anxiety, Depression Smoking Status: Current some day smoker Past Alcohol Use History: Abuse, Daily, Heavy Past Drug Use History: Marijuana - Past Family History Father History Unknown: Yes Mother Family Medical History: Diabetes Mellitus Medications and Allergies Home Medications Medication Instructions Recorded Confirmed Type No Known Home Medications 11/27/24 11/28/24 History Allergies Allergy/AdvReac Type Severity Reaction Status Date / Time adhesive tape Allergy Rash/Hives Verified 11/27/24 16:44 codeine Allergy Rash/Hives Verified 11/27/24 16:44 Physical Exam Vitals: Vital Signs Pulse 11/28/24 08:28 101 H Intake and Output 11/27/24 11/28/24 11/28/24 22:59 06:59 14:59 Other: Weight 136.078 kg
[2024-11-28] MEDS: KETOROLAC 15 MG/ML 1 ML VIAL IVP PRN (12:44)
[2024-11-28] MEDS: LACTATED RINGERS 1,000 ML IV SCH (12:44)
[2024-11-28] MEDS: NICOTINE 21MG/24HR PATCH TRANSDERM SCH (12:46)
[2024-11-28] MEDS: LORazepam 2 MG/ML INJ IV PRN (12:55)
--- NOTE | 2024-11-28 13:18 | P.CN ---
Psychiatric Consult - . Consult date: 11/28/24 Consult:: 11/28/24 12:32 IDENTIFYING DATA: This patient is a 39-year-old -Stateless male, unemployed and living with [place] and 4 children REASON FOR REFERRAL: Psychiatry was consulted for suicidal ideations HISTORY OF PRESENT ILLNESS: The patient presented to the hospital from [place] with suicidal ideations that have been occurring for the past 5 months. Patient reportedly has been drinking 4 pints of hard liquor per day. LFTs were elevated, WBC decreased at 3.1. Patient was ultimately admitted to the behavioral health unit however exhibited high CIWA scores up to 22, profuse emesis and unstable vitals and was ultimately transferred to the medical floor for further stabilization. Patient seen and evaluated in his room with sitter at bedside. He expresses drinking heavily for the past 20 years and that his longest period of sobriety was 2 years and he states being active with his children and work was helpful with maintaining his sobriety during that time period. He has gone to rehab 4 times and ultimately wishes to return there once stabilized. He expresses predominant depressive symptoms including poor sleep and appetite, low energy, anhedonia denying any issues with concentration or anxiety. At this time patient denies any suicidal or homical ideations, intent or plan. He does admit to having suicidal ideations earlier this morning and was unable to elicit why they have improved in such a short period. Patient denies any auditory, visual hallucinations and denies any paranoia or delusions. Patients admits to using alcohol, smoking 1/2 pack a day of cigarettes and occasional cannabis. PAST PSYCHIATRIC HISTORY: Patient has a history of MDD, alcohol use disorder. Patient denies being on any psychiatric medications. He has previously tried Vivitrol, Prozac, BuSpar, Abilify Maintena, lithium, Lexapro, Vistaril, trazodone. Feels as though Lexapro and Prozac made him feel like a zombie and that he has discontinued Vivitrol for unknown reasons. Patient has had at least 8 inpatient hospitalizations, most recent being 2023. Patient currently not open with [facility] but previously was following with them. Patient reportedly has had 4 previous suicide attempts, most recent September 2023. PAST MEDICAL HISTORY: Pancreatitis, liver disease, gout. ALLERGIES: as per EMR. CHEMICAL DEPENDENCY HISTORY: as per HPI. FAMILY PSYCHIATRIC/SUBSTANCE USE HISTORY: Denies SOCIAL HISTORY: Patient completed high school however is currently unemployed, living at home with his fiance and 4 children. MENTAL STATUS EXAM: General Appearance: Patient appears to be stated age is alert, pleasant, and cooperative. Patient appears to have poor hygiene and grooming wearing hospital gown with downcast eye contact. Behavior: Patient appeared uncomfortable, slight emesis towards the end of the interview Speech: Patient's speech is fluent and nonpressured. Mood/Affect: Patient reports their mood is "all right", affect is congruent, flat Suicidality/Homicidality: Patient denies having any suicidal or homicidal ideation intent or plan. Perceptions: Patient denies any visual hallucinations and denies any auditory hallucinations Though content/process: There is no evidence of any delusional thought content and thought process is linear. Memory and concentration: AOX3, grossly intact for the purposes of this session. Can spell "WORLD" backwards Judgment and insight: Poor IMPRESSIONS: Alcohol use disorder, severe in withdrawal Major depressive disorder, recurrent, moderate Nicotine dependence PLAN: -At this time patient DOES meet criteria for inpatient psychiatric admission. -Would recommend the following medication changes/additions: Given patient's elevated LFTs and emesis, will hold off on initiating any psychotropic medications at this time but will reevaluate once transferred back to the behavioral health unit -[facility] protocol with PRN Ativan for alcohol withdrawal. Continue to monitor vital signs. -Continue 1:1 sitter for safety -Cannot leave AMA at this time. Patient will need a petition and certification if attempting to leave AMA. -When medically stable, patient is eligible for transfer to a psych bed when available. -Communicated plan to patient's nurse -Psychiatry will sign off at this time -Please contact with any questions. 11/28/24 12:34 11/28/24 12:35 11/28/24 13:12
[2024-11-28] MEDS: PROCHLORPERAZINE INJ 10 MG/2 ML VIAL IVP PRN (16:39)
[2024-11-29] MEDS: LORazepam 0.5 MG TAB PO PRN (03:44)
[2024-11-29 08:47] LABS: HCT 37.1 % (39.6-50.0); HGB 12.6 g/dL (13.0-17.0); MCH 34.6 pg (27.0-32.0); MCV 101.9 FL (80.0-97.0); Mean Platelet Volume 10.7 FL (9.5-12.2); NRBC Per 100 WBC 0 X 10*3/uL (0.00-0.01); Platelet Count 109 X 10*3/uL (140-440); RBC 3.64 X 10*6/uL (4.40-5.60); RDW 13.2 % (11.5-14.5); WBC 2.39 X 10*3/uL (4.50-10.00)
[2024-11-29 08:49] LABS: ALT 165 U/L (10-49); AST 540 U/L (14-35); Albumin 3.9 g/dL (3.8-4.9); Albumin/Globulin Ratio 1.34 Ratio (1.60-3.17); Alkaline Phosphatase 105 U/L (41-126); BUN/Creat Ratio 7.33 Ratio (12.00-20.00); Blood Urea Nitrogen 6.6 mg/dL (9.0-27.0); Carbon Dioxide 26.2 mmol/L (21.6-31.8); Chloride 100 mmol/L (96-109); Globulin 2.9 g/dL (1.6-3.3); Glucose 140 mg/dL (70-110); Magnesium 1.4 mg/dL (1.5-2.4); Potassium 3.7 mmol/L (3.5-5.5); Sodium 139 mmol/L (135-145); Total Protein 6.8 g/dL (6.2-8.2)
[2024-11-29] MEDS: ENOXAPARIN 40 MG/0.4 ML SYRINGE SQ SCH (09:09)
[2024-11-29] MEDS: MAGNESIUM SULFATE-D5W PMX 1 GM in DEXTROSE/WATER 1 100ML.BAG IVPB SCH (11:10)
[2024-11-29] MEDS: POTASSIUM CHLORIDE ER 20 MEQ TAB.ER PO STA (11:10)
--- NOTE | 2024-11-29 16:47 | P.PN ---
Subjective Progress Note Date: 11/29/24 Hospital course:: Patient is a 39-year-old male with a past medical history of daily alcohol abuse reportedly drinking 4 pints of liquor daily and dependence. Patient was initially sent to the hospital on 11/27/2024 from [place] secondary to reports of suicidal ideations. Patient underwent evaluation in the emergency department and was admitted to inpatient mental health unit, however while on inpatient mental health unit patient had elevated CIWA score reported to be 18 and was then transferred to inpatient hospital room 630 for acute alcohol withdraw and elevated CIWA score. Labs upon admission were completed and reviewed. CBC showing bicytopenia with WBC count of 3.1 and platelet count of 145. BMP showing mild hypocarbia with bicarb of 21, elevated anion gap of 18, and blood glucose of 72. Liver profile showing transaminitis with total bili of 2.0, AST of 346, ALT of 137, and alkaline phosphatase of 127. TSH 1.800. Urine drug screen negative. COVID PCR negative. Vital signs showing blood pressure 127/87, heart rate 101, respiratory rate 16, temp 98.2 F, and SpO2 of 99% on room air. 11/28/24 Patient seen and fully evaluated in room 630. Sitter at bedside maintaining safety. Patient currently denies having any headache, lightheadedness, dizziness, chest pain, palpitations, shortness of breath, or experiencing any numbness/tingling/weakness in his extremities. He again reports drinking 4 pints of liquor daily and states last alcoholic drink was yesterday but he only drank 1 pint prior to going to [place] and being sent to the emergency department. Patient admits to feeling slightly anxious and tremulous. Admits to reporting suicidal ideations. Denies having any visual, auditory, or tactile hallucinations. He denies any abdominal pain, nausea, or vomiting. Patient admitted under our services for medical assisted detox with consult to psychiatry. 11/29/24: Patient was seen and fully evaluated at bedside this morning. He was resting comfortably with regional safety manager at bedside. Patient has only required 3.5 mg of Ativan over the past 24 hours. Currently CIWA score is 0. Will continue to monitor patient's Ativan needs throughout the day CIWA score remains low and patient's Ativan requirements remain low we will plan for discharge back to inpatient mental health unit. Physical exam: Vital signs reviewed and stable. General: Nontoxic, no distress and appears stated age. Derm: Skin warm and dry, normal coloration for ethnicity. Head: Atraumatic, normocephalic and symmetric. Eyes: EOM's intact, no lid lag, and anicteric sclera Mouth: no lip lesions, mucus membranes moist Cardiovascular: Regular rate and rhythm with normal S1S2, no murmur, positive posterior tibial pulses bilaterally, and cap refill < 2 seconds. Lungs: Respirations even, regular, and unlabored on room air. Lungs CTA bilaterally, no rhonchi, no rales, no wheezing, and no accessory muscle usage. Abdominal: soft, nontender to palpation, no guarding, no appreciable organomegaly Ext: ROM intact. No gross muscle atrophy, no edema, no contractures Neuro: Speech clear, face symmetrical and CN II-XII grossly intact with no noted focal neuro deficits Psych: Alert and oriented to person, place, time, and situation. Appropriate and pleasant affect. Assessment and Plan of Care: Acute alcohol withdraw in active alcoholic Hyperbilirubinemia with transaminitis, secondary to daily alcohol abuse Pancytopenia, secondary to daily alcohol abuse Hypomagnesemia -Continue monitoring of CIWA scores and patient to be medicated with Ativan 0.5 mg every 4 hours as needed for CIWA score of 4-5, Ativan 1 mg every 4 hours for CIWA score of 6-7, Ativan 2 mg every 3 hours CIWA score of 8-9, and Ativan 2 mg every 2 hours forr CIWA score of 10 or greater. -Thiamine 100 mg daily, and Multivitamin daily, and Folate 1 mg daily -Seizure, fall, and elopement precautions in place. -Urine drug screen negative. -Magnesium 1.4. Orders placed for magnesium sulfate 3 g IVPB. -Continued close monitoring of electrolytes and replace as needed. -Telemetry monitoring. Suicidal ideations -Maintain strict suicide precautions with one-to-one sitter at bedside at all times -Psychiatry following, reviewed documentation in chart. Data and imaging reviewed: Morning labs reviewed. CBC showing pancytopenia with WBC count of 2.39, hemoglobin of 12.6, and platelet count of 109 with macrocytosis with MCV of 101.9. BMP showing elevated anion gap of 12.80 and blood glucose of 140. Magnesium was low at 1.4. Liver profile showing elevated total bili of 2.0, AST of 540, ALT of 165, and alkaline phosphatase of 105. Lipase was normal findings at 244. Vital signs reviewed. Blood pressure 159/96, heart rate 87, respiratory rate 16, temp 98.4 F, and SpO2 of 99% on room air. CODE STATUS: Full code DVT prophylaxis: Lovenox Anticipated discharge date: Pending clinical course Anticipated discharge place: Return to inpatient psychiatric unit Patient was seen independently by Nurse Practitioner. This document was prepared using [employer] dictation software. Please allow for errors in firer helper while rare they do occur. Ebenezer Mcdowell NP rendered care for this patient independently, reviewed the findings and plan as documented in the note above and agree with plan. I did not physically speak with or examine the patient on this date. Objective - Vital Signs Vital signs: Vital Signs Temp 98.4 F 11/29/24 07:35 Pulse 87 11/29/24 07:35 Resp 16 11/29/24 07:35 BP 159/96 11/29/24 07:35 Pulse Ox 99 11/29/24 07:35 FiO2 Intake & Output 11/28/24 11/29/24 11/29/24 18:59 06:59 18:59 Intake Total 118 1140 360 Balance 118 1140 360 Weight 136.078 kg Intake: Oral 118 1140 360 Other: # Voids 1 4 # Bowel Movements 2 - Labs CBC & Chem 7: 11/29/24 05:19 11/29/24 05:19 Labs: Abnormal Lab Results - Last 24 Hours (Table) 11/29/24 11/29/24 Range/Units 05:19 05:19 WBC 2.39 L (4.50-10.00) X 10*3/uL RBC 3.64 L (4.40-5.60) X 10*6/uL Hgb 12.6 L (13.0-17.0) g/dL Hct 37.1 L (39.6-50.0) % MCV 101.9 H (80.0-97.0) FL MCH 34.6 H (27.0-32.0) pg Plt Count 109 L (140-440) X 10*3/uL Anion Gap 12.80 H (4.00-12.00) mmol/L BUN 6.6 L (9.0-27.0) mg/dL BUN/Creatinine Ratio 7.33 L (12.00-20.00) Ratio Glucose 140 H (70-110) mg/dL Magnesium 1.4 L (1.5-2.4) mg/dL Total Bilirubin 2.0 H (0.3-1.2) mg/dL AST 540 H (14-35) U/L ALT 165 H (10-49) U/L Albumin/Globulin Ratio 1.34 L (1.60-3.17) Ratio
[2024-11-29] MEDS: DOCUSATE 100 MG CAP PO PRN (20:30)
[2024-11-30] MEDS: MELATONIN 3 MG TABLET PO PRN (02:53)
[2024-11-30 10:06] LABS: HCT 36.1 % (39.6-50.0); HGB 12.1 g/dL (13.0-17.0); MCH 34.5 pg (27.0-32.0); MCHC 33.5 g/dL (32.0-37.0); MCV 102.8 FL (80.0-97.0); Mean Platelet Volume 10.3 FL (9.5-12.2); NRBC Per 100 WBC 0 X 10*3/uL (0.00-0.01); Platelet Count 94 X 10*3/uL (140-440); RBC 3.51 X 10*6/uL (4.40-5.60); RDW 13.1 % (11.5-14.5); WBC 2.44 X 10*3/uL (4.50-10.00)
[2024-11-30] MEDS: LORazepam 1 MG TAB PO PRN (12:29)
[2024-11-30 13:14] LABS: ALT 152 U/L (10-49); AST 331 U/L (14-35); Albumin 3.9 g/dL (3.8-4.9); Albumin/Globulin Ratio 1.22 Ratio (1.60-3.17); Alkaline Phosphatase 106 U/L (41-126); BUN/Creat Ratio <5.00 Ratio (12.00-20.00); Blood Urea Nitrogen <3.5 mg/dL (9.0-27.0); Carbon Dioxide 23.9 mmol/L (21.6-31.8); Chloride 103 mmol/L (96-109); Globulin 3.2 g/dL (1.6-3.3); Glucose 121 mg/dL (70-110); Magnesium 1.7 mg/dL (1.5-2.4); Sodium 138 mmol/L (135-145); Total Bilirubin 1.8 mg/dL (0.3-1.2); Total Protein 7.1 g/dL (6.2-8.2)
--- NOTE | 2024-11-30 13:33 | P.DS ---
Providers Date of admission: 11/28/24 08:25 Expected date of discharge: 11/30/24 Attending physician: Oren Azevedo Consults: 11/28/24 09:00 Consult Physician Routine Consulting Provider: Jorge Wayne Consult Reason/Comments: suicidal, was inpt MHU transferred to inpt for elevated CIWA score Do you want consulting provider notified?: Yes Primary care physician: Stated None Hospital Course: 39-year-old male with a past medical history of daily alcohol abuse reportedly drinking 4 pints of liquor daily and dependence. Patient was initially sent to the hospital on 11/27/2024 from [place] secondary to reports of suicidal ideations. Patient underwent evaluation in the emergency department and was admitted to inpatient mental health unit, however while on inpatient mental health unit patient had elevated CIWA score reported to be 18 and was then transferred to inpatient hospital room 630 for acute alcohol withdraw and elevated CIWA score. Labs upon admission were completed and reviewed. CBC showing bicytopenia with WBC count of 3.1 and platelet count of 145. BMP showing mild hypocarbia with bicarb of 21, elevated anion gap of 18, and blood glucose of 72. Liver profile showing transaminitis with total bili of 2.0, AST of 346, ALT of 137, and alkaline phosphatase of 127. TSH 1.800. Urine drug screen negative. COVID PCR negative. Vital signs showing blood pressure 127/87, heart rate 101, respiratory rate 16, temp 98.2 F, and SpO2 of 99% on room air. Started on CIWA protocol and given Ativan as needed. Symptoms improved. Medically stable for transfer to MHU. 11/30 Patient was seen and examined. Feeling well. No complaints. CBC and CMP significant for RBC 2.44, RBC 3.51, Hg 12.1, MCV 102.8, Plt 94, glu 121, T. Bili 1.8, AST 331, ALT 152. Mag 1.7. General: non toxic, no distress, appears at stated age Derm: warm, dry Head: atraumatic, normocephalic, symmetric Eyes: EOMI, no lid lag, anicteric sclera Mouth: no lip lesion, mucus membranes moist Cardiovascular: good distal perfusion in all 4 extremities Lungs: breathing comfortably, no accessory muscle use Ext: no gross muscle atrophy, no edema, no contractures Neuro: no focal neuro deficits Psych: Alert, oriented, appropriate affect Discharge Diagnosis: Acute alcohol withdraw in active alcoholic Hyperbilirubinemia with transaminitis, secondary to daily alcohol abuse Pancytopenia, secondary to daily alcohol abuse Hypomagnesemia Suicidal ideations This complex discharge took 35 minutes to complete. Patient Condition at Discharge: Stable Plan - Discharge Summary Discharge Rx Participant: No New Discharge Prescriptions: New Folic Acid 1 mg PO DAILY tab Melatonin 3 mg PO HS PRN tab PRN Reason: Insomnia Docusate [Colace] 100 mg PO BID PRN cap PRN Reason: Constipation Nicotine 21Mg/24Hr Patch [Habitrol] 1 patch TRANSDERM DAILY patch Multivitamins, Thera [Multivitamin (formulary)] 1 each PO DAILY tab Acetaminophen Tab [Tylenol] 650 mg PO Q6HR PRN tab PRN Reason: Mild Pain Or Fever > 100.5 Thiamine [Vitamin B-1] 100 mg PO DAILY tab Discharge Medication List Acetaminophen Tab [Tylenol] 650 mg PO Q6HR PRN tab 11/30/24 [Rx] Docusate [Colace] 100 mg PO BID PRN cap 11/30/24 [Rx] Folic Acid 1 mg PO DAILY tab 11/30/24 [Rx] Melatonin 3 mg PO HS PRN tab 11/30/24 [Rx] Multivitamins, Thera [Multivitamin (formulary)] 1 each PO DAILY tab 11/30/24 [Rx] Nicotine 21Mg/24Hr Patch [Habitrol] 1 patch TRANSDERM DAILY patch 11/30/24 [Rx] Thiamine [Vitamin B-1] 100 mg PO DAILY tab 11/30/24 [Rx] Follow up Appointment(s)/Referral(s): [facility] [NON-STAFF] - 1 Week Discharge/Stand Alone Forms: AA Meetings [facility] [place], Who Do I Call?, Community Resources, Outpatient Counseling, Inp Substance Abuse Facilities, Area PCPs Discharge Disposition: TRANSFER TO PSYCH HOSP/UNIT
[2024-11-30 14:29] VITALS: BP 158/102; PULSE 96; RESP 15; TEMP 98.3
[2024-11-30] MEDS: cloNIDine HCL 0.1 MG TAB PO STA (15:03)
== END 2024-11-30 16:11 | disposition home or self-care (01) | DRG 775 ==
LOC: 6NMEDSUR 08:20 → UNDOADMIN 08:25 → 6NMEDSUR 08:25 → UNDODISIN 11-30 16:11
PROVIDERS: ADMIT Student in an Organized Health Care Education/Training Program; ATTEND Student in an Organized Health Care Education/Training Program
DX: F10.239 Alcohol dependence with withdrawal, unspecified (principal); F33.1 Major depressive disorder, recurrent, moderate; F17.210 Nicotine dependence, cigarettes, uncomplicated; F41.9 Anxiety disorder, unspecified; R17 Unspecified jaundice; R45.851 Suicidal ideations; D61.818 Other pancytopenia; E83.42 Hypomagnesemia; Z56.0 Unemployment, unspecified; Z91.51 Personal history of suicidal behavior; Z88.5 Allergy status to narcotic agent
CPT/HCPCS: 80053; 83690; 83735; 85027

== ENCOUNTER 2025-01-17 09:50 | Emergency (ER) | payer OTHER ==
[2025-01-17 09:55] LABS: Glucose,Whole Blood 421 mg/dL (70-110)
[2025-01-17 09:56] VITALS: RESP 20; TEMP 97.8
[2025-01-17 10:58] LABS: Basophils # (A) 0.1 k/uL (0-0.2); Basophils % (A) 1 %; Eosinophils # (A) 0.2 k/uL (0-0.7); Eosinophils % (A) 3 %; HCT 42.8 % (39.0-53.0); HGB 13.9 gm/dL (13.0-17.5); Lymphocytes # (A) 1.8 k/uL (1.0-4.8); Lymphocytes % (A) 34 %; MCH 32.2 pg (25.0-35.0); MCHC 32.4 g/dL (31.0-37.0); Mean Platelet Volume 7.9; Monocytes # (A) 0.2 k/uL (0-1.0); Monocytes % (A) 4 %; Neutrophils # (A) 2.9 k/uL (1.3-7.7); Neutrophils % (A) 56 %; Platelet Count 251 k/uL (150-450); RBC 4.31 m/uL (4.30-5.90); RDW 12.5 % (11.5-15.5); WBC 5.3 k/uL (3.8-10.6)
[2025-01-17 10:59] LABS: Appearance,Urine Clear (Clear); Bilirubin,Urine Negative (Negative); Blood,Urine Negative (Negative); Color,Urine Light Yellow; Glucose,Urine (UA) 4+ (Negative); Leukocyte Esterase,Urine Negative (Negative); Nitrite,Urine Negative (Negative); PH, Urine 5.5 (5.0-8.0); Protein,Urine Negative (Negative); Specific Gravity,Urine 1.038 (1.001-1.035); Urobilinogen,Urine <2.0 mg/dL (<2.0)
[2025-01-17 10:59] LABS: ALT 62 U/L (4-49); AST 58 U/L (17-59); African American GFR (CKD) >90 (>60 ml/min/1.73 sqM); Alkaline Phosphatase 64 U/L (38-126); Anion Gap 12 mmol/L; Blood Urea Nitrogen 6 mg/dL (9-20); Calcium 9.2 mg/dL (8.4-10.2); Carbon Dioxide 24 mmol/L (22-30); Chloride 96 mmol/L (98-107); Glucose 388 mg/dL (74-99); Non-African American GFR(CKD) >90 (>60 ml/min/1.73 sqM); Sodium 132 mmol/L (137-145); Total Bilirubin 0.9 mg/dL (0.2-1.3)
[2025-01-17 11:01] LABS: MCV 99.4 fL (80.0-100.0)
--- NOTE | 2025-01-17 11:13 | ED ---
Recheck HPI - General Chief Complaint: Recheck/Abnormal Lab/Rx Stated Complaint: high sugar Time Seen by Provider: 01/17/25 11:12 Source: patient, RN notes reviewed Mode of arrival: ambulatory Limitations: no limitations - History of Present Illness Initial Comments: 39-year-old male was recently diagnosed with diabetes presenting to the emergency department for hyperglycemia. Patient states that he was monitoring his blood sugar at home when it was noted to be in the upper 400s. Patient was evaluated at outside ER on Monday where he was provided with fluids and insulin was discharged home. Patient was prompted by his primary care provider to r eport to the emergency department for concerns of hyperglycemia with ketonuria. He states that over the past week he has been experiencing polyphasia, polydipsia, polyuria. Patient has recently started metformin for blood glucose control with first doses being yesterday. Yesterday endorses nausea and emesis. Currently states he is feeling well denies chest pain, difficulty breathing, abdominal pain, nausea, blurry double vision. - Related Data Previous Rx's Medication Instructions Recorded Acetaminophen Tab [Tylenol] 650 mg PO Q6HR PRN tab 11/30/24 Docusate [Colace] 100 mg PO BID PRN cap 11/30/24 Folic Acid 1 mg PO DAILY tab 11/30/24 Melatonin 3 mg PO HS PRN tab 11/30/24 Multivitamins, Thera [Multivitamin 1 each PO DAILY tab 11/30/24 (formulary)] Nicotine 21Mg/24Hr Patch [Habitrol] 1 patch TRANSDERM DAILY patch 11/30/24 Thiamine [Vitamin B-1] 100 mg PO DAILY tab 11/30/24 Allergies Allergy/AdvReac Type Severity Reaction Status Date / Time adhesive tape Allergy Rash/Hives Verified 01/17/25 09:56 codeine Allergy Rash/Hives Verified 01/17/25 09:56 Review of Systems ROS Statement: Those systems with pertinent positive or pertinent negative responses have been documented in the HPI. ROS Other: All systems not noted in ROS Statement are negative. Past Medical History Past Medical History: Diabetes Mellitus, Liver Disease Additional Past Medical History / Comment(s): pancreatitis, gout. History of Any Multi-Drug Resistant Organisms: None Reported Past Surgical History: Ear Surgery Additional Past Surgical History / Comment(s): tubes in ears bilaterally Past Anesthesia/Blood Transfusion Reactions: No Reported Reaction Past Psychological History: Anxiety, Depression Smoking Status: Current some day smoker Past Alcohol Use History: Abuse, Daily, Heavy Past Drug Use History: Marijuana - Past Family History Father History Unknown: Yes Mother Family Medical History: Diabetes Mellitus General Exam Limitations: no limitations General appearance: alert, in no apparent distress ENT exam: Present: normal exam, mucous membranes moist Neck exam: Present: normal inspection. Absent: tenderness, meningismus, lymphadenopathy Respiratory exam: Present: normal lung sounds bilaterally. Absent: respiratory distress, wheezes, rales, rhonchi, stridor Cardiovascular Exam: Present: regular rate, normal rhythm, normal heart sounds. Absent: systolic murmur, diastolic murmur, rubs, gallop, clicks GI/Abdominal exam: Present: soft, normal bowel sounds. Absent: distended, tenderness, guarding, rebound, rigid Extremities exam: Present: normal inspection, full ROM, normal capillary refill. Absent: tenderness, pedal edema, joint swelling, calf tenderness Skin exam: Present: warm, dry, intact, normal color. Absent: rash Course Vital Signs 01/17/25 01/17/25 09:52 15:57 Temperature 97.8 F Pulse Rate 83 91 Respiratory 20 20 Rate Blood Pressure 161/97 157/119 O2 Sat by Pulse 99 99 Oximetry Medical Decision Making - Medical Decision Making Was pt. sent in by a medical professional or institution ([facility], [employer], urgent care, hospital, or shelter...) When possible be specific @ -Patient was advised by primary care provider to report to emergency room for further evaluation of hyperglycemia with ketonuria Did you speak to anyone other than the patient for history (EMS, parent, family, police, friend...)? What history was obtained from this source @ -No Did you review nursing and triage notes (agree or disagree)? Why? @ -I reviewed and agree with nursing and triage notes Were old charts reviewed (outside hosp., previous admission, EMS record, old EKG, old radiological studies, urgent care reports/EKG's, shelter records)? Report findings @ -No old charts were reviewed Differential Diagnosis (chest pain, altered mental status, abdominal pain women, abdominal pain men, vaginal bleeding, weakness, fever, dyspnea, syncope, headache, dizziness, GI bleed, back pain, seizure, CVA, palpatations, mental health, musculoskeletal)? @ -Hyperglycemia, hypomagnesemia, hyponatremia, hypernatremia, diabetic ketoacidosis, HHS, this list is not all inclusive EKG interpreted by me (3pts min.). @ -None X-rays interpreted by me (1pt min.). @ -None done CT interpreted by me (1pt min.). @ -None done U/S interpreted by me (1pt. min.). @ -None done What testing was considered but not performed or refused? (CT, X-rays, U/S, labs)? Why? @ -None What meds were considered but not given or refused? Why? @ -None Did you discuss the management of the patient with other professionals (pr ofessionals i.e. , PA, [employer]AY I PAINTER, lab, RT, psych nurse, social sciences instructor, intraoperative neuro tech, teacher, tactical response group officer, case specialist)? Give summary @ -No Was smoking cessation discussed for >3mins.? @ -No Was critical care preformed (if so, how long)? @ -No Were there social determinants of health that impacted care today? How? (Homelessness, low income, unemployed, alcoholism, drug addiction, transportation, low edu. Level, literacy, decrease access to med. care, senior living, rehab)? @ -No Was there de-escalation of care discussed even if they declined (Discuss DNR or withdrawal of care, Hospice)? DNR status @ -No What co-morbidities impacted this encounter? (DM, HTN, Smoking, COPD, CAD, Cancer, CVA, ARF, Chemo, Hep., AIDS, mental health diagnosis, sleep apnea, morbid obesity)? @ -Hypertension, diabetes Was patient admitted / discharged? Hospital course, mention meds given and route, prescriptions, significant lab abnormalities, going to OR and other pertinent info. @ -Discharge. 39-year-old male presenting with concerns for hyperglycemia. Patient is notably hyperglycemic on arrival with a glucose of 388. Hyponatremic with a sodium of 132, additionally acetone is positive with positive glucose and ketones within the urine. There is no concern for DKA as patient's anion gap is normal at 12 and not acidotic with a bicarb of 24. He is provided with a 1500 mL liter bolus in addition to IV insulin. He is provided additional dose of insulin and IV fluids and subcu insulin with a glucose of 203. Recommend that patient continue oral metformin as prescribed and follow-up as scheduled next we ek with primary care provider for further evaluation. Return parameters discussed. Case discussed with Dr. Fernandez Undiagnosed new problem with uncertain prognosis? @ -No Drug Therapy requiring intensive monitoring for toxicity (Heparin, Nitro, Insulin, Cardizem)? @ -No Were any procedures done? @ -No Diagnosis/symptom? @ -Hyperglycemia Acute, or Chronic, or Acute on Chronic? @ -Acute Uncomplicated (without systemic symptoms) or Complicated (systemic symptoms)? @ -Uncomplicated Side effects of treatment? @ -No Exacerbation, Progression, or Severe Exacerbation? @ -No Poses a threat to life or bodily function? How? (Chest pain, USA, IA, pneumonia, PE, COPD, DKA, ARF, appy, cholecystitis, CVA, Diverticulitis, Homicidal, Suicidal, threat to staff... and all critical care pts) @ -No - Lab Data Result diagrams: 01/17/25 10:36 01/17/25 10:36 Lab Results 01/17/25 01/17/25 01/17/25 Range/Units 09:54 10:26 10:36 WBC 5.3 (3.8-10.6) k/uL RBC 4.31 (4.30-5.90) m/uL Hgb 13.9 (13.0-17.5) gm/dL Hct 42.8 (39.0-53.0) % MCV 99.4 D (80.0-100.0) fL MCH 32.2 (25.0-35.0) pg MCHC 32.4 (31.0-37.0) g/dL RDW 12.5 (11.5-15.5) % Plt Count 251 (150-450) k/uL MPV 7.9 Neutrophils % 56 % Lymphocytes % 34 % Monocytes % 4 % Eosinophils % 3 % Basophils % 1 % Neutrophils # 2.9 (1.3-7.7) k/uL Lymphocytes # 1.8 (1.0-4.8) k/uL Monocytes # 0.2 (0-1.0) k/uL Eosinophils # 0.2 (0-0.7) k/uL Basophils # 0.1 (0-0.2) k/uL Sodium (137-145) mmol/L Potassium (3.5-5.1) mmol/L Chloride (98-107) mmol/L Carbon Dioxide (22-30) mmol/L Anion Gap mmol/L BUN (9-20) mg/dL Creatinine (0.66-1.25) mg/dL Est GFR (CKD-EPI)AfAm (>60 ml/min/1.73 sqM) Est GFR (CKD-EPI)NonAf (>60 ml/min/1.73 sqM) Glucose (74-99) mg/dL POC Glucose (mg/dL) 421 H (70-110) mg/dL POC Glu [facility] ID Joe Chavez Calcium (8.4-10.2) mg/dL Magnesium (1.6-2.3) mg/dL Total Bilirubin (0.2-1.3) mg/dL AST (17-59) U/L ALT (4-49) U/L Alkaline Phosphatase (38-126) U/L Total Protein (6.3-8.2) g/dL Albumin (3.5-5.0) g/dL Urine Color Light Yellow Urine Appearance Clear (Clear) Urine pH 5.5 (5.0-8.0) Ur Specific [place] 1.038 H (1.001-1.035) Urine Protein Negative (Negative) Urine Glucose (UA) 4+ H (Negative) Urine Ketones 3+ H (Negative) Urine Blood Negative (Negative) Urine Nitrite Negative (Negative) Urine Bilirubin Negative (Negative) Urine Urobilinogen <2.0 (<2.0) mg/dL Ur Leukocyte Esterase Negative (Negative) Acetone, Qual (Negative) 01/17/25 01/17/25 01/17/25 Range/Units 10:36 12:12 13:17 WBC (3.8-10.6) k/uL RBC (4.30-5.90) m/uL Hgb (13.0-17.5) gm/dL Hct (39.0-53.0) % MCV (80.0-100.0) fL MCH (25.0-35.0) pg MCHC (31.0-37.0) g/dL RDW (11.5-15.5) % Plt Count (150-450) k/uL MPV Neutrophils % % Lymphocytes % % Monocytes % % Eosinophils % % Basophils % % Neutrophils # (1.3-7.7) k/uL Lymphocytes # (1.0-4.8) k/uL Monocytes # (0-1.0) k/uL Eosinophils # (0-0.7) k/uL Basophils # (0-0.2) k/uL Sodium 132 L (137-145) mmol/L Potassium 4.0 (3.5-5.1) mmol/L Chloride 96 L (98-107) mmol/L Carbon Dioxide 24 (22-30) mmol/L Anion Gap 12 mmol/L BUN 6 L (9-20) mg/dL Creatinine 0.60 L (0.66-1.25) mg/dL Est GFR (CKD-EPI)AfAm >90 (>60 ml/min/1.73 sqM) Est GFR (CKD-EPI)NonAf >90 (>60 ml/min/1.73 sqM) Glucose 388 H (74-99) mg/dL POC Glucose (mg/dL) 310 H (70-110) mg/dL POC Glu [facility] ID Fetterly Karma Calcium 9.2 (8.4-10.2) mg/dL Magnesium 1.7 (1.6-2.3) mg/dL Total Bilirubin 0.9 (0.2-1.3) mg/dL AST 58 (17-59) U/L ALT 62 H (4-49) U/L Alkaline Phosphatase 64 (38-126) U/L Total Protein 7.0 (6.3-8.2) g/dL Albumin 4.0 (3.5-5.0) g/dL Urine Color Urine Appearance (Clear) Urine pH (5.0-8.0) Ur Specific [place] (1.001-1.035) Urine Protein (Negative) Urine Glucose (UA) (Negative) Urine Ketones (Negative) Urine Blood (Negative) Urine Nitrite (Negative) Urine Bilirubin (Negative) Urine Urobilinogen (<2.0) mg/dL Ur Leukocyte Esterase (Negative) Acetone, Qual Positive (Negative) 01/17/25 01/17/25 Range/Units 15:32 17:05 WBC (3.8-10.6) k/uL RBC (4.30-5.90) m/uL Hgb (13.0-17.5) gm/dL Hct (39.0-53.0) % MCV (80.0-100.0) fL MCH (25.0-35.0) pg MCHC (31.0-37.0) g/dL RDW (11.5-15.5) % Plt Count (150-450) k/uL MPV Neutrophils % % Lymphocytes % % Monocytes % % Eosinophils % % Basophils % % Neutrophils # (1.3-7.7) k/uL Lymphocytes # (1.0-4.8) k/uL Monocytes # (0-1.0) k/uL Eosinophils # (0-0.7) k/uL Basophils # (0-0.2) k/uL Sodium (137-145) mmol/L Potassium (3.5-5.1) mmol/L Chloride (98-107) mmol/L Carbon Dioxide (22-30) mmol/L Anion Gap mmol/L BUN (9-20) mg/dL Creatinine (0.66-1.25) mg/dL Est GFR (CKD-EPI)AfAm (>60 ml/min/1.73 sqM) Est GFR (CKD-EPI)NonAf (>60 ml/min/1.73 sqM) Glucose (74-99) mg/dL POC Glucose (mg/dL) 256 H 203 H (70-110) mg/dL POC Glu [facility] ID Fetterly Karma Pollock Calcium (8.4-10.2) mg/dL Magnesium (1.6-2.3) mg/dL Total Bilirubin (0.2-1.3) mg/dL AST (17-59) U/L ALT (4-49) U/L Alkaline Phosphatase (38-126) U/L Total Protein (6.3-8.2) g/dL Albumin (3.5-5.0) g/dL Urine Color Urine Appearance (Clear) Urine pH (5.0-8.0) Ur Specific [place] (1.001-1.035) Urine Protein (Negative) Urine Glucose (UA) (Negative) Urine Ketones (Negative) Urine Blood (Negative) Urine Nitrite (Negative) Urine Bilirubin (Negative) Urine Urobilinogen (<2.0) mg/dL Ur Leukocyte Esterase (Negative) Acetone, Qual (Negative) Disposition Clinical Impression: Hyperglycemia Disposition: HOME SELF-CARE Condition: Good Instructions (If sedation given, give patient instructions): Diabetic Hyperglycemia (ED) Additional Instructions: Please return to the Emergency Department if symptoms worsen or any other concerns. Continue to take metformin as prescribed and follow-up with your primary care provider next week. Is patient prescribed a controlled substance at d/c from ED?: No Referrals: Jennifer Scanlon MD [Primary Care Provider] - 1-2 days Time of Disposition: 17:07
[2025-01-17 11:18] LABS: Ketones,Urine 3+ (Negative)
[2025-01-17] MEDS: SODIUM CHLORIDE 0.9% 1,500 ML IV STA (11:43)
[2025-01-17] MEDS: INSULIN REGULAR 100 UNIT/ML VIAL (IV) IV ONE ×2 (12:19→13:58)
[2025-01-17 13:19] LABS: Glucose,Whole Blood 310 mg/dL (70-110)
[2025-01-17 15:37] LABS: Glucose,Whole Blood 256 mg/dL (70-110)
[2025-01-17] MEDS: SODIUM CHLORIDE 0.9% 500 ML 500 ML IV STA (15:56)
[2025-01-17] MEDS: INSULIN LISPRO (HumaLOG) 100 UNIT/ML 10 mL VL SQ ONE (15:56)
[2025-01-17 17:07] LABS: Glucose,Whole Blood 203 mg/dL (70-110)
[2025-01-17 18:24] VITALS: BP 154/88; PULSE 92
== END 2025-01-17 18:28 | disposition home or self-care (01) ==
LOC: EC 09:50
DX: E11.65 Type 2 diabetes mellitus with hyperglycemia (principal); I10 Essential (primary) hypertension; F17.200 Nicotine dependence, unspecified, uncomplicated; Z88.5 Allergy status to narcotic agent; Z88.8 Allergy status to other drugs, medicaments and biological substances
CPT/HCPCS: 36415; 80053; 81003; 82009; 83735; 85025; 93005; 96360; 96361; 99285